=== PATIENT | female | born 1950 | race Caucasian/White ===

== ENCOUNTER → 2017-09-09 07:10 | Outpatient (CLI) | payer MEDICARE, OTHER, SELFPAY ==
[2017-09-09 09:28] LABS: Hemoglobin A1C% w Est Avg Glu 6.9 % (4.0-6.0)
[2017-09-09 09:42] LABS: HDL Cholesterol 50 mg/dL (40-60); Triglycerides 465 mg/dL (35-150)
[2017-09-09 09:51] LABS: Cholesterol 318 mg/dL (140-199)
== END ==
PROVIDERS: PCP Family Medicine; Visit Provider Family Medicine
DX: E11.9 Type 2 diabetes mellitus without complications (principal)
CPT/HCPCS: 36415; 80061; 83036

== ENCOUNTER → 2017-10-22 15:32 | Outpatient (CLI) | payer MEDICARE, OTHER, SELFPAY ==
--- NOTE | 2017-10-22 15:35 | DI.RAD.S_ITS ---
PROCEDURE: XR HIP W PEL IF DONE LT MIN 4V INDICATIONS: hip pain TECHNIQUE: AP pelvis with lateral view(s) of the bilateral hip(s). COMPARISON: None. FINDINGS: Bones: No fractures or dislocations. Pelvic ring appears intact. No suspicious bony lesions. Soft tissues: The visualized bowel gas pattern is normal. No suspicious soft tissue calcifications. IMPRESSION: There is symmetric mild to moderate hip joint osteoarthritis, without visualized prior trauma Dictated by: Zeke Piper M.D. on 10/22/2017 at 16:26 Approved by: Zeke Piper M.D. on 10/22/2017 at 16:26
== END ==
PROVIDERS: Family Provider Family Medicine; PCP Family Medicine; Visit Provider Family Medicine
DX: M16.10 Unilateral primary osteoarthritis, unspecified hip (principal); M25.559 Pain in unspecified hip
CPT/HCPCS: 73522

== ENCOUNTER → 2017-12-20 09:22 | Outpatient (CLI) | payer MEDICARE, OTHER, SELFPAY ==
[2017-12-20 10:14] LABS: Hemoglobin A1C% w Est Avg Glu 7.3 % (4.0-6.0)
[2017-12-20 10:18] LABS: Cholesterol 231 mg/dL (140-199); HDL Cholesterol 46 mg/dL (40-60); LDL Cholesterol Calculated 143 mg/dL (<100); Triglycerides 208 mg/dL (35-150)
== END ==
PROVIDERS: PCP Family Medicine; Visit Provider Family Medicine
DX: E11.9 Type 2 diabetes mellitus without complications (principal); E78.00 Pure hypercholesterolemia, unspecified
CPT/HCPCS: 36415; 80061; 83036

== ENCOUNTER 2018-01-09 08:15 | Outpatient (RCR) | payer MEDICARE, OTHER, SELFPAY ==
--- NOTE | 2017-12-03 12:27 | PT.OIE ---
Current Diagnoses Pain in left hip (12/03/17) Past Medical History (Last Reviewed 12/03/17 @ 09:21 by Noe Christopher, PT, DC) CTS (carpal tunnel syndrome) (Chronic) Diverticular disease (Chronic 2016) Foot pain (Chronic 2015) Hayfever (Chronic 1956) Osteoporosis (Chronic 2015) Cataract (Resolved 2009) Measles (Resolved 1963) Mumps (Resolved 1960) Past Surgical History (Last Updated 08/28/17 @ 16:12 by Zenaida Tanner) Anesthesia (Resolved) History of cataract removal with insertion of prosthetic lens (Resolved 2012) History of hysterectomy (Resolved 1976) Status post arthroscopy (Resolved 2010) Status post rotator cuff repair (Resolved 1998) Status post tubal ligation (Resolved 1974) Provider Visit Care Team Role Provider Type Michela Muñiz MD Attending Provider Physician Family Provider Primary Care Provider Specialty: Family Practice Address: [address] [place] [address] Email: [email or web address] Physical Therapy Initial Evaluation PT-OP-A Visit Information Start: 12/03/17 09:18 Freq: Status: Active Protocol: Document 12/03/17 09:22 EA (Rec: 12/03/17 09:35 EA [id number]) Out-Patient Physical Therapy Visit Information Visit Information Visit Type Initial Evaluation Visit Start Time 08:15 Visit Stop Time 08:50 Total Visit Minutes 35 Visit Number 1 Evaluation Information Evaluation Date 12/03/17 PT-OP-B Current Condition Start: 12/03/17 09:18 Freq: Status: Active Protocol: Document 12/03/17 09:22 EA (Rec: 12/03/17 09:35 EA [id number]) Current Condition History of Current Condition Onset Date August/2017 Current Complaints Bilateral ant/post hip pain R> L History of Current Condition Pt reports current hip condition started gradually since August/2017 with no history of trauma or previous surgery. He noted pain is increasing in the past 3 weeks after long standing position and long distance of walking. Pt denies loss of function and burning sensation to both LE' s X-rays performed two weeks ago and she stated that it was bilateral hip OA. 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 Current Functional Impairments (Reported) Functional Limitations- ADL's Indep Functional Limitations- Mobility/Gait Limited due to increased bilateral hip pain Functional Limitations- Work/School has to rest and sit frequently at work due to pain. PT-OP-C Subjective Start: 12/03/17 09:18 Freq: Status: Active Protocol: Document 12/03/17 09:22 EA (Rec: 12/03/17 09:35 EA [id number]) OP-PT Subjective Patient Comments Patient Comments Pt reports current hip condition started gradually since August/2017 with no history of trauma or previous surgery. He noted pain is increasing in the past 3 weeks after long standing position and long distance of walking and rated pain at rest 1/10 and 5/10 with activity. Pt denies loss of function and burning sensation to both LE.s X-rays performed two weeks ago and she stated that it was a hip OA. Patient Reported Progress Same Patient Questionnaires Lower Extremity Functional Scale LEFS Score 54 LEFS Impairment 20 to 39% Impaired (Score 48- 62) PT-OP-F Manual Assessment Start: 12/03/17 09:18 Freq: Status: Active Protocol: Document 12/03/17 10:47 EA (Rec: 12/03/17 10:51 EA [id number]) Manual Assessments Soft Tissue Assessment Soft Tissue Mobility Assessment Tight boths hip flexors Joint Mobility Assessment Joint Mobility Assessment No joint hypomobility noted PT-OP-G Mobility & Gait Start: 12/03/17 09:18 Freq: Status: Active Protocol: Document 12/03/17 10:47 EA (Rec: 12/03/17 10:51 EA [id number]) OP Gait Assessment Gait Deviations General Gait Pattern Within Normal Limits PT-OP-J Posture/Palpation/Skin Start: 12/03/17 09:18 Freq: Status: Active Protocol: Document 12/03/17 10:47 EA (Rec: 12/03/17 10:51 EA [id number]) Posture Evaluation Position Standing Pelvis Posture Anteriorly Tilted Hip Posture (R) Flexed Palpation Assessment Location One Palpation Location Bilaterl HIP E-rotators, R Paralumbars, Iliopsoas Palpation Findings Tenderness Trigger Point PT-OP-K Range of Motion Start: 12/03/17 09:18 Freq: Status: Active Protocol: Document 12/03/17 09:35 EA (Rec: 12/03/17 09:43 EA [id number]) Hip Goniometric Range of Motion Hip Measured in Degrees Right Flexion w/Knee Flexed 110 Extension 0 Abduction 35 Internal Rotation 30 External Rotation 30 PT-OP-L Special Tests Start: 12/03/17 09:18 Freq: Status: Active Protocol: Document 12/03/17 09:35 EA (Rec: 12/03/17 09:43 EA [id number]) Special Tests Hip Special Tests Scour Test Test Results - Comments not even sensitive Ria's Test Test Results + both Knee Special Tests Louise's Test Test Results + tightness to right Neural Special Tests- Lower Body Femoral Nerve Tension Test Results - PT-OP-M Strength Start: 12/03/17 09:18 Freq: Status: Active Protocol: Document 12/03/17 09:35 EA (Rec: 12/03/17 09:43 EA [id number]) Hip Strength Hip Manual Muscle Testing Left Flexion (L2) 4- Good- Extension (S1) 4+ Good+ Abduction 4 Good Adduction 4 Good External Rotation 4 Good Internal Rotation 4- Good- Right Flexion (L2) 4- Good- Extension (S1) 4+ Good+ Abduction 4 Good Adduction 4 Good External Rotation 4 Good Internal Rotation 4- Good- Knee Strength Knee Manual Muscle Testing Right Reason Not Measured WFL Left Reason Not Measured WFL PT-OP-Q Treatments Start: 12/03/17 09:18 Freq: Status: Active Protocol: Document 12/03/17 09:35 EA (Rec: 12/03/17 09:43 EA [id number]) Self-Care/Home Management Treatment Education Patient Education Home Exercise Program Joint Protection Pain Management Safety PT-OP-T Assessment and Plan Start: 12/03/17 09:18 Freq: Status: Active Protocol: Document 12/03/17 09:35 EA (Rec: 12/03/17 09:43 EA [id number]) Physical Therapy Assessment Rehab Potential Rehabilitation Potential Good Evaluation Complexity Number of Personal Factors/Comorbidities 3 or More Number of Body Systems Impaired 1-2 Clinical Presentation at Evaluation Evolving Impairments Impairments Activity Tolerance Functional Mobility Pain ROM Soft Tissue Mobility Strength Other Concerns Barriers to Rehabilitation None at this time Goals Four Impairment activity tolerance Intermediate Goal (LTG) Patient will report increase activity tolerance in standing to more than 1 hour without increase in pain. Three Impairment Impaired both Hip flexors strength Can Runner Goal (LTG) Patient will increase hip flexors strength to 1/2 level for functional use. LTG Duration 4 wks Two Impairment Impaired hip flexors extensibility Can Runner Goal (LTG) Patient will increase hip flexor and R ITB flexibility to functional range LTG Duration 4 wks One Impairment LEFS impairment scale score of 54/80 Intermediate Goal (LTG) Patient will increase LEFS score to >60 LTG Duration 4 wks Progress Towards Goals Progress Towards Goals Progressing Toward Goals Assessment Summary Assessment Pleasant 67 y/o F patient with a referring diagnosis of bilateral hip pain. Today patient exhibits tightness and weakness to both hip flexors, tender points at right upper gluteals including hip E-rotators, ITB tightness. Patient did not demonstrates any signs of hip OA severity during the tests, however moderately sensitive to KENDRA test. Patient did no show neural involvement during neural tests. Due to hip dysfunction, patient unable to perform tasks at work and home which was not limited prior to onset. In my professional opinion, patient would benefit with skilled PT to address the aforementioned issues. Physical Therapy Plan Frequency and Duration Frequency of Treatment 2x/Week Duration of Treatment 8 Plan of Care Start Date 12/03/17 Plan of Care End Date 01/28/18 Therapeutic Interventions Therapeutic Interventions Home Exercise Program Joint Mobilizations Manual Therapy Patient/Caregiver Education Self-Care/Home Management Soft Tissue Mobilization Therapeutic Activities Therapeutic Exercises Modalities Cold Pack/Ice Massage Electric Stimulation Hot Packs Ultrasound Next Visit Focus/Plan Next Note Type Treatment Note Next Visit Plan Provide HEP, flexibility, hip strengthening
--- NOTE | 2017-12-03 12:29 | PT.OPPOC ---
Current Diagnoses Pain in left hip (12/03/17) Provider Visit Care Team Role Provider Type Michela Muñiz MD Attending Provider Physician Family Provider Primary Care Provider Specialty: Family Practice Address: [address] [place] [address], [facility] Email: [email or web address] Plan Of Care PT-OP-T Assessment and Plan Start: 12/03/17 09:18 Freq: Status: Active Protocol: Document 12/03/17 09:35 EA (Rec: 12/03/17 09:43 EA [id number]) Physical Therapy Assessment Rehab Potential Rehabilitation Potential Good Evaluation Complexity Number of Personal Factors/Comorbidities 3 or More Number of Body Systems Impaired 1-2 Clinical Presentation at Evaluation Evolving Impairments Impairments Activity Tolerance Functional Mobility Pain ROM Soft Tissue Mobility Strength Other Concerns Barriers to Rehabilitation None at this time Goals Four Impairment activity tolerance Wearing Apparel Shaker Goal (LTG) Patient will report increase activity tolerance in standing to more than 1 hour without increase in pain. Three Impairment Impaired both Hip flexors strength Wearing Apparel Shaker Goal (LTG) Patient will increase hip flexors strength to 1/2 level for functional use. LTG Duration 4 wks Two Impairment Impaired hip flexors extensibility Wearing Apparel Shaker Goal (LTG) Patient will increase hip flexor and R ITB flexibility to functional range LTG Duration 4 wks One Impairment LEFS impairment scale score of 54/80 Longterm Goal (LTG) Patient will increase LEFS score to >60 LTG Duration 4 wks Progress Towards Goals Progress Towards Goals Progressing Toward Goals Assessment Summary Assessment Pleasant 67 y/o F patient with a referring diagnosis of bilateral hip pain. Today patient exhibits tightness and weakness to both hip flexors, tender points at right upper gluteals including hip E-rotators, ITB tightness. Patient did not demonstrates any signs of hip OA severity during the tests, however moderately sensitive to KENDRA test. Patient did no show neural involvement during neural tests. Due to hip dysfunction, patient unable to perform tasks at work and home which was not limited prior to onset. In my professional opinion, patient would benefit with skilled PT to address the aforementioned issue. Physical Therapy Plan Frequency and Duration Frequency of Treatment 2x/Week Duration of Treatment 8 Plan of Care Start Date 12/03/17 Plan of Care End Date 01/28/18 Therapeutic Interventions Therapeutic Interventions Home Exercise Program Joint Mobilizations Manual Therapy Patient/Caregiver Education Self-Care/Home Management Soft Tissue Mobilization Therapeutic Activities Therapeutic Exercises Modalities Cold Pack/Ice Massage Electric Stimulation Hot Packs Ultrasound Next Visit Focus/Plan Next Note Type Treatment Note Next Visit Plan Provide HEP, flexibility, hip strengthening Plan of Care Dates Plan of Care Start Date 12/03/17 Plan of Care End Date 01/28/18 Please Sign and Return: I have reviewed this Plan of Care and certify that the skilled therapy services above are required to meet the patient?s needs. Physician Signature Date Printed Name and Credentials Clinical Instructor Signature Printed Name and Credentials
--- NOTE | 2017-12-05 08:44 | PT.OTN ---
Current Diagnoses Pain in left hip (12/05/17) Physical Therapy Treatment Note PT-OP-A Visit Information Start: 12/03/17 09:18 Freq: Status: Active Protocol: Document 12/05/17 07:30 AMB (Rec: 12/05/17 07:36 AMB [id number]) Out-Patient Physical Therapy Visit Information Visit Information Visit Type Treatment Note Visit Start Time 07:30 Visit Stop Time 08:15 Total Visit Minutes 45 Visit Number 2 PT-OP-B Current Condition Start: 12/03/17 09:18 Freq: Status: Active Protocol: Document 12/03/17 09:22 EA (Rec: 12/03/17 09:35 EA [id number]) Current Condition History of Current Condition Onset Date August/2017 Current Complaints Bilateral ant/post hip pain R> L History of Current Condition Pt reports current hip condition started gradually since August/2017 with no history of trauma or previous surgery. He noted pain is increasing in the past 3 weeks after long standing position and long distance of walking. Pt denies loss of function and burning sensation to both LE' s X-rays performed two weeks ago and she stated that it was bilateral hip OA. 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 Current Functional Impairments (Reported) Functional Limitations- ADL's Indep Functional Limitations- Mobility/Gait Limited due to increased bilateral hip pain Functional Limitations- Work/School has to rest and sit frequently at work due to pain. PT-OP-C Subjective Start: 12/03/17 09:18 Freq: Status: Active Protocol: Document 12/05/17 07:30 AMB (Rec: 12/05/17 07:36 AMB [id number]) OP-PT Subjective Patient Comments Patient Comments Pt works at [employer] and extended standing (more than 5-10 minutes) increases her pain bilaterally (worse at the right hip). PT-OP-F Manual Assessment Start: 12/03/17 09:18 Freq: Status: Active Protocol: Document 12/03/17 10:47 EA (Rec: 12/03/17 10:51 EA [id number]) Manual Assessments Soft Tissue Assessment Soft Tissue Mobility Assessment Tight boths hip flexors Joint Mobility Assessment Joint Mobility Assessment No joint hypomobility noted PT-OP-G Mobility & Gait Start: 12/03/17 09:18 Freq: Status: Active Protocol: Document 12/03/17 10:47 EA (Rec: 12/03/17 10:51 EA [id number]) OP Gait Assessment Gait Deviations General Gait Pattern Within Normal Limits PT-OP-J Posture/Palpation/Skin Start: 12/03/17 09:18 Freq: Status: Active Protocol: Document 12/03/17 10:47 EA (Rec: 12/03/17 10:51 EA [id number]) Posture Evaluation Position Standing Pelvis Posture Anteriorly Tilted Hip Posture (R) Flexed Palpation Assessment Location One Palpation Location Bilaterl HIP E-rotators, R Paralumbars, Iliopsoas Palpation Findings Tenderness Trigger Point PT-OP-K Range of Motion Start: 12/03/17 09:18 Freq: Status: Active Protocol: Document 12/03/17 09:35 EA (Rec: 12/03/17 09:43 EA [id number]) Hip Goniometric Range of Motion Hip Measured in Degrees Right Flexion w/Knee Flexed 110 Extension 0 Abduction 35 Internal Rotation 30 External Rotation 30 PT-OP-L Special Tests Start: 12/03/17 09:18 Freq: Status: Active Protocol: Document 12/03/17 09:35 EA (Rec: 12/03/17 09:43 EA [id number]) Special Tests Hip Special Tests Scour Test Test Results - Comments not even sensitive Ria's Test Test Results + both Knee Special Tests Louise's Test Test Results + tightness to right Neural Special Tests- Lower Body Femoral Nerve Tension Test Results - PT-OP-M Strength Start: 12/03/17 09:18 Freq: Status: Active Protocol: Document 12/03/17 09:35 EA (Rec: 12/03/17 09:43 EA [id number]) Hip Strength Hip Manual Muscle Testing Left Flexion (L2) 4- Good- Extension (S1) 4+ Good+ Abduction 4 Good Adduction 4 Good External Rotation 4 Good Internal Rotation 4- Good- Right Flexion (L2) 4- Good- Extension (S1) 4+ Good+ Abduction 4 Good Adduction 4 Good External Rotation 4 Good Internal Rotation 4- Good- Knee Strength Knee Manual Muscle Testing Right Reason Not Measured WFL Left Reason Not Measured WFL PT-OP-Q Treatments Start: 12/03/17 09:18 Freq: Status: Active Protocol: Document 12/05/17 07:30 AMB (Rec: 12/05/17 08:43 AMB [id number]) Cardio Equipment Recumbent Elliptical (Biodex) Duration (Minutes) 5 Resistance 4 Therapeutic Exercises Supine Exercises 2 Supine Exercise Name piriformis stretch Reps/Minutes 30x2 1 Supine Exercise Name SLR Reps/Minutes 2x5 Sidelying Exercises 2 Sidelying Exercise Name IT band stretch Reps/Minutes 30x2 1 Sidelying Exercise Name Straight leg raise Reps/Minutes 2x5 Standing Exercises 1 Standing Exercise Name squats Reps/Minutes 2x10 Therapeutic Activity Therapeutic Activity 1 Name Standing posture Comments vc to avoid genu recurvatum, engage core Manual Therapy Treatment Soft Tissue Mobilization 1 Body Location IT band, hip flexors Mobilization Type Myofascial Release Sustained Pressure Intensity/Depth Moderate Comments bilateral PT-OP-T Assessment and Plan Start: 12/03/17 09:18 Freq: Status: Active Protocol: Document 12/05/17 07:30 AMB (Rec: 12/05/17 08:43 AMB [id number]) Physical Therapy Assessment Assessment Summary Assessment The patient did not have much pain with exercises, but fatigues quickly with hip flexion exercises. Will need follow up with standing posture. L knee meniscus surgery history may impact functional movement. Physical Therapy Plan Next Visit Focus/Plan Next Note Type Treatment Note Next Visit Plan Continue to progress HEP with stretching and strengthening.
--- NOTE | 2017-12-10 10:06 | PT.OTN ---
Current Diagnoses Pain in left hip (12/10/17) Physical Therapy Treatment Note PT-OP-A Visit Information Start: 12/03/17 09:18 Freq: Status: Active Protocol: Document 12/10/17 09:45 EA (Rec: 12/10/17 09:47 EA [id number]) Out-Patient Physical Therapy Visit Information Visit Information Visit Type Treatment Note Visit Start Time 09:00 Visit Stop Time 09:45 Total Visit Minutes 45 Visit Number 3 PT-OP-B Current Condition Start: 12/03/17 09:18 Freq: Status: Active Protocol: Document 12/03/17 09:22 EA (Rec: 12/03/17 09:35 EA [id number]) Current Condition History of Current Condition Onset Date August/2017 Current Complaints Bilateral ant/post hip pain R> L History of Current Condition Pt reports current hip condition started gradually since August/2017 with no history of trauma or previous surgery. He noted pain is increasing in the past 3 weeks after long standing position and long distance of walking. Pt denies loss of function and burning sensation to both LE' s X-rays performed two weeks ago and she stated that it was bilateral hip OA. 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 Current Functional Impairments (Reported) Functional Limitations- ADL's Indep Functional Limitations- Mobility/Gait Limited due to increased bilateral hip pain Functional Limitations- Work/School has to rest and sit frequently at work due to pain. PT-OP-C Subjective Start: 12/03/17:18 Freq: Status: Active Protocol: Document 12/10/17 09:02 EA (Rec: 12/10/17 09:45 EA [id number]) OP-PT Subjective Patient Comments Patient Comments Pt reports last session was ok ; states her low back pain cont. to bother her and right upper post glutes and bilateral lateral thigh. PT-OP-F Manual Assessment Start: 12/03/17 09:18 Freq: Status: Active Protocol: Document 12/03/17 10:47 EA (Rec: 10/02/18 10:51 EA [id number]) Manual Assessments Soft Tissue Assessment Soft Tissue Mobility Assessment Tight boths hip flexors Joint Mobility Assessment Joint Mobility Assessment No joint hypomobility noted PT-OP-G Mobility & Gait Start: 12/03/17 09:18 Freq: Status: Active Protocol: Document 12/03/17 10:47 EA (Rec: 12/03/17 10:51 EA [id number]) OP Gait Assessment Gait Deviations General Gait Pattern Within Normal Limits PT-OP-J Posture/Palpation/Skin Start: 12/03/17 09:18 Freq: Status: Active Protocol: Document 12/03/17 10:47 EA (Rec: 12/03/17 10:51 EA [id number]) Posture Evaluation Position Standing Pelvis Posture Anteriorly Tilted Hip Posture (R) Flexed Palpation Assessment Location One Palpation Location Bilaterl HIP E-rotators, R Paralumbars, Iliopsoas Palpation Findings Tenderness Trigger Point PT-OP-K Range of Motion Start: 12/03/17 09:18 Freq: Status: Active Protocol: Document 12/03/17 09:35 EA (Rec: 12/03/17 09:43 EA [id number]) Hip Goniometric Range of Motion Hip Measured in Degrees Right Flexion w/Knee Flexed 110 Extension 0 Abduction 35 Internal Rotation 30 External Rotation 30 PT-OP-L Special Tests Start: 12/03/17 09:18 Freq: Status: Active Protocol: Document 12/03/17 09:35 EA (Rec: 12/03/17 09:43 EA [id number]) Special Tests Hip Special Tests Scour Test Test Results - Comments not even sensitive Ria's Test Test Results + both Knee Special Tests Louise's Test Test Results + tightness to right Neural Special Tests- Lower Body Femoral Nerve Tension Test Results - PT-OP-M Strength Start: 12/03/17 09:18 Freq: Status: Active Protocol: Document 12/03/17 09:35 EA (Rec: 12/03/17 09:43 EA [id number]) Hip Strength Hip Manual Muscle Testing Left Flexion (L2) 4- Good- Extension (S1) 4+ Good+ Abduction 4 Good Adduction 4 Good External Rotation 4 Good Internal Rotation 4- Good- Right Flexion (L2) 4- Good- Extension (S1) 4+ Good+ Abduction 4 Good Adduction 4 Good External Rotation 4 Good Internal Rotation 4- Good- Knee Strength Knee Manual Muscle Testing Right Reason Not Measured WFL Left Reason Not Measured WFL PT-OP-Q Treatments Start: 12/03/17 09:18 Freq: Status: Active Protocol: Document 12/10/17 09:02 EA (Rec: 12/10/17 09:45 EA [id number]) Cardio Equipment Recumbent Elliptical (Biodex) Duration (Minutes) 5 Resistance 4 Gym Equipment Shuttle Recovery Unilateral Squats Resistance 1 cord Shuttle Recovery Platform Stable Reps/Time x 15 reps Bilateral Squats Resistance 2 cords Reps/Time x 15 reps Therapeutic Exercises Supine Exercises 3 Supine Exercise Name SKTC Reps/Minutes x 2 reps x 15SH 2 Supine Exercise Name piriformis stretch Reps/Minutes 30x2 1 Supine Exercise Name SLR Side bilateral Resistance 2 lbs AW Reps/Minutes 12 x 2 Comments W/ PPT Sidelying Exercises 2 Sidelying Exercise Name IT band stretch Reps/Minutes 30x2 1 Sidelying Exercise Name Straight leg raise Side right Resistance 2lbs AW Reps/Minutes 10 reps Comments not tolerated on left Standing Exercises 2 Standing Exercise Name Side step walk Resistance YTB Reps/Minutes x 4 lines with rails supprt 1 Standing Exercise Name squats Reps/Minutes 2x10 Manual Therapy Treatment Soft Tissue Mobilization 1 Body Location IT band, hip flexors, piriformis Mobilization Type Myofascial Release Sustained Pressure Intensity/Depth Moderate Comments bilateral PT-OP-R Modalities Start: 12/03/17 09:18 Freq: Status: Active Protocol: Document 12/10/17 09:45 EA (Rec: 12/10/17 09:47 EA [id number]) Hot Pack/Cold Pack Treatment Hot Pack Location upper gluteals, Patient Position Supine Patient Tolerance Good PT-OP-T Assessment and Plan Start: 12/03/17 09:18 Freq: Status: Active Protocol: Document 12/10/17 09:02 EA (Rec: 12/10/17 09:45 EA [id number]) Physical Therapy Assessment Assessment Summary Assessment Light headed after standing exercises but tolerated with rest. Mild left knee discomfort with squatting. Physical Therapy Plan Next Visit Focus/Plan Next Note Type Treatment Note Next Visit Plan Continue to progress HEP with stretching and strengthening.
--- NOTE | 2017-12-16 16:31 | PT.OTN ---
Current Diagnoses Pain in left hip (12/16/17) Physical Therapy Treatment Note PT-OP-A Visit Information Start: 12/03/17 09:18 Freq: Status: Active Protocol: Document 12/16/17 07:30 AMB (Rec: 12/16/17 07:38 AMB [id number]) Out-Patient Physical Therapy Visit Information Visit Information Visit Type Treatment Note Visit Start Time 09:00 Visit Stop Time 09:45 Total Visit Minutes 45 Visit Number 4 Evaluation Information Evaluation Date 12/03/17 PT-OP-B Current Condition Start: 12/03/17 09:18 Freq: Status: Active Protocol: Document 12/03/17 09:22 EA (Rec: 12/03/17 09:35 EA [id number]) Current Condition History of Current Condition Onset Date August/2017 Current Complaints Bilateral ant/post hip pain R> L History of Current Condition Pt reports current hip condition started gradually since August/2017 with no history of trauma or previous surgery. He noted pain is increasing in the past 3 weeks after long standing position and long distance of walking. Pt denies loss of function and burning sensation to both LE' s X-rays performed two weeks ago and she stated that it was bilateral hip OA. 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 Current Functional Impairments (Reported) Functional Limitations- ADL's Indep Functional Limitations- Mobility/Gait Limited due to increased bilateral hip pain Functional Limitations- Work/School has to rest and sit frequently at work due to pain. PT-OP-C Subjective Start: 12/03/17 09:18 Freq: Status: Active Protocol: Document 12/16/17 07:30 AMB (Rec: 12/16/17 07:38 AMB [id number]) OP-PT Subjective Patient Comments Patient Comments Pt states pain was about the same, concerned about her heart and shortness of breath which has been increasing for about 2 weeks. PT-OP-F Manual Assessment Start: 12/03/17 09:18 Freq: Status: Active Protocol: Document 12/03/17 10:47 EA (Rec: 12/03/17 10:51 EA [id number]) Manual Assessments Soft Tissue Assessment Soft Tissue Mobility Assessment Tight boths hip flexors Joint Mobility Assessment Joint Mobility Assessment No joint hypomobility noted PT-OP-G Mobility & Gait Start: 12/03/17 09:18 Freq: Status: Active Protocol: Document 12/03/17 10:47 EA (Rec: 12/03/17 10:51 EA [id number]) OP Gait Assessment Gait Deviations General Gait Pattern Within Normal Limits PT-OP-J Posture/Palpation/Skin Start: 12/03/17 09:18 Freq: Status: Active Protocol: Document 12/03/17 10:47 EA (Rec: 12/03/17 10:51 EA [id number]) Posture Evaluation Position Standing Pelvis Posture Anteriorly Tilted Hip Posture (R) Flexed Palpation Assessment Location One Palpation Location Bilaterl HIP E-rotators, R Paralumbars, Iliopsoas Palpation Findings Tenderness Trigger Point PT-OP-K Range of Motion Start: 12/03/17 09:18 Freq: Status: Active Protocol: Document 12/03/17 09:35 EA (Rec: 12/03/17 09:43 EA [id number]) Hip Goniometric Range of Motion Hip Measured in Degrees Right Flexion w/Knee Flexed 110 Extension 0 Abduction 35 Internal Rotation 30 External Rotation 30 PT-OP-L Special Tests Start: 12/03/17 09:18 Freq: Status: Active Protocol: Document 12/03/17 09:35 EA (Rec: 12/03/17 09:43 EA [id number]) Special Tests Hip Special Tests Scour Test Test Results - Comments not even sensitive Ria's Test Test Results + both Knee Special Tests Louise's Test Test Results + tightness to right Neural Special Tests- Lower Body Femoral Nerve Tension Test Results - PT-OP-M Strength Start: 12/03/17 09:18 Freq: Status: Active Protocol: Document 12/03/17 09:35 EA (Rec: 12/03/17 09:43 EA [id number]) Hip Strength Hip Manual Muscle Testing Left Flexion (L2) 4- Good- Extension (S1) 4+ Good+ Abduction 4 Good Adduction 4 Good External Rotation 4 Good Internal Rotation 4- Good- Right Flexion (L2) 4- Good- Extension (S1) 4+ Good+ Abduction 4 Good Adduction 4 Good External Rotation 4 Good Internal Rotation 4- Good- Knee Strength Knee Manual Muscle Testing Right Reason Not Measured WFL Left Reason Not Measured WFL PT-OP-Q Treatments Start: 12/03/17 09:18 Freq: Status: Active Protocol: Document 12/16/17 07:30 AMB (Rec: 12/16/17 11:01 AMB [id number]) Cardio Equipment Recumbent Stepper (Sci-Fit) Duration (Minutes) 6 Resistance 3 Therapeutic Exercises Supine Exercises 3 Supine Exercise Name SKTC Reps/Minutes x 2 reps x 15SH 2 Supine Exercise Name piriformis stretch Reps/Minutes 30x2 1 Supine Exercise Name SLR Side bilateral Resistance 2 lbs AW Reps/Minutes 12 x 2 Comments W/ PPT Sidelying Exercises 2 Sidelying Exercise Name IT band stretch Reps/Minutes 30x2 Therapeutic Activity Therapeutic Activity 3 Name pushing cart Comments Pt pushes cart at work, use body weight, and engage core. 2 Name bed body mechanics Comments rolling over in bed, engaging core, bend knees, use UE support PT-OP-R Modalities Start: 12/03/17 09:18 Freq: Status: Active Protocol: Document 12/10/17 09:45 EA (Rec: 12/10/17 09:47 EA [id number]) Hot Pack/Cold Pack Treatment Hot Pack Location upper gluteals, Patient Position Supine Patient Tolerance Good PT-OP-T Assessment and Plan Start: 12/03/17 09:18 Freq: Status: Active Protocol: Document 12/16/17 07:30 AMB (Rec: 12/16/17 11:01 AMB [id number]) Physical Therapy Assessment Assessment Summary Assessment Pt needs to continue to learn to engage core, needs repetition with body mechanics . Will be seeing a new clipper operator at the end of the month. Physical Therapy Plan Next Visit Focus/Plan Next Note Type Treatment Note Next Visit Plan Progress core stability, body mechanics with bed mobility and standing/working
--- NOTE | 2017-12-19 16:32 | PT.OTN ---
Current Diagnoses Pain in left hip (12/19/17) Physical Therapy Treatment Note PT-OP-A Visit Information Start: 12/03/17 09:18 Freq: Status: Active Protocol: Document 12/19/17 07:30 AMB (Rec: 12/19/17 07:40 AMB [id number]) Out-Patient Physical Therapy Visit Information Visit Information Visit Type Treatment Note Visit Start Time 07:30 Visit Stop Time 08:15 Total Visit Minutes 45 Visit Number 5 PT-OP-B Current Condition Start: 12/03/17 09:18 Freq: Status: Active Protocol: Document 12/03/17 09:22 EA (Rec: 12/03/17 09:35 EA [id number]) Current Condition History of Current Condition Onset Date August/2017 Current Complaints Bilateral ant/post hip pain R> L History of Current Condition Pt reports current hip condition started gradually since August/2017 with no history of trauma or previous surgery. He noted pain is increasing in the past 3 weeks after long standing position and long distance of walking. Pt denies loss of function and burning sensation to both LE' s X-rays performed two weeks ago and she stated that it was bilateral hip OA. 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 Current Functional Impairments (Reported) Functional Limitations- ADL's Indep Functional Limitations- Mobility/Gait Limited due to increased bilateral hip pain Functional Limitations- Work/School has to rest and sit frequently at work due to pain. PT-OP-C Subjective Start: 12/03/17 09:18 Freq: Status: Active Protocol: Document 12/19/17 07:30 AMB (Rec: 12/19/17 07:40 AMB [id number]) OP-PT Subjective Patient Comments Patient Comments Stiffness in back and hips, has been taking it easy because has not been feeling well. Seeing master ocean yacht on Saturday. PT-OP-F Manual Assessment Start: 12/03/17 09:18 Freq: Status: Active Protocol: Document 12/03/17 10:47 EA (Rec: 12/03/17 10:51 EA [id number]) Manual Assessments Soft Tissue Assessment Soft Tissue Mobility Assessment Tight boths hip flexors Joint Mobility Assessment Joint Mobility Assessment No joint hypomobility noted PT-OP-G Mobility & Gait Start: 12/03/17 09:18 Freq: Status: Active Protocol: Document 12/03/17 10:47 EA (Rec: 12/03/17 10:51 EA [id number]) OP Gait Assessment Gait Deviations General Gait Pattern Within Normal Limits PT-OP-J Posture/Palpation/Skin Start: 12/03/17 09:18 Freq: Status: Active Protocol: Document 12/03/17 10:47 EA (Rec: 12/03/17 10:51 EA [id number]) Posture Evaluation Position Standing Pelvis Posture Anteriorly Tilted Hip Posture (R) Flexed Palpation Assessment Location One Palpation Location Bilaterl HIP E-rotators, R Paralumbars, Iliopsoas Palpation Findings Tenderness Trigger Point PT-OP-K Range of Motion Start: 12/03/17 09:18 Freq: Status: Active Protocol: Document 12/03/17 09:35 EA (Rec: 12/03/17 09:43 EA [id number]) Hip Goniometric Range of Motion Hip Measured in Degrees Right Flexion w/Knee Flexed 110 Extension 0 Abduction 35 Internal Rotation 30 External Rotation 30 PT-OP-L Special Tests Start: 12/03/17 09:18 Freq: Status: Active Protocol: Document 12/03/17 09:35 EA (Rec: 12/03/17 09:43 EA [id number]) Special Tests Hip Special Tests Scour Test Test Results - Comments not even sensitive Ria's Test Test Results + both Knee Special Tests Louise's Test Test Results + tightness to right Neural Special Tests- Lower Body Femoral Nerve Tension Test Results - PT-OP-M Strength Start: 12/03/17 09:18 Freq: Status: Active Protocol: Document 12/03/17 09:35 EA (Rec: 12/03/17 09:43 EA [id number]) Hip Strength Hip Manual Muscle Testing Left Flexion (L2) 4- Good- Extension (S1) 4+ Good+ Abduction 4 Good Adduction 4 Good External Rotation 4 Good Internal Rotation 4- Good- Right Flexion (L2) 4- Good- Extension (S1) 4+ Good+ Abduction 4 Good Adduction 4 Good External Rotation 4 Good Internal Rotation 4- Good- Knee Strength Knee Manual Muscle Testing Right Reason Not Measured WFL Left Reason Not Measured WFL PT-OP-Q Treatments Start: 12/03/17 09:18 Freq: Status: Active Protocol: Document 12/19/17 07:30 AMB (Rec: 12/19/17 08:07 AMB [id number]) Cardio Equipment Recumbent Elliptical (Biodex) Duration (Minutes) 5 Resistance 4 Therapeutic Exercises Supine Exercises 3 Supine Exercise Name SKTC Reps/Minutes x 2 reps x 15SH 2 Supine Exercise Name piriformis stretch Reps/Minutes 30x2 1 Supine Exercise Name SLR Side bilateral Resistance 2 lbs AW Reps/Minutes 12 x 2 Comments W/ PPT Sitting Exercises 2 Sitting Exercise Name SKTC 1 Sitting Exercise Name pelvic tilt Standing Exercises 1 Standing Exercise Name squats Reps/Minutes 2x10 PT-OP-R Modalities Start: 12/03/17 09:18 Freq: Status: Active Protocol: Document 12/10/17 09:45 EA (Rec: 12/10/17 09:47 EA [id number]) Hot Pack/Cold Pack Treatment Hot Pack Location upper gluteals, Patient Position Supine Patient Tolerance Good PT-OP-T Assessment and Plan Start: 12/03/17 09:18 Freq: Status: Active Protocol: Document 12/19/17 07:30 AMB (Rec: 12/19/17 12:57 AMB [id number]) Physical Therapy Assessment Assessment Summary Assessment Did not progress pt's exercises today significantly due to her feelings of palpitations and lightheadedness. Her HR and SpO2 remained normal throughout the session. She has been taking it easy and that has been helping her pain . Physical Therapy Plan Next Visit Focus/Plan Next Note Type Treatment Note Next Visit Plan Progress core stability, body mechanics with bed mobility and standing/working
--- NOTE | 2017-12-26 08:17 | PT.OTN ---
Current Diagnoses Pain in left hip (12/26/17) Physical Therapy Treatment Note PT-OP-A Visit Information Start: 12/03/17 09:18 Freq: Status: Active Protocol: Document 12/26/17 07:30 AMB (Rec: 12/26/17 07:37 AMB [id number]) Out-Patient Physical Therapy Visit Information Visit Information Visit Type Treatment Note Visit Start Time 07:30 Visit Stop Time 08:15 Total Visit Minutes 45 Visit Number 6 Evaluation Information Evaluation Date 12/03/17 PT-OP-B Current Condition Start: 12/03/17 09:18 Freq: Status: Active Protocol: Document 12/03/17 09:22 EA (Rec: 12/03/17 09:35 EA [id number]) Current Condition History of Current Condition Onset Date August/2017 Current Complaints Bilateral ant/post hip pain R> L History of Current Condition Pt reports current hip condition started gradually since August/2017 with no history of trauma or previous surgery. He noted pain is increasing in the past 3 weeks after long standing position and long distance of walking. Pt denies loss of function and burning sensation to both LE' s X-rays performed two weeks ago and she stated that it was bilateral hip OA. 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 Current Functional Impairments (Reported) Functional Limitations- ADL's Indep Functional Limitations- Mobility/Gait Limited due to increased bilateral hip pain Functional Limitations- Work/School has to rest and sit frequently at work due to pain. PT-OP-C Subjective Start: 12/03/17 09:18 Freq: Status: Active Protocol: Document 12/26/17 07:30 AMB (Rec: 12/26/17 07:37 AMB [id number]) OP-PT Subjective Patient Comments Patient Comments Hips/ back have been more symptomatic. Pt continues to be concerened regarding shortness of breath. Will see offc spec next week. PT-OP-F Manual Assessment Start: 12/03/17 09:18 Freq: Status: Active Protocol: Document 12/03/17 10:47 EA (Rec: 12/03/17 10:51 EA [id number]) Manual Assessments Soft Tissue Assessment Soft Tissue Mobility Assessment Tight boths hip flexors Joint Mobility Assessment Joint Mobility Assessment No joint hypomobility noted PT-OP-G Mobility & Gait Start: 12/03/17 09:18 Freq: Status: Active Protocol: Document 12/03/17 10:47 EA (Rec: 12/03/17 10:51 EA [id number]) OP Gait Assessment Gait Deviations General Gait Pattern Within Normal Limits PT-OP-J Posture/Palpation/Skin Start: 12/03/17 09:18 Freq: Status: Active Protocol: Document 12/03/17 10:47 EA (Rec: 12/03/17 10:51 EA [id number]) Posture Evaluation Position Standing Pelvis Posture Anteriorly Tilted Hip Posture (R) Flexed Palpation Assessment Location One Palpation Location Bilaterl HIP E-rotators, R Paralumbars, Iliopsoas Palpation Findings Tenderness Trigger Point PT-OP-K Range of Motion Start: 12/03/17 09:18 Freq: Status: Active Protocol: Document 12/03/17 09:35 EA (Rec: 12/03/17 09:43 EA [id number]) Hip Goniometric Range of Motion Hip Measured in Degrees Right Flexion w/Knee Flexed 110 Extension 0 Abduction 35 Internal Rotation 30 External Rotation 30 PT-OP-L Special Tests Start: 12/03/17 09:18 Freq: Status: Active Protocol: Document 12/03/17 09:35 EA (Rec: 12/03/17 09:43 EA [id number]) Special Tests Hip Special Tests Scour Test Test Results - Comments not even sensitive Ria's Test Test Results + both Knee Special Tests Louise's Test Test Results + tightness to right Neural Special Tests- Lower Body Femoral Nerve Tension Test Results - PT-OP-M Strength Start: 12/03/17 09:18 Freq: Status: Active Protocol: Document 12/03/17 09:35 EA (Rec: 12/03/17 09:43 EA [id number]) Hip Strength Hip Manual Muscle Testing Left Flexion (L2) 4- Good- Extension (S1) 4+ Good+ Abduction 4 Good Adduction 4 Good External Rotation 4 Good Internal Rotation 4- Good- Right Flexion (L2) 4- Good- Extension (S1) 4+ Good+ Abduction 4 Good Adduction 4 Good External Rotation 4 Good Internal Rotation 4- Good- Knee Strength Knee Manual Muscle Testing Right Reason Not Measured WFL Left Reason Not Measured WFL PT-OP-Q Treatments Start: 12/03/17 09:18 Freq: Status: Active Protocol: Document 12/26/17 07:30 AMB (Rec: 12/26/17 07:45 AMB [id number]) Cardio Equipment Recumbent Elliptical (Biodex) Duration (Minutes) 5 Resistance 4 Therapeutic Exercises Supine Exercises 4 Supine Exercise Name supine may Comments with TrA Stab 3 Supine Exercise Name SKTC Reps/Minutes x 2 reps x 15SH 2 Supine Exercise Name piriformis stretch Reps/Minutes 30x2 1 Supine Exercise Name SLR Side bilateral Resistance 2 lbs AW Reps/Minutes 12 x 2 Comments W/ PPT Sitting Exercises 2 Sitting Exercise Name SKTC 1 Sitting Exercise Name pelvic tilt Other Exercises 2 Other Exercise Name cat camel 1 Other Exercise Name alona pose Comments with sidebending Manual Therapy Treatment Soft Tissue Mobilization 1 Body Location lumbosacral paraspinals, IT band, hip flexors, piriformis Mobilization Type Myofascial Release Sustained Pressure Intensity/Depth Moderate Comments bilateral PT-OP-R Modalities Start: 12/03/17 09:18 Freq: Status: Active Protocol: Document 12/10/17 09:45 EA (Rec: 12/10/17 09:47 EA [id number]) Hot Pack/Cold Pack Treatment Hot Pack Location upper gluteals, Patient Position Supine Patient Tolerance Good PT-OP-T Assessment and Plan Start: 12/03/17 09:18 Freq: Status: Active Protocol: Document 12/26/17 07:30 AMB (Rec: 12/26/17 08:14 AMB [id number]) Physical Therapy Assessment Assessment Summary Assessment Pt continues to have low back pain with extended standing, she needs to focus on coree stabilization and posture with standing. Physical Therapy Plan Next Visit Focus/Plan Next Note Type Treatment Note Next Visit Plan progress core stabilization, into functional movements.
--- NOTE | 2017-12-30 08:16 | PT.OTN ---
Current Diagnoses Pain in left hip (12/30/17) Physical Therapy Treatment Note PT-OP-A Visit Information Start: 12/03/17 09:18 Freq: Status: Active Protocol: Document 12/30/17 07:30 AMB (Rec: 12/30/17 07:35 AMB [id number]) Out-Patient Physical Therapy Visit Information Visit Information Visit Type Treatment Note Visit Start Time 07:30 Visit Stop Time 08:15 Total Visit Minutes 45 Visit Number 6 PT-OP-B Current Condition Start: 12/03/17 09:18 Freq: Status: Active Protocol: Document 12/03/17 09:22 EA (Rec: 12/03/17 09:35 EA [id number]) Current Condition History of Current Condition Onset Date August/2017 Current Complaints Bilateral ant/post hip pain R> L History of Current Condition Pt reports current hip condition started gradually since August/2017 with no history of trauma or previous surgery. He noted pain is increasing in the past 3 weeks after long standing position and long distance of walking. Pt denies loss of function and burning sensation to both LE' s X-rays performed two weeks ago and she stated that it was bilateral hip OA. 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 Current Functional Impairments (Reported) Functional Limitations- ADL's Indep Functional Limitations- Mobility/Gait Limited due to increased bilateral hip pain Functional Limitations- Work/School has to rest and sit frequently at work due to pain. PT-OP-C Subjective Start: 12/03/17 09:18 Freq: Status: Active Protocol: Document 12/30/17 07:30 AMB (Rec: 12/30/17 07:35 AMB [id number]) OP-PT Subjective Patient Comments Patient Comments Right sided pain has increased over the weekend. Standing/ walking are aggravating. PT-OP-F Manual Assessment Start: 12/03/17 09:18 Freq: Status: Active Protocol: Document 12/03/17 10:47 EA (Rec: 12/03/17 10:51 EA [id number]) Manual Assessments Soft Tissue Assessment Soft Tissue Mobility Assessment Tight boths hip flexors Joint Mobility Assessment Joint Mobility Assessment No joint hypomobility noted PT-OP-G Mobility & Gait Start: 12/03/17 09:18 Freq: Status: Active Protocol: Document 12/03/17 10:47 EA (Rec: 12/03/17 10:51 EA [id number]) OP Gait Assessment Gait Deviations General Gait Pattern Within Normal Limits PT-OP-J Posture/Palpation/Skin Start: 12/03/17 09:18 Freq: Status: Active Protocol: Document 12/03/17 10:47 EA (Rec: 12/03/17 10:51 EA [id number]) Posture Evaluation Position Standing Pelvis Posture Anteriorly Tilted Hip Posture (R) Flexed Palpation Assessment Location One Palpation Location Bilaterl HIP E-rotators, R Paralumbars, Iliopsoas Palpation Findings Tenderness Trigger Point PT-OP-K Range of Motion Start: 12/03/17 09:18 Freq: Status: Active Protocol: Document 12/03/17 09:35 EA (Rec: 12/03/17 09:43 EA [id number]) Hip Goniometric Range of Motion Hip Measured in Degrees Right Flexion w/Knee Flexed 110 Extension 0 Abduction 35 Internal Rotation 30 External Rotation 30 PT-OP-L Special Tests Start: 12/03/17 09:18 Freq: Status: Active Protocol: Document 12/03/17 09:35 EA (Rec: 12/03/17 09:43 EA [id number]) Special Tests Hip Special Tests Scour Test Test Results - Comments not even sensitive Ria's Test Test Results + both Knee Special Tests Louise's Test Test Results + tightness to right Neural Special Tests- Lower Body Femoral Nerve Tension Test Results - PT-OP-M Strength Start: 12/03/17 09:18 Freq: Status: Active Protocol: Document 12/03/17 09:35 EA (Rec: 12/03/17 09:43 EA [id number]) Hip Strength Hip Manual Muscle Testing Left Flexion (L2) 4- Good- Extension (S1) 4+ Good+ Abduction 4 Good Adduction 4 Good External Rotation 4 Good Internal Rotation 4- Good- Right Flexion (L2) 4- Good- Extension (S1) 4+ Good+ Abduction 4 Good Adduction 4 Good External Rotation 4 Good Internal Rotation 4- Good- Knee Strength Knee Manual Muscle Testing Right Reason Not Measured WFL Left Reason Not Measured WFL PT-OP-Q Treatments Start: 12/03/17 09:18 Freq: Status: Active Protocol: Document 12/30/17 07:30 AMB (Rec: 12/30/17 07:37 AMB [id number]) Cardio Equipment Recumbent Elliptical (Biodex) Duration (Minutes) 5 Resistance 4 Therapeutic Exercises Supine Exercises 4 Supine Exercise Name supine may Comments with TrA Stab 3 Supine Exercise Name SKTC Reps/Minutes x 2 reps x 15SH 2 Supine Exercise Name piriformis stretch Reps/Minutes 30x2 1 Supine Exercise Name SLR Side bilateral Resistance 2 lbs AW Reps/Minutes 12 x 2 Comments W/ PPT Sidelying Exercises 1 Sidelying Exercise Name Straight leg raise Side right Resistance 2lbs AW Reps/Minutes 10 reps Comments not tolerated on left Sitting Exercises 2 Sitting Exercise Name SKTC 1 Sitting Exercise Name pelvic tilt Manual Therapy Treatment Soft Tissue Mobilization 1 Body Location lumbosacral paraspinals, IT band, hip flexors, piriformis Mobilization Type Myofascial Release Sustained Pressure Intensity/Depth Moderate Comments bilateral PT-OP-R Modalities Start: 12/03/17 09:18 Freq: Status: Active Protocol: Document 12/10/17 09:45 EA (Rec: 12/10/17 09:47 EA [id number]) Hot Pack/Cold Pack Treatment Hot Pack Location upper gluteals, Patient Position Supine Patient Tolerance Good PT-OP-T Assessment and Plan Start: 12/03/17 09:18 Freq: Status: Active Protocol: Document 12/30/17 07:30 AMB (Rec: 12/30/17 08:14 AMB [id number]) Physical Therapy Assessment Assessment Summary Assessment Pt with more R hamstring pain today, but reduced by end of session. Continue to encourage pt to engage core functionally at work. Physical Therapy Plan Next Visit Focus/Plan Next Note Type Treatment Note Next Visit Plan progress core stabilization, into functional movements.
--- NOTE | 2018-01-02 08:17 | PT.OTN ---
Current Diagnoses Pain in left hip (01/02/18) Physical Therapy Treatment Note PT-OP-A Visit Information Start: 12/03/17 09:18 Freq: Status: Active Protocol: Document 01/02/18 07:30 AMB (Rec: 01/02/18 07:38 AMB [id number]) Out-Patient Physical Therapy Visit Information Visit Information Visit Type Treatment Note Visit Start Time 07:30 Visit Stop Time 08:15 Total Visit Minutes 45 Visit Number 8 PT-OP-B Current Condition Start: 12/03/17 09:18 Freq: Status: Active Protocol: Document 12/03/17 09:22 EA (Rec: 12/03/17 09:35 EA [id number]) Current Condition History of Current Condition Onset Date August/2017 Current Complaints Bilateral ant/post hip pain R> L History of Current Condition Pt reports current hip condition started gradually since August/2017 with no history of trauma or previous surgery. He noted pain is increasing in the past 3 weeks after long standing position and long distance of walking. Pt denies loss of function and burning sensation to both LE' s X-rays performed two weeks ago and she stated that it was bilateral hip OA. 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 Current Functional Impairments (Reported) Functional Limitations- ADL's Indep Functional Limitations- Mobility/Gait Limited due to increased bilateral hip pain Functional Limitations- Work/School has to rest and sit frequently at work due to pain. PT-OP-C Subjective Start: 12/03/17:18 Freq: Status: Active Protocol: Document 01/02/18 07:30 AMB (Rec: 01/02/18 07:38 AMB [id number]) OP-PT Subjective Patient Comments Patient Comments Saw clinical appeals rn and cholesterol is high, so will wait for it to go down and then get a stress test. PT-OP-F Manual Assessment Start: 12/03/17 09:18 Freq: Status: Active Protocol: Document 12/03/17 10:47 EA (Rec: 12/03/17 10:51 EA [id number]) Manual Assessments Soft Tissue Assessment Soft Tissue Mobility Assessment Tight boths hip flexors Joint Mobility Assessment Joint Mobility Assessment No joint hypomobility noted PT-OP-G Mobility & Gait Start: 12/03/17 09:18 Freq: Status: Active Protocol: Document 12/03/17 10:47 EA (Rec: 12/03/17 10:51 EA [id number]) OP Gait Assessment Gait Deviations General Gait Pattern Within Normal Limits PT-OP-J Posture/Palpation/Skin Start: 12/03/17 09:18 Freq: Status: Active Protocol: Document 12/03/17 10:47 EA (Rec: 12/03/17 10:51 EA [id number]) Posture Evaluation Position Standing Pelvis Posture Anteriorly Tilted Hip Posture (R) Flexed Palpation Assessment Location One Palpation Location Bilaterl HIP E-rotators, R Paralumbars, Iliopsoas Palpation Findings Tenderness Trigger Point PT-OP-K Range of Motion Start: 12/03/17 09:18 Freq: Status: Active Protocol: Document 12/03/17 09:35 EA (Rec: 12/03/17 09:43 EA [id number]) Hip Goniometric Range of Motion Hip Measured in Degrees Right Flexion w/Knee Flexed 110 Extension 0 Abduction 35 Internal Rotation 30 External Rotation 30 PT-OP-L Special Tests Start: 12/03/17 09:18 Freq: Status: Active Protocol: Document 12/03/17 09:35 EA (Rec: 12/03/17 09:43 EA [id number]) Special Tests Hip Special Tests Scour Test Test Results - Comments not even sensitive Ria's Test Test Results + both Knee Special Tests Louise's Test Test Results + tightness to right Neural Special Tests- Lower Body Femoral Nerve Tension Test Results - PT-OP-M Strength Start: 12/03/17 09:18 Freq: Status: Active Protocol: Document 12/03/17 09:35 EA (Rec: 12/03/17 09:43 EA [id number]) Hip Strength Hip Manual Muscle Testing Left Flexion (L2) 4- Good- Extension (S1) 4+ Good+ Abduction 4 Good Adduction 4 Good External Rotation 4 Good Internal Rotation 4- Good- Right Flexion (L2) 4- Good- Extension (S1) 4+ Good+ Abduction 4 Good Adduction 4 Good External Rotation 4 Good Internal Rotation 4- Good- Knee Strength Knee Manual Muscle Testing Right Reason Not Measured WFL Left Reason Not Measured WFL PT-OP-Q Treatments Start: 12/03/17 09:18 Freq: Status: Active Protocol: Document 01/02/18 07:30 AMB (Rec: 01/02/18 07:51 AMB [id number]) Cardio Equipment Recumbent Elliptical (BiodEdgar) Duration (Minutes) 5 Resistance 4 Therapeutic Exercises Supine Exercises 4 Supine Exercise Name supine march Equipment Used 1/2 foam roll Comments with TrA Stab 3 Supine Exercise Name SKTC Reps/Minutes x 2 reps x 15SH 2 Supine Exercise Name piriformis stretch Reps/Minutes 30x2 1 Supine Exercise Name SLR Side bilateral Resistance 2 lbs AW Reps/Minutes 12 x 2 Comments W/ PPT Therapeutic Activity Therapeutic Activity 1 Name standing in kitchen mechanics Comments turkey in and out of oven, standing avoiding excessive lumbar lordosis Manual Therapy Treatment Soft Tissue Mobilization 1 Body Location lumbosacral paraspinals, IT band, hip flexors, piriformis Mobilization Type Myofascial Release Sustained Pressure Intensity/Depth Moderate Comments bilateral PT-OP-R Modalities Start: 12/03/17 09:18 Freq: Status: Active Protocol: Document 12/10/17 09:45 EA (Rec: 12/10/17 09:47 EA [id number]) Hot Pack/Cold Pack Treatment Hot Pack Location upper gluteals, Patient Position Supine Patient Tolerance Good PT-OP-T Assessment and Plan Start: 12/03/17 09:18 Freq: Status: Active Protocol: Document 01/02/18 07:30 AMB (Rec: 01/02/18 08:16 AMB [id number]) Physical Therapy Assessment Assessment Summary Assessment Pt feels about 20% improved with PT so far. Difficult to progress as pt feels shortness of breath/ cardiac sx Physical Therapy Plan Next Visit Focus/Plan Next Note Type Treatment Note Next Visit Plan Progress core stabilization as tolerated.
--- NOTE | 2018-01-06 12:50 | PT.OTN ---
Current Diagnoses Pain in left hip (01/06/18) Physical Therapy Treatment Note PT-OP-A Visit Information Start: 12/03/17 09:18 Freq: Status: Active Protocol: Document 01/06/18 07:30 AMB (Rec: 01/06/18 07:35 AMB [id number]) Out-Patient Physical Therapy Visit Information Visit Information Visit Type Treatment Note Visit Start Time 07:30 Visit Stop Time 08:15 Total Visit Minutes 45 Visit Number 9 PT-OP-B Current Condition Start: 12/03/17 09:18 Freq: Status: Active Protocol: Document 12/03/17 09:22 EA (Rec: 12/03/17 09:35 EA [id number]) Current Condition History of Current Condition Onset Date August/2017 Current Complaints Bilateral ant/post hip pain R> L History of Current Condition Pt reports current hip condition started gradually since August/2017 with no history of trauma or previous surgery. He noted pain is increasing in the past 3 weeks after long standing position and long distance of walking. Pt denies loss of function and burning sensation to both LE' s X-rays performed two weeks ago and she stated that it was bilateral hip OA. 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 Current Functional Impairments (Reported) Functional Limitations- ADL's Indep Functional Limitations- Mobility/Gait Limited due to increased bilateral hip pain Functional Limitations- Work/School has to rest and sit frequently at work due to pain. PT-OP-C Subjective Start: 12/03/17 09:18 Freq: Status: Active Protocol: Document 01/06/18 07:30 AMB (Rec: 01/06/18 07:35 AMB [id number]) OP-PT Subjective Patient Comments Patient Comments Noticing more R hip pain today . A lot of sitting as her ex [id number] passed this weekend. PT-OP-F Manual Assessment Start: 12/03/17 09:18 Freq: Status: Active Protocol: Document 12/03/17 10:47 EA (Rec: 12/03/17 10:51 EA [id number]) Manual Assessments Soft Tissue Assessment Soft Tissue Mobility Assessment Tight boths hip flexors Joint Mobility Assessment Joint Mobility Assessment No joint hypomobility noted PT-OP-G Mobility & Gait Start: 12/03/17 09:18 Freq: Status: Active Protocol: Document 12/03/17 10:47 EA (Rec: 12/03/17 10:51 EA [id number]) OP Gait Assessment Gait Deviations General Gait Pattern Within Normal Limits PT-OP-J Posture/Palpation/Skin Start: 12/03/17 09:18 Freq: Status: Active Protocol: Document 12/03/17 10:47 EA (Rec: 12/03/17 10:51 EA [id number]) Posture Evaluation Position Standing Pelvis Posture Anteriorly Tilted Hip Posture (R) Flexed Palpation Assessment Location One Palpation Location Bilaterl HIP E-rotators, R Paralumbars, Iliopsoas Palpation Findings Tenderness Trigger Point PT-OP-K Range of Motion Start: 12/03/17 09:18 Freq: Status: Active Protocol: Document 12/03/17 09:35 EA (Rec: 12/03/17 09:43 EA [id number]) Hip Goniometric Range of Motion Hip Measured in Degrees Right Flexion w/Knee Flexed 110 Extension 0 Abduction 35 Internal Rotation 30 External Rotation 30 PT-OP-L Special Tests Start: 12/03/17 09:18 Freq: Status: Active Protocol: Document 12/03/17 09:35 EA (Rec: 12/03/17 09:43 EA [id number]) Special Tests Hip Special Tests Scour Test Test Results - Comments not even sensitive Ria's Test Test Results + both Knee Special Tests Louise's Test Test Results + tightness to right Neural Special Tests- Lower Body Femoral Nerve Tension Test Results - PT-OP-M Strength Start: 12/03/17 09:18 Freq: Status: Active Protocol: Document 12/03/17 09:35 EA (Rec: 12/03/17 09:43 EA [id number]) Hip Strength Hip Manual Muscle Testing Left Flexion (L2) 4- Good- Extension (S1) 4+ Good+ Abduction 4 Good Adduction 4 Good External Rotation 4 Good Internal Rotation 4- Good- Right Flexion (L2) 4- Good- Extension (S1) 4+ Good+ Abduction 4 Good Adduction 4 Good External Rotation 4 Good Internal Rotation 4- Good- Knee Strength Knee Manual Muscle Testing Right Reason Not Measured WFL Left Reason Not Measured WFL PT-OP-Q Treatments Start: 12/03/17 09:18 Freq: Status: Active Protocol: Document 01/06/18 07:30 AMB (Rec: 01/06/18 07:37 AMB [id number]) Cardio Equipment Recumbent Elliptical (Biodex) Duration (Minutes) 5 Resistance 4 Therapeutic Exercises Supine Exercises 4 Supine Exercise Name supine march Equipment Used 1/2 foam roll Comments with TrA Stab 3 Supine Exercise Name SKTC Reps/Minutes x 2 reps x 15SH 2 Supine Exercise Name piriformis stretch Reps/Minutes 30x2 1 Supine Exercise Name SLR Side bilateral Resistance 2 lbs AW Reps/Minutes 12 x 2 Comments W/ PPT Sitting Exercises 3 Sitting Exercise Name therapy ball Comments pelvic tilt, LAQ, may Manual Therapy Treatment Soft Tissue Mobilization 1 Body Location lumbosacral paraspinals, IT band, hip flexors, piriformis Mobilization Type Myofascial Release Sustained Pressure Intensity/Depth Moderate Comments bilateral PT-OP-R Modalities Start: 12/03/17 09:18 Freq: Status: Active Protocol: Document 12/10/17 09:45 EA (Rec: 12/10/17 09:47 EA [id number]) Hot Pack/Cold Pack Treatment Hot Pack Location upper gluteals, Patient Position Supine Patient Tolerance Good PT-OP-T Assessment and Plan Start: 12/03/17 09:18 Freq: Status: Active Protocol: Document 01/06/18 07:30 AMB (Rec: 01/06/18 11:23 AMB [id number]) Physical Therapy Assessment Assessment Summary Assessment The patient has been focused on her cardiac sx, so her hip and back pain has been secondary lately. She feels that she has improved about 25 % but would like to focus on her cardio appointments for now, and then return later to work on her back hips as necessary. One more appointment to joshlie her treatment. Physical Therapy Plan Next Visit Focus/Plan Next Note Type Discharge Summary Next Visit Plan Pt would like to focus on her cardiac treatment
--- NOTE | 2018-01-09 08:57 | PT.OTN ---
Current Diagnoses Pain in left hip (01/09/18) Physical Therapy Treatment Note PT-OP-A Visit Information Start: 12/03/17 09:18 Freq: Status: Active Protocol: Document 01/09/18 08:45 EA (Rec: 01/09/18 08:57 EA [id number]) Out-Patient Physical Therapy Visit Information Visit Information Visit Start Time 08:15 Visit Stop Time 08:45 Visit Number 10 PT-OP-B Current Condition Start: 12/03/17 09:18 Freq: Status: Active Protocol: Document 12/03/17 09:22 EA (Rec: 12/03/17 09:35 EA [id number]) Current Condition History of Current Condition Onset Date August/2017 Current Complaints Bilateral ant/post hip pain R> L History of Current Condition Pt reports current hip condition started gradually since August/2017 with no history of trauma or previous surgery. He noted pain is increasing in the past 3 weeks after long standing position and long distance of walking. Pt denies loss of function and burning sensation to both LE' s X-rays performed two weeks ago and she stated that it was bilateral hip OA. 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 Current Functional Impairments (Reported) Functional Limitations- ADL's Indep Functional Limitations- Mobility/Gait Limited due to increased bilateral hip pain Functional Limitations- Work/School has to rest and sit frequently at work due to pain. PT-OP-C Subjective Start: 12/03/17 09:18 Freq: Status: Active Protocol: Document 01/09/18 08:45 EA (Rec: 01/09/18 08:57 EA [id number]) OP-PT Subjective Patient Comments Patient Comments Pt reports right hip mostly in the morning after laying down toward affected right hip; states pain disappear as day goes; denies loss of function or abnormal sensation. Overall she feels that she is improved a bit. Pt also reports that she will be having cardiac test tomorrow and that she wanted to discharge from PT so she could focus on other medical issues . Patient Questionnaires Lower Extremity Functional Scale LEFS Score 63 LEFS Impairment 1 to 19% Impaired (Score 63-79 ) PT-OP-F Manual Assessment Start: 12/03/17 09:18 Freq: Status: Active Protocol: Document 12/03/17 10:47 EA (Rec: 12/03/17 10:51 EA [id number]) Manual Assessments Soft Tissue Assessment Soft Tissue Mobility Assessment Tight boths hip flexors Joint Mobility Assessment Joint Mobility Assessment No joint hypomobility noted PT-OP-G Mobility & Gait Start: 12/03/17 09:18 Freq: Status: Active Protocol: Document 12/03/17 10:47 EA (Rec: 12/03/17 10:51 EA [id number]) OP Gait Assessment Gait Deviations General Gait Pattern Within Normal Limits PT-OP-J Posture/Palpation/Skin Start: 12/03/17 09:18 Freq: Status: Active Protocol: Document 12/03/17 10:47 EA (Rec: 12/03/17 10:51 EA [id number]) Posture Evaluation Position Standing Pelvis Posture Anteriorly Tilted Hip Posture (R) Flexed Palpation Assessment Location One Palpation Location Bilaterl HIP E-rotators, R Paralumbars, Iliopsoas Palpation Findings Tenderness Trigger Point PT-OP-K Range of Motion Start: 12/03/17 09:18 Freq: Status: Active Protocol: Document 12/03/17 09:35 EA (Rec: 12/03/17 09:43 EA [id number]) Hip Goniometric Range of Motion Hip Measured in Degrees Right Flexion w/Knee Flexed 110 Extension 0 Abduction 35 Internal Rotation 30 External Rotation 30 PT-OP-L Special Tests Start: 12/03/17 09:18 Freq: Status: Active Protocol: Document 12/03/17 09:35 EA (Rec: 12/03/17 09:43 EA [id number]) Special Tests Hip Special Tests Scour Test Test Results - Comments not even sensitive Ria's Test Test Results + both Knee Special Tests Louise's Test Test Results + tightness to right Neural Special Tests- Lower Body Femoral Nerve Tension Test Results - PT-OP-M Strength Start: 12/03/17 09:18 Freq: Status: Active Protocol: Document 12/03/17 09:35 EA (Rec: 12/03/17 09:43 EA [id number]) Hip Strength Hip Manual Muscle Testing Left Flexion (L2) 4- Good- Extension (S1) 4+ Good+ Abduction 4 Good Adduction 4 Good External Rotation 4 Good Internal Rotation 4- Good- Right Flexion (L2) 4- Good- Extension (S1) 4+ Good+ Abduction 4 Good Adduction 4 Good External Rotation 4 Good Internal Rotation 4- Good- Knee Strength Knee Manual Muscle Testing Right Reason Not Measured WFL Left Reason Not Measured WFL PT-OP-Q Treatments Start: 12/03/17 09:18 Freq: Status: Active Protocol: Document 01/09/18 08:45 EA (Rec: 01/09/18 08:57 EA [id number]) Cardio Equipment Recumbent Elliptical ([employer]) Duration (Minutes) 5 Resistance 4 Therapeutic Exercises Supine Exercises 4 Supine Exercise Name supine march Equipment Used 1/2 foam roll Comments HEP 3 Supine Exercise Name SKTC Reps/Minutes x 2 reps x 15SH 2 Supine Exercise Name piriformis stretch Reps/Minutes 30x2 Comments HEP 1 Supine Exercise Name SLR Side bilateral Resistance 2 lbs AW Reps/Minutes 12 x 2 Comments W/ PPT Sidelying Exercises 2 Sidelying Exercise Name IT band stretch Reps/Minutes 30x2 Comments HEP 1 Sidelying Exercise Name Straight leg raise Side right Resistance 2lbs AW Reps/Minutes 10 reps Comments HEP Sitting Exercises 3 Sitting Exercise Name therapy ball Comments pelvic tilt, LAQ, may: HEP comp Standing Exercises 2 Standing Exercise Name Side step walk Resistance YTB Reps/Minutes x 4 lines with rails supprt Self-Care/Home Management Treatment Education Patient Education Home Exercise Program Joint Protection Pain Management Safety Other Education Discussed importance of regular fitness exercises if clear from cardio assessment. Discussed proper body mechanics for low pain complaint. Discussed proper bed positioning PT-OP-R Modalities Start: 12/03/17 09:18 Freq: Status: Active Protocol: Document 12/10/17 09:45 EA (Rec: 12/10/17 09:47 EA [id number]) Hot Pack/Cold Pack Treatment Hot Pack Location upper gluteals, Patient Position Supine Patient Tolerance Good PT-OP-T Assessment and Plan Start: 12/03/17 09:18 Freq: Status: Active Protocol: Document 01/09/18 08:45 EA (Rec: 01/09/18 08:57 EA [id number]) Physical Therapy Assessment Goals Four Impairment activity tolerance Shelter Goal (LTG) Patient will report increase activity tolerance in standing to more than 1 hour without increase in pain. LTG Duration met Three Impairment Impaired both Hip flexors strength Shelter Goal (LTG) Patient will increase hip flexors strength to 1/2 level for functional use. LTG Duration met Two Impairment Impaired hip flexors extensibility Shelter Goal (LTG) Patient will increase hip flexor and R ITB flexibility to functional range LTG Duration met One Impairment LEFS impairment scale score of 54/80 Sack Filler Goal (LTG) Patient will increase LEFS score to >60 LTG Duration met Assessment Summary Assessment Quick tests performed to both HIP and lumbosacral region and appears negative to any musculoskeletal condition at this time except with right probable posterolat bursitis. I recommended to patient to refrain from any tight jeans and other form of pressure to right side hip. We discussed about discharging to PT today due to improved functional mobility. Physical Therapy Plan Discharge Physical Therapy Discharge Reasons Patient Request Discharge Comments Goals met
== END 2018-05-05 09:18 ==
LOC: PHYS 08:15
PROVIDERS: Family Provider Family Medicine; PCP Family Medicine; Visit Provider Family Medicine
DX: M25.552 Pain in left hip (principal)
CPT/HCPCS: 97110; 97140; 97161; 97530; 97535

== ENCOUNTER → 2018-02-26 07:11 | Outpatient (CLI) | payer MEDICARE, OTHER, SELFPAY ==
[2018-02-26 08:49] LABS: Add Manual Diff / Slide Review NO; Basophils Percent Auto 1.1 % (0-2); Eosinophils Percent Auto 4.9 % (2-4); Hematocrit 40.3 % (36-46); Hemoglobin 13.8 g/dL (12.0-16.0); Lymphocytes Percent Auto 34.7 % (25-40); Mean Corpuscular HGB Conc 34.1 % (30-36); Mean Corpuscular Hemoglobin 31.2 PG (26-34); Mean Corpuscular Volume 91.4 fL (80-100); Monocytes Percent Auto 7.6 % (3-14); Neutrophils Absolute Auto 3200 /uL (1500-7000); Neutrophils Percent Auto 51.7 % (50-75); Platelet Count 223 X10^3/uL (150-400); Red Blood Cell Count 4.41 X10^6/uL (4.0-5.2); Red Cell Distribution Width 12.8 % (11.6-14.8); White Blood Cell Count 6.1 X10^3/uL (4.5-11.0)
[2018-02-26 08:59] LABS: Alanine Aminotransferase 22 IU/L (9-52); Albumin 4.2 g/dL (3.5-5.0); Albumin Globulin Ratio 1.4 (1.0-2.8); Alkaline Phosphatase 53 U/L (38-126); Aspartate Aminotransferase 15 IU/L (14-36); Bilirubin Total 0.5 mg/dL (0.2-1.3); Blood Urea Nitrogen 18 mg/dL (7-17); Calcium 9.6 mg/dL (8.4-10.2); Carbon Dioxide 28 mmol/L (22-32); Chloride 100 mmol/L (98-107); Cholesterol 201 mg/dL (140-199); Estimated Glomerular Filt Rate 55.3 mL/min (>60); Globulin 2.9 g/dL (1.7-4.1); Glucose 212 mg/dL (80-110); HDL Cholesterol 48 mg/dL (40-60); HEMOLYSIS < 15 (0-50); LDL Cholesterol Calculated 105 mg/dL (<100); Potassium 4.6 mmol/L (3.4-5.1); Sodium 138 mmol/L (137-145); Total Protein 7.1 g/dL (6.3-8.2); Triglycerides 241 mg/dL (35-150)
== END ==
PROVIDERS: Family Provider Family Medicine; PCP Family Medicine; Visit Provider Internal Medicine Cardiovascular Disease
DX: R00.2 Palpitations (principal); I10 Essential (primary) hypertension; E78.5 Hyperlipidemia, unspecified; E78.00 Pure hypercholesterolemia, unspecified
CPT/HCPCS: 36415; 80053; 80061; 85025

== ENCOUNTER → 2018-06-03 11:38 | Outpatient (CLI) | payer MEDICARE, OTHER, SELFPAY | PROVIDERS: PCP Family Medicine; Visit Provider Family Medicine | DX: Z12.31 Encounter for screening mammogram for malignant neoplasm of breast (principal) | CPT/HCPCS: 77063; 77067 ==

== ENCOUNTER → 2018-06-06 14:46 | Outpatient (CLI) | payer MEDICARE, OTHER, SELFPAY ==
--- NOTE | 2018-06-06 14:48 | DI.MG.S_ITS ---
BILATERAL DIGITAL SCREENING MAMMOGRAM 3D/2D WITH CAD: 06/06/2018 CLINICAL: Routine screening. Family history of breast cancer. Comparison is made to exams dated: 02/19/2017 mammogram - [facility], 04/09/2012 mammogram, and 07/13/2008 mammogram - [facility]. There are scattered fibroglandular elements in both breasts. Current study was also evaluated with a Computer Aided Detection (CAD) system. There are benign calcifications in both breasts. No significant masses, calcifications, or other findings are seen in either breast. There has been no significant interval change. IMPRESSION: There is no mammographic evidence of malignancy. A 1 year screening mammogram is recommended. This exam was interpreted at Station ID: [id number]. NOTE: For mammograms, a report in lay terms will be sent to the patient. Approximately 15% of breast malignancies will not be visualized mammographically. In the management of a palpable breast mass, a negative mammogram must not discourage biopsy of a clinically suspicious lesion. Electronically Signed By: Curly pedersen/chi:06/06/2018 17:06:30 letter sent: Normal Exam ACR BI-RADS Category 2: Benign Finding(s) 3342F
== END ==
PROVIDERS: PCP Family Medicine; Visit Provider Family Medicine
DX: Z12.31 Encounter for screening mammogram for malignant neoplasm of breast (principal); Z80.3 Family history of malignant neoplasm of breast
CPT/HCPCS: 77063; 77067

== ENCOUNTER → 2018-06-23 08:36 | Outpatient (CLI) | payer MEDICARE, OTHER, SELFPAY ==
[2018-06-23 09:10] LABS: Hemoglobin A1C% w Est Avg Glu 8.4 % (4.0-6.0)
[2018-06-23 10:04] LABS: TSH w/ Reflex to FT4 2.14 uIU/mL (0.47-4.68)
== END ==
PROVIDERS: PCP Family Medicine; Visit Provider Family Medicine
DX: E11.9 Type 2 diabetes mellitus without complications (principal); I10 Essential (primary) hypertension
CPT/HCPCS: 36415; 83036; 84443

== ENCOUNTER → 2018-07-03 10:35 | Outpatient (CLI) | payer MEDICARE, OTHER, SELFPAY ==
[2018-07-03 11:59] LABS: Add Manual Diff / Slide Review NO; Basophils Absolute Auto 100 /uL (0-100); Basophils Percent Auto 0.9 % (0-2); Eosinophils Absolute Auto 300 /uL (0-450); Hematocrit 41.1 % (36-46); Hemoglobin 13.9 g/dL (12.0-16.0); Lymphocytes Absolute Auto 2400 /uL (1100-4500); Lymphocytes Percent Auto 37.5 % (25-40); Mean Corpuscular HGB Conc 33.7 % (30-36); Mean Corpuscular Hemoglobin 30.9 PG (26-34); Mean Corpuscular Volume 91.8 fL (80-100); Monocytes Absolute Auto 500 /uL (0-900); Monocytes Percent Auto 8.3 % (3-14); Neutrophils Absolute Auto 3100 /uL (1500-7000); Neutrophils Percent Auto 48.3 % (50-75); Platelet Count 229 X10^3/uL (150-400); Red Blood Cell Count 4.48 X10^6/uL (4.0-5.2); Red Cell Distribution Width 13.2 % (11.6-14.8); White Blood Cell Count 6.5 X10^3/uL (4.5-11.0)
[2018-07-03 12:23] LABS: Blood Urea Nitrogen 20 mg/dL (7-17); Calcium 9.5 mg/dL (8.4-10.2); Carbon Dioxide 25 mmol/L (22-32); Chloride 101 mmol/L (98-107); Cholesterol 212 mg/dL (140-199); Estimated Glomerular Filt Rate > 60.0 mL/min (>60); Glucose 203 mg/dL (80-110); HDL Cholesterol 44 mg/dL (40-60); HEMOLYSIS < 15 (0-50); LDL Cholesterol Calculated 105 mg/dL (<100); Potassium 4.4 mmol/L (3.4-5.1); Sodium 137 mmol/L (137-145); Triglycerides 314 mg/dL (35-150)
== END ==
PROVIDERS: PCP Family Medicine; Visit Provider Internal Medicine Cardiovascular Disease
DX: I10 Essential (primary) hypertension (principal); E78.5 Hyperlipidemia, unspecified
CPT/HCPCS: 36415; 80048; 80061; 85025

== ENCOUNTER → 2018-09-19 08:38 | Outpatient (CLI) | payer MEDICARE, OTHER, SELFPAY ==
[2018-09-19 09:03] LABS: Hemoglobin A1C% w Est Avg Glu 6.7 % (4.0-6.0)
== END ==
PROVIDERS: PCP Family Medicine; Visit Provider Family Medicine
DX: E11.9 Type 2 diabetes mellitus without complications (principal)
CPT/HCPCS: 36415; 83036

== ENCOUNTER → 2018-11-27 10:32 | Outpatient (CLI) | payer MEDICARE, OTHER, SELFPAY ==
[2018-11-27 11:20] LABS: Add Manual Diff / Slide Review NO; Basophils Absolute Auto 100 /uL (0-100); Basophils Percent Auto 0.9 % (0-2); Eosinophils Absolute Auto 400 /uL (0-450); Eosinophils Percent Auto 5.5 % (2-4); Hematocrit 40.2 % (36-46); Hemoglobin 13.4 g/dL (12.0-16.0); Lymphocytes Absolute Auto 2300 /uL (1100-4500); Mean Corpuscular HGB Conc 33.3 % (30-36); Mean Corpuscular Hemoglobin 30.8 PG (26-34); Mean Corpuscular Volume 92.5 fL (80-100); Monocytes Absolute Auto 700 /uL (0-900); Monocytes Percent Auto 9.4 % (3-14); Neutrophils Absolute Auto 3900 /uL (1500-7000); Neutrophils Percent Auto 53.2 % (50-75); Platelet Count 231 X10^3/uL (150-400); Red Blood Cell Count 4.35 X10^6/uL (4.0-5.2); White Blood Cell Count 7.4 X10^3/uL (4.5-11.0)
[2018-11-27 11:37] LABS: Alanine Aminotransferase 40 IU/L (9-52); Albumin 4.5 g/dL (3.5-5.0); Albumin Globulin Ratio 1.6 (1.0-2.8); Alkaline Phosphatase 54 U/L (38-126); Aspartate Aminotransferase 26 IU/L (14-36); Bilirubin Total 0.6 mg/dL (0.2-1.3); Blood Urea Nitrogen 16 mg/dL (7-17); Calcium 10.2 mg/dL (8.4-10.2); Carbon Dioxide 25 mmol/L (22-32); Chloride 100 mmol/L (98-107); Cholesterol 172 mg/dL (140-199); Estimated Glomerular Filt Rate > 60.0 mL/min (>60); Globulin 2.8 g/dL (1.7-4.1); Glucose 142 mg/dL (80-110); HDL Cholesterol 66 mg/dL (40-60); HEMOLYSIS 19 (0-50); LDL Cholesterol Calculated 56 mg/dL (<100); Lipase 79 U/L (23-300); Sodium 137 mmol/L (137-145); Total Protein 7.3 g/dL (6.3-8.2); Triglycerides 252 mg/dL (35-150)
[2018-11-27 11:41] LABS: Potassium 5.4 mmol/L (3.4-5.1)
== END ==
PROVIDERS: PCP Family Medicine; Visit Provider Family Medicine
DX: R10.11 Right upper quadrant pain (principal); E78.00 Pure hypercholesterolemia, unspecified
CPT/HCPCS: 36415; 80053; 80061; 83690; 85025

== ENCOUNTER → 2018-12-12 10:03 | Outpatient (CLI) | payer MEDICARE, OTHER, SELFPAY ==
[2018-12-14 16:31] LABS: Urea Breath Test >18YRS NOT DETECTED
== END ==
PROVIDERS: PCP Family Medicine; Visit Provider Family Medicine
DX: R10.11 Right upper quadrant pain (principal)
CPT/HCPCS: 83013

== ENCOUNTER → 2019-02-11 10:35 | Outpatient (CLI) | payer MEDICARE, OTHER, SELFPAY ==
[2019-02-11 11:09] LABS: Hemoglobin A1C% w Est Avg Glu 6.9 % (4.0-6.0)
[2019-02-11 11:12] LABS: Add Manual Diff / Slide Review NO; Basophils Absolute Auto 0 /uL (0-100); Basophils Percent Auto 0.8 % (0-2); Eosinophils Absolute Auto 300 /uL (0-450); Hematocrit 39.9 % (36-46); Hemoglobin 13.7 g/dL (12.0-16.0); Lymphocytes Absolute Auto 1600 /uL (1100-4500); Lymphocytes Percent Auto 26.2 % (25-40); Mean Corpuscular HGB Conc 34.3 % (30-36); Mean Corpuscular Hemoglobin 31.2 PG (26-34); Mean Corpuscular Volume 90.9 fL (80-100); Monocytes Absolute Auto 600 /uL (0-900); Neutrophils Absolute Auto 3700 /uL (1500-7000); Platelet Count 244 X10^3/uL (150-400); Red Blood Cell Count 4.39 X10^6/uL (4.0-5.2); Red Cell Distribution Width 13.1 % (11.6-14.8); White Blood Cell Count 6.2 X10^3/uL (4.5-11.0)
[2019-02-11 11:40] LABS: Alanine Aminotransferase 21 IU/L (<35); Albumin 4.4 g/dL (3.5-5.0); Albumin Globulin Ratio 1.7 (1.0-2.8); Alkaline Phosphatase 54 U/L (38-126); Aspartate Aminotransferase 18 IU/L (14-36); BUN Creatinine Ratio 22.5 (6-22); Bilirubin Total 0.4 mg/dL (0.2-1.3); Blood Urea Nitrogen 18 mg/dL (7-17); Calcium 9.8 mg/dL (8.4-10.2); Carbon Dioxide 27 mmol/L (22-32); Chloride 101 mmol/L (98-107); Estimated Glomerular Filt Rate > 60.0 mL/min (>60); Globulin 2.6 g/dL (1.7-4.1); Glucose 138 mg/dL (80-110); HEMOLYSIS < 15 (0-50); Potassium 4.7 mmol/L (3.4-5.1); Sodium 137 mmol/L (137-145)
== END ==
PROVIDERS: PCP Family Medicine; Visit Provider Family Medicine
DX: K52.9 Noninfective gastroenteritis and colitis, unspecified (principal); E11.9 Type 2 diabetes mellitus without complications
CPT/HCPCS: 36415; 80053; 83036; 83516; 85025

== ENCOUNTER → 2019-02-13 09:52 | Outpatient (CLI) | payer MEDICARE, OTHER, SELFPAY ==
[2019-02-19 21:50] LABS: Calprotectin, Stool 51.3 mcg/g
== END ==
PROVIDERS: PCP Family Medicine; Visit Provider Family Medicine
DX: K52.9 Noninfective gastroenteritis and colitis, unspecified (principal)
CPT/HCPCS: 83993

== ENCOUNTER → 2019-03-09 10:52 | Outpatient (CLI) | payer MEDICARE, OTHER, SELFPAY ==
[2019-03-09 12:44] LABS: Clostridium Difficile Tox PCR Negative for C. diff
== END ==
PROVIDERS: PCP Family Medicine; Visit Provider Family Medicine
DX: K52.9 Noninfective gastroenteritis and colitis, unspecified (principal)
CPT/HCPCS: 87045; 87177; 87493; 87899

== ENCOUNTER → 2019-07-21 17:33 | Outpatient (CLI) | payer MEDICARE, OTHER, SELFPAY ==
[2019-07-21 18:06] LABS: Add Manual Diff / Slide Review NO; Basophils Absolute Auto 100 /uL (0-100); Basophils Percent Auto 0.6 % (0-2); Eosinophils Absolute Auto 300 /uL (0-450); Eosinophils Percent Auto 3.9 % (2-4); Hematocrit 38.9 % (36-46); Hemoglobin 13.4 g/dL (12.0-16.0); Lymphocytes Absolute Auto 1900 /uL (1100-4500); Mean Corpuscular HGB Conc 34.3 % (30-36); Mean Corpuscular Hemoglobin 31.1 PG (26-34); Mean Corpuscular Volume 90.7 fL (80-100); Monocytes Absolute Auto 900 /uL (0-900); Monocytes Percent Auto 10.2 % (3-14); Neutrophils Absolute Auto 5600 /uL (1500-7000); Neutrophils Percent Auto 63.3 % (50-75); Platelet Count 249 X10^3/uL (150-400); Red Blood Cell Count 4.29 X10^6/uL (4.0-5.2); Red Cell Distribution Width 13.4 % (11.6-14.8); White Blood Cell Count 8.8 X10^3/uL (4.5-11.0)
[2019-07-21 18:23] LABS: C-Reactive Protein Quant < 0.5 mg/dL (<1.0)
[2019-07-21 18:33] LABS: Erythrocyte Sedimentation Rate 15 MM/HR (0-20)
== END ==
PROVIDERS: PCP Family Medicine; Referring Provider Family Medicine; Visit Provider Family Medicine
DX: H53.8 Other visual disturbances (principal); R51 Headache
CPT/HCPCS: 36415; 85025; 85651; 86140

== ENCOUNTER → 2019-09-03 15:32 | Outpatient (CLI) | payer MEDICARE, OTHER, SELFPAY ==
[2019-09-03 16:32] LABS: Add Manual Diff / Slide Review NO; Basophils Absolute Auto 0 /uL (0-100); Basophils Percent Auto 0.4 % (0-2); Eosinophils Absolute Auto 300 /uL (0-450); Eosinophils Percent Auto 3.7 % (2-4); Hematocrit 38.4 % (36-46); Hemoglobin 13.3 g/dL (12.0-16.0); Lymphocytes Absolute Auto 2900 /uL (1100-4500); Lymphocytes Percent Auto 33.1 % (25-40); Mean Corpuscular HGB Conc 34.7 % (30-36); Mean Corpuscular Hemoglobin 32.6 PG (26-34); Monocytes Absolute Auto 700 /uL (0-900); Monocytes Percent Auto 7.7 % (3-14); Neutrophils Absolute Auto 4900 /uL (1500-7000); Neutrophils Percent Auto 55.1 % (50-75); Platelet Count 231 X10^3/uL (150-400); Red Blood Cell Count 4.08 X10^6/uL (4.0-5.2); Red Cell Distribution Width 15.6 % (11.6-14.8); White Blood Cell Count 8.8 X10^3/uL (4.5-11.0)
[2019-09-03 16:52] LABS: BUN Creatinine Ratio 15.4 (6-22); Blood Urea Nitrogen 18 mg/dL (7-17); Calcium 9.7 mg/dL (8.4-10.2); Carbon Dioxide 22 mmol/L (22-32); Chloride 104 mmol/L (98-107); Cholesterol 160 mg/dL (140-199); Glucose 161 mg/dL (80-110); HDL Cholesterol 48 mg/dL (40-60); HEMOLYSIS < 15 (0-50); LDL Cholesterol Calculated 45 mg/dL (<100); Potassium 4.3 mmol/L (3.4-5.1); Sodium 137 mmol/L (137-145); Triglycerides 337 mg/dL (35-150)
== END ==
PROVIDERS: PCP Family Medicine; Referring Provider Internal Medicine Cardiovascular Disease; Visit Provider Internal Medicine Cardiovascular Disease
DX: I10 Essential (primary) hypertension (principal); E78.5 Hyperlipidemia, unspecified
CPT/HCPCS: 36415; 80048; 80061; 85025

== ENCOUNTER → 2019-09-29 09:19 | Outpatient (CLI) | payer MEDICARE, OTHER, SELFPAY ==
--- NOTE | 2019-09-29 09:20 | DI.MG.S_ITS ---
BILATERAL DIGITAL DIAGNOSTIC MAMMOGRAM 3D/2D: 09/29/2019 CLINICAL: Right breast lump. Comparison is made to exams dated: 06/06/2018 mammogram, 02/19/2017 mammogram - [facility], and 04/09/2012 mammogram - [facility]. There are scattered fibroglandular elements in both breasts. No significant masses, calcifications, or other findings are seen in either breast. Specifically, no finding to correspond to the patient's lower inner quadrant palpable abnormality. IMPRESSION: INCOMPLETE: NEEDS ADDITIONAL IMAGING EVALUATION There is no abnormality seen in the right breast to correspond with the palpable abnormality at 6 o'clock, however, ultrasound is recommended. This was performed immediately following this exam. This exam was interpreted at Station ID: [id number]. NOTE: For mammograms, a report in lay terms will be sent to the patient. Approximately 15% of breast malignancies will not be visualized mammographically. In the management of a palpable breast mass, a negative mammogram must not discourage biopsy of a clinically suspicious lesion. This was performed immediately following this exam. Electronically Signed By: Padmini moody/:09/29/2019 09:58:06 ACR BI-RADS Category 0: Incomplete [id number]
--- NOTE | 2019-09-29 09:20 | DI.US.S_ITS ---
LIMITED ULTRASOUND OF RIGHT BREAST: 09/29/2019 CLINICAL: Palpable right breast lump. Comparison is made to exams dated: 09/29/2019 mammogram, 06/06/2018 mammogram, and 02/19/2017 mammogram - [facility]. Real-time ultrasound of the right breast 5-6 o'clock region was performed. Lebron scale images of the real-time examination were reviewed. No significant abnormalities were seen sonographically in the right breast. Specifically, no finding to correspond to the patient's palpable abnormality. IMPRESSION: NEGATIVE There is no sonographic correlate to the patient's palpable abnormality and no evidence of malignancy. Return to annual mammogram screening schedule is recommended. Findings and recommendations were conveyed to the patient at time of exam. This exam was interpreted at Station ID: [id number]. Electronically Signed By: Padmini moody/:09/29/2019 10:49:22 letter sent: Normal Exam Ultrasound BI-RADS: 1 Negative
== END ==
PROVIDERS: PCP Family Medicine; Referring Provider Family Medicine; Visit Provider Family Medicine
DX: R92.8 Other abnormal and inconclusive findings on diagnostic imaging of breast (principal); N63.15 Unspecified lump in the right breast, overlapping quadrants
CPT/HCPCS: 76642; 77066; G0279

== ENCOUNTER → 2020-04-11 15:11 | Outpatient (CLI) | payer MEDICARE, OTHER, SELFPAY ==
[2020-04-11 16:09] LABS: HEMOLYSIS < 15 (0-50); Potassium 4.4 mmol/L (3.4-5.1)
[2020-04-11 16:10] LABS: Alanine Aminotransferase 22 IU/L (<35); Albumin 4.4 g/dL (3.5-5.0); Albumin Globulin Ratio 1.3 (1.0-2.8); Alkaline Phosphatase 67 U/L (38-126); Aspartate Aminotransferase 22 IU/L (14-36); BUN Creatinine Ratio 19.5 (6-22); Bilirubin Total 0.2 mg/dL (0.2-1.3); Blood Urea Nitrogen 17 mg/dL (7-17); Carbon Dioxide 30 mmol/L (22-32); Chloride 102 mmol/L (98-107); Estimated Glomerular Filt Rate > 60.0 mL/min (>60); Globulin 3.3 g/dL (1.7-4.1); Glucose 148 mg/dL (80-110); Sodium 137 mmol/L (137-145); Total Protein 7.7 g/dL (6.3-8.2)
[2020-04-11 16:54] LABS: Hemoglobin A1C% w Est Avg Glu 7.4 % (4.0-6.0)
[2020-04-11 17:34] LABS: Creatinine Urine Random 107.7 mg/dL
[2020-04-11 17:39] LABS: Microalbumi Creatinin Ratio Ur 20.4 ug/mg CR (<30); Microalbumin Urine Random 2.2 mg/dL (0-1.6)
== END ==
PROVIDERS: PCP Family Medicine; Referring Provider Family Medicine; Visit Provider Family Medicine
DX: E11.9 Type 2 diabetes mellitus without complications (principal)
CPT/HCPCS: 36415; 80053; 82043; 82570; 83036

== ENCOUNTER → 2020-04-15 16:06 | Outpatient (CLI) | payer MEDICARE, OTHER, SELFPAY ==
--- NOTE | 2020-04-15 16:07 | DI.MRI.S_ITS ---
PROCEDURE: MR STROKE Pre- and post-contrast brain MRI, non-contrast brain MR angiogram, pre- and postcontrast neck MR angiogram INDICATIONS: persistent headache, possible TIA TECHNIQUE: Brain: Noncontrast axial T1 spin echo, axial T2 fast spin echo, sagittal and axial FLAIR, coronal T2 fast spin echo, axial gradient echo, axial diffusion and ADC through the brain. After the administration of contrast, axial 3D VIBE of the cranial vasculature and brain. Brain MRA: Non-contrast 3-D time of flight MR angiogram, with multiple sqznsrk-zqsdwqcvh-hwcwyodhgl (MIP) reformats performed. Neck MRA: Axial and sagittal TruFISP through the neck. Coronal dynamic MR angiogram during administration of contrast in the arterial and venous phases, with 3-dimenstional nkxocwt-laukblqqy-btgvnugrpt (MIP) reformats constructed from subtraction images. COMPARISON: None. FINDINGS: Image quality: The neck MRI images are limited by bolus timing, with venous contamination BRAIN: CSF spaces: Ventricles are normal in size and shape. Basal cisterns are patent. No extra-axial fluid collections. Brain: No intracranial bleeds or mass effects. Lebron-white matter interface is normal. Diffusion weighted images show no acute ischemic insults. Brainstem appears normal. Brain parenchymal volume loss can be seen. Chronic small vessel ischemic change is seen. Normal intravascular flow voids are present. No abnormal intracranial enhancement. Skull and face: Calvarial marrow signal is normal. Orbits appear normal. Note is made of bilateral lens replacements. Sinuses: Mild mucosal thickening is seen within the paranasal sinuses. There is mild leftward nasal septal deviation seen. No abnormal fluid is seen within the mastoid air cells. BRAIN MR ANGIOGRAM: Anterior circulation: Intracranial internal carotid arteries are normal in size and enhancement. The flow within the paired anterior cerebral arteries is normal and symmetric, with note made of an accessory anterior cerebral artery, which emerges from the anterior communicating artery. The flow within the middle cerebral arteries is normal and symmetric. The anterior communicating artery is seen. No stenoses, occlusions, or aneurysms. Posterior circulation: The visualized portions of the vertebral arteries demonstrate normal caliber, and join to form a normal appearing basilar artery. The flow within the posterior cerebral arteries is normal and symmetric. No stenoses, occlusions, or aneurysms. NECK MR ANGIOGRAM: Carotids: Great vessels demonstrate a conventional anatomy as they arise from the aortic arch. The origins of the common carotid arteries appear patent. The calibers and courses of both common carotid arteries are normal. The bifurcation regions appear normal bilaterally. The internal carotid arteries demonstrate normal course and caliber. Posterior circulation: The origins of the vertebral arteries appear patent. More superior portions of both vertebral arteries demonstrate normal course and caliber, and join to form a normal appearing basilar artery. Miscellaneous: Subclavian arteries appear patent. Pre-contrast images through the neck show no soft tissue abnormalities. IMPRESSION: BRAIN MRI: No findings of acute or subacute infarction can be seen. Note is made of age-appropriate brain parenchymal volume loss and chronic small vessel ischemic changes. No masses or abnormal enhancement can be seen. BRAIN MR ANGIOGRAM: No significant intracranial arterial abnormality is seen. NECK MR ANGIOGRAM: Within the arteries of the neck, no hemodynamically significant stenosis can be seen. Incidental note is made of: Bilateral lens replacements Mild paranasal sinus disease Mild leftward nasal septal deviation Dictated by: Govind Velez M.D. on 04/15/2020 at 16:47 Approved by: Govind Velez M.D. on 04/15/2020 at 16:52
== END ==
PROVIDERS: PCP Family Medicine; Referring Provider Family Medicine; Visit Provider Family Medicine
DX: G45.9 Transient cerebral ischemic attack, unspecified (principal); I48.0 Paroxysmal atrial fibrillation; R51.9 Headache, unspecified; J32.8 Other chronic sinusitis; J34.2 Deviated nasal septum
CPT/HCPCS: 70548; 70553

== ENCOUNTER → 2020-05-11 13:00 | Outpatient (CLI) | payer MEDICARE, OTHER, SELFPAY ==
[2020-05-11] MEDS: COVID-19 VACC, Ad26(JANSSEN)/PF 0.5 ML IM (13:23)
== END ==
PROVIDERS: PCP Family Medicine; Visit Provider Internal Medicine
DX: Z23 Encounter for immunization (principal)
CPT/HCPCS: 0031A; 91303

== ENCOUNTER → 2020-07-04 11:19 | Outpatient (CLI) | payer MEDICARE, OTHER, SELFPAY ==
[2020-07-04 14:43] LABS: COVID19 -Nasal RAPID Negative (Negative)
== END ==
PROVIDERS: PCP Family Medicine; Visit Provider Student in an Organized Health Care Education/Training Program
DX: Z01.812 Encounter for preprocedural laboratory examination (principal); Z20.822 Contact with and (suspected) exposure to COVID-19
CPT/HCPCS: 87635; C9803

== ENCOUNTER 2020-07-06 10:19 | Day surgery (SDC) | payer MEDICARE, OTHER, SELFPAY ==
--- NOTE | 2020-07-05 17:46 | PM.PREOP ---
Pre-operative Note COVID-19 COVID-19 status: Negative Interval Note History & Physical reviewed/Exam performed by Physician: Yes Changes to H&P: No H&P completed within 30 days and has changed as indicated here:: Fasting glucose was 119. Stopped Eliquis July 01/2021.
--- NOTE | 2020-07-06 08:11 | PM.OP.1 ---
Operative Date/Time/Diagnoses Date of procedure: 07/06/20 Time of procedure: 11:45 Procedure & Clinicians Procedure: Date of service: 07/06/2020 Preoperative diagnoses: 1. Bilateral upper lid dermatochalasis obstructing superior visual field and requiring lifting of her eyelids in order to see. 2. Diabetes without retinopathy. 3. Hypertension Postoperative diagnoses: 1. Bilateral upper lid dermatochalasis Procedure: Bilateral upper blepharoplasty Surgeon: Maggi Gómez MD Complications: None Specimen: None Blood loss: Less than 3 mL Anesthesia: Local infiltration with monitored standby. Anesthesiologist: Evette Marti M.D. Indications: Bilateral upper lids obstructing superior vision causing her to tilt her head back in order to see. She also physically lifts her eyelids up to improve vision. Preoperative external photographs taken and loss of vision to within 2 mm of marginal light reflex. Functional surgery. Glucose was stable before the procedure. She understands the extra risk of surgery during the COVID 19 epidemic and desires to proceed. She has tested negative within 72 hours of surgery for active virus. Procedure: In the preoperative holding area the amount skin and subcutaneous tissue to be removed was marked with indelible ink. The contours were carefully checked for symmetry and planned procedure discussed with the patient. The patient was taken to the operating room. IV sedation was given. Proparacaine drops were placed in both eyes for comfort. Local infiltration of anesthetic 2.5 cc into each upper lid, consisting of 1% xylocaine with epinephrine, normal saline and 1 cc hyluronidase was placed. This was then supplemented with full strength 2% xylocaine with epinephrine, 0.5% bupivacaine, and 1 cc hyalurondase. The face was prepped in an open manner. Attention was placed to the right upper lid. Using the previous fierro a number 15. -Peter blade was used to incise a skin muscle flap. The flap was lifted and removed. Cautery was applied as needed. Contouring of the muscle belly was also performed. Exploration of the nasal and preoperneurotic fat pads were performed removal and contouring with hemostat and scissors as well as cautery were performed. The lid was then closed with running and interrupted 6 0 Vicryl sutures. Same procedure was repeated for the left upper lid. The Betadine was removed. Maxitrol ointment was placed to suture line. She returned to recovery room in stable condition. Instructions for postoperative cold packs were reviewed. Maggi Gómez MD. Same procedure as scheduled: Yes
[2020-07-06 11:20] VITALS: BP 146/71; PULSE 61; RESP 18; TEMP 36.8; O2SAT 96; BMI 30.7
--- NOTE | 2020-07-06 11:26 | SUR.OPER ---
Supine on eye stretcher, head on extension cradle secured with tape. Arms tucked at sides with blanket. Pillow under knees.
[2020-07-06] MEDS: LIDOCAINE 1% W/EPI 3 ML, SODIUM CHLORIDE 0.9% 2 ML, HYALURONIDASE 150 UNIT INJ ×2 (13:11→13:20)
[2020-07-06] MEDS: LIDOCAINE 2% W/EPI INJ 20 ML INJ (13:17)
[2020-07-06] MEDS: BUPIVACAINE 0.5% (PF) VIAL 30 ML INJ (13:18)
[2020-07-06] MEDS: NEOMYCIN/POLY/DEX OPHTH OINT 1 APPLIC EYE-BOTH (13:24)
[2020-07-06 14:00] VITALS: BP 140/59; PULSE 63; RESP 12; TEMP 36.4; O2SAT 96
== END 2020-07-06 14:15 | disposition home or self-care (01) ==
LOC: OR 10:20
PROVIDERS: PCP Family Medicine; Referring Provider Ophthalmology; Visit Provider Ophthalmology
PROC: (CPT 15823; principal; 2020-07-06 11:45)
DX: H02.831 Dermatochalasis of right upper eyelid (principal); H02.834 Dermatochalasis of left upper eyelid; I10 Essential (primary) hypertension; E78.00 Pure hypercholesterolemia, unspecified; R01.1 Cardiac murmur, unspecified; K21.9 Gastro-esophageal reflux disease without esophagitis; E11.9 Type 2 diabetes mellitus without complications; Z79.84 Long term (current) use of oral hypoglycemic drugs
CPT/HCPCS: 15823; J2250; J2704; J3010; J3470

== ENCOUNTER → 2020-07-21 12:04 | Outpatient (CLI) | payer MEDICARE, OTHER, SELFPAY ==
[2020-07-21 13:51] LABS: Add Manual Diff / Slide Review NO; Basophils Absolute Auto 100 /uL (0-100); Basophils Percent Auto 0.7 % (0-2); Eosinophils Absolute Auto 300 /uL (0-450); Eosinophils Percent Auto 3.4 % (2-4); Hematocrit 39.8 % (36-46); Hemoglobin 13.3 g/dL (12.0-16.0); Lymphocytes Absolute Auto 1900 /uL (1100-4500); Lymphocytes Percent Auto 23.4 % (25-40); Mean Corpuscular HGB Conc 33.4 % (30-36); Mean Corpuscular Hemoglobin 32.8 PG (26-34); Mean Corpuscular Volume 98.3 fL (80-100); Monocytes Absolute Auto 600 /uL (0-900); Monocytes Percent Auto 7.7 % (3-14); Neutrophils Absolute Auto 5200 /uL (1500-7000); Neutrophils Percent Auto 64.8 % (50-75); Platelet Count 278 X10^3/uL (150-400); Red Blood Cell Count 4.05 X10^6/uL (4.0-5.2); Red Cell Distribution Width 13.7 % (11.6-14.8); White Blood Cell Count 8.1 X10^3/uL (4.5-11.0)
[2020-07-21 13:52] LABS: Hemoglobin A1C% w Est Avg Glu 6.8 % (4.0-6.0)
[2020-07-21 14:30] LABS: BUN Creatinine Ratio 18.8 (6-22); Blood Urea Nitrogen 15 mg/dL (7-17); Calcium 10.3 mg/dL (8.4-10.2); Carbon Dioxide 23 mmol/L (22-32); Chloride 99 mmol/L (98-107); Cholesterol 277 mg/dL (140-199); Estimated Glomerular Filt Rate > 60.0 mL/min (>60); Glucose 120 mg/dL (80-110); HDL Cholesterol 58 mg/dL (40-60); HEMOLYSIS < 15 (0-50); Potassium 4.6 mmol/L (3.4-5.1); Sodium 134 mmol/L (137-145); Triglycerides 485 mg/dL (35-150)
== END ==
PROVIDERS: PCP Family Medicine; Referring Provider Internal Medicine Cardiovascular Disease; Visit Provider Internal Medicine Cardiovascular Disease
DX: E11.9 Type 2 diabetes mellitus without complications (principal); E78.5 Hyperlipidemia, unspecified; I10 Essential (primary) hypertension; I11.9 Hypertensive heart disease without heart failure
CPT/HCPCS: 36415; 80048; 80061; 83036; 85025

== ENCOUNTER → 2020-07-22 10:25 | Outpatient (CLI) | payer MEDICARE, OTHER, SELFPAY ==
--- NOTE | 2020-07-22 10:28 | DI.RAD.S_ITS ---
PROCEDURE: XR KNEE RT 3V INDICATIONS: pain TECHNIQUE: 3 views of the knee were acquired. COMPARISON: None. FINDINGS: Bones: No fractures or dislocations. No suspicious bony lesions. Mild osteoarthritic degenerative changes noted in all 3 knee compartments. Soft tissues: No joint effusion. No suspicious soft tissue calcifications. IMPRESSION: Mild tricompartmental osteoarthritis. Dictated by: Donita Cruz MD, PhD on 07/22/2020 at 17:07 Approved by: Donita Cruz MD, PhD on 07/22/2020 at 17:08
--- NOTE | 2020-07-22 10:28 | DI.RAD.S_ITS ---
PROCEDURE: XR KNEE LT 3V INDICATIONS: pain TECHNIQUE: 3 views of the knee were acquired. COMPARISON: None. FINDINGS: Bones: No fractures or dislocations. No suspicious bony lesions. Mild osteoarthritic degenerative changes noted in all 3 knee compartments. Soft tissues: No joint effusion. No suspicious soft tissue calcifications. IMPRESSION: Mild tricompartmental osteoarthritis. Dictated by: Donita Cruz MD, PhD on 07/22/2020 at 17:08 Approved by: Donita Cruz MD, PhD on 07/22/2020 at 17:08
== END ==
PROVIDERS: PCP Family Medicine; Referring Provider Family Medicine; Visit Provider Family Medicine
DX: M25.562 Pain in left knee (principal); M25.561 Pain in right knee; M17.0 Bilateral primary osteoarthritis of knee
CPT/HCPCS: 73562

== ENCOUNTER → 2020-09-29 08:21 | Outpatient (CLI) | payer MEDICARE, OTHER, SELFPAY ==
--- NOTE | 2020-09-29 | DI.MG.S_ITS ---
BILATERAL DIGITAL SCREENING MAMMOGRAM 3D/2D WITH CAD: 09/29/2020 CLINICAL: Routine screening. Family history of breast cancer. Comparison is made to exams dated: 09/29/2019 mammogram, 06/06/2018 mammogram, and 02/19/2017 mammogram - [facility]. There are scattered fibroglandular elements in both breasts. Current study was also evaluated with a Computer Aided Detection (CAD) system. No significant masses, calcifications, or other findings are seen in either breast. There has been no significant interval change. IMPRESSION: NEGATIVE There is no mammographic evidence of malignancy. A 1 year screening mammogram is recommended. This exam was interpreted at Station ID: [id number]. NOTE: For mammograms, a report in lay terms will be sent to the patient. Approximately 15% of breast malignancies will not be visualized mammographically. In the management of a palpable breast mass, a negative mammogram must not discourage biopsy of a clinically suspicious lesion. Electronically Signed By: Parker spencer/cih:09/29/2020 08:47:48 letter sent: Normal Exam ACR BI-RADS Category 1: Negative [id number]
== END ==
PROVIDERS: PCP Family Medicine; Referring Provider Family Medicine; Visit Provider Family Medicine
DX: Z12.31 Encounter for screening mammogram for malignant neoplasm of breast (principal); Z80.3 Family history of malignant neoplasm of breast
CPT/HCPCS: 77063; 77067

== ENCOUNTER 2020-10-14 13:30 | Outpatient (RCR) | payer MEDICARE, OTHER, SELFPAY ==
--- NOTE | 2020-08-25 16:00 | PT.OIE ---
Current Diagnoses Pain in right knee (08/25/20) Pain in left knee (08/25/20) Past Medical History (Last Reviewed 11/27/18 @ 18:17 by Finn Mcdowell MD) Cataract (2010) CTS (carpal tunnel syndrome) Diverticular disease (2017) Foot pain (2016) Hayfever (1957) Measles (1964) Mumps (1960) Osteoporosis (2016) Paroxysmal atrial fibrillation Type 2 diabetes mellitus Past Surgical History (Last Reviewed 11/27/18 @ 18:17 by Finn Mcdowell MD) Anesthesia History of cataract removal with insertion of prosthetic lens (2012) History of hysterectomy (1976) Status post arthroscopy (2010) Status post rotator cuff repair (1998) Status post tubal ligation (1974) Visit Care Team Role Provider Type Michela Muñiz MD Attending Provider Physician Primary Care Provider Referring Provider Specialty: Family Practice Address: [address] [place] [address] Email: [email or web address] Physical Therapy Initial Evaluation PT-OP-A Visit Information Start: 08/24/20 15:09 Freq: Status: Active Protocol: Document 08/25/20 13:30 AMB (Rec: 08/26/20 13:28 AMB [id number]) Out-Patient Physical Therapy Visit Information Visit Information Visit Type Initial Evaluation Visit Start Time 13:30 Visit Stop Time 14:15 Total Visit Minutes 45 Visit Number 1 PT-OP-B Current Condition Start: 08/24/20 15:09 Freq: Status: Active Protocol: Document 08/25/20 13:32 AMB (Rec: 08/25/20 13:41 AMB [id number]) Current Condition History of Current Condition Current Complaints R> L knee pain History of Current Condition L knee at night hurts worst at night- deep ache when going to bed, from inner knee to outside of hip. Kneeling and floor transfer is difficult. R knee hurts when moving from sit to stand, going down stairs. PT-OP-C Subjective Start: 08/24/20 15:09 Freq: Status: Active Protocol: Document 08/25/20 13:30 AMB (Rec: 08/26/20 13:28 AMB [id number]) Patient Questionnaires Lower Extremity Functional Scale LEFS Score 53 LEFS Impairment 20 to 39% Impaired (Score 48- 62) OP-PT Pain Assessment Comments Pain Comments 5/10 pain R knee, 4/10 left knee. Left knee radiates across quad into lateral hip, left knee radiates into distal adductors. PT-OP-G Mobility & Gait Start: 08/24/20 15:09 Freq: Status: Active Protocol: Document 08/25/20 13:30 AMB (Rec: 08/26/20 13:28 AMB [id number]) OP Gait Assessment Comments Gait Comments Pt ambulates with good speed and step length without AD, stairs are antalgic ravi going down PT-OP-J Posture/Palpation/Skin Start: 08/24/20 15:09 Freq: Status: Active Protocol: Document 08/25/20 13:30 AMB (Rec: 08/26/20 13:28 AMB [id number]) Palpation Assessment Location One Palpation Location knees Palpation Details tenderness on R knee along medial knee into medial thigh. L knee tenderness at popliteal fossa PT-OP-K Range of Motion Start: 08/24/20 15:09 Freq: Status: Active Protocol: Document 08/25/20 13:30 AMB (Rec: 08/26/20 13:28 AMB [id number]) Hip Goniometric Range of Motion Hip Left Passive Comments No pain recreated with passive ROM through flexion, IR, ER, add, no significant ROM limitations Knee Goniometric Range of Motion Knee Right Patient Position Supine Flexion Passive (degrees) 130 Extension Passive (degrees) 0 Left Patient Position Supine Flexion Active (degrees) 125 Extension Passive (degrees) 0 PT-OP-L Special Tests Start: 08/24/20 15:09 Freq: Status: Active Protocol: Document 08/25/20 13:30 AMB (Rec: 08/26/20 13:28 AMB [id number]) Special Tests Hip Special Tests Scour Test Test Results - Knee Special Tests Tammy Test Test Results - PT-OP-M Strength Start: 08/24/20 15:09 Freq: Status: Active Protocol: Document 08/25/20 13:30 AMB (Rec: 08/26/20 13:28 AMB [id number]) Hip Strength Hip Manual Muscle Testing Right Flexion (L2) 4 Good Extension (S1) 4 Good Left Flexion (L2) 4 Good Extension (S1) 4 Good Comments painful resisted hip flexion Knee Strength Knee Manual Muscle Testing Right Flexion (S2) 4+ Good+ Extension (L3) 4 Good Left Flexion (S2) 4+ Good+ Extension (L3) 4 Good PT-OP-Q Treatments Start: 08/24/20 15:09 Freq: Status: Active Protocol: Document 08/25/20 13:30 AMB (Rec: 08/26/20 13:28 AMB [id number]) Therapeutic Exercises Supine Exercises 4 Supine Exercise Name Adductor stretch Reps/Minutes 30x2 Comments with band 3 Supine Exercise Name Bridge Reps/Minutes 10 Comments vc feel in legs not back PT-OP-T Assessment and Plan Start: 08/24/20 15:09 Freq: Status: Active Protocol: Document 08/25/20 13:30 AMB (Rec: 08/26/20 13:28 AMB [id number]) Physical Therapy Assessment Rehab Potential Rehabilitation Potential Good Evaluation Complexity Number of Personal Factors/Comorbidities 3 or More Number of Body Systems Impaired 4 or More Clinical Presentation at Evaluation Evolving Impairments Impairments Activity Tolerance,Functional Activities,Functional Mobility ,Soft Tissue Mobility,Strength Goals Three Impairment ADLS Short Term Goal (STG) Minal will move from sit to stand without knee pain from a standard height chair. STG Duration 4 weeks Meter And Regulator Shop Supervisor Goal (LTG) Minal will ascend and descend a flight of stairs with reciprocal gait without an increase in knee pain. LTG Duration 8 weeks Two Impairment HEP Short Term Goal (STG) Minal will be independent and consistent with a HEP to strengthen and stretch her bilateral lower extremities. STG Duration 4 weeks One Impairment LE strength Short Term Goal (STG) Minal will improve her knee strength to 4+/5. STG Duration 4 weeks Intermediate Goal (LTG) Minal will improve her LE strength so that she can perform a floor transfer without knee pain. LTG Duration 8 weeks Assessment Summary Assessment Minal attends physical therapy with bilateral knee pain. L knee pain is worse at night and is related to the left hip , whereas R knee is more painful with sit to stand and stairs. Gardening impacts both knees and she has difficulty kneeling. She denies popping, locking and did not show signs of severe OA. Her left hip appears to be related to the left knee, but testing of it did not significantly reproduce her pain. She would benefit from a strengthening and stretching LE program, to address her knee, hip, and adductor dysfunction so she can increase her activity without knee pain. Physical Therapy Plan Frequency and Duration Frequency of Treatment 2x/Week Duration of Treatment 8 weeks Plan of Care Start Date 08/25/20 Plan of Care End Date 10/06/20 Therapeutic Interventions Therapeutic Interventions Gait Training,Home Exercise Program,Manual Therapy, Neuromuscular Re-education, Self-Care/Home Management, Therapeutic Activities, Therapeutic Exercises Modalities Cold Pack/Ice Massage,Electric Stimulation,Hot Packs Next Visit Focus/Plan Next Note Type Treatment Note Next Visit Plan Establish HEP for bilat knees and L hip. L hip is impacting L knee, whereas R knee would benefit from closed chain strengthening as tolerated and manal therapy for R adductor tension.
--- NOTE | 2020-08-25 16:01 | PT.OPPOC ---
Physical, Occupational & Speech Therapy At Current Diagnoses Pain in right knee (08/25/20) Pain in left knee (08/25/20) Visit Care Team Role Provider Type Michela Muñiz MD Attending Provider Physician Primary Care Provider Referring Provider Specialty: Family Practice Address: [address] [place] [address], [id number] Email: [email or web address] Plan Of Care PT-OP-T Assessment and Plan Start: 08/24/20 15:09 Freq: Status: Active Protocol: Document 08/25/20 13:30 AMB (Rec: 08/26/20 13:28 AMB [id number]) Physical Therapy Assessment Rehab Potential Rehabilitation Potential Good Evaluation Complexity Number of Personal Factors/Comorbidities 3 or More Number of Body Systems Impaired 4 or More Clinical Presentation at Evaluation Evolving Impairments Impairments Activity Tolerance,Functional Activities,Functional Mobility ,Soft Tissue Mobility,Strength Goals Three Impairment ADLS Short Term Goal (STG) Minal will move from sit to stand without knee pain from a standard height chair. STG Duration 4 weeks Snf Goal (LTG) Minal will ascend and descend a flight of stairs with reciprocal gait without an increase in knee pain. LTG Duration 8 weeks Two Impairment HEP Short Term Goal (STG) Minal will be independent and consistent with a HEP to strengthen and stretch her bilateral lower extremities. STG Duration 4 weeks One Impairment LE strength Short Term Goal (STG) Minal will improve her knee strength to 4+/5. STG Duration 4 weeks Data Center Manager Goal (LTG) Minal will improve her LE strength so that she can perform a floor transfer without knee pain. LTG Duration 8 weeks Assessment Summary Assessment Minal attends physical therapy with bilateral knee pain. L knee pain is worse at night and is related to the left hip , whereas R knee is more painful with sit to stand and stairs. Gardening impacts both knees and she has difficulty kneeling. She denies popping, locking and did not show signs of severe OA. Her left hip appears to be related to the left knee, but testing of it did not significantly reproduce her pain. She would benefit from a strengthening and stretching LE program, to address her knee, hip, and adductor dysfunction so she can increase her activity without knee pain. Physical Therapy Plan Frequency and Duration Frequency of Treatment 2x/Week Duration of Treatment 8 weeks Plan of Care Start Date 08/25/20 Plan of Care End Date 10/06/20 Therapeutic Interventions Therapeutic Interventions Gait Training,Home Exercise Program,Manual Therapy, Neuromuscular Re-education, Self-Care/Home Management, Therapeutic Activities, Therapeutic Exercises Modalities Cold Pack/Ice Massage,Electric Stimulation,Hot Packs Next Visit Focus/Plan Next Note Type Treatment Note Next Visit Plan Establish HEP for bilat knees and L hip. L hip is impacting L knee, whereas R knee would benefit from closed chain strengthening as tolerated and manual therapy for R adductor tension. Plan of Care Dates Plan of Care Start Date 08/25/20 Plan of Care End Date 10/06/20 Electronically Signed by: Ilda Carrizales, PT 08/26/20 1116 Please Sign and Return: I have reviewed this Plan of Care and certify that the skilled therapy services above are required to meet the patient?s needs. Physician Signature Date Printed Name and Credentials Clinical Instructor Signature Printed Name and Credentials
--- NOTE | 2020-08-29 11:39 | PT.OTN ---
Current Diagnoses Pain in right knee (08/29/20) Pain in left knee (08/29/20) Physical Therapy Treatment Note PT-OP-A Visit Information Start: 08/24/20 15:09 Freq: Status: Active Protocol: Document 08/29/20 10:20 AMB (Rec: 08/29/20 11:39 AMB [email or web address]) Out-Patient Physical Therapy Visit Information Visit Information Visit Type Treatment Note Visit Start Time 08:15 Visit Stop Time 09:00 Total Visit Minutes 45 Visit Number 2 PT-OP-B Current Condition Start: 08/24/20 15:09 Freq: Status: Active Protocol: Document 08/25/20 13:32 AMB (Rec: 08/25/20 13:41 AMB [id number]) Current Condition History of Current Condition Current Complaints R> L knee pain History of Current Condition L knee at night hurts worst at night- deep ache when going to bed, from inner knee to outside of hip. Kneeling and floor transfer is difficult. R knee hurts when moving from sit to stand, going down stairs. PT-OP-C Subjective Start: 08/24/20 15:09 Freq: Status: Active Protocol: Document 08/29/20 10:20 AMB (Rec: 08/29/20 11:39 AMB [id number]) OP-PT Subjective Patient Comments Patient Comments Pt has done the stretches does still feel tension in inner thigh on R. PT-OP-G Mobility & Gait Start: 08/24/20 15:09 Freq: Status: Active Protocol: Document 08/25/20 13:30 AMB (Rec: 08/26/20 13:28 AMB [id number]) OP Gait Assessment Comments Gait Comments Pt ambulates with good speed and step length without AD, stairs are antalgic ravi going down PT-OP-J Posture/Palpation/Skin Start: 08/24/20 15:09 Freq: Status: Active Protocol: Document 08/25/20 13:30 AMB (Rec: 08/26/20 13:28 AMB [id number]) Palpation Assessment Location One Palpation Location knees Palpation Details tenderness on R knee along medial knee into medial thigh. L knee tenderness at popliteal fossa PT-OP-K Range of Motion Start: 08/24/20 15:09 Freq: Status: Active Protocol: Document 08/25/20 13:30 AMB (Rec: 08/26/20 13:28 AMB [id number]) Hip Goniometric Range of Motion Hip Left Passive Comments No pain recreated with passive ROM through flexion, IR, ER, add, no significant ROM limitations Knee Goniometric Range of Motion Knee Right Patient Position Supine Flexion Passive (degrees) 130 Extension Passive (degrees) 0 Left Patient Position Supine Flexion Active (degrees) 125 Extension Passive (degrees) 0 PT-OP-L Special Tests Start: 08/24/20 15:09 Freq: Status: Active Protocol: Document 08/25/20 13:30 AMB (Rec: 08/26/20 13:28 AMB [id number]) Special Tests Hip Special Tests Scour Test Test Results - Knee Special Tests Tammy Test Test Results - PT-OP-M Strength Start: 08/24/20 15:09 Freq: Status: Active Protocol: Document 08/25/20 13:30 AMB (Rec: 08/26/20 13:28 AMB [id number]) Hip Strength Hip Manual Muscle Testing Right Flexion (L2) 4 Good Extension (S1) 4 Good Left Flexion (L2) 4 Good Extension (S1) 4 Good Comments painful resisted hip flexion Knee Strength Knee Manual Muscle Testing Right Flexion (S2) 4+ Good+ Extension (L3) 4 Good Left Flexion (S2) 4+ Good+ Extension (L3) 4 Good PT-OP-Q Treatments Start: 08/24/20 15:09 Freq: Status: Active Protocol: Document 08/29/20 10:20 AMB (Rec: 08/29/20 11:39 AMB [email or web address]) Therapeutic Exercises Supine Exercises 4 Supine Exercise Name Adductor stretch Reps/Minutes 30x2 Comments with band 3 Supine Exercise Name Bridge Reps/Minutes 10 Comments vc feel in legs not back 2 Supine Exercise Name piriformis stretch Reps/Minutes 30x2 Standing Exercises 2 Standing Exercise Name wall squat Reps/Minutes 2x8 Comments wiht #3 band around thighs, vc avoid knees past toes Manual Therapy Treatment Soft Tissue Mobilization 1 Body Location R adductor Mobilization Type Myofascial Release,Sustained Pressure Intensity/Depth Moderate PT-OP-T Assessment and Plan Start: 08/24/20 15:09 Freq: Status: Active Protocol: Document 08/29/20 10:20 AMB (Rec: 08/29/20 11:07 AMB [email or web address]) Physical Therapy Assessment Goals Three Impairment ADLS Short Term Goal (STG) Minal will move from sit to stand without knee pain from a standard height chair. STG Duration 4 weeks Chcf Goal (LTG) Minal will ascend and descend a flight of stairs with reciprocal gait without an increase in knee pain. LTG Duration 8 weeks Two Impairment HEP Short Term Goal (STG) Minal will be independent and consistent with a HEP to strengthen and stretch her bilateral lower extremities. STG Duration 4 weeks One Impairment LE strength Short Term Goal (STG) Minal will improve her knee strength to 4+/5. STG Duration 4 weeks Chcf Goal (LTG) Minal will improve her LE strength so that she can perform a floor transfer without knee pain. LTG Duration 8 weeks Assessment Summary Assessment Minal had more range of motion with hip abd after manual on R adductor. Does feel weak in her right. Physical Therapy Plan Frequency and Duration Frequency of Treatment 2x/Week Duration of Treatment 8 weeks Plan of Care Start Date 08/25/20 Plan of Care End Date 10/06/20 Therapeutic Interventions Therapeutic Interventions Gait Training,Home Exercise Program,Manual Therapy, Neuromuscular Re-education, Self-Care/Home Management, Therapeutic Activities, Therapeutic Exercises Modalities Cold Pack/Ice Massage,Electric Stimulation,Hot Packs Next Visit Focus/Plan Next Note Type Treatment Note Next Visit Plan Establish HEP for bilat knees and L hip. L hip is impacting L knee, whereas R knee would benefit from closed chain strengthening as tolerated and manal therapy for R adductor tension.
--- NOTE | 2020-09-01 10:10 | PT.OTN ---
Current Diagnoses Pain in right knee (09/01/20) Pain in left knee (09/01/20) Physical Therapy Treatment Note PT-OP-A Visit Information Start: 08/24/20 15:09 Freq: Status: Active Protocol: Document 09/01/20 09:00 AMB (Rec: 09/01/20 10:09 AMB [id number]) Out-Patient Physical Therapy Visit Information Visit Information Visit Type Treatment Note Visit Start Time 09:00 Visit Stop Time 09:45 Total Visit Minutes 45 Visit Number 3 PT-OP-B Current Condition Start: 08/24/20 15:09 Freq: Status: Active Protocol: Document 08/25/20 13:32 AMB (Rec: 08/25/20 13:41 AMB [id number]) Current Condition History of Current Condition Current Complaints R> L knee pain History of Current Condition L knee at night hurts worst at night- deep ache when going to bed, from inner knee to outside of hip. Kneeling and floor transfer is difficult. R knee hurts when moving from sit to stand, going down stairs. PT-OP-C Subjective Start: 08/24/20 15:09 Freq: Status: Active Protocol: Document 09/01/20 09:00 AMB (Rec: 09/01/20 10:09 AMB [id number]) OP-PT Subjective Patient Comments Patient Comments Pt was sore in R adductors after last treatment for about a day, overall feeling its loosened up a bit and is better able to stretch now. PT-OP-G Mobility & Gait Start: 08/24/20 15:09 Freq: Status: Active Protocol: Document 08/25/20 13:30 AMB (Rec: 08/26/20 13:28 AMB [id number]) OP Gait Assessment Comments Gait Comments Pt ambulates with good speed and step length without AD, stairs are antalgic ravi going down PT-OP-J Posture/Palpation/Skin Start: 08/24/20 15:09 Freq: Status: Active Protocol: Document 08/25/20 13:30 AMB (Rec: 08/26/20 13:28 AMB [id number]) Palpation Assessment Location One Palpation Location knees Palpation Details tenderness on R knee along medial knee into medial thigh. L knee tenderness at popliteal fossa PT-OP-K Range of Motion Start: 08/24/20 15:09 Freq: Status: Active Protocol: Document 08/25/20 13:30 AMB (Rec: 08/26/20 13:28 AMB [id number]) Hip Goniometric Range of Motion Hip Left Passive Comments No pain recreated with passive ROM through flexion, IR, ER, add, no significant ROM limitations Knee Goniometric Range of Motion Knee Right Patient Position Supine Flexion Passive (degrees) 130 Extension Passive (degrees) 0 Left Patient Position Supine Flexion Active (degrees) 125 Extension Passive (degrees) 0 PT-OP-L Special Tests Start: 08/24/20 15:09 Freq: Status: Active Protocol: Document 08/25/20 13:30 AMB (Rec: 08/26/20 13:28 AMB [id number]) Special Tests Hip Special Tests Scour Test Test Results - Knee Special Tests Tammy Test Test Results - PT-OP-M Strength Start: 08/24/20 15:09 Freq: Status: Active Protocol: Document 08/25/20 13:30 AMB (Rec: 08/26/20 13:28 AMB [id number]) Hip Strength Hip Manual Muscle Testing Right Flexion (L2) 4 Good Extension (S1) 4 Good Left Flexion (L2) 4 Good Extension (S1) 4 Good Comments painful resisted hip flexion Knee Strength Knee Manual Muscle Testing Right Flexion (S2) 4+ Good+ Extension (L3) 4 Good Left Flexion (S2) 4+ Good+ Extension (L3) 4 Good PT-OP-Q Treatments Start: 08/24/20 15:09 Freq: Status: Active Protocol: Document 09/01/20 09:00 AMB (Rec: 09/01/20 10:09 AMB [id number]) Cardio Equipment Recumbent Stepper (Sci-Fit) Duration (Minutes) 5 Resistance 3 Gym Equipment Shuttle Recovery Bilateral Squats Resistance 50# Reps/Time 3x 15 reps Therapeutic Exercises Supine Exercises 4 Supine Exercise Name Adductor stretch Side right Reps/Minutes 30x2 Comments HEP 3 Supine Exercise Name Bridge Reps/Minutes 10 Comments HEP 1 Supine Exercise Name hamstring stretch Reps/Minutes 4x30 Comments with contract relax Sidelying Exercises 1 Sidelying Exercise Name clamshell Side bilateral Resistance #3 t band Reps/Minutes 10 reps Comments HEP Manual Therapy Treatment Soft Tissue Mobilization 1 Body Location R adductor Mobilization Type Myofascial Release,Sustained Pressure Intensity/Depth Moderate PT-OP-T Assessment and Plan Start: 08/24/20 15:09 Freq: Status: Active Protocol: Document 09/01/20 09:00 AMB (Rec: 09/01/20 10:09 AMB [id number]) Physical Therapy Assessment Goals Three Impairment ADLS Short Term Goal (STG) Mnial will move from sit to stand without knee pain from a standard height chair. STG Duration 4 weeks Department Clinician Goal (LTG) Minal will ascend and descend a flight of stairs with reciprocal gait without an increase in knee pain. LTG Duration 8 weeks Two Impairment HEP Short Term Goal (STG) Minal will be independent and consistent with a HEP to strengthen and stretch her bilateral lower extremities. STG Duration 4 weeks One Impairment LE strength Short Term Goal (STG) Minal will improve her knee strength to 4+/5. STG Duration 4 weeks Residential Goal (LTG) Minal will improve her LE strength so that she can perform a floor transfer without knee pain. LTG Duration 8 weeks Assessment Summary Assessment Minal had less tenderness today in R adductor than last visit . Seemed to tolerate strengthening well. So far therapy has mostly focused on R knee pain as that is the worst during the day with activity, L knee is more at night, think likely impacted by L hip. Physical Therapy Plan Frequency and Duration Frequency of Treatment 2x/Week Duration of Treatment 8 weeks Plan of Care Start Date 08/25/20 Plan of Care End Date 10/06/20 Therapeutic Interventions Therapeutic Interventions Gait Training,Home Exercise Program,Manual Therapy, Neuromuscular Re-education, Self-Care/Home Management, Therapeutic Activities, Therapeutic Exercises Modalities Cold Pack/Ice Massage,Electric Stimulation,Hot Packs Next Visit Focus/Plan Next Note Type Treatment Note Next Visit Plan Establish HEP for bilat knees and L hip. L hip is impacting L knee, whereas R knee would benefit from closed chain strengthening as tolerated and manal therapy for R adductor tension.
--- NOTE | 2020-09-07 12:23 | PT.OTN ---
Current Diagnoses Pain in right knee (09/07/20) Pain in left knee (09/07/20) Physical Therapy Treatment Note PT-OP-A Visit Information Start: 08/24/20 15:09 Freq: Status: Active Protocol: Document 09/07/20 10:25 OF (Rec: 09/07/20 12:22 OF [id number]) Out-Patient Physical Therapy Visit Information Visit Information Visit Type Treatment Note Visit Start Time 10:25 Visit Stop Time 11:05 Total Visit Minutes 40 Visit Number 4 PT-OP-B Current Condition Start: 08/24/20 15:09 Freq: Status: Active Protocol: Document 08/25/20 13:32 AMB (Rec: 08/25/20 13:41 AMB [id number]) Current Condition History of Current Condition Current Complaints R> L knee pain History of Current Condition L knee at night hurts worst at night- deep ache when going to bed, from inner knee to outside of hip. Kneeling and floor transfer is difficult. R knee hurts when moving from sit to stand, going down stairs. PT-OP-C Subjective Start: 08/24/20 15:09 Freq: Status: Active Protocol: Document 09/07/20 10:25 OF (Rec: 09/07/20 12:22 OF [id number]) OP-PT Subjective Patient Comments Patient Comments Pt reports occasional knee pain, occasional L hip pain Patient Reported Progress Same OP-PT Pain Assessment Pain Assessment Grid Paper Pain Assessment Grid Completed No: pt rates pain 2/10 today PT-OP-G Mobility & Gait Start: 08/24/20 15:09 Freq: Status: Active Protocol: Document 08/25/20 13:30 AMB (Rec: 08/26/20 13:28 AMB [id number]) OP Gait Assessment Comments Gait Comments Pt ambulates with good speed and step length without AD, stairs are antalgic ravi going down PT-OP-J Posture/Palpation/Skin Start: 08/24/20 15:09 Freq: Status: Active Protocol: Document 08/25/20 13:30 AMB (Rec: 08/26/20 13:28 AMB [id number]) Palpation Assessment Location One Palpation Location knees Palpation Details tenderness on R knee along medial knee into medial thigh. L knee tenderness at popliteal fossa PT-OP-K Range of Motion Start: 08/24/20 15:09 Freq: Status: Active Protocol: Document 08/25/20 13:30 AMB (Rec: 08/26/20 13:28 AMB [id number]) Hip Goniometric Range of Motion Hip Left Passive Comments No pain recreated with passive ROM through flexion, IR, ER, add, no significant ROM limitations Knee Goniometric Range of Motion Knee Right Patient Position Supine Flexion Passive (degrees) 130 Extension Passive (degrees) 0 Left Patient Position Supine Flexion Active (degrees) 125 Extension Passive (degrees) 0 PT-OP-L Special Tests Start: 08/24/20 15:09 Freq: Status: Active Protocol: Document 08/25/20 13:30 AMB (Rec: 08/26/20 13:28 AMB [id number]) Special Tests Hip Special Tests Scour Test Test Results - Knee Special Tests Tammy Test Test Results - PT-OP-M Strength Start: 08/24/20 15:09 Freq: Status: Active Protocol: Document 08/25/20 13:30 AMB (Rec: 08/26/20 13:28 AMB [id number]) Hip Strength Hip Manual Muscle Testing Right Flexion (L2) 4 Good Extension (S1) 4 Good Left Flexion (L2) 4 Good Extension (S1) 4 Good Comments painful resisted hip flexion Knee Strength Knee Manual Muscle Testing Right Flexion (S2) 4+ Good+ Extension (L3) 4 Good Left Flexion (S2) 4+ Good+ Extension (L3) 4 Good PT-OP-Q Treatments Start: 08/24/20 15:09 Freq: Status: Active Protocol: Document 09/07/20 10:25 OF (Rec: 09/07/20 12:22 OF [id number]) Cardio Equipment Recumbent Elliptical (Biodex) Duration (Minutes) 8 Resistance 4 Gym Equipment Shuttle Recovery Bilateral Squats Resistance 50# Reps/Time 3x 15 reps pt states resistance has become too light after 3rd set Therapeutic Exercises Supine Exercises 4 Supine Exercise Name Adductor stretch Side right Reps/Minutes 30x2 Comments HEP 3 Supine Exercise Name Bridge Reps/Minutes 3x10 Comments HEP 2 Supine Exercise Name piriformis stretch Reps/Minutes 30x2 1 Supine Exercise Name hamstring stretch Reps/Minutes 4x30 Comments with contract relax Sitting Exercises 3 Sitting Exercise Name therapy ball Comments pelvic tilt, LAQ, may: HEP comp 2 Sitting Exercise Name SKTC 1 Sitting Exercise Name LAQ Side bilateral Resistance 3# Reps/Minutes 3x10 Comments focus for eccentric quad control Manual Therapy Treatment Soft Tissue Mobilization 1 Body Location R adductor Mobilization Type Myofascial Release,Rolling, Sustained Pressure Intensity/Depth Moderate Body Position Supine Comments pt states is assisting with STM Self-Care/Home Management Treatment Education Patient Education Body Mechanics,Home Exercise Program PT-OP-T Assessment and Plan Start: 08/24/20 15:09 Freq: Status: Active Protocol: Document 09/07/20 10:25 OF (Rec: 09/07/20 12:22 OF [id number]) Physical Therapy Assessment Rehab Potential Rehabilitation Potential Good Evaluation Complexity Number of Personal Factors/Comorbidities 1-2 Number of Body Systems Impaired 1-2 Clinical Presentation at Evaluation Stable Impairments Impairments Activity Tolerance,Gait,Pain, Strength Goals Three Impairment ADLS Short Term Goal (STG) Minal will move from sit to stand without knee pain from a standard height chair. STG Duration 4 weeks Usp Goal (LTG) Minal will ascend and descend a flight of stairs with reciprocal gait without an increase in knee pain. LTG Duration 8 weeks Two Impairment HEP Short Term Goal (STG) Minal will be independent and consistent with a HEP to strengthen and stretch her bilateral lower extremities. STG Duration 4 weeks One Impairment LE strength Short Term Goal (STG) Minal will improve her knee strength to 4+/5. STG Duration 4 weeks Data Migration Lead Goal (LTG) Minal will improve her LE strength so that she can perform a floor transfer without knee pain. LTG Duration 8 weeks Progress Towards Goals Progress Towards Goals Progressing Toward Goals Assessment Summary Assessment pt has good HEP awareness, agreeable to progressing for quad and glute strengthening. Physical Therapy Plan Frequency and Duration Frequency of Treatment 2x/Week Duration of Treatment 8 weeks Plan of Care Start Date 08/25/20 Plan of Care End Date 10/06/20 Next Visit Focus/Plan Next Note Type Treatment Note Next Visit Plan Establish HEP for bilat knees and L hip. L hip is impacting L knee, whereas R knee would benefit from closed chain strengthening as tolerated and manal therapy for R adductor tension. Reassess HEP response after additions of LAQ with weight, increase squat resistance
--- NOTE | 2020-09-13 09:01 | PT.OTN ---
Current Diagnoses Pain in right knee (09/13/20) Pain in left knee (09/13/20) Physical Therapy Treatment Note PT-OP-A Visit Information Start: 08/24/20 15:09 Freq: Status: Active Protocol: Document 09/13/20 08:12 MA (Rec: 09/13/20 09:01 MA [id number]) Out-Patient Physical Therapy Visit Information Visit Information Visit Type Treatment Note Visit Start Time 08:10 Visit Stop Time 08:57 Total Visit Minutes 47 Visit Number 5 Number of [employer]ER Visits 1 PT-OP-B Current Condition Start: 08/24/20 15:09 Freq: Status: Active Protocol: Document 08/25/20 13:32 AMB (Rec: 08/25/20 13:41 AMB [id number]) Current Condition History of Current Condition Current Complaints R> L knee pain History of Current Condition L knee at night hurts worst at night- deep ache when going to bed, from inner knee to outside of hip. Kneeling and floor transfer is difficult. R knee hurts when moving from sit to stand, going down stairs. PT-OP-C Subjective Start: 08/24/20 15:09 Freq: Status: Active Protocol: Document 09/13/20 08:12 MA (Rec: 09/13/20 09:01 MA [id number]) OP-PT Subjective Patient Comments Patient Comments Pt feels her knees always hurt after therapy. She ices them at home before bed or the pain wakes her up PT-OP-G Mobility & Gait Start: 08/24/20 15:09 Freq: Status: Active Protocol: Document 08/25/20 13:30 AMB (Rec: 08/26/20 13:28 AMB [id number]) OP Gait Assessment Comments Gait Comments Pt ambulates with good speed and step length without AD, stairs are antalgic ravi going down PT-OP-J Posture/Palpation/Skin Start: 08/24/20 15:09 Freq: Status: Active Protocol: Document 08/25/20 13:30 AMB (Rec: 08/26/20 13:28 AMB [id number]) Palpation Assessment Location One Palpation Location knees Palpation Details tenderness on R knee along medial knee into medial thigh. L knee tenderness at popliteal fossa PT-OP-K Range of Motion Start: 08/24/20 15:09 Freq: Status: Active Protocol: Document 08/25/20 13:30 AMB (Rec: 08/26/20 13:28 AMB [id number]) Hip Goniometric Range of Motion Hip Left Passive Comments No pain recreated with passive ROM through flexion, IR, ER, add, no significant ROM limitations Knee Goniometric Range of Motion Knee Right Patient Position Supine Flexion Passive (degrees) 130 Extension Passive (degrees) 0 Left Patient Position Supine Flexion Active (degrees) 125 Extension Passive (degrees) 0 PT-OP-L Special Tests Start: 08/24/20 15:09 Freq: Status: Active Protocol: Document 08/25/20 13:30 AMB (Rec: 08/26/20 13:28 AMB [id number]) Special Tests Hip Special Tests Scour Test Test Results - Knee Special Tests Tammy Test Test Results - PT-OP-M Strength Start: 08/24/20 15:09 Freq: Status: Active Protocol: Document 08/25/20 13:30 AMB (Rec: 08/26/20 13:28 AMB [id number]) Hip Strength Hip Manual Muscle Testing Right Flexion (L2) 4 Good Extension (S1) 4 Good Left Flexion (L2) 4 Good Extension (S1) 4 Good Comments painful resisted hip flexion Knee Strength Knee Manual Muscle Testing Right Flexion (S2) 4+ Good+ Extension (L3) 4 Good Left Flexion (S2) 4+ Good+ Extension (L3) 4 Good PT-OP-Q Treatments Start: 08/24/20 15:09 Freq: Status: Active Protocol: Document 09/13/20 08:12 MA (Rec: 09/13/20 09:01 MA [id number]) Cardio Equipment Recumbent Elliptical (Lockbox) Duration (Minutes) 5 Resistance 4 Seat Position 7 Other stopped after 5 due to pain Gym Equipment Shuttle Recovery Unilateral Squats Resistance 37# Shuttle Recovery Platform Stable Reps/Time x10 Bilateral Squats Resistance 50#, 75# Shuttle Recovery Platform Stable Reps/Time 2x10 Therapeutic Exercises Supine Exercises 4 Supine Exercise Name Adductor stretch Side right Reps/Minutes 30x2 Comments HEP 3 Supine Exercise Name Bridge Resistance TB#3 Reps/Minutes 3x10 Comments HEP 2 Supine Exercise Name piriformis stretch Reps/Minutes 30x2 1 Supine Exercise Name hamstring stretch Reps/Minutes 4x30 Comments with contract relax Sidelying Exercises 1 Sidelying Exercise Name clamshell Side bilateral Resistance #3 t band Reps/Minutes 10 reps Comments HEP Standing Exercises Stretch Standing Exercise Name Calf Stretch Side bilateral Equipment Used MOHINDER Reps/Minutes 1' Manual Therapy Treatment Soft Tissue Mobilization 1 Body Location R adductor Mobilization Type Myofascial Release,Rolling, Sustained Pressure Intensity/Depth Moderate Body Position Supine PT-OP-T Assessment and Plan Start: 08/24/20 15:09 Freq: Status: Active Protocol: Document 09/13/20 08:12 MA (Rec: 09/13/20 09:01 MA [id number]) Physical Therapy Assessment Goals Three Impairment ADLS Short Term Goal (STG) Minal will move from sit to stand without knee pain from a standard height chair. STG Duration 4 weeks Md Pediatric Allergist Goal (LTG) Minal will ascend and descend a flight of stairs with reciprocal gait without an increase in knee pain. LTG Duration 8 weeks Two Impairment HEP Short Term Goal (STG) Minal will be independent and consistent with a HEP to strengthen and stretch her bilateral lower extremities. STG Duration 4 weeks One Impairment LE strength Short Term Goal (STG) Minal will improve her knee strength to 4+/5. STG Duration 4 weeks Md Pediatric Allergist Goal (LTG) Minal will improve her LE strength so that she can perform a floor transfer without knee pain. LTG Duration 8 weeks Assessment Summary Assessment Pt has R medial knee pain when on recumbant stepper and during SL squats on leg press. Encouraged pt to try stretching before walks at home due to her increased pain after exercise. She has some relief after STM to R adductors. Physical Therapy Plan Frequency and Duration Frequency of Treatment 2x/Week Duration of Treatment 8 weeks Plan of Care Start Date 08/25/20 Plan of Care End Date 10/06/20 Therapeutic Interventions Therapeutic Interventions Gait Training,Home Exercise Program,Manual Therapy, Neuromuscular Re-education, Self-Care/Home Management, Therapeutic Activities, Therapeutic Exercises Modalities Cold Pack/Ice Massage,Electric Stimulation,Hot Packs Next Visit Focus/Plan Next Note Type Treatment Note Next Visit Plan Establish HEP for bilat knees and L hip. L hip is impacting L knee, whereas R knee would benefit from closed chain strengthening as tolerated and manal therapy for R adductor tension. Reassess HEP response after additions of LAQ with weight, increase squat resistance
--- NOTE | 2020-09-15 15:56 | PT.OTN ---
Current Diagnoses Pain in right knee (09/15/20) Pain in left knee (09/15/20) Physical Therapy Treatment Note PT-OP-A Visit Information Start: 08/24/20 15:09 Freq: Status: Active Protocol: Document 09/15/20 07:30 AMB (Rec: 09/16/20 15:55 AMB [id number]) Out-Patient Physical Therapy Visit Information Visit Information Visit Type Treatment Note Visit Start Time 07:30 Visit Stop Time 08:15 Total Visit Minutes 45 Visit Number 6 PT-OP-B Current Condition Start: 08/24/20 15:09 Freq: Status: Active Protocol: Document 08/25/20 13:32 AMB (Rec: 08/25/20 13:41 AMB [id number]) Current Condition History of Current Condition Current Complaints R> L knee pain History of Current Condition L knee at night hurts worst at night- deep ache when going to bed, from inner knee to outside of hip. Kneeling and floor transfer is difficult. R knee hurts when moving from sit to stand, going down stairs. PT-OP-C Subjective Start: 08/24/20 15:09 Freq: Status: Active Protocol: Document 09/15/20 07:30 AMB (Rec: 09/16/20 15:55 AMB [id number]) OP-PT Subjective Patient Comments Patient Comments Pt feels like her adductor is better but her knees are worse . Has been doing open chain LAQ. PT-OP-G Mobility & Gait Start: 08/24/20 15:09 Freq: Status: Active Protocol: Document 08/25/20 13:30 AMB (Rec: 08/26/20 13:28 AMB [id number]) OP Gait Assessment Comments Gait Comments Pt ambulates with good speed and step length without AD, stairs are antalgic ravi going down PT-OP-J Posture/Palpation/Skin Start: 08/24/20 15:09 Freq: Status: Active Protocol: Document 08/25/20 13:30 AMB (Rec: 08/26/20 13:28 AMB [id number]) Palpation Assessment Location One Palpation Location knees Palpation Details tenderness on R knee along medial knee into medial thigh. L knee tenderness at popliteal fossa PT-OP-K Range of Motion Start: 08/24/20 15:09 Freq: Status: Active Protocol: Document 08/25/20 13:30 AMB (Rec: 08/26/20 13:28 AMB [id number]) Hip Goniometric Range of Motion Hip Left Passive Comments No pain recreated with passive ROM through flexion, IR, ER, add, no significant ROM limitations Knee Goniometric Range of Motion Knee Right Patient Position Supine Flexion Passive (degrees) 130 Extension Passive (degrees) 0 Left Patient Position Supine Flexion Active (degrees) 125 Extension Passive (degrees) 0 PT-OP-L Special Tests Start: 08/24/20 15:09 Freq: Status: Active Protocol: Document 08/25/20 13:30 AMB (Rec: 08/26/20 13:28 AMB [id number]) Special Tests Hip Special Tests Scour Test Test Results - Knee Special Tests Tammy Test Test Results - PT-OP-M Strength Start: 08/24/20 15:09 Freq: Status: Active Protocol: Document 08/25/20 13:30 AMB (Rec: 08/26/20 13:28 AMB [id number]) Hip Strength Hip Manual Muscle Testing Right Flexion (L2) 4 Good Extension (S1) 4 Good Left Flexion (L2) 4 Good Extension (S1) 4 Good Comments painful resisted hip flexion Knee Strength Knee Manual Muscle Testing Right Flexion (S2) 4+ Good+ Extension (L3) 4 Good Left Flexion (S2) 4+ Good+ Extension (L3) 4 Good PT-OP-Q Treatments Start: 08/24/20 15:09 Freq: Status: Active Protocol: Document 09/15/20 07:30 AMB (Rec: 09/16/20 15:55 AMB [id number]) Cardio Equipment Recumbent Elliptical ([employer]iquid Computing) Duration (Minutes) 10 Resistance 3 Seat Position 7 Other no reported pain today Therapeutic Exercises Supine Exercises 4 Supine Exercise Name Adductor stretch Side right Reps/Minutes 30x2 Comments HEP 2 Supine Exercise Name piriformis stretch Reps/Minutes 30x2 1 Supine Exercise Name hamstring stretch Reps/Minutes 4x30 Comments with contract relax Sidelying Exercises 1 Sidelying Exercise Name clamshell Side bilateral Resistance #3 t band Reps/Minutes 10 reps Comments HEP Standing Exercises Stretch Standing Exercise Name Calf Stretch Side bilateral Equipment Used MOHINDER Reps/Minutes 1' Manual Therapy Treatment Soft Tissue Mobilization 1 Body Location R adductor Mobilization Type Myofascial Release,Rolling, Sustained Pressure Intensity/Depth Moderate Body Position Supine PT-OP-T Assessment and Plan Start: 08/24/20 15:09 Freq: Status: Active Protocol: Document 09/15/20 07:30 AMB (Rec: 09/15/20 07:55 AMB [id number]) Physical Therapy Assessment Assessment Summary Assessment Pt is worried about meniscus since it catches when she twists on it on the right. Did take away open chain LAQ from her today as that may be irritating her. Refocused on bridge, squat, closed chain strengthening. Physical Therapy Plan Next Visit Focus/Plan Next Note Type Treatment Note Next Visit Plan Establish HEP for bilat knees and L hip. L hip is impacting L knee, whereas R knee would benefit from closed chain strengthening as tolerated and manal therapy for R adductor tension. Reassess HEP response after additions of LAQ with weight, increase squat resistance
--- NOTE | 2020-10-05 15:41 | PT.OTN ---
Current Diagnoses Pain in right knee (10/05/20) Pain in left knee (10/05/20) Physical Therapy Treatment Note PT-OP-A Visit Information Start: 08/24/20 15:09 Freq: Status: Active Protocol: Document 10/05/20 08:15 AMB (Rec: 10/05/20 09:01 AMB [id number]) Out-Patient Physical Therapy Visit Information Visit Information Visit Type Treatment Note Visit Start Time 08:15 Visit Stop Time 09:00 Total Visit Minutes 45 Visit Number 7 PT-OP-B Current Condition Start: 08/24/20 15:09 Freq: Status: Active Protocol: Document 08/25/20 13:32 AMB (Rec: 08/25/20 13:41 AMB [id number]) Current Condition History of Current Condition Current Complaints R> L knee pain History of Current Condition L knee at night hurts worst at night- deep ache when going to bed, from inner knee to outside of hip. Kneeling and floor transfer is difficult. R knee hurts when moving from sit to stand, going down stairs. PT-OP-C Subjective Start: 08/24/20 15:09 Freq: Status: Active Protocol: Document 10/05/20 08:15 AMB (Rec: 10/05/20 15:34 AMB [id number]) OP-PT Subjective Patient Comments Patient Comments Minal is continuing to have R>L knee pain. Her adductor pain is better, but the pain with sit to stand and stairs is the same. She is concerned about her statins increasing her pain. PT-OP-G Mobility & Gait Start: 08/24/20 15:09 Freq: Status: Active Protocol: Document 08/25/20 13:30 AMB (Rec: 08/26/20 13:28 AMB [id number]) OP Gait Assessment Comments Gait Comments Pt ambulates with good speed and step length without AD, stairs are antalgic ravi going down PT-OP-J Posture/Palpation/Skin Start: 08/24/20 15:09 Freq: Status: Active Protocol: Document 08/25/20 13:30 AMB (Rec: 08/26/20 13:28 AMB [id number]) Palpation Assessment Location One Palpation Location knees Palpation Details tenderness on R knee along medial knee into medial thigh. L knee tenderness at popliteal fossa PT-OP-K Range of Motion Start: 08/24/20 15:09 Freq: Status: Active Protocol: Document 08/25/20 13:30 AMB (Rec: 08/26/20 13:28 AMB [id number]) Hip Goniometric Range of Motion Hip Left Passive Comments No pain recreated with passive ROM through flexion, IR, ER, add, no significant ROM limitations Knee Goniometric Range of Motion Knee Right Patient Position Supine Flexion Passive (degrees) 130 Extension Passive (degrees) 0 Left Patient Position Supine Flexion Active (degrees) 125 Extension Passive (degrees) 0 PT-OP-L Special Tests Start: 08/24/20 15:09 Freq: Status: Active Protocol: Document 08/25/20 13:30 AMB (Rec: 08/26/20 13:28 AMB [id number]) Special Tests Hip Special Tests Scour Test Test Results - Knee Special Tests Tammy Test Test Results - PT-OP-M Strength Start: 08/24/20 15:09 Freq: Status: Active Protocol: Document 08/25/20 13:30 AMB (Rec: 08/26/20 13:28 AMB [id number]) Hip Strength Hip Manual Muscle Testing Right Flexion (L2) 4 Good Extension (S1) 4 Good Left Flexion (L2) 4 Good Extension (S1) 4 Good Comments painful resisted hip flexion Knee Strength Knee Manual Muscle Testing Right Flexion (S2) 4+ Good+ Extension (L3) 4 Good Left Flexion (S2) 4+ Good+ Extension (L3) 4 Good PT-OP-Q Treatments Start: 08/24/20 15:09 Freq: Status: Active Protocol: Document 10/05/20 08:15 AMB (Rec: 10/05/20 15:34 AMB [id number]) Gym Equipment Shuttle Recovery Bilateral Squats Resistance 50#, 75# Shuttle Recovery Platform Stable Reps/Time 2x10 Therapeutic Exercises Supine Exercises 1 Supine Exercise Name hamstring stretch Reps/Minutes 4x30 Comments with contract relax Sidelying Exercises 1 Sidelying Exercise Name clamshell Side bilateral Resistance #1 t band Reps/Minutes 10 reps Comments HEP Standing Exercises Stretch Standing Exercise Name Calf Stretch Side bilateral Equipment Used MOHINDER Reps/Minutes 1' 1 Standing Exercise Name wall squat Reps/Minutes 10 Manual Therapy Treatment Manual Traction long axis Details R LE Body Position Supine PT-OP-T Assessment and Plan Start: 08/24/20 15:09 Freq: Status: Active Protocol: Document 10/05/20 08:15 AMB (Rec: 10/05/20 09:01 AMB [id number]) Physical Therapy Assessment Goals Three Impairment ADLS Short Term Goal (STG) Minal will move from sit to stand without knee pain from a standard height chair. STG Duration 4 weeks Rhit Goal (LTG) Minal will ascend and descend a flight of stairs with reciprocal gait without an increase in knee pain. LTG Duration 8 weeks Two Impairment HEP Short Term Goal (STG) Minal will be independent and consistent with a HEP to strengthen and stretch her bilateral lower extremities. STG Duration 4 weeks One Impairment LE strength Short Term Goal (STG) Minal will improve her knee strength to 4+/5. STG Duration 4 weeks Rhit Goal (LTG) Minal will improve her LE strength so that she can perform a floor transfer without knee pain. LTG Duration 8 weeks Assessment Summary Assessment Minal's adductor pain has significantly improved, however she continues to have R>L knee pain. She is concerned about meniscus involvement, and this could be a concern. Educated that patients, especially around her age generally in the custodial do just as well with PT as with surgery, but that if she would like to follow up with her PCP she is more than welcome to. She plans to continue with PT for continued strengthening for the next few weeks and then likely follow up with PCP. Physical Therapy Plan Frequency and Duration Frequency of Treatment 2x/Week Duration of Treatment 6 weeks Plan of Care Start Date 10/05/20 Plan of Care End Date 11/16/20 Therapeutic Interventions Therapeutic Interventions Gait Training,Home Exercise Program,Manual Therapy, Neuromuscular Re-education, Self-Care/Home Management, Therapeutic Activities, Therapeutic Exercises Modalities Cold Pack/Ice Massage,Electric Stimulation,Hot Packs Next Visit Focus/Plan Next Note Type Treatment Note Next Visit Plan R>L quad strengthening closed chain only
--- NOTE | 2020-10-05 15:42 | PT.OPPOC ---
Physical, Occupational & Speech Therapy At [facility] Current Diagnoses Pain in right knee (10/05/20) Pain in left knee (10/05/20) Visit Care Team Role Provider Type Michela Muñiz MD Attending Provider Physician Primary Care Provider Referring Provider Specialty: Family Practice Address: [address] [place] [address], [id number] Email: [email or web address] Plan Of Care PT-OP-T Assessment and Plan Start: 08/24/20 15:09 Freq: Status: Active Protocol: Document 10/05/20 08:15 AMB (Rec: 10/05/20 09:01 AMB [id number]) Physical Therapy Assessment Goals Three Impairment ADLS Short Term Goal (STG) Minal will move from sit to stand without knee pain from a standard height chair. STG Duration 4 weeks Coding Assistant Goal (LTG) Minal will ascend and descend a flight of stairs with reciprocal gait without an increase in knee pain. LTG Duration 8 weeks Two Impairment HEP Short Term Goal (STG) Minal will be independent and consistent with a HEP to strengthen and stretch her bilateral lower extremities. STG Duration 4 weeks One Impairment LE strength Short Term Goal (STG) Minal will improve her knee strength to 4+/5. STG Duration 4 weeks Coding Assistant Goal (LTG) Minal will improve her LE strength so that she can perform a floor transfer without knee pain. LTG Duration 8 weeks Assessment Summary Assessment Minal's adductor pain has significantly improved, however she continues to have R>L knee pain. She is concerned about meniscus involvement, and this could be a concern. Educated that patients, especially around her age generally in the chcf do just as well with PT as with surgery, but that if she would like to follow up with her PCP she is more than welcome to. She plans to continue with PT for continued strengthening for the next few weeks and then likely follow up with PCP. Physical Therapy Plan Frequency and Duration Frequency of Treatment 2x/Week Duration of Treatment 6 weeks Plan of Care Start Date 10/05/20 Plan of Care End Date 11/16/20 Therapeutic Interventions Therapeutic Interventions Gait Training,Home Exercise Program,Manual Therapy, Neuromuscular Re-education, Self-Care/Home Management, Therapeutic Activities, Therapeutic Exercises Modalities Cold Pack/Ice Massage,Electric Stimulation,Hot Packs Next Visit Focus/Plan Next Note Type Treatment Note Next Visit Plan R>L quad strengthening closed chain only Plan of Care Dates Plan of Care Start Date 10/05/20 Plan of Care End Date 11/16/20 Electronically Signed by: Ilda Carrizales, PT 10/05/20 2272 Please Sign and Return: I have reviewed this Plan of Care and certify that the skilled therapy services above are required to meet the patient?s needs. Physician Signature Date Printed Name and Credentials Clinical Instructor Signature Printed Name and Credentials
--- NOTE | 2020-10-07 09:35 | PT.OTN ---
Current Diagnoses Pain in right knee (10/07/20) Pain in left knee (10/07/20) Physical Therapy Treatment Note PT-OP-A Visit Information Start: 08/24/20 15:09 Freq: Status: Active Protocol: Document 10/07/20 08:15 AMB (Rec: 10/07/20 09:35 AMB [id number]) Out-Patient Physical Therapy Visit Information Visit Information Visit Type Treatment Note Visit Start Time 08:15 Visit Stop Time 09:00 Total Visit Minutes 45 Visit Number 8 PT-OP-B Current Condition Start: 08/24/20 15:09 Freq: Status: Active Protocol: Document 08/25/20 13:32 AMB (Rec: 08/25/20 13:41 AMB [id number]) Current Condition History of Current Condition Current Complaints R> L knee pain History of Current Condition L knee at night hurts worst at night- deep ache when going to bed, from inner knee to outside of hip. Kneeling and floor transfer is difficult. R knee hurts when moving from sit to stand, going down stairs. PT-OP-C Subjective Start: 08/24/20 15:09 Freq: Status: Active Protocol: Document 10/07/20 08:15 AMB (Rec: 10/07/20 09:35 AMB [id number]) OP-PT Subjective Patient Comments Patient Comments Minal is continuing to have R knee pain. PT-OP-G Mobility & Gait Start: 08/24/20 15:09 Freq: Status: Active Protocol: Document 08/25/20 13:30 AMB (Rec: 08/26/20 13:28 AMB [id number]) OP Gait Assessment Comments Gait Comments Pt ambulates with good speed and step length without AD, stairs are antalgic ravi going down PT-OP-J Posture/Palpation/Skin Start: 08/24/20 15:09 Freq: Status: Active Protocol: Document 08/25/20 13:30 AMB (Rec: 08/26/20 13:28 AMB [id number]) Palpation Assessment Location One Palpation Location knees Palpation Details tenderness on R knee along medial knee into medial thigh. L knee tenderness at popliteal fossa PT-OP-K Range of Motion Start: 08/24/20 15:09 Freq: Status: Active Protocol: Document 08/25/20 13:30 AMB (Rec: 08/26/20 13:28 AMB [id number]) Hip Goniometric Range of Motion Hip Left Passive Comments No pain recreated with passive ROM through flexion, IR, ER, add, no significant ROM limitations Knee Goniometric Range of Motion Knee Right Patient Position Supine Flexion Passive (degrees) 130 Extension Passive (degrees) 0 Left Patient Position Supine Flexion Active (degrees) 125 Extension Passive (degrees) 0 PT-OP-L Special Tests Start: 08/24/20 15:09 Freq: Status: Active Protocol: Document 08/25/20 13:30 AMB (Rec: 08/26/20 13:28 AMB [id number]) Special Tests Hip Special Tests Scour Test Test Results - Knee Special Tests Tammy Test Test Results - PT-OP-M Strength Start: 08/24/20 15:09 Freq: Status: Active Protocol: Document 08/25/20 13:30 AMB (Rec: 08/26/20 13:28 AMB [id number]) Hip Strength Hip Manual Muscle Testing Right Flexion (L2) 4 Good Extension (S1) 4 Good Left Flexion (L2) 4 Good Extension (S1) 4 Good Comments painful resisted hip flexion Knee Strength Knee Manual Muscle Testing Right Flexion (S2) 4+ Good+ Extension (L3) 4 Good Left Flexion (S2) 4+ Good+ Extension (L3) 4 Good PT-OP-Q Treatments Start: 08/24/20 15:09 Freq: Status: Active Protocol: Document 10/07/20 08:15 AMB (Rec: 10/07/20 09:35 AMB [id number]) Gym Equipment Shuttle Recovery Bilateral Squats Resistance 75# Shuttle Recovery Platform Stable Reps/Time 2x10 Therapeutic Exercises Supine Exercises 1 Supine Exercise Name hamstring stretch Reps/Minutes 4x30 Comments with contract relax Sidelying Exercises 1 Sidelying Exercise Name clamshell Side bilateral Resistance #2 t band Reps/Minutes 10 reps Comments HEP Standing Exercises Stretch Standing Exercise Name Calf Stretch Side bilateral Equipment Used MOHINDER Reps/Minutes 1' 1 Standing Exercise Name wall squat Reps/Minutes 10 Manual Therapy Treatment Manual Traction long axis Details R LE Body Position Supine Taping 1 Body Location R knee Type of Tape kinesiotape Comments Two I's PT-OP-T Assessment and Plan Start: 08/24/20 15:09 Freq: Status: Active Protocol: Document 10/07/20 08:15 AMB (Rec: 10/07/20 09:35 AMB [id number]) Physical Therapy Assessment Goals Three Impairment ADLS Short Term Goal (STG) Minal will move from sit to stand without knee pain from a standard height chair. STG Duration 4 weeks Mcfp Goal (LTG) Minal will ascend and descend a flight of stairs with reciprocal gait without an increase in knee pain. LTG Duration 8 weeks Two Impairment HEP Short Term Goal (STG) Minal will be independent and consistent with a HEP to strengthen and stretch her bilateral lower extremities. STG Duration 4 weeks One Impairment LE strength Short Term Goal (STG) Minal will improve her knee strength to 4+/5. STG Duration 4 weeks Diet Kitchen Cook Goal (LTG) Minal will improve her LE strength so that she can perform a floor transfer without knee pain. LTG Duration 8 weeks Assessment Summary Assessment Minal continues to have R medial knee pain that swells at the end of the day, and hurts with walking. She has been icing. Physical Therapy Plan Next Visit Focus/Plan Next Note Type Treatment Note Next Visit Plan R>L quad/hip strengthening closed chain only
--- NOTE | 2020-10-12 11:11 | PT.OTN ---
Current Diagnoses Pain in right knee (10/12/20) Pain in left knee (10/12/20) Physical Therapy Treatment Note PT-OP-A Visit Information Start: 08/24/20 15:09 Freq: Status: Active Protocol: Document 10/12/20 10:15 AMB (Rec: 10/12/20 11:09 AMB [id number]) Out-Patient Physical Therapy Visit Information Visit Information Visit Type Treatment Note Visit Start Time 10:15 Visit Stop Time 11:00 Total Visit Minutes 45 Visit Number 9 PT-OP-B Current Condition Start: 08/24/20 15:09 Freq: Status: Active Protocol: Document 08/25/20 13:32 AMB (Rec: 08/25/20 13:41 AMB [id number]) Current Condition History of Current Condition Current Complaints R> L knee pain History of Current Condition L knee at night hurts worst at night- deep ache when going to bed, from inner knee to outside of hip. Kneeling and floor transfer is difficult. R knee hurts when moving from sit to stand, going down stairs. PT-OP-C Subjective Start: 08/24/20 15:09 Freq: Status: Active Protocol: Document 10/12/20 10:15 AMB (Rec: 10/12/20 11:09 AMB [id number]) OP-PT Subjective Patient Comments Patient Comments Minal is continuing to notice R knee pain, worst about 48 hours after PT appointment. PT-OP-G Mobility & Gait Start: 08/24/20 15:09 Freq: Status: Active Protocol: Document 08/25/20 13:30 AMB (Rec: 08/26/20 13:28 AMB [id number]) OP Gait Assessment Comments Gait Comments Pt ambulates with good speed and step length without AD, stairs are antalgic ravi going down PT-OP-J Posture/Palpation/Skin Start: 08/24/20 15:09 Freq: Status: Active Protocol: Document 08/25/20 13:30 AMB (Rec: 08/26/20 13:28 AMB [id number]) Palpation Assessment Location One Palpation Location knees Palpation Details tenderness on R knee along medial knee into medial thigh. L knee tenderness at popliteal fossa PT-OP-K Range of Motion Start: 08/24/20 15:09 Freq: Status: Active Protocol: Document 08/25/20 13:30 AMB (Rec: 08/26/20 13:28 AMB [id number]) Hip Goniometric Range of Motion Hip Left Passive Comments No pain recreated with passive ROM through flexion, IR, ER, add, no significant ROM limitations Knee Goniometric Range of Motion Knee Right Patient Position Supine Flexion Passive (degrees) 130 Extension Passive (degrees) 0 Left Patient Position Supine Flexion Active (degrees) 125 Extension Passive (degrees) 0 PT-OP-L Special Tests Start: 08/24/20 15:09 Freq: Status: Active Protocol: Document 08/25/20 13:30 AMB (Rec: 08/26/20 13:28 AMB [id number]) Special Tests Hip Special Tests Scour Test Test Results - Knee Special Tests Tammy Test Test Results - PT-OP-M Strength Start: 08/24/20 15:09 Freq: Status: Active Protocol: Document 08/25/20 13:30 AMB (Rec: 08/26/20 13:28 AMB [id number]) Hip Strength Hip Manual Muscle Testing Right Flexion (L2) 4 Good Extension (S1) 4 Good Left Flexion (L2) 4 Good Extension (S1) 4 Good Comments painful resisted hip flexion Knee Strength Knee Manual Muscle Testing Right Flexion (S2) 4+ Good+ Extension (L3) 4 Good Left Flexion (S2) 4+ Good+ Extension (L3) 4 Good PT-OP-Q Treatments Start: 08/24/20 15:09 Freq: Status: Active Protocol: Document 10/12/20 10:15 AMB (Rec: 10/12/20 11:09 AMB [id number]) Gym Equipment Shuttle Recovery Bilateral Squats Resistance 75# Shuttle Recovery Platform Stable Reps/Time 2x10 Therapeutic Exercises Supine Exercises 1 Supine Exercise Name hamstring stretch Reps/Minutes 4x30 Comments with contract relax Manual Therapy Treatment Soft Tissue Mobilization 1 Body Location gastroc, hamstrings, patellar tendon Mobilization Type Myofascial Release,Rolling, Sustained Pressure Intensity/Depth Moderate Body Position Supine Joint Mobilizations 2 Joint AP/PA tibiofemoral Grade III PT-OP-T Assessment and Plan Start: 08/24/20 15:09 Freq: Status: Active Protocol: Document 10/12/20 10:15 AMB (Rec: 10/12/20 11:09 AMB [id number]) Physical Therapy Assessment Assessment Summary Assessment More manual therapy due to knee swelling today, if pt continues to flare up could consider return to PCP. Pt did have significantly improved knee extension at end of session. Physical Therapy Plan Next Visit Focus/Plan Next Note Type Treatment Note Next Visit Plan R>L quad/hip strengthening closed chain only
--- NOTE | 2020-10-14 16:00 | PT.OTN ---
Current Diagnoses Pain in right knee (10/14/20) Pain in left knee (10/14/20) Physical Therapy Treatment Note PT-OP-A Visit Information Start: 08/24/20 15:09 Freq: Status: Active Protocol: Document 10/14/20 13:30 AMB (Rec: 10/14/20 13:40 AMB [id number]) Out-Patient Physical Therapy Visit Information Visit Information Visit Type Treatment Note Visit Start Time 13:30 Visit Stop Time 14:15 Total Visit Minutes 45 Visit Number 10 PT-OP-B Current Condition Start: 08/24/20 15:09 Freq: Status: Active Protocol: Document 08/25/20 13:32 AMB (Rec: 08/25/20 13:41 AMB [id number]) Current Condition History of Current Condition Current Complaints R> L knee pain History of Current Condition L knee at night hurts worst at night- deep ache when going to bed, from inner knee to outside of hip. Kneeling and floor transfer is difficult. R knee hurts when moving from sit to stand, going down stairs. PT-OP-C Subjective Start: 08/24/20 15:09 Freq: Status: Active Protocol: Document 10/14/20 13:30 AMB (Rec: 10/15/20 09:05 AMB [id number]) OP-PT Subjective Patient Comments Patient Comments Pt states knee was better for about 3 hours after PT. PT exercises don't hurt while she 's doing them, but later on knee continues to hurt. Still swollen, did try wearing a brace thought that was helpful . PT-OP-G Mobility & Gait Start: 08/24/20 15:09 Freq: Status: Active Protocol: Document 08/25/20 13:30 AMB (Rec: 08/26/20 13:28 AMB [id number]) OP Gait Assessment Comments Gait Comments Pt ambulates with good speed and step length without AD, stairs are antalgic ravi going down PT-OP-J Posture/Palpation/Skin Start: 08/24/20 15:09 Freq: Status: Active Protocol: Document 08/25/20 13:30 AMB (Rec: 08/26/20 13:28 AMB [id number]) Palpation Assessment Location One Palpation Location knees Palpation Details tenderness on R knee along medial knee into medial thigh. L knee tenderness at popliteal fossa PT-OP-K Range of Motion Start: 08/24/20 15:09 Freq: Status: Active Protocol: Document 08/25/20 13:30 AMB (Rec: 08/26/20 13:28 AMB [id number]) Hip Goniometric Range of Motion Hip Left Passive Comments No pain recreated with passive ROM through flexion, IR, ER, add, no significant ROM limitations Knee Goniometric Range of Motion Knee Right Patient Position Supine Flexion Passive (degrees) 130 Extension Passive (degrees) 0 Left Patient Position Supine Flexion Active (degrees) 125 Extension Passive (degrees) 0 PT-OP-L Special Tests Start: 08/24/20 15:09 Freq: Status: Active Protocol: Document 08/25/20 13:30 AMB (Rec: 08/26/20 13:28 AMB [id number]) Special Tests Hip Special Tests Scour Test Test Results - Knee Special Tests Tammy Test Test Results - PT-OP-M Strength Start: 08/24/20 15:09 Freq: Status: Active Protocol: Document 08/25/20 13:30 AMB (Rec: 08/26/20 13:28 AMB [id number]) Hip Strength Hip Manual Muscle Testing Right Flexion (L2) 4 Good Extension (S1) 4 Good Left Flexion (L2) 4 Good Extension (S1) 4 Good Comments painful resisted hip flexion Knee Strength Knee Manual Muscle Testing Right Flexion (S2) 4+ Good+ Extension (L3) 4 Good Left Flexion (S2) 4+ Good+ Extension (L3) 4 Good PT-OP-Q Treatments Start: 08/24/20 15:09 Freq: Status: Active Protocol: Document 10/14/20 13:30 AMB (Rec: 10/15/20 09:05 AMB [id number]) Gait Training Gait Activity 1 Description Trekking pole to de-weight painful knee Manual Therapy Treatment Soft Tissue Mobilization 1 Body Location gastroc, hamstrings, patellar tendon Mobilization Type Myofascial Release,Rolling, Sustained Pressure Intensity/Depth Moderate Body Position Supine Joint Mobilizations 2 Joint AP/PA tibiofemoral Grade III Manual Traction long axis Details R LE Body Position Supine PT-OP-T Assessment and Plan Start: 08/24/20 15:09 Freq: Status: Active Protocol: Document 10/14/20 14:02 AMB (Rec: 10/14/20 14:04 AMB [id number]) Physical Therapy Assessment Goals Three Impairment ADLS Short Term Goal (STG) Minal will move from sit to stand without knee pain from a standard height chair. STG Duration PROGRESS MADE Geospatial Applications Developer Goal (LTG) Minal will ascend and descend a flight of stairs with reciprocal gait without an increase in knee pain. LTG Duration DESCENDING STAIRS INCREASES PAIN Two Impairment HEP Short Term Goal (STG) Minal will be independent and consistent with a HEP to strengthen and stretch her bilateral lower extremities. STG Duration MET One Impairment LE strength Short Term Goal (STG) Minal will improve her knee strength to 4+/5. STG Duration NOT MET Fpc Goal (LTG) Minal will improve her LE strength so that she can perform a floor transfer without knee pain. LTG Duration NOT MET Assessment Summary Assessment While Minal's inner thigh pain has improve with physical therapy, she continues to have right medial knee pain that could be consistent with meniscal derangement. Swelling continues, worse with walking/stairs/twisting activities. Pt has continued on with exercises but has plateaued with function, so recommended continuing with strengthening and returning to PCP to seek further treatment options. Pt has been instructed to continue icing, bracing, could continue trekking pole with gait if it helps. Physical Therapy Plan Discharge Physical Therapy Discharge Reasons Plateau in Progress
--- NOTE | 2020-10-15 09:10 | PT.OTN ---
Current Diagnoses Pain in right knee (10/14/20) Pain in left knee (10/14/20) Physical Therapy Treatment Note PT-OP-A Visit Information Start: 08/24/20 15:09 Freq: Status: Active Protocol: Document 10/14/20 13:30 AMB (Rec: 10/14/20 13:40 AMB [id number]) Out-Patient Physical Therapy Visit Information Visit Information Visit Type Treatment Note Visit Start Time 13:30 Visit Stop Time 14:15 Total Visit Minutes 45 Visit Number 10 PT-OP-B Current Condition Start: 08/24/20 15:09 Freq: Status: Active Protocol: Document 08/25/20 13:32 AMB (Rec: 08/25/20 13:41 AMB [id number]) Current Condition History of Current Condition Current Complaints R> L knee pain History of Current Condition L knee at night hurts worst at night- deep ache when going to bed, from inner knee to outside of hip. Kneeling and floor transfer is difficult. R knee hurts when moving from sit to stand, going down stairs. PT-OP-C Subjective Start: 08/24/20 15:09 Freq: Status: Active Protocol: Document 10/14/20 13:30 AMB (Rec: 10/15/20 09:05 AMB [id number]) OP-PT Subjective Patient Comments Patient Comments Pt states knee was better for about 3 hours after PT. PT exercises don't hurt while she 's doing them, but later on knee continues to hurt. Still swollen, did try wearing a brace thought that was helpful . PT-OP-G Mobility & Gait Start: 08/24/20 15:09 Freq: Status: Active Protocol: Document 08/25/20 13:30 AMB (Rec: 08/26/20 13:28 AMB [id number]) OP Gait Assessment Comments Gait Comments Pt ambulates with good speed and step length without AD, stairs are antalgic ravi going down PT-OP-J Posture/Palpation/Skin Start: 08/24/20 15:09 Freq: Status: Active Protocol: Document 08/25/20 13:30 AMB (Rec: 08/26/20 13:28 AMB [id number]) Palpation Assessment Location One Palpation Location knees Palpation Details tenderness on R knee along medial knee into medial thigh. L knee tenderness at popliteal fossa PT-OP-K Range of Motion Start: 08/24/20 15:09 Freq: Status: Active Protocol: Document 08/25/20 13:30 AMB (Rec: 08/26/20 13:28 AMB [id number]) Hip Goniometric Range of Motion Hip Left Passive Comments No pain recreated with passive ROM through flexion, IR, ER, add, no significant ROM limitations Knee Goniometric Range of Motion Knee Right Patient Position Supine Flexion Passive (degrees) 130 Extension Passive (degrees) 0 Left Patient Position Supine Flexion Active (degrees) 125 Extension Passive (degrees) 0 PT-OP-L Special Tests Start: 08/24/20 15:09 Freq: Status: Active Protocol: Document 08/25/20 13:30 AMB (Rec: 08/26/20 13:28 AMB [id number]) Special Tests Hip Special Tests Scour Test Test Results - Knee Special Tests Tammy Test Test Results - PT-OP-M Strength Start: 08/24/20 15:09 Freq: Status: Active Protocol: Document 08/25/20 13:30 AMB (Rec: 08/26/20 13:28 AMB [id number]) Hip Strength Hip Manual Muscle Testing Right Flexion (L2) 4 Good Extension (S1) 4 Good Left Flexion (L2) 4 Good Extension (S1) 4 Good Comments painful resisted hip flexion Knee Strength Knee Manual Muscle Testing Right Flexion (S2) 4+ Good+ Extension (L3) 4 Good Left Flexion (S2) 4+ Good+ Extension (L3) 4 Good PT-OP-Q Treatments Start: 08/24/20 15:09 Freq: Status: Active Protocol: Document 10/14/20 13:30 AMB (Rec: 10/15/20 09:05 AMB [id number]) Gait Training Gait Activity 1 Description Trekking pole to de-weight painful knee Manual Therapy Treatment Soft Tissue Mobilization 1 Body Location gastroc, hamstrings, patellar tendon Mobilization Type Myofascial Release,Rolling, Sustained Pressure Intensity/Depth Moderate Body Position Supine Joint Mobilizations 2 Joint AP/PA tibiofemoral Grade III Manual Traction long axis Details R LE Body Position Supine PT-OP-T Assessment and Plan Start: 08/24/20 15:09 Freq: Status: Active Protocol: Document 10/14/20 14:02 AMB (Rec: 10/14/20 14:04 AMB [id number]) Physical Therapy Assessment Goals Three Impairment ADLS Short Term Goal (STG) Minal will move from sit to stand without knee pain from a standard height chair. STG Duration PROGRESS MADE Haunted History Tour Guide Goal (LTG) Minal will ascend and descend a flight of stairs with reciprocal gait without an increase in knee pain. LTG Duration DESCENDING STAIRS INCREASES PAIN Two Impairment HEP Short Term Goal (STG) Minal will be independent and consistent with a HEP to strengthen and stretch her bilateral lower extremities. STG Duration MET One Impairment LE strength Short Term Goal (STG) Minal will improve her knee strength to 4+/5. STG Duration NOT MET Care Home Goal (LTG) Minal will improve her LE strength so that she can perform a floor transfer without knee pain. LTG Duration NOT MET Assessment Summary Assessment While Minal's inner thigh pain has improve with physical therapy, she continues to have right medial knee pain that could be consistent with meniscal derangement. Swelling continues, worse with walking/stairs/twisting activities. Pt has continued on with exercises but has plateaued with function, so recommended continuing with strengthening and returning to PCP to seek further treatment options. Pt has been instructed to continue icing, bracing, could continue trekking pole with gait if it helps. Physical Therapy Plan Discharge Physical Therapy Discharge Reasons Plateau in Progress
== END 2020-10-17 08:45 | disposition home or self-care (01) ==
LOC: PHYS 13:30
PROVIDERS: PCP Family Medicine; Referring Provider Family Medicine; Visit Provider Family Medicine
DX: M25.561 Pain in right knee (principal); M25.562 Pain in left knee
CPT/HCPCS: 97110; 97140; 97162

== ENCOUNTER → 2020-10-25 10:45 | Outpatient (CLI) | payer MEDICARE, OTHER, SELFPAY ==
[2020-10-25 11:44] LABS: Cholesterol 163 mg/dL (140-199); HDL Cholesterol 56 mg/dL (40-60); LDL Cholesterol Calculated 58 mg/dL (<100); Triglycerides 244 mg/dL (35-150)
== END ==
PROVIDERS: PCP Family Medicine; Referring Provider Family Medicine; Visit Provider Family Medicine
DX: E78.00 Pure hypercholesterolemia, unspecified (principal)
CPT/HCPCS: 36415; 80061

== ENCOUNTER → 2021-01-30 14:26 | Outpatient (CLI) | payer MEDICARE, OTHER, SELFPAY ==
[2021-01-30 15:14] LABS: COVID19 -Nasal RAPID Negative (Negative)
== END ==
PROVIDERS: PCP Family Medicine; Referring Provider Physician Assistant; Visit Provider Physician Assistant
DX: Z20.822 Contact with and (suspected) exposure to COVID-19 (principal)
CPT/HCPCS: 87635

== ENCOUNTER → 2021-02-02 11:49 | Outpatient (CLI) | payer MEDICARE, OTHER, SELFPAY ==
[2021-02-02 13:40] LABS: Hemoglobin A1C% w Est Avg Glu 6.5 % (4.0-6.0)
[2021-02-02 13:44] LABS: Cholesterol 131 mg/dL (140-199); HDL Cholesterol 66 mg/dL (40-60); LDL Cholesterol Calculated 9 mg/dL (<100); Triglycerides 280 mg/dL (35-150)
== END ==
PROVIDERS: PCP Family Medicine; Referring Provider Family Medicine; Visit Provider Family Medicine
DX: E11.9 Type 2 diabetes mellitus without complications (principal); E78.00 Pure hypercholesterolemia, unspecified
CPT/HCPCS: 36415; 80061; 83036

== ENCOUNTER → 2021-04-19 08:50 | Outpatient (CLI) | payer MEDICARE, OTHER, SELFPAY ==
[2021-04-19 09:33] LABS: Add Manual Diff / Slide Review NO; Basophils Absolute Auto 0 /uL (0-100); Basophils Percent Auto 0.6 % (0-2); Eosinophils Absolute Auto 300 /uL (0-450); Eosinophils Percent Auto 4.1 % (2-4); Hematocrit 37.1 % (36-46); Hemoglobin 12.8 g/dL (12.0-16.0); Lymphocytes Absolute Auto 1600 /uL (1100-4500); Lymphocytes Percent Auto 23.7 % (25-40); Mean Corpuscular HGB Conc 34.5 % (30-36); Mean Corpuscular Hemoglobin 30.7 PG (26-34); Mean Corpuscular Volume 88.9 fL (80-100); Monocytes Absolute Auto 500 /uL (0-900); Monocytes Percent Auto 6.9 % (3-14); Neutrophils Absolute Auto 4300 /uL (1500-7000); Neutrophils Percent Auto 64.7 % (50-75); Platelet Count 273 X10^3/uL (150-400); Red Blood Cell Count 4.17 X10^6/uL (4.0-5.2); Red Cell Distribution Width 13.2 % (11.6-14.8); White Blood Cell Count 6.7 X10^3/uL (4.5-11.0)
[2021-04-19 09:52] LABS: BUN Creatinine Ratio 23.5 (6-22); Blood Urea Nitrogen 20 mg/dL (7-17); Calcium 9.6 mg/dL (8.4-10.2); Carbon Dioxide 28 mmol/L (22-32); Chloride 98 mmol/L (98-107); Estimated Glomerular Filt Rate > 60.0 mL/min (>60); Glucose 151 mg/dL (80-110); HEMOLYSIS < 15 (0-50); Potassium 5.1 mmol/L (3.4-5.1); Sodium 132 mmol/L (137-145)
== END ==
PROVIDERS: PCP Family Medicine; Referring Provider Orthopaedic Surgery; Visit Provider Orthopaedic Surgery
DX: Z01.818 Encounter for other preprocedural examination (principal); R73.9 Hyperglycemia, unspecified; Z01.812 Encounter for preprocedural laboratory examination
CPT/HCPCS: 36415; 80048; 83036; 85025; 93005; 93010

== ENCOUNTER 2021-07-18 08:15 | Outpatient (RCR) | payer MEDICARE, OTHER, SELFPAY ==
--- NOTE | 2021-05-05 16:02 | PT.OPPOC ---
Physical, Occupational & Speech Therapy At [facility] Current Diagnoses Unilateral primary osteoarthritis, right knee (05/05/21) Muscle weakness (generalized) (05/05/21) Visit Care Team Role Provider Type Michela Muñiz MD Family Provider Physician Primary Care Provider Specialty: Family Practice Address: [address] [place] [address], [place], [address] Email: [email or web address] Keny Root MD Attending Provider Physician Referring Provider Specialty: Orthopedic Surgery Address: [address] [place] [address], [place], [address] Email: [email or web address] Plan Of Care PT-OP-T Assessment and Plan Start: 05/04/21 18:43 Freq: Status: Active Protocol: Document 05/05/21 08:14 LRN (Rec: 05/05/21 11:18 LRN [id number]) Physical Therapy Assessment Rehab Potential Rehabilitation Potential Good Evaluation Complexity Number of Personal Factors/Comorbidities 3 or More Number of Body Systems Impaired 4 or More Clinical Presentation at Evaluation Evolving Impairments Impairments Activity Tolerance,Gait,Pain, ROM Other Impairments Stair ambulation requiring use of railing. Goals Four Impairment R knee pain interrupting sleep and normal gait. Short Term Goal (STG) Pt will be able to walk with a normal step lengths without use of assistive device. STG Duration 06/19/21 Modeling Agency Manager Goal (LTG) Pt will be able to sleep at night with minimal or no R knee pain when sleeping. LTG Duration 08/03/21 Three Impairment Decreased function Impairment LEFS is 48/80 pre-op (20-39% impaired, score 48-62). Short Term Goal (STG) R knee PROM equal to L side AROM. STG Duration 06/19/21 Halfway Goal (LTG) Improve LE function post-op to prior level of impairement ( 20-39 % impaired, score of 48-62). LTG Duration 08/03/21 Two Impairment Decreased R knee AROM ( limiting walking and stair mobility) Impairment Pt goals is to not have a lot of pain and walk normal. Occasional waking due to discomfort of R knee when sleeping. R knee PROM equal to L side. Short Term Goal (STG) Improve ambulatory ability with pt walking into grocery store without assistive device and tolerable pain. STG Duration 06/19/21 Halfway Goal (LTG) Pt will be able to ambulate stairs with reciprical gait pattern with use of railing with mild discomfort (pain range 1-0/10).. LTG Duration 08/03/21 One Impairment Pt lacks appropriate self care HEP Short Term Goal (STG) Pt independent with a pre-op self care HEP. STG Duration 05/05/21 (05/05/21: MET GOAL) Modeling Agency Manager Goal (LTG) Pt independent in a post rehab for a partial R knee replacement, self care HEP LTG Duration 08/03/21 Assessment Summary Assessment Pt was seen for pre-op visit in anticipation for a partial R knee replacement 05/11/21. Pt was given ROM and strengthening ex?s to be performed prior to surgery. Taught how to perform safe transfers (in/out of bed and sit to stand), cryotherapy information and precautions and review of DME proper FWW height. Pt appeared to have a good understanding of the rehab process after discussion . Pt did not have a TOBIAS PATH packet or had knowledge of one. Pt will greatly benefit from continued skilled outpatient PT to achieve the goals stated above upon d/c home from the hospital after surgery when deemed safe. Physical Therapy Plan Frequency and Duration Frequency of Treatment 2x/Week Plan of Care Start Date 05/05/21 Plan of Care End Date 08/03/21 Therapeutic Interventions Therapeutic Interventions Home Exercise Program,Manual Therapy,Neuromuscular Re- education,Patient/Caregiver Education,Self-Care/Home Management,Soft Tissue Mobilization,Taping, Therapeutic Activities, Therapeutic Exercises Modalities Cold Pack/Ice Massage Next Visit Focus/Plan Next Note Type Treatment Note Next Visit Plan Reassess for post-op condition and modify/assess for appropriate goals/clinical data as needed. POC: s/p R medial partial knee replacement rehabilitation. ROM strengthening edema management pain reduction Plan of Care Dates Plan of Care Start Date 05/05/21 Plan of Care End Date 08/03/21 Electronically Signed by: Isabelle Goodman, PT 05/06/21 2266 Please Sign and Return: I have reviewed this Plan of Care and certify that the skilled therapy services above are required to meet the patient?s needs. Physician Signature Date Printed Name and Credentials Clinical Instructor Signature Printed Name and Credentials
--- NOTE | 2021-05-05 16:02 | PT.OIE ---
Current Diagnoses Unilateral primary osteoarthritis, right knee (05/05/21) Muscle weakness (generalized) (05/05/21) Past Medical History (Last Reviewed 11/27/18 @ 18:17 by Finn Mcdowell MD) Cataract (2009) CTS (carpal tunnel syndrome) Diverticular disease (2017) Foot pain (2016) Hayfever (1957) Measles (1964) Mumps (1960) Osteoporosis (2016) Paroxysmal atrial fibrillation Type 2 diabetes mellitus Past Surgical History (Last Reviewed 11/27/18 @ 18:17 by Finn Mcdowell MD) Anesthesia History of cataract removal with insertion of prosthetic lens (2012) History of hysterectomy (1976) Status post arthroscopy (2010) Status post rotator cuff repair (1998) Status post tubal ligation (1974) Visit Care Team Role Provider Type Michela Muñiz MD Family Provider Physician Primary Care Provider Specialty: Family Practice Address: [address] [place] [address], [address] Email: [email or web address] Keny Root MD Attending Provider Physician Referring Provider Specialty: Orthopedic Surgery Address: [address] [place] [address], [address] Email: [email or web address] Physical Therapy Initial Evaluation PT-OP-A Visit Information Start: 05/04/21 18:43 Freq: Status: Active Protocol: Document 05/05/21 08:14 LRN (Rec: 05/05/21 11:18 JOE [id number]) Out-Patient Physical Therapy Visit Information Visit Information Visit Type Initial Evaluation Visit Note 03/22 Visit Start Time 09:51 Visit Stop Time 10:39 Total Visit Minutes 48 Visit Number 1 Evaluation Information Evaluation Date 05/05/21 Precautions Precautions A. Fib, Arthritis, HBP controlled by injection, Diabetes type II controlled by diet and Metform PT-OP-B Current Condition Start: 05/04/21 18:43 Freq: Status: Active Protocol: Document 05/05/21 08:14 LRN (Rec: 05/05/21 11:18 LRN [id number]) Current Condition History of Current Condition Onset Date 3 yrs ago R knee started to hurt. Current Complaints R knee pain that worsens with exercise. History of Current Condition Pre-surgery PT visit for partial R medial knee arthroplasty scheduled for 12/23. Has spouse and a granddaughter who will stay with her for a week after surgery. Prior Treatments and Tests PT with Ilda Carrizales DPT . Cortisone ijection in R knee. Gel injection in R knee x 3 with last one 02/2021. Treatment Goals Patient/Caregiver Goals Pt goals is to not have a lot of pain and walk normal. Be more active: walking a into grocery store without assistive device and tolerable pain. Ambulate 3 stairs without use of railing with mild discomfort (pain range 0-1/10) . Decrease nighttime discomfort of R knee when sleeping. R knee PROM equal to L side. Prior Functional Status Baseline Function- ADL's Independent Baseline Function- Mobility Independent Baseline Function- Gait Walked for exercise. Baseline Function- Other Difficulty getting in/out of her boat. Difficulty getting into bed on boat (high up). No pain with walking, stairs, sleeping. Current Functional Impairments (Reported) Functional Limitations- ADL's Stiff getting out of bed. Standing tolerance with shifting weight - 20' Pain with sit to stand Functional Limitations- Mobility/Gait Ambulate stairs (3) without railing. Walking 1.5 miles in the house , monitored by pedometer. Personal Factors Other Personal Factors That May Effect A. Fib, Arthritis, Diabetes Therapy/Recovery type II controlled by diet and Metform. PT-OP-C Subjective Start: 05/04/21 18:43 Freq: Status: Active Protocol: Document 05/05/21 08:14 LRN (Rec: 05/05/21 11:18 LRN [id number]) OP-PT Subjective Patient Comments Patient Comments Pre-op appt. Told pwk told 1 wk before surgery have PT and have 6 wks PT after partial R knee. Patient Questionnaires Lower Extremity Functional Scale LEFS Score 48 LEFS Impairment 20 to 39% Impaired (Score 48- 62) OP-PT Pain Assessment Pain Assessment Grid Paper Pain Assessment Grid Completed Yes Location R knee Pain Location Details Around R knee joint Intensity 7 Scale Used Numeric (0 - 10) Pain Aggravating Factors Activity,Prolonged Bedrest PT-OP-G Mobility & Gait Start: 05/04/21 18:43 Freq: Status: Active Protocol: Document 05/05/21 08:14 LRN (Rec: 05/05/21 11:18 LRN [id number]) OP Mobility Evaluation Bed Mobility Supine to and from Sit Pt able to lift leg onto plinth to transfer. Pt able to bend knees when transfering off plinth. Transfers Sit to Stand Pain with transfer OP Gait Assessment Gait Gait Assistance Required: Independent Able to Maintain Weight Bearing Status Yes During Gait Assistive Devices Assistive Device None Gait Deviations General Gait Pattern Antalgic Comments Gait Comments Limp off of the R foot, R leg slight ER'd. Stair Climbing Evaluation Evaluation Level of Assist On Stairs Independent Technique/Endurance Stair Climbing Direction Ascend and Descend Stair Climbing Technique Step Over Step Number of Steps Climbed 4 Stair Climbing Set # Repetitions (reps) 1 Comments Stair Climbing Comments Use of railing on R descending . PT-OP-K Range of Motion Start: 05/04/21 18:43 Freq: Status: Active Protocol: Document 05/05/21 08:14 LRN (Rec: 05/05/21 11:18 LRN [id number]) Knee Goniometric Range of Motion Knee Right Knee ROM WFL No Patient Position Supine Flexion Active (degrees) 113 Extension Active (degrees) 2 Comments Sleeps with wedge under the R knee. Left Knee ROM WFL Yes Patient Position Supine Flexion Active (degrees) 110 Hyper-Extension Active 2 PT-OP-M Strength Start: 05/04/21 18:43 Freq: Status: Active Protocol: Document 05/05/21 08:14 LRN (Rec: 05/05/21 11:18 LRN [id number]) Knee Strength Knee Manual Muscle Testing Right Flexion (S2) 5 Normal Extension (L3) 5 Normal Left Flexion (S2) 5 Normal Extension (L3) 5 Normal Ankle/Foot Strength Ankle and Foot Manual Muscle Testing Right Comments Generally 5/5 Left Comments Generally 5/5 PT-OP-Q Treatments Start: 05/04/21 18:43 Freq: Status: Active Protocol: Document 05/05/21 08:14 LRN (Rec: 05/05/21 11:18 LRN [id number]) Therapeutic Exercises Supine Exercises QS Supine Exercise Name QS Side bilateral Reps/Minutes 3x Comments Extra time for phys cuing for Med Quad contraction, I/S & hollding position Knee flex Supine Exercise Name Knee flex with hold Side right Reps/Minutes 5 H x 10 Comments Extra time for v cuing for I/S & hollding position SLR Supine Exercise Name Leg lifts and leg lifts with hold. Side right Reps/Minutes 6x each Comments Extra time for training, phys & v cuing needed for I/S & hollding position Sitting Exercises Knee flex Sitting Exercise Name Knee flex Side right Reps/Minutes 10x Comments I/S for max tolerated stretch Therapeutic Activity Therapeutic Activity SIt<>suip Name Sit<>supine training Reps/Minutes x1 each Comments Onto plinth from L side ( closest to her barhroom) Gait Training Gait Activity Stairs Description Stair ambulation Device Used Railing bilaterally Level of Assistance Independent Surface Stairs Distance/Duration 4 steps x 2 Treatment Focus Proper gait pattern on stairs (step to gait) and use of railing as needed. Comments Pt had poor descent control onto the R LE due to weakness of the LLE. 1 Description Gait with and without FWW Device Used FWW Level of Assistance V & phys cuing Surface Level Distance/Duration 50'x 4 Treatment Focus PWB R LE with even step lengths. Self-Care/Home Management Treatment Education Patient Education Home Exercise Program,Joint Protection,Pain Management, Safety Other Education Reviewed precautions with ex. Discussed post surgical edema/ pain management with use of cold pack after exer. Handout issued & reviewed handouts for improving inedependence after surgery. Educated pt in proper set up of FWW and how to determine proper height. Discussed results of evaluation, goals, and plan of care (POC). Pt agreeable to goals and POC. Activities Self-Care/Home Management Activities Issued & reviewed post op TKA ex's. PT-OP-T Assessment and Plan Start: 05/04/21 18:43 Freq: Status: Active Protocol: Document 05/05/21 08:14 LRN (Rec: 05/05/21 11:18 LRN [id number]) Physical Therapy Assessment Rehab Potential Rehabilitation Potential Good Evaluation Complexity Number of Personal Factors/Comorbidities 3 or More Number of Body Systems Impaired 4 or More Clinical Presentation at Evaluation Evolving Impairments Impairments Activity Tolerance,Gait,Pain, ROM Other Impairments Stair ambulation requiring use of railing. Goals Four Impairment R knee pain interrupting sleep and normal gait. Short Term Goal (STG) Pt will be able to walk with a normal step lengths without use of assistive device. STG Duration 06/19/21 Personal Lines Insurance Advisor Goal (LTG) Pt will be able to sleep at night with minimal or no R knee pain when sleeping. LTG Duration 08/03/21 Three Impairment Decreased function Impairment LEFS is 48/80 pre-op (20-39% impaired, score 48-62). Short Term Goal (STG) R knee PROM equal to L side AROM. STG Duration 06/19/21 Skilled Nursing Goal (LTG) Improve LE function post-op to prior level of impairement ( 20-39 % impaired, score of 48-62). LTG Duration 08/03/21 Two Impairment Decreased R knee AROM ( limiting walking and stair mobility) Impairment Pt goals is to not have a lot of pain and walk normal. Occasional waking due to discomfort of R knee when sleeping. R knee PROM equal to L side. Short Term Goal (STG) Improve ambulatory ability with pt walking into grocery store without assistive device and tolerable pain. STG Duration 06/19/21 Personal Lines Insurance Advisor Goal (LTG) Pt will be able to ambulate stairs with reciprical gait pattern with use of railing with mild discomfort (pain range 1-0/10).. LTG Duration 08/03/21 One Impairment Pt lacks appropriate self care HEP Short Term Goal (STG) Pt independent with a pre-op self care HEP. STG Duration 05/05/21 (05/05/21: MET GOAL) Personal Lines Insurance Advisor Goal (LTG) Pt independent in a post rehab for a partial R knee replacement, self care HEP LTG Duration 08/03/21 Assessment Summary Assessment Pt was seen for pre-op visit in anticipation for a partial R knee replacement 05/11/21. Pt was given ROM and strengthening ex?s to be performed prior to surgery. Taught how to perform safe transfers (in/out of bed and sit to stand), cryotherapy information and precautions and review of DME proper FWW height. Pt appeared to have a good understanding of the rehab process after discussion . Pt did not have a TOBIAS PATH packet or had knowledge of one. Pt will greatly benefit from continued skilled outpatient PT to achieve the goals stated above upon d/c home from the hospital after surgery when deemed safe. Physical Therapy Plan Frequency and Duration Frequency of Treatment 2x/Week Plan of Care Start Date 05/05/21 Plan of Care End Date 08/03/21 Therapeutic Interventions Therapeutic Interventions Home Exercise Program,Manual Therapy,Neuromuscular Re- education,Patient/Caregiver Education,Self-Care/Home Management,Soft Tissue Mobilization,Taping, Therapeutic Activities, Therapeutic Exercises Modalities Cold Pack/Ice Massage Next Visit Focus/Plan Next Note Type Treatment Note Next Visit Plan Reassess for post-op condition and modify/assess for appropriate goals/clinical data as needed. POC: s/p R medial partial knee replacement rehabilitation. ROM strengthening edema management pain reduction
--- NOTE | 2021-05-18 08:27 | PT.OTN ---
Current Diagnoses Unilateral primary osteoarthritis, right knee (05/18/21) Muscle weakness (generalized) (05/18/21) Physical Therapy Treatment Note PT-OP-A Visit Information Start: 05/04/21 18:43 Freq: Status: Active Protocol: Document 05/18/21 07:32 SP (Rec: 05/18/21 08:18 SP [id number]) Out-Patient Physical Therapy Visit Information Visit Information Visit Type Initial Evaluation Visit Start Time 07:32 Visit Stop Time 08:27 Total Visit Minutes 55 Visit Number 2 Number of SUPPLY CATALOGUER Visits 1 Evaluation Information Evaluation Date 05/05/21 Precautions Precautions A. Fib, Arthritis, HBP controlled by injection, Diabetes type II controlled by diet and Metform PT-OP-B Current Condition Start: 05/04/21 18:43 Freq: Status: Active Protocol: Document 05/05/21 08:14 LRN (Rec: 05/05/21 11:18 LRN [id number]) Current Condition History of Current Condition Onset Date 3 yrs ago R knee started to hurt. Current Complaints R knee pain that worsens with exercise. History of Current Condition Pre-surgery PT visit for partial R medial knee arthroplasty scheduled for 12/23. Has spouse and a granddaughter who will stay with her for a week after surgery. Prior Treatments and Tests PT with Ilda Carrizales DPT . Cortisone ijection in R knee. Gel injection in R knee x 3 with last one 02/2021. Treatment Goals Patient/Caregiver Goals Pt goals is to not have a lot of pain and walk normal. Be more active: walking a into grocery store without assistive device and tolerable pain. Ambulate 3 stairs without use of railing with mild discomfort (pain range 0-1/10) . Decrease nighttime discomfort of R knee when sleeping. R knee PROM equal to L side. Prior Functional Status Baseline Function- ADL's Independent Baseline Function- Mobility Independent Baseline Function- Gait Walked for exercise. Baseline Function- Other Difficulty getting in/out of her boat. Difficulty getting into bed on boat (high up). No pain with walking, stairs, sleeping. Current Functional Impairments (Reported) Functional Limitations- ADL's Stiff getting out of bed. Standing tolerance with shifting weight - 20' Pain with sit to stand Functional Limitations- Mobility/Gait Ambulate stairs (3) without railing. Walking 1.5 miles in the house , monitored by pedometer. Personal Factors Other Personal Factors That May Effect A. Fib, Arthritis, Diabetes Therapy/Recovery type II controlled by diet and Metform. PT-OP-C Subjective Start: 05/04/21 18:43 Freq: Status: Active Protocol: Document 05/18/21 07:32 SP (Rec: 05/18/21 08:18 SP [id number]) OP-PT Subjective Patient Comments Patient Comments Pt reported R knee has been hurting and hasn't done all her exercises due to p PT-OP-G Mobility & Gait Start: 05/04/21 18:43 Freq: Status: Active Protocol: Document 05/05/21 08:14 LRN (Rec: 05/05/21 11:18 LRN [id number]) OP Mobility Evaluation Bed Mobility Supine to and from Sit Pt able to lift leg onto plinth to transfer. Pt able to bend knees when transfering off plinth. Transfers Sit to Stand Pain with transfer OP Gait Assessment Gait Gait Assistance Required: Independent Able to Maintain Weight Bearing Status Yes During Gait Assistive Devices Assistive Device None Gait Deviations General Gait Pattern Antalgic Comments Gait Comments Limp off of the R foot, R leg slight ER'd. Stair Climbing Evaluation Evaluation Level of Assist On Stairs Independent Technique/Endurance Stair Climbing Direction Ascend and Descend Stair Climbing Technique Step Over Step Number of Steps Climbed 4 Stair Climbing Set # Repetitions (reps) 1 Comments Stair Climbing Comments Use of railing on R descending . PT-OP-K Range of Motion Start: 05/04/21 18:43 Freq: Status: Active Protocol: Document 05/05/21 08:14 LRN (Rec: 05/05/21 11:18 LRN [id number]) Knee Goniometric Range of Motion Knee Right Knee ROM WFL No Patient Position Supine Flexion Active (degrees) 113 Extension Active (degrees) 2 Comments Sleeps with wedge under the R knee. Left Knee ROM WFL Yes Patient Position Supine Flexion Active (degrees) 110 Hyper-Extension Active 2 PT-OP-M Strength Start: 05/04/21 18:43 Freq: Status: Active Protocol: Document 05/05/21 08:14 LRN (Rec: 05/05/21 11:18 LRN [id number]) Knee Strength Knee Manual Muscle Testing Right Flexion (S2) 5 Normal Extension (L3) 5 Normal Left Flexion (S2) 5 Normal Extension (L3) 5 Normal Ankle/Foot Strength Ankle and Foot Manual Muscle Testing Right Comments Generally 5/5 Left Comments Generally 5/5 PT-OP-Q Treatments Start: 05/04/21 18:43 Freq: Status: Active Protocol: Document 05/18/21 07:32 SP (Rec: 05/18/21 08:18 SP [id number]) Therapeutic Exercises Supine Exercises QS Supine Exercise Name QS Side bilateral Reps/Minutes 5 sec hold x10 Comments cued gentle Quad contraction, I/S & holding position Knee flex Supine Exercise Name Knee flex with hold Side right Resistance AAROM Equipment Used w/ strap Reps/Minutes 5 H x 10 Comments ed use of strap for AAROM- 95 deg SLR Supine Exercise Name Leg lifts and leg lifts with hold. Side right Reps/Minutes x2 Comments to painful BLE together, ed only 1 LE at time, hold due to pain *lag Sitting Exercises HS stretch Sitting Exercise Name added to HEP Side right Reps/Minutes 20s hold x10 Comments cued hip hinge straight back and slight DF, found focus stretch Knee flex Sitting Exercise Name Knee flex Side right Resistance AROM- 93 deg Reps/Minutes 5x Comments cued Gait Training Gait Activity Stairs Description Stair ambulation Device Used Railing bilaterally Level of Assistance Independent Surface Stairs Distance/Duration 4 steps x 2 Treatment Focus Proper gait pattern on stairs (step to gait), UE support on rail as needed Comments step to descent, improved descent leading RLE. ascend, cued increase R knee flexion. 1 Description Gait 4WW Device Used 4WW Level of Assistance V & phys cuing Surface Level Distance/Duration 170 ft Treatment Focus knee flexion during swing phase, increase WB into RLE Comments cued tall posture, R knee flexion heel toe with improvements noted. Self-Care/Home Management Treatment Education Patient Education Home Exercise Program,Joint Protection,Pain Management, Safety Other Education Reviewed precautions with ex. Discussed post surgical edema/ pain management with use of cold pack after exer, is using often. Educated pt regarding not using pillow under knees, could be a factor in lack of progress in R knee extension ROM, verbalized understanding. Educated pt in proper set up post op ex, R knee flexion during swing phase, heel toe in to extension. PT-OP-R Modalities Start: 05/04/21 18:43 Freq: Status: Active Protocol: Document 05/18/21 07:32 SP (Rec: 05/18/21 08:18 SP [id number]) Hot Pack/Cold Pack Treatment CP Location R knee Patient Position Hooklying Treatment Duration (minutes) 15 Patient Tolerance Good Comments good response pain 8/10, pt stated better than pre CP but not quantified. PT-OP-T Assessment and Plan Start: 05/04/21 18:43 Freq: Status: Active Protocol: Document 05/18/21 07:32 SP (Rec: 05/18/21 08:18 SP [id number]) Physical Therapy Assessment Goals Four Impairment R knee pain interrupting sleep and normal gait. Short Term Goal (STG) Pt will be able to walk with a normal step lengths without use of assistive device. 05/18/21: educated R knee flexion during gait and stair mgt for functional progress in AAROM. STG Duration 06/19/21 (05/18/21: progressing ) Community Arts Officer Goal (LTG) Pt will be able to sleep at night with minimal or no R knee pain when sleeping. LTG Duration 08/03/21 Three Impairment Decreased function Impairment LEFS is 48/80 pre-op (20-39% impaired, score 48-62). Short Term Goal (STG) R knee PROM equal to L side AROM. 05/18/21: AAROM 3-95 deg using strap self with flexion R knee . STG Duration 06/19/21 (05/18/21: progressing ) Halfway Goal (LTG) Improve LE function post-op to prior level of impairement ( 20-39 % impaired, score of 48-62). LTG Duration 08/03/21 Two Impairment Decreased R knee AROM ( limiting walking and stair mobility) Impairment Pt goals is to not have a lot of pain and walk normal. Occasional waking due to discomfort of R knee when sleeping. R knee PROM equal to L side. Short Term Goal (STG) Improve ambulatory ability with pt walking into grocery store without assistive device and tolerable pain. STG Duration 06/19/21 Community Arts Officer Goal (LTG) Pt will be able to ambulate stairs with reciprical gait pattern with use of railing with mild discomfort (pain range 1-0/10).. 05/18/21: pt demonstrated BHR step to patterning, cued increase R knee flexion during step together. LTG Duration 08/03/21 (05/18/21: progressing ) One Impairment Pt lacks appropriate self care HEP Short Term Goal (STG) Pt independent with a pre-op self care HEP. STG Duration 05/05/21 (05/05/21: MET GOAL) Halfway Goal (LTG) Pt independent in a post rehab for a partial R knee replacement, self care HEP LTG Duration 08/03/21 Progress Towards Goals Progress Towards Goals Progressing Toward Goals,Slow Progress due to Activity Tolerance Progress Comments Pt decreased in AAROM R knee flexion this tx up to 95 deg w /use of strap education compared to 113 AROM last tx. Assessment Summary Assessment Pt experienced increased pain with demonstration of SLR, instructed hold for now focus ease/gentle quad sets, knee hangs foot propped up on towel supine/ another chair sitting and AAROM with strap for support with flexion BLE sitting and seated scooting back as performed in tx carryover at home. Pt stated still has to take pain medication 1 tab during day every 6 hrs along with Tylenol and 2 tabs at night tolerate pain. Instructed importance of ROM with tolerance and WB walks small but frequent for circulation and safety decrease risk for DVT, verbalized understanding. ALso recommended continued use of cold pack which is. Physical Therapy Plan Frequency and Duration Frequency of Treatment 2x/Week Plan of Care Start Date 05/05/21 Plan of Care End Date 08/03/21 Therapeutic Interventions Therapeutic Interventions Home Exercise Program,Manual Therapy,Neuromuscular Re- education,Patient/Caregiver Education,Self-Care/Home Management,Soft Tissue Mobilization,Taping, Therapeutic Activities, Therapeutic Exercises Modalities Cold Pack/Ice Massage Next Visit Focus/Plan Next Note Type Treatment Note Next Visit Plan Continue HEP review: if ok start biodex bike for ease AROM assist if tolerated. POC: Reassess for post-op condition and modify/assess for appropriate goals/clinical data as needed. POC: s/p R medial partial knee replacement rehabilitation. ROM strengthening edema management pain reduction
--- NOTE | 2021-05-18 08:27 | PT.OTN ---
Current Diagnoses Unilateral primary osteoarthritis, right knee (05/18/21) Muscle weakness (generalized) (05/18/21) Physical Therapy Treatment Note PT-OP-A Visit Information Start: 05/04/21 18:43 Freq: Status: Active Protocol: Document 05/18/21 07:32 SP (Rec: 05/18/21 08:18 SP [id number]) Out-Patient Physical Therapy Visit Information Visit Information Visit Type Treatment Note Visit Start Time 07:32 Visit Stop Time 08:27 Total Visit Minutes 55 Visit Number 2 Number of FILTER BED PLACER Visits 1 Evaluation Information Evaluation Date 05/05/21 Precautions Precautions A. Fib, Arthritis, HBP controlled by injection, Diabetes type II controlled by diet and Metform PT-OP-B Current Condition Start: 05/04/21 18:43 Freq: Status: Active Protocol: Document 05/05/21 08:14 LRN (Rec: 05/05/21 11:18 LRN [id number]) Current Condition History of Current Condition Onset Date 3 yrs ago R knee started to hurt. Current Complaints R knee pain that worsens with exercise. History of Current Condition Pre-surgery PT visit for partial R medial knee arthroplasty scheduled for 12/23. Has spouse and a granddaughter who will stay with her for a week after surgery. Prior Treatments and Tests PT with Ilda Carrizales DPT . Cortisone ijection in R knee. Gel injection in R knee x 3 with last one 02/2021. Treatment Goals Patient/Caregiver Goals Pt goals is to not have a lot of pain and walk normal. Be more active: walking a into grocery store without assistive device and tolerable pain. Ambulate 3 stairs without use of railing with mild discomfort (pain range 0-1/10) . Decrease nighttime discomfort of R knee when sleeping. R knee PROM equal to L side. Prior Functional Status Baseline Function- ADL's Independent Baseline Function- Mobility Independent Baseline Function- Gait Walked for exercise. Baseline Function- Other Difficulty getting in/out of her boat. Difficulty getting into bed on boat (high up). No pain with walking, stairs, sleeping. Current Functional Impairments (Reported) Functional Limitations- ADL's Stiff getting out of bed. Standing tolerance with shifting weight - 20' Pain with sit to stand Functional Limitations- Mobility/Gait Ambulate stairs (3) without railing. Walking 1.5 miles in the house , monitored by pedometer. Personal Factors Other Personal Factors That May Effect A. Fib, Arthritis, Diabetes Therapy/Recovery type II controlled by diet and Metform. PT-OP-C Subjective Start: 05/04/21 18:43 Freq: Status: Active Protocol: Document 05/18/21 07:32 SP (Rec: 05/18/21 08:18 SP [id number]) OP-PT Subjective Patient Comments Patient Comments Pt reported R knee has been hurting and hasn't done all her exercises due to p PT-OP-G Mobility & Gait Start: 05/04/21 18:43 Freq: Status: Active Protocol: Document 05/05/21 08:14 LRN (Rec: 05/05/21 11:18 LRN [id number]) OP Mobility Evaluation Bed Mobility Supine to and from Sit Pt able to lift leg onto plinth to transfer. Pt able to bend knees when transfering off plinth. Transfers Sit to Stand Pain with transfer OP Gait Assessment Gait Gait Assistance Required: Independent Able to Maintain Weight Bearing Status Yes During Gait Assistive Devices Assistive Device None Gait Deviations General Gait Pattern Antalgic Comments Gait Comments Limp off of the R foot, R leg slight ER'd. Stair Climbing Evaluation Evaluation Level of Assist On Stairs Independent Technique/Endurance Stair Climbing Direction Ascend and Descend Stair Climbing Technique Step Over Step Number of Steps Climbed 4 Stair Climbing Set # Repetitions (reps) 1 Comments Stair Climbing Comments Use of railing on R descending . PT-OP-K Range of Motion Start: 05/04/21 18:43 Freq: Status: Active Protocol: Document 05/05/21 08:14 LRN (Rec: 05/05/21 11:18 LRN [id number]) Knee Goniometric Range of Motion Knee Right Knee ROM WFL No Patient Position Supine Flexion Active (degrees) 113 Extension Active (degrees) 2 Comments Sleeps with wedge under the R knee. Left Knee ROM WFL Yes Patient Position Supine Flexion Active (degrees) 110 Hyper-Extension Active 2 PT-OP-M Strength Start: 05/04/21 18:43 Freq: Status: Active Protocol: Document 05/05/21 08:14 LRN (Rec: 05/05/21 11:18 LRN [id number]) Knee Strength Knee Manual Muscle Testing Right Flexion (S2) 5 Normal Extension (L3) 5 Normal Left Flexion (S2) 5 Normal Extension (L3) 5 Normal Ankle/Foot Strength Ankle and Foot Manual Muscle Testing Right Comments Generally 5/5 Left Comments Generally 5/5 PT-OP-Q Treatments Start: 05/04/21 18:43 Freq: Status: Active Protocol: Document 05/18/21 07:32 SP (Rec: 05/18/21 08:18 SP [id number]) Therapeutic Exercises Supine Exercises QS Supine Exercise Name QS Side bilateral Reps/Minutes 5 sec hold x10 Comments cued gentle Quad contraction, I/S & holding position Knee flex Supine Exercise Name Knee flex with hold Side right Resistance AAROM Equipment Used w/ strap Reps/Minutes 5 H x 10 Comments ed use of strap for AAROM- 95 deg SLR Supine Exercise Name Leg lifts and leg lifts with hold. Side right Reps/Minutes x2 Comments to painful BLE together, ed only 1 LE at time, hold due to pain *lag Sitting Exercises HS stretch Sitting Exercise Name added to HEP Side right Reps/Minutes 20s hold x10 Comments cued hip hinge straight back and slight DF, found focus stretch Knee flex Sitting Exercise Name Knee flex Side right Resistance AROM- 93 deg Reps/Minutes 5x Comments cued Gait Training Gait Activity Stairs Description Stair ambulation Device Used Railing bilaterally Level of Assistance Independent Surface Stairs Distance/Duration 4 steps x 2 Treatment Focus Proper gait pattern on stairs (step to gait), UE support on rail as needed Comments step to descent, improved descent leading RLE. ascend, cued increase R knee flexion. 1 Description Gait 4WW Device Used 4WW Level of Assistance V & phys cuing Surface Level Distance/Duration 170 ft Treatment Focus knee flexion during swing phase, increase WB into RLE Comments cued tall posture, R knee flexion heel toe with improvements noted. Self-Care/Home Management Treatment Education Patient Education Home Exercise Program,Joint Protection,Pain Management, Safety Other Education Reviewed precautions with ex. Discussed post surgical edema/ pain management with use of cold pack after exer, is using often. Educated pt regarding not using pillow under knees, could be a factor in lack of progress in R knee extension ROM, verbalized understanding. Educated pt in proper set up post op ex, R knee flexion during swing phase, heel toe in to extension. PT-OP-R Modalities Start: 05/04/21 18:43 Freq: Status: Active Protocol: Document 05/18/21 07:32 SP (Rec: 05/18/21 08:18 SP [id number]) Hot Pack/Cold Pack Treatment CP Location R knee Patient Position Hooklying Treatment Duration (minutes) 15 Patient Tolerance Good Comments good response pain 8/10, pt stated better than pre CP but not quantified. PT-OP-T Assessment and Plan Start: 05/04/21 18:43 Freq: Status: Active Protocol: Document 05/18/21 07:32 SP (Rec: 05/18/21 08:18 SP [id number]) Physical Therapy Assessment Goals Four Impairment R knee pain interrupting sleep and normal gait. Short Term Goal (STG) Pt will be able to walk with a normal step lengths without use of assistive device. 05/18/21: educated R knee flexion during gait and stair mgt for functional progress in AAROM. STG Duration 06/19/21 (05/18/21: progressing ) Detention Goal (LTG) Pt will be able to sleep at night with minimal or no R knee pain when sleeping. LTG Duration 08/03/21 Three Impairment Decreased function Impairment LEFS is 48/80 pre-op (20-39% impaired, score 48-62). Short Term Goal (STG) R knee PROM equal to L side AROM. 05/18/21: AAROM 3-95 deg using strap self with flexion R knee . STG Duration 06/19/21 (05/18/21: progressing ) Detention Goal (LTG) Improve LE function post-op to prior level of impairement ( 20-39 % impaired, score of 48-62). LTG Duration 08/03/21 Two Impairment Decreased R knee AROM ( limiting walking and stair mobility) Impairment Pt goals is to not have a lot of pain and walk normal. Occasional waking due to discomfort of R knee when sleeping. R knee PROM equal to L side. Short Term Goal (STG) Improve ambulatory ability with pt walking into grocery store without assistive device and tolerable pain. STG Duration 06/19/21 Family Practitioner Goal (LTG) Pt will be able to ambulate stairs with reciprical gait pattern with use of railing with mild discomfort (pain range 1-0/10).. 05/18/21: pt demonstrated BHR step to patterning, cued increase R knee flexion during step together. LTG Duration 08/03/21 (05/18/21: progressing ) One Impairment Pt lacks appropriate self care HEP Short Term Goal (STG) Pt independent with a pre-op self care HEP. STG Duration 05/05/21 (05/05/21: MET GOAL) Detention Goal (LTG) Pt independent in a post rehab for a partial R knee replacement, self care HEP LTG Duration 08/03/21 Progress Towards Goals Progress Towards Goals Progressing Toward Goals,Slow Progress due to Activity Tolerance Progress Comments Pt decreased in AAROM R knee flexion this tx up to 95 deg w /use of strap education compared to 113 AROM last tx. Assessment Summary Assessment Pt experienced increased pain with demonstration of SLR, instructed hold for now focus ease/gentle quad sets, knee hangs foot propped up on towel supine/ another chair sitting and AAROM with strap for support with flexion BLE sitting and seated scooting back as performed in tx carryover at home. Pt stated still has to take pain medication 1 tab during day every 6 hrs along with Tylenol and 2 tabs at night tolerate pain. Instructed importance of ROM with tolerance and WB walks small but frequent for circulation and safety decrease risk for DVT, verbalized understanding. ALso recommended continued use of cold pack which is. Physical Therapy Plan Frequency and Duration Frequency of Treatment 2x/Week Plan of Care Start Date 05/05/21 Plan of Care End Date 08/03/21 Therapeutic Interventions Therapeutic Interventions Home Exercise Program,Manual Therapy,Neuromuscular Re- education,Patient/Caregiver Education,Self-Care/Home Management,Soft Tissue Mobilization,Taping, Therapeutic Activities, Therapeutic Exercises Modalities Cold Pack/Ice Massage Next Visit Focus/Plan Next Note Type Treatment Note Next Visit Plan Continue HEP review: if ok start biodex bike for ease AROM assist if tolerated. POC: Reassess for post-op condition and modify/assess for appropriate goals/clinical data as needed. POC: s/p R medial partial knee replacement rehabilitation. ROM strengthening edema management pain reduction
--- NOTE | 2021-05-22 09:05 | PT.OTN ---
Current Diagnoses Unilateral primary osteoarthritis, right knee (05/22/21) Muscle weakness (generalized) (05/22/21) Physical Therapy Treatment Note PT-OP-A Visit Information Start: 05/04/21 18:43 Freq: Status: Active Protocol: Document 05/22/21 08:18 SP (Rec: 05/22/21 09:02 SP [id number]) Out-Patient Physical Therapy Visit Information Visit Information Visit Type Treatment Note Visit Start Time 08:18 Visit Stop Time 09:05 Total Visit Minutes 47 Visit Number 3 Number of GRAPHITE PAN DRIER TENDER Visits 24 Evaluation Information Evaluation Date 05/05/21 Precautions Precautions A. Fib, Arthritis, HBP controlled by injection, Diabetes type II controlled by diet and Metform PT-OP-B Current Condition Start: 05/04/21 18:43 Freq: Status: Active Protocol: Document 05/05/21 08:14 LRN (Rec: 05/05/21 11:18 LRN [id number]) Current Condition History of Current Condition Onset Date 3 yrs ago R knee started to hurt. Current Complaints R knee pain that worsens with exercise. History of Current Condition Pre-surgery PT visit for partial R medial knee arthroplasty scheduled for 12/23. Has spouse and a granddaughter who will stay with her for a week after surgery. Prior Treatments and Tests PT with Ilda Carrizales DPT . Cortisone ijection in R knee. Gel injection in R knee x 3 with last one 02/2021. Treatment Goals Patient/Caregiver Goals Pt goals is to not have a lot of pain and walk normal. Be more active: walking a into grocery store without assistive device and tolerable pain. Ambulate 3 stairs without use of railing with mild discomfort (pain range 0-1/10) . Decrease nighttime discomfort of R knee when sleeping. R knee PROM equal to L side. Prior Functional Status Baseline Function- ADL's Independent Baseline Function- Mobility Independent Baseline Function- Gait Walked for exercise. Baseline Function- Other Difficulty getting in/out of her boat. Difficulty getting into bed on boat (high up). No pain with walking, stairs, sleeping. Current Functional Impairments (Reported) Functional Limitations- ADL's Stiff getting out of bed. Standing tolerance with shifting weight - 20' Pain with sit to stand Functional Limitations- Mobility/Gait Ambulate stairs (3) without railing. Walking 1.5 miles in the house , monitored by pedometer. Personal Factors Other Personal Factors That May Effect A. Fib, Arthritis, Diabetes Therapy/Recovery type II controlled by diet and Metform. PT-OP-C Subjective Start: 05/04/21 18:43 Freq: Status: Active Protocol: Document 05/22/21 08:18 SP (Rec: 05/22/21 09:02 SP [id number]) OP-PT Subjective Patient Comments Patient Comments Pt reported still having pain, R knee not wanting to bend. States compliant with HEP but they hurt. Pt reports her grand daughter was helping her around home meals/ cleaning and had to go home but can help her, drives her. Pt states took 2 pain meds before came for appt. PT-OP-G Mobility & Gait Start: 05/04/21 18:43 Freq: Status: Active Protocol: Document 05/05/21 08:14 LRN (Rec: 05/05/21 11:18 LRN [id number]) OP Mobility Evaluation Bed Mobility Supine to and from Sit Pt able to lift leg onto plinth to transfer. Pt able to bend knees when transfering off plinth. Transfers Sit to Stand Pain with transfer OP Gait Assessment Gait Gait Assistance Required: Independent Able to Maintain Weight Bearing Status Yes During Gait Assistive Devices Assistive Device None Gait Deviations General Gait Pattern Antalgic Comments Gait Comments Limp off of the R foot, R leg slight ER'd. Stair Climbing Evaluation Evaluation Level of Assist On Stairs Independent Technique/Endurance Stair Climbing Direction Ascend and Descend Stair Climbing Technique Step Over Step Number of Steps Climbed 4 Stair Climbing Set # Repetitions (reps) 1 Comments Stair Climbing Comments Use of railing on R descending . PT-OP-K Range of Motion Start: 05/04/21 18:43 Freq: Status: Active Protocol: Document 05/22/21 08:18 SP (Rec: 05/22/21 12:14 SP [id number]) Knee Goniometric Range of Motion Knee Right Knee ROM WFL No Patient Position Supine Flexion Passive (degrees) 96 Extension Active (degrees) 3 Comments R knee flexion: AAROM w/ strap self 96deg, PROM 97 deg all could tolerate. R knee extension foot over foam roller: rested 5 deg, during quad set 3 deg * Didn't assess AROM R Knee flexion. Decreased tolerance R knee flexion today due to pain. Pt reports didn't do alot flexion HEP over weekend due to pain. PT-OP-M Strength Start: 05/04/21 18:43 Freq: Status: Active Protocol: Document 05/05/21 08:14 LRN (Rec: 05/05/21 11:18 LRN [id number]) Knee Strength Knee Manual Muscle Testing Right Flexion (S2) 5 Normal Extension (L3) 5 Normal Left Flexion (S2) 5 Normal Extension (L3) 5 Normal Ankle/Foot Strength Ankle and Foot Manual Muscle Testing Right Comments Generally 5/5 Left Comments Generally 5/5 PT-OP-Q Treatments Start: 05/04/21 18:43 Freq: Status: Active Protocol: Document 05/22/21 08:18 SP (Rec: 05/22/21 09:02 SP [id number]) Cardio Equipment Recumbent Elliptical (Reply.io) Duration (Minutes) 6 Resistance 1 Seat Position 8 Other mid range steps tolerated Therapeutic Exercises Supine Exercises QS Supine Exercise Name QS- HEP review Side bilateral Equipment Used towel roll under knee feedback contraction, 1/2 foam roll under foot Reps/Minutes 2 sec hold x5, each knee extension 5 deg at rest, 3deg with QS Comments cued gentle Quad contraction, improved decrease hip/ trunk compensations Knee flex Supine Exercise Name Knee flex- HEP review Side right Resistance AAROM Equipment Used w/ strap on foot Reps/Minutes 5 H x 10 Comments re-ed use of strap for self AAROM 96 deg, PROM up to 97 deg tolerated Sitting Exercises LAQ Sitting Exercise Name added to HEP- warm up pre stand-post op ex Side right Reps/Minutes 2x5 reps Comments cued slow pacing control. reports 5/10 pat tendon pain, can do, will help. Knee flex Sitting Exercise Name Knee flex Side right Resistance AROM- measurement not taken today Reps/Minutes 5x Comments cued Gait Training Gait Activity gait in mirror/form Description gait phases Device Used 4ww Level of Assistance SBA Surface firm Distance/Duration 20 x3 laps Treatment Focus quad fac extension, R knee flexion swing through heel toe Comments cued tall posture w/ core & hip abd fac book on head during RLE midstance phase, R knee flexion heel toe during swing phase with improvements noted. Improved understanding demonstration quality gait with mirror. 1 Description Gait 4WW Device Used 4WW Level of Assistance V & phys cuing Surface Level Distance/Duration 80 ft, 80 ft Treatment Focus R knee flexion during swing phase, increase WB quad fac into RLE Comments cued tall posture, R knee flexion heel toe with improvements noted. Manual Therapy Treatment Soft Tissue Mobilization 1 Body Location Adductors, medial HS, medial calf Mobilization Type Myofascial Release Intensity/Depth Moderate Body Position Hooklying Comments good feedback for tolerant gentle pressure. Self-Care/Home Management Treatment Education Patient Education Home Exercise Program,Safety Other Education initiated LAQ warm up reps pre stand/ walking for stability. USe of hands for now. Extra time gait phase quality in mirror for proper form to decrease antalgic gait SB and importance use of 4WW in home for contact support and quality gait to decrease compenstations, verbalized understanding. Pt better understands keep up with AAROM R knee flex/ extension. PT-OP-R Modalities Start: 05/04/21 18:43 Freq: Status: Active Protocol: Document 05/22/21 08:18 SP (Rec: 05/22/21 09:02 SP [id number]) Hot Pack/Cold Pack Treatment CP Location R knee Patient Position Hooklying Treatment Duration (minutes) 8 Patient Tolerance Good Comments good response pain /10, pt stated better than pre CP but not quantified. PT-OP-T Assessment and Plan Start: 05/04/21 18:43 Freq: Status: Active Protocol: Document 05/22/21 08:18 SP (Rec: 05/22/21 09:02 SP [id number]) Physical Therapy Assessment Goals Four Impairment R knee pain interrupting sleep and normal gait. Short Term Goal (STG) Pt will be able to walk with a normal step lengths without use of assistive device. 05/18/21: educated R knee flexion during gait and stair mgt for functional progress in AAROM.05/22/21: improved demonstration R quad fac midstance phase with decrease SB wt shift, increase R knee flexion swing through heel toe awareness with use mirror. Encouraged use of 4WW contact for stability. STG Duration 06/19/21 (05/22/21: progressing ) Payroll Technician Goal (LTG) Pt will be able to sleep at night with minimal or no R knee pain when sleeping. 05/22/21: progressing: still has pain when sleeps, getting better is ableto sleep portion of night without towel under knee, does take pain meds before bed and through day. LTG Duration 08/03/21 (05/22/21 Progressing) Three Impairment Decreased function Impairment LEFS is 48/80 pre-op (20-39% impaired, score 48-62). Short Term Goal (STG) R knee PROM equal to L side AROM. 05/18/21: AAROM 3-95 deg using strap self with flexion R knee . 05/22/21: AAROM 3-96. States doesn't do this alot at home and sees the importance will continue to do laying down with strap. STG Duration 06/19/21 (05/22/21: progressing ) Payroll Technician Goal (LTG) Improve LE function post-op to prior level of impairement ( 20-39 % impaired, score of 48-62). LTG Duration 08/03/21 Two Impairment Decreased R knee AROM ( limiting walking and stair mobility) Impairment Pt goals is to not have a lot of pain and walk normal. Occasional waking due to discomfort of R knee when sleeping. R knee PROM equal to L side. Short Term Goal (STG) Improve ambulatory ability with pt walking into grocery store without assistive device and tolerable pain. STG Duration 06/19/21 Correction Goal (LTG) Pt will be able to ambulate stairs with reciprical gait pattern with use of railing with mild discomfort (pain range 1-0/10).. 05/18/21: pt demonstrated BHR step to patterning, cued increase R knee flexion during step together. LTG Duration 08/03/21 (05/18/21: progressing ) One Impairment Pt lacks appropriate self care HEP Short Term Goal (STG) Pt independent with a pre-op self care HEP. STG Duration 05/05/21 (05/05/21: MET GOAL) Payroll Technician Goal (LTG) Pt independent in a post rehab for a partial R knee replacement, self care HEP LTG Duration 08/03/21 Progress Towards Goals Progress Towards Goals Progressing Toward Goals,Slow Progress due to Activity Tolerance Progress Comments Pt decreased in AROM R knee 3 deg during quad set (1/2 foam roll under foot), 96 deg w/use of strap R knee flexion. Did not assess AROM this tx. Assessment Summary Assessment Pt continues to be limited by pain, not consistant self AAROM into flexion at home as performs in PT, continued education. She reports pain throughout day takes pain meds and CP to help control, in PT tx 2/10 R knee pain reported, walking improved quality gait with education and use mirror , not significant increase pain on recumbent elliptical bike initiated today, noted midrange no resistance discussed gentle AROM, during AAROM flexion and active extension reported -10/11. Pt' s swelling and bruising posterior thigh and calf much better, has follow up with ortho this Th. Pt stated 1- R knee post manual MFR with good feedback response and cold/stiff end tx post modalites. Physical Therapy Plan Frequency and Duration Frequency of Treatment 2x/Week Plan of Care Start Date 05/05/21 Plan of Care End Date 08/03/21 Therapeutic Interventions Therapeutic Interventions Home Exercise Program,Manual Therapy,Neuromuscular Re- education,Patient/Caregiver Education,Self-Care/Home Management,Soft Tissue Mobilization,Taping, Therapeutic Activities, Therapeutic Exercises Modalities Cold Pack/Ice Massage Next Visit Focus/Plan Next Note Type Treatment Note Next Visit Plan Continue HEP review encourage flexion/ extension: biodex bike for ease AROM assist if tolerated. POC: Reassess for post-op condition and modify/ assess for appropriate goals/ clinical data as needed. POC: s/p R medial partial knee replacement rehabilitation. ROM strengthening edema management pain reduction
--- NOTE | 2021-05-24 10:38 | PT.OTN ---
Current Diagnoses Unilateral primary osteoarthritis, right knee (05/24/21) Muscle weakness (generalized) (05/24/21) Physical Therapy Treatment Note PT-OP-A Visit Information Start: 05/04/21 18:43 Freq: Status: Active Protocol: Document 05/24/21 09:45 DCW (Rec: 05/24/21 10:38 DCW [id number]) Out-Patient Physical Therapy Visit Information Visit Information Visit Type Progress Note Visit Start Time 09:45 Visit Stop Time 10:35 Total Visit Minutes 50 Visit Number 4 Number of QUITLINE COUNSELOR Visits 0 Evaluation Information Evaluation Date 05/05/21 Precautions Precautions A. Fib, Arthritis, HBP controlled by injection, Diabetes type II controlled by diet and Metform PT-OP-B Current Condition Start: 05/04/21 18:43 Freq: Status: Active Protocol: Document 05/05/21 08:14 LRN (Rec: 05/05/21 11:18 LRN [id number]) Current Condition History of Current Condition Onset Date 3 yrs ago R knee started to hurt. Current Complaints R knee pain that worsens with exercise. History of Current Condition Pre-surgery PT visit for partial R medial knee arthroplasty scheduled for 12/23. Has spouse and a granddaughter who will stay with her for a week after surgery. Prior Treatments and Tests PT with Ilda Carrizales DPT . Cortisone ijection in R knee. Gel injection in R knee x 3 with last one 02/2021. Treatment Goals Patient/Caregiver Goals Pt goals is to not have a lot of pain and walk normal. Be more active: walking a into grocery store without assistive device and tolerable pain. Ambulate 3 stairs without use of railing with mild discomfort (pain range 0-1/10) . Decrease nighttime discomfort of R knee when sleeping. R knee PROM equal to L side. Prior Functional Status Baseline Function- ADL's Independent Baseline Function- Mobility Independent Baseline Function- Gait Walked for exercise. Baseline Function- Other Difficulty getting in/out of her boat. Difficulty getting into bed on boat (high up). No pain with walking, stairs, sleeping. Current Functional Impairments (Reported) Functional Limitations- ADL's Stiff getting out of bed. Standing tolerance with shifting weight - 20' Pain with sit to stand Functional Limitations- Mobility/Gait Ambulate stairs (3) without railing. Walking 1.5 miles in the house , monitored by pedometer. Personal Factors Other Personal Factors That May Effect A. Fib, Arthritis, Diabetes Therapy/Recovery type II controlled by diet and Metform. PT-OP-C Subjective Start: 05/04/21 18:43 Freq: Status: Active Protocol: Document 05/24/21 09:45 DCW (Rec: 05/24/21 10:38 DCW [id number]) OP-PT Subjective Patient Comments Patient Comments Pt notes she is still having quite a bit of pain, reporting a normal of 8-9/10 PT-OP-E Functional Tests Start: 05/04/21 18:43 Freq: Status: Active Protocol: Document 05/24/21 09:45 DCW (Rec: 05/24/21 09:58 DCW [id number]) Functional Tests 6 Minute Walk Test Distance 211' Device Used None Comments 1.76 ft/sec PT-OP-G Mobility & Gait Start: 05/04/21 18:43 Freq: Status: Active Protocol: Document 05/24/21 09:45 DCW (Rec: 05/24/21 09:58 DCW [id number]) OP Gait Assessment Gait Gait Assistance Required: Standby Assistance Distance (Feet) 211 Gait Deviations General Gait Pattern Ataxic,Decreased Stride Length ,Decreased Feet Clearance, Lateral Trunk Lean Factors Limiting Gait Function Factors Limiting Gait Function Decreased Activity Tolerance, Decreased Strength,Limited Range of Motion,Pain PT-OP-J Posture/Palpation/Skin Start: 05/04/21 18:43 Freq: Status: Active Protocol: Document 05/24/21 09:45 DCW (Rec: 05/24/21 09:58 DCW [id number]) Skin Assessment Circumference Measurement 3 Location 10 cm inferior to R joint line Measurement (Centimeters) 35.5 Comments L = 34.8 2 Location 10 cm superior to R joint line Measurement (Centimeters) 41.0 Comments L = 40.4 1 Location R Joint Line Measurement (Centimeters) 40.6 Comments L = 38.0 PT-OP-K Range of Motion Start: 05/04/21 18:43 Freq: Status: Active Protocol: Document 05/24/21 09:45 DCW (Rec: 05/24/21 09:58 DCW [id number]) Knee Goniometric Range of Motion Knee Right Patient Position Sitting Flexion Active (degrees) 100 Extension Active (degrees) 10 Extension Passive (degrees) 8 Left Flexion Active (degrees) 122 Extension Active (degrees) 0 Extension Passive (degrees) 0 PT-OP-M Strength Start: 05/04/21 18:43 Freq: Status: Active Protocol: Document 05/24/21 09:45 DCW (Rec: 05/24/21 09:58 DCW [id number]) Knee Strength Knee Manual Muscle Testing Right Flexion (S2) 4 Good Extension (L3) 3+ Fair+ Left Flexion (S2) 5 Normal Extension (L3) 5 Normal PT-OP-Q Treatments Start: 05/04/21 18:43 Freq: Status: Active Protocol: Document 05/24/21 09:45 DCW (Rec: 05/24/21 10:38 DCW [id number]) Cardio Equipment Recumbent Bicycle Duration (Minutes) 5 Resistance 0 Seat Position 4 Other 1 full rotation Therapeutic Exercises Supine Exercises Hip Abduction Supine Exercise Name Windshield wipers Side right Resistance AROM Knee flex Supine Exercise Name Heel slides Side right Resistance AROM Sitting Exercises HS Curls Sitting Exercise Name HS curls Side right Resistance Lv 2 Equipment Used T-band LAQ Sitting Exercise Name LAQ Side right Reps/Minutes x15 Comments cued slow pacing control. reports 5/10 pat tendon pain, can do, will help. Manual Therapy Treatment Joint Mobilizations 2 Joint tibiofemoral Direction P->A Grade III Other Other Manual Treatments MMT, ROM, circumferential measurements, 2 MWT PT-OP-R Modalities Start: 05/04/21 18:43 Freq: Status: Active Protocol: Document 05/24/21 09:45 DCW (Rec: 05/24/21 10:38 DCW [id number]) Hot Pack/Cold Pack Treatment CP Location R knee Patient Position Hooklying Treatment Duration (minutes) 10 Patient Tolerance Good PT-OP-T Assessment and Plan Start: 05/04/21 18:43 Freq: Status: Active Protocol: Document 05/24/21 09:45 DCW (Rec: 05/24/21 10:38 VAW [id number]) Physical Therapy Assessment Impairments Impairments Activity Tolerance,Gait,Pain, ROM Other Impairments Stair ambulation requiring use of railing. Goals Four Impairment R knee pain interrupting sleep and normal gait. Short Term Goal (STG) Pt will be able to walk with a normal step lengths without use of assistive device. 05/18/21: educated R knee flexion during gait and stair mgt for functional progress in AAROM.05/22/21: improved demonstration R quad fac midstance phase with decrease SB wt shift, increase R knee flexion swing through heel toe awareness with use mirror. Encouraged use of 4WW contact for stability. STG Duration 06/24/21 Custodial Goal (LTG) Pt will be able to sleep at night with minimal or no R knee pain when sleeping. 05/22/21: progressing: still has pain when sleeps, getting better is able to sleep portion of night without towel under knee, does take pain meds before bed and through day. LTG Duration 08/03/21 Three Impairment Decreased function Impairment LEFS is 48/80 pre-op (20-39% impaired, score 48-62). Short Term Goal (STG) R knee PROM equal to L side AROM. 05/24/21: AROM 10-100 deg STG Duration 06/24/21 Skid Wrapper Goal (LTG) Improve LE function post-op to prior level of impairment ( 20-39 % impaired, score of 48-62). LTG Duration 08/03/21 Two Impairment Decreased R knee AROM ( limiting walking and stair mobility) Impairment Pt goals is to not have a lot of pain and walk normal. Occasional waking due to discomfort of R knee when sleeping. R knee PROM equal to L side. Short Term Goal (STG) Improve ambulatory ability with pt walking into grocery store without assistive device and tolerable pain. STG Duration 06/24/21 Custodial Goal (LTG) Pt will be able to ambulate stairs with reciprical gait pattern with use of railing with mild discomfort (pain range 1-0/10).. 05/18/21: pt demonstrated BHR step to patterning, cued increase R knee flexion during step together. LTG Duration 08/03/21 (05/18/21: progressing ) One Impairment Pt lacks appropriate self care HEP Short Term Goal (STG) Pt independent with a pre-op self care HEP. STG Duration 05/05/21 (05/05/21: MET GOAL) Custodial Goal (LTG) Pt independent in a post rehab for a partial R knee replacement, self care HEP LTG Duration 08/03/21 Assessment Summary Assessment Pt significantly limited by pain post-op, reports most of the time is an 8/10. Pt showing some improvement with AROM, currently R knee 10-100? . Minimal edema at this time, circumferential measurements largely within 1 cm R vs L. Continue progressing ROM, strength, and activity tolerance s/p R TKA. Physical Therapy Plan Frequency and Duration Frequency of Treatment 2x/Week Duration of Treatment 10 weeks Plan of Care Start Date 05/24/21 Plan of Care End Date 08/03/21 Therapeutic Interventions Therapeutic Interventions Home Exercise Program,Manual Therapy,Neuromuscular Re- education,Patient/Caregiver Education,Self-Care/Home Management,Soft Tissue Mobilization,Taping, Therapeutic Activities, Therapeutic Exercises Modalities Cold Pack/Ice Massage Next Visit Focus/Plan Next Note Type Treatment Note Next Visit Plan Continue HEP review encourage flexion/ extension: NAVX bike for ease AROM assist if tolerated. POC: Reassess for post-op condition and modify/ assess for appropriate goals/ clinical data as needed. POC: s/p R medial partial knee replacement rehabilitation. ROM strengthening edema management pain reduction
--- NOTE | 2021-05-24 10:40 | PT.OPPN ---
Current Diagnoses Unilateral primary osteoarthritis, right knee (05/24/21) Muscle weakness (generalized) (05/24/21) Physical Therapy Progress Note PT-OP-A Visit Information Start: 05/04/21 18:43 Freq: Status: Active Protocol: Document 05/24/21 09:45 DCW (Rec: 05/24/21 10:38 DCW [id number]) Out-Patient Physical Therapy Visit Information Visit Information Visit Type Progress Note Visit Start Time 09:45 Visit Stop Time 10:35 Total Visit Minutes 50 Visit Number 4 Number of PLANT ATTENDANT Visits 0 Evaluation Information Evaluation Date 05/05/21 Precautions Precautions A. Fib, Arthritis, HBP controlled by injection, Diabetes type II controlled by diet and Metform PT-OP-B Current Condition Start: 05/04/21 18:43 Freq: Status: Active Protocol: Document 05/05/21 08:14 LRN (Rec: 05/05/21 11:18 LRN [id number]) Current Condition History of Current Condition Onset Date 3 yrs ago R knee started to hurt. Current Complaints R knee pain that worsens with exercise. History of Current Condition Pre-surgery PT visit for partial R medial knee arthroplasty scheduled for 12/23. Has spouse and a granddaughter who will stay with her for a week after surgery. Prior Treatments and Tests PT with Ilda Carrizales DPT . Cortisone ijection in R knee. Gel injection in R knee x 3 with last one 02/2021. Treatment Goals Patient/Caregiver Goals Pt goals is to not have a lot of pain and walk normal. Be more active: walking a into grocery store without assistive device and tolerable pain. Ambulate 3 stairs without use of railing with mild discomfort (pain range 0-1/10) . Decrease nighttime discomfort of R knee when sleeping. R knee PROM equal to L side. Prior Functional Status Baseline Function- ADL's Independent Baseline Function- Mobility Independent Baseline Function- Gait Walked for exercise. Baseline Function- Other Difficulty getting in/out of her boat. Difficulty getting into bed on boat (high up). No pain with walking, stairs, sleeping. Current Functional Impairments (Reported) Functional Limitations- ADL's Stiff getting out of bed. Standing tolerance with shifting weight - 20' Pain with sit to stand Functional Limitations- Mobility/Gait Ambulate stairs (3) without railing. Walking 1.5 miles in the house , monitored by pedometer. Personal Factors Other Personal Factors That May Effect A. Fib, Arthritis, Diabetes Therapy/Recovery type II controlled by diet and Metform. PT-OP-C Subjective Start: 05/04/21 18:43 Freq: Status: Active Protocol: Document 05/24/21 09:45 DCW (Rec: 05/24/21 10:38 DCW [id number]) OP-PT Subjective Patient Comments Patient Comments Pt notes she is still having quite a bit of pain, reporting a normal of 8-9/10 PT-OP-E Functional Tests Start: 05/04/21 18:43 Freq: Status: Active Protocol: Document 05/24/21 09:45 DCW (Rec: 05/24/21 09:58 DCW [id number]) Functional Tests 6 Minute Walk Test Distance 211' Device Used None Comments 1.76 ft/sec PT-OP-G Mobility & Gait Start: 05/04/21 18:43 Freq: Status: Active Protocol: Document 05/24/21 09:45 DCW (Rec: 05/24/21 09:58 DCW [id number]) OP Gait Assessment Gait Gait Assistance Required: Standby Assistance Distance (Feet) 211 Gait Deviations General Gait Pattern Ataxic,Decreased Stride Length ,Decreased Feet Clearance, Lateral Trunk Lean Factors Limiting Gait Function Factors Limiting Gait Function Decreased Activity Tolerance, Decreased Strength,Limited Range of Motion,Pain PT-OP-J Posture/Palpation/Skin Start: 05/04/21 18:43 Freq: Status: Active Protocol: Document 05/24/21 09:45 DCW (Rec: 05/24/21 09:58 DCW [id number]) Skin Assessment Circumference Measurement 3 Location 10 cm inferior to R joint line Measurement (Centimeters) 35.5 Comments L = 34.8 2 Location 10 cm superior to R joint line Measurement (Centimeters) 41.0 Comments L = 40.4 1 Location R Joint Line Measurement (Centimeters) 40.6 Comments L = 38.0 PT-OP-K Range of Motion Start: 05/04/21 18:43 Freq: Status: Active Protocol: Document 05/24/21 09:45 DCW (Rec: 05/24/21 09:58 DCW [id number]) Knee Goniometric Range of Motion Knee Measured in Degrees Right Patient Position Sitting Flexion Active (degrees) 100 Extension Active (degrees) 10 Extension Passive (degrees) 8 Left Flexion Active (degrees) 122 Extension Active (degrees) 0 Extension Passive (degrees) 0 PT-OP-M Strength Start: 05/04/21 18:43 Freq: Status: Active Protocol: Document 05/24/21 09:45 DCW (Rec: 05/24/21 09:58 DCW [id number]) Knee Strength Knee Manual Muscle Testing Right Flexion (S2) 4 Good Extension (L3) 3+ Fair+ Left Flexion (S2) 5 Normal Extension (L3) 5 Normal PT-OP-T Assessment and Plan Start: 05/04/21 18:43 Freq: Status: Active Protocol: Document 05/24/21 09:45 DCW (Rec: 05/24/21 10:38 DCW [id number]) Physical Therapy Assessment Impairments Impairments Activity Tolerance,Gait,Pain, ROM Other Impairments Stair ambulation requiring use of railing. Goals Four Impairment R knee pain interrupting sleep and normal gait. Short Term Goal (STG) Pt will be able to walk with a normal step lengths without use of assistive device. 05/18/21: educated R knee flexion during gait and stair mgt for functional progress in AAR.05/22/21: improved demonstration R quad fac midstance phase with decrease SB wt shift, increase R knee flexion swing through heel toe awareness with use mirror. Encouraged use of 4WW contact for stability. STG Duration 06/24/21 Penitentiary Goal (LTG) Pt will be able to sleep at night with minimal or no R knee pain when sleeping. 05/22/21: progressing: still has pain when sleeps, getting better is able to sleep portion of night without towel under knee, does take pain meds before bed and through day. LTG Duration 08/03/21 Three Impairment Decreased function Impairment LEFS is 48/80 pre-op (20-39% impaired, score 48-62). Short Term Goal (STG) R knee PROM equal to L side AROM. 05/24/21: AROM 10-100 deg STG Duration 06/24/21 Penitentiary Goal (LTG) Improve LE function post-op to prior level of impairment (20 -39 % impaired, score of 48-62). LTG Duration 08/03/21 Two Impairment Decreased R knee AROM ( limiting walking and stair mobility) Impairment Pt goals is to not have a lot of pain and walk normal. Occasional waking due to discomfort of R knee when sleeping. R knee PROM equal to L side. Short Term Goal (STG) Improve ambulatory ability with pt walking into grocery store without assistive device and tolerable pain. STG Duration 06/24/21 Penitentiary Goal (LTG) Pt will be able to ambulate stairs with reciprical gait pattern with use of railing with mild discomfort (pain range 1-0/10).. 05/18/21: pt demonstrated BHR step to patterning, cued increase R knee flexion during step together. LTG Duration 08/03/21 (05/18/21: progressing ) One Impairment Pt lacks appropriate self care HEP Short Term Goal (STG) Pt independent with a pre-op self care HEP. STG Duration 05/05/21 (05/05/21: MET GOAL) Cotton Agent Goal (LTG) Pt independent in a post rehab for a partial R knee replacement, self care HEP LTG Duration 08/03/21 Assessment Summary Assessment Pt significantly limited by pain post-op, reports most of the time is an 8/10. Pt showing some improvement with AROM, currently R knee 10-100? . Minimal edema at this time, circumferential measurements largely within 1 cm R vs L. Continue progressing ROM, strength, and activity tolerance s/p R TKA. Physical Therapy Plan Frequency and Duration Frequency of Treatment 2x/Week Duration of Treatment 10 weeks Plan of Care Start Date 05/24/21 Plan of Care End Date 08/03/21 Therapeutic Interventions Therapeutic Interventions Home Exercise Program,Manual Therapy,Neuromuscular Re- education,Patient/Caregiver Education,Self-Care/Home Management,Soft Tissue Mobilization,Taping, Therapeutic Activities, Therapeutic Exercises Modalities Cold Pack/Ice Massage Next Visit Focus/Plan Next Note Type Treatment Note Next Visit Plan Continue HEP review encourage flexion/ extension: biodex bike for ease AROM assist if tolerated. POC: Reassess for post-op condition and modify/ assess for appropriate goals/ clinical data as needed. POC: s/p R medial partial knee replacement rehabilitation. ROM strengthening edema management pain reduction
--- NOTE | 2021-05-24 10:40 | PT.OPPOC ---
Physical, Occupational & Speech Therapy At [facility] Current Diagnoses Unilateral primary osteoarthritis, right knee (05/24/21) Muscle weakness (generalized) (05/24/21) Visit Care Team Role Provider Type Michela Muñiz MD Family Provider Physician Primary Care Provider Specialty: Family Practice Address: [address] [place] [address], [facility], [address] Email: [email or web address] Keny Root MD Attending Provider Physician Referring Provider Specialty: Orthopedics Orthopedic Surgery Address: [address] [place] [address], [place], [address] Email: [email or web address] Plan Of Care PT-OP-T Assessment and Plan Start: 05/04/21 18:43 Freq: Status: Active Protocol: Document 05/24/21 09:45 DCW (Rec: 05/24/21 10:38 DCW [id number]) Physical Therapy Assessment Impairments Impairments Activity Tolerance,Gait,Pain, ROM Other Impairments Stair ambulation requiring use of railing. Goals Four Impairment R knee pain interrupting sleep and normal gait. Short Term Goal (STG) Pt will be able to walk with a normal step lengths without use of assistive device. 05/18/21: educated R knee flexion during gait and stair mgt for functional progress in AAR.05/22/21: improved demonstration R quad fac midstance phase with decrease SB wt shift, increase R knee flexion swing through heel toe awareness with use mirror. Encouraged use of 4WW contact for stability. STG Duration 06/24/21 Ag Service Manager Goal (LTG) Pt will be able to sleep at night with minimal or no R knee pain when sleeping. 05/22/21: progressing: still has pain when sleeps, getting better is able to sleep portion of night without towel under knee, does take pain meds before bed and through day. LTG Duration 08/03/21 Three Impairment Decreased function Impairment LEFS is 48/80 pre-op (20-39% impaired, score 48-62). Short Term Goal (STG) R knee PROM equal to L side AROM. 05/24/21: AROM 10-100 deg STG Duration 06/24/21 Ag Service Manager Goal (LTG) Improve LE function post-op to prior level of impairment (20 -39 % impaired, score of 48-62). LTG Duration 08/03/21 Two Impairment Decreased R knee AROM ( limiting walking and stair mobility) Impairment Pt goals is to not have a lot of pain and walk normal. Occasional waking due to discomfort of R knee when sleeping. R knee PROM equal to L side. Short Term Goal (STG) Improve ambulatory ability with pt walking into grocery store without assistive device and tolerable pain. STG Duration 06/24/21 Ag Service Manager Goal (LTG) Pt will be able to ambulate stairs with reciprical gait pattern with use of railing with mild discomfort (pain range 1-0/10).. 05/18/21: pt demonstrated BHR step to patterning, cued increase R knee flexion during step together. LTG Duration 08/03/21 (05/18/21: progressing ) One Impairment Pt lacks appropriate self care HEP Short Term Goal (STG) Pt independent with a pre-op self care HEP. STG Duration 05/05/21 (05/05/21: MET GOAL) Half-Way Goal (LTG) Pt independent in a post rehab for a partial R knee replacement, self care HEP LTG Duration 08/03/21 Assessment Summary Assessment Pt significantly limited by pain post-op, reports most of the time is an 8/10. Pt showing some improvement with AROM, currently R knee 10-100? . Minimal edema at this time, circumferential measurements largely within 1 cm R vs L. Continue progressing ROM, strength, and activity tolerance s/p R TKA. Physical Therapy Plan Frequency and Duration Frequency of Treatment 2x/Week Duration of Treatment 10 weeks Plan of Care Start Date 05/24/21 Plan of Care End Date 08/03/21 Therapeutic Interventions Therapeutic Interventions Home Exercise Program,Manual Therapy,Neuromuscular Re- education,Patient/Caregiver Education,Self-Care/Home Management,Soft Tissue Mobilization,Taping, Therapeutic Activities, Therapeutic Exercises Modalities Cold Pack/Ice Massage Next Visit Focus/Plan Next Note Type Treatment Note Next Visit Plan Continue HEP review encourage flexion/ extension: biodex bike for ease AROM assist if tolerated. POC: Reassess for post-op condition and modify/ assess for appropriate goals/ clinical data as needed. POC: s/p R medial partial knee replacement rehabilitation. ROM strengthening edema management pain reduction Plan of Care Dates Plan of Care Start Date 05/24/21 Plan of Care End Date 08/03/21 Electronically Signed by: Antonio Ross, PT 05/24/21 1040 Please Sign and Return: I have reviewed this Plan of Care and certify that the skilled therapy services above are required to meet the patient?s needs. Physician Signature Date Printed Name and Credentials Clinical Instructor Signature Printed Name and Credentials
--- NOTE | 2021-05-30 08:55 | PT.OTN ---
Current Diagnoses Unilateral primary osteoarthritis, right knee (05/30/21) Muscle weakness (generalized) (05/30/21) Physical Therapy Treatment Note PT-OP-A Visit Information Start: 05/04/21 18:43 Freq: Status: Active Protocol: Document 05/30/21 08:12 LRN (Rec: 05/30/21 08:55 LRN [id number]) Out-Patient Physical Therapy Visit Information Visit Information Visit Type Treatment Note Visit Start Time 08:12 Visit Stop Time 09:00 Total Visit Minutes 48 Visit Number 5 Evaluation Information Evaluation Date 05/05/21 Precautions Precautions A. Fib, Arthritis, HBP controlled by injection, Diabetes type II controlled by diet and Metform PT-OP-B Current Condition Start: 05/04/21 18:43 Freq: Status: Active Protocol: Document 05/05/21 08:14 LRN (Rec: 05/05/21 11:18 LRN [id number]) Current Condition History of Current Condition Onset Date 3 yrs ago R knee started to hurt. Current Complaints R knee pain that worsens with exercise. History of Current Condition Pre-surgery PT visit for partial R medial knee arthroplasty scheduled for 12/23. Has spouse and a granddaughter who will stay with her for a week after surgery. Prior Treatments and Tests PT with Ilda Carrizales DPT . Cortisone ijection in R knee. Gel injection in R knee x 3 with last one 02/2021. Treatment Goals Patient/Caregiver Goals Pt goals is to not have a lot of pain and walk normal. Be more active: walking a into grocery store without assistive device and tolerable pain. Ambulate 3 stairs without use of railing with mild discomfort (pain range 0-1/10) . Decrease nighttime discomfort of R knee when sleeping. R knee PROM equal to L side. Prior Functional Status Baseline Function- ADL's Independent Baseline Function- Mobility Independent Baseline Function- Gait Walked for exercise. Baseline Function- Other Difficulty getting in/out of her boat. Difficulty getting into bed on boat (high up). No pain with walking, stairs, sleeping. Current Functional Impairments (Reported) Functional Limitations- ADL's Stiff getting out of bed. Standing tolerance with shifting weight - 20' Pain with sit to stand Functional Limitations- Mobility/Gait Ambulate stairs (3) without railing. Walking 1.5 miles in the house , monitored by pedometer. Personal Factors Other Personal Factors That May Effect A. Fib, Arthritis, Diabetes Therapy/Recovery type II controlled by diet and Metform. PT-OP-C Subjective Start: 05/04/21 18:43 Freq: Status: Active Protocol: Document 05/30/21 08:12 LRN (Rec: 05/30/21 08:55 LRN [id number]) OP-PT Subjective Patient Comments Patient Comments States pain is 4/10. PT-OP-E Functional Tests Start: 05/04/21 18:43 Freq: Status: Active Protocol: Document 05/24/21 09:45 DCW (Rec: 05/24/21 09:58 DCW [id number]) Functional Tests 6 Minute Walk Test Distance 211' Device Used None Comments 1.76 ft/sec PT-OP-G Mobility & Gait Start: 05/04/21 18:43 Freq: Status: Active Protocol: Document 05/24/21 09:45 DCW (Rec: 05/24/21 09:58 DCW [id number]) OP Gait Assessment Gait Gait Assistance Required: Standby Assistance Distance (Feet) 211 Gait Deviations General Gait Pattern Ataxic,Decreased Stride Length ,Decreased Feet Clearance, Lateral Trunk Lean Factors Limiting Gait Function Factors Limiting Gait Function Decreased Activity Tolerance, Decreased Strength,Limited Range of Motion,Pain PT-OP-J Posture/Palpation/Skin Start: 05/04/21 18:43 Freq: Status: Active Protocol: Document 05/24/21 09:45 DCW (Rec: 05/24/21 09:58 DCW [id number]) Skin Assessment Circumference Measurement 3 Location 10 cm inferior to R joint line Measurement (Centimeters) 35.5 Comments L = 34.8 2 Location 10 cm superior to R joint line Measurement (Centimeters) 41.0 Comments L = 40.4 1 Location R Joint Line Measurement (Centimeters) 40.6 Comments L = 38.0 PT-OP-K Range of Motion Start: 05/04/21 18:43 Freq: Status: Active Protocol: Document 05/24/21 09:45 DCW (Rec: 05/24/21 09:58 DCW [id number]) Knee Goniometric Range of Motion Knee Right Patient Position Sitting Flexion Active (degrees) 100 Extension Active (degrees) 10 Extension Passive (degrees) 8 Left Flexion Active (degrees) 122 Extension Active (degrees) 0 Extension Passive (degrees) 0 PT-OP-M Strength Start: 05/04/21 18:43 Freq: Status: Active Protocol: Document 05/24/21 09:45 DCW (Rec: 05/24/21 09:58 DCW [id number]) Knee Strength Knee Manual Muscle Testing Right Flexion (S2) 4 Good Extension (L3) 3+ Fair+ Left Flexion (S2) 5 Normal Extension (L3) 5 Normal PT-OP-Q Treatments Start: 05/04/21 18:43 Freq: Status: Active Protocol: Document 05/30/21 08:12 LRN (Rec: 05/30/21 08:55 LRN [id number]) Cardio Equipment Bicycle (Upright) Duration (Minutes) 6 Resistance 1 Seat Position 4 Therapeutic Exercises Supine Exercises Hip Abduction Supine Exercise Name Windshield wipers Side right Resistance AROM Knee flex Supine Exercise Name Heel slides Side right Resistance AROM SLR Supine Exercise Name SLR Side right Reps/Minutes 15x 2 Manual Therapy Treatment Soft Tissue Mobilization 1 Body Location Adductors, medial HS, medial calf Mobilization Type Myofascial Release Intensity/Depth Moderate Body Position Hooklying Comments good feedback for tolerant gentle pressure. PT-OP-R Modalities Start: 05/04/21 18:43 Freq: Status: Active Protocol: Document 05/30/21 08:12 LRN (Rec: 05/30/21 08:55 LRN [id number]) Hot Pack/Cold Pack Treatment CP Location R knee Patient Position Hooklying Treatment Duration (minutes) 10 Patient Tolerance Good PT-OP-T Assessment and Plan Start: 05/04/21 18:43 Freq: Status: Active Protocol: Document 05/30/21 08:12 LRN (Rec: 05/30/21 08:55 LRN [id number]) Physical Therapy Assessment Goals Four Impairment R knee pain interrupting sleep and normal gait. Short Term Goal (STG) Pt will be able to walk with a normal step lengths without use of assistive device. 05/18/21: educated R knee flexion during gait and stair mgt for functional progress in AAROM.05/22/21: improved demonstration R quad fac midstance phase with decrease SB wt shift, increase R knee flexion swing through heel toe awareness with use mirror. Encouraged use of 4WW contact for stability. STG Duration 06/24/21 Halfway Goal (LTG) Pt will be able to sleep at night with minimal or no R knee pain when sleeping. 05/22/21: progressing: still has pain when sleeps, getting better is able to sleep portion of night without towel under knee, does take pain meds before bed and through day. LTG Duration 08/03/21 Three Impairment Decreased function Impairment LEFS is 48/80 pre-op (20-39% impaired, score 48-62). Short Term Goal (STG) R knee PROM equal to L side AROM. 05/24/21: AROM 10-100 deg STG Duration 06/24/21 Halfway Goal (LTG) Improve LE function post-op to prior level of impairment (20 -39 % impaired, score of 48-62). LTG Duration 08/03/21 Two Impairment Decreased R knee AROM ( limiting walking and stair mobility) Impairment Pt goals is to not have a lot of pain and walk normal. Occasional waking due to discomfort of R knee when sleeping. R knee PROM equal to L side. Short Term Goal (STG) Improve ambulatory ability with pt walking into grocery store without assistive device and tolerable pain. STG Duration 06/24/21 Halfway Goal (LTG) Pt will be able to ambulate stairs with reciprical gait pattern with use of railing with mild discomfort (pain range 1-0/10).. 05/18/21: pt demonstrated BHR step to patterning, cued increase R knee flexion during step together. LTG Duration 08/03/21 (05/18/21: progressing ) One Impairment Pt lacks appropriate self care HEP Short Term Goal (STG) Pt independent with a pre-op self care HEP. STG Duration 05/05/21 (05/05/21: MET GOAL) Halfway Goal (LTG) Pt independent in a post rehab for a partial R knee replacement, self care HEP LTG Duration 08/03/21 Progress Towards Goals Progress Comments R knee AROM is 105 deg's to start, and 112 deg's to end. Assessment Summary Assessment Pt ambs into therapy without asst device and antalgic gait with asymmetrical step lengths . R knee AROM improved after ex from 105 to 112 deg's flex. Ext is 0 deg's. Physical Therapy Plan Frequency and Duration Frequency of Treatment 2x/Week Duration of Treatment 10 weeks Plan of Care Start Date 05/24/21 Plan of Care End Date 08/03/21 Next Visit Focus/Plan Next Note Type Treatment Note Next Visit Plan Continue HEP review encourage flexion/ extension: biodex bike for ease AROM assist if tolerated. POC: Reassess for post-op condition and modify/ assess for appropriate goals/ clinical data as needed. POC: s/p R medial partial knee replacement rehabilitation. ROM strengthening edema management pain reduction
--- NOTE | 2021-06-06 15:33 | PT.OTN ---
Current Diagnoses Unilateral primary osteoarthritis, right knee (06/06/21) Muscle weakness (generalized) (06/06/21) Physical Therapy Treatment Note PT-OP-A Visit Information Start: 05/04/21 18:43 Freq: Status: Active Protocol: Document 06/06/21 08:15 LRN (Rec: 06/06/21 09:02 LRN [id number]) Out-Patient Physical Therapy Visit Information Visit Information Visit Type Treatment Note Visit Note 2 after PN Visit Start Time 08:15 Visit Stop Time 08:57 Total Visit Minutes 42 Visit Number 6 Evaluation Information Evaluation Date 05/05/21 Precautions Precautions A. Fib, Arthritis, HBP controlled by injection, Diabetes type II controlled by diet and Metform PT-OP-B Current Condition Start: 05/04/21 18:43 Freq: Status: Active Protocol: Document 05/05/21 08:14 LRN (Rec: 05/05/21 11:18 LRN [id number]) Current Condition History of Current Condition Onset Date 3 yrs ago R knee started to hurt. Current Complaints R knee pain that worsens with exercise. History of Current Condition Pre-surgery PT visit for partial R medial knee arthroplasty scheduled for 12/23. Has spouse and a granddaughter who will stay with her for a week after surgery. Prior Treatments and Tests PT with Ilda Carrizales DPT . Cortisone ijection in R knee. Gel injection in R knee x 3 with last one 02/2021. Treatment Goals Patient/Caregiver Goals Pt goals is to not have a lot of pain and walk normal. Be more active: walking a into grocery store without assistive device and tolerable pain. Ambulate 3 stairs without use of railing with mild discomfort (pain range 0-1/10) . Decrease nighttime discomfort of R knee when sleeping. R knee PROM equal to L side. Prior Functional Status Baseline Function- ADL's Independent Baseline Function- Mobility Independent Baseline Function- Gait Walked for exercise. Baseline Function- Other Difficulty getting in/out of her boat. Difficulty getting into bed on boat (high up). No pain with walking, stairs, sleeping. Current Functional Impairments (Reported) Functional Limitations- ADL's Stiff getting out of bed. Standing tolerance with shifting weight - 20' Pain with sit to stand Functional Limitations- Mobility/Gait Ambulate stairs (3) without railing. Walking 1.5 miles in the house , monitored by pedometer. Personal Factors Other Personal Factors That May Effect A. Fib, Arthritis, Diabetes Therapy/Recovery type II controlled by diet and Metform. PT-OP-C Subjective Start: 05/04/21 18:43 Freq: Status: Active Protocol: Document 06/06/21 08:15 LRN (Rec: 06/06/21 09:02 LRN [id number]) OP-PT Subjective Patient Comments Patient Comments R knee pain is 3/10. Has done a little bit of ex due to illness. States has been sick , nauseated. Brought in [facility] for her R knee pain. Just ordered a stationary bike to get ready for L knee TKA surgery. No date set yet. States she doesn't think she needs ice today to end. PT-OP-E Functional Tests Start: 05/04/21 18:43 Freq: Status: Active Protocol: Document 05/24/21 09:45 DCW (Rec: 05/24/21 09:58 DCW [id number]) Functional Tests 6 Minute Walk Test Distance 211' Device Used None Comments 1.76 ft/sec PT-OP-G Mobility & Gait Start: 05/04/21 18:43 Freq: Status: Active Protocol: Document 05/24/21 09:45 DCW (Rec: 05/24/21 09:58 DCW [id number]) OP Gait Assessment Gait Gait Assistance Required: Standby Assistance Distance (Feet) 211 Gait Deviations General Gait Pattern Ataxic,Decreased Stride Length ,Decreased Feet Clearance, Lateral Trunk Lean Factors Limiting Gait Function Factors Limiting Gait Function Decreased Activity Tolerance, Decreased Strength,Limited Range of Motion,Pain PT-OP-J Posture/Palpation/Skin Start: 05/04/21 18:43 Freq: Status: Active Protocol: Document 05/24/21 09:45 DCW (Rec: 05/24/21 09:58 DCW [id number]) Skin Assessment Circumference Measurement 3 Location 10 cm inferior to R joint line Measurement (Centimeters) 35.5 Comments L = 34.8 2 Location 10 cm superior to R joint line Measurement (Centimeters) 41.0 Comments L = 40.4 1 Location R Joint Line Measurement (Centimeters) 40.6 Comments L = 38.0 PT-OP-K Range of Motion Start: 05/04/21 18:43 Freq: Status: Active Protocol: Document 06/06/21 08:15 LRN (Rec: 06/06/21 09:02 LRN [id number]) Knee Goniometric Range of Motion Knee Right Knee ROM WFL No Patient Position Supine Flexion Active (degrees) 115 Extension Active (degrees) 15 Extension Passive (degrees) 3 Comments After STM: knee flex is 117 deg's. PT-OP-M Strength Start: 05/04/21 18:43 Freq: Status: Active Protocol: Document 05/24/21 09:45 DCW (Rec: 05/24/21 09:58 DCW [id number]) Knee Strength Knee Manual Muscle Testing Right Flexion (S2) 4 Good Extension (L3) 3+ Fair+ Left Flexion (S2) 5 Normal Extension (L3) 5 Normal PT-OP-Q Treatments Start: 05/04/21 18:43 Freq: Status: Active Protocol: Document 06/06/21 08:15 LRN (Rec: 06/06/21 09:02 LRN [id number]) Cardio Equipment Recumbent Stepper (Sci-Fit) Duration (Minutes) 7 Resistance 2 Seat Position 8 Therapeutic Exercises Supine Exercises SAQ Supine Exercise Name R SAQ Side right Equipment Used 2# Reps/Minutes 30x QS Supine Exercise Name QS with mild passive stretch Side right Reps/Minutes 3' Knee flex Supine Exercise Name Heel slides - before & after STM Side right Resistance AROM Reps/Minutes 6' SLR Supine Exercise Name SLR Side right Reps/Minutes 15x 2 Manual Therapy Treatment Soft Tissue Mobilization R medial hamstring Body Location Distal R medial hamstring and tendon Mobilization Type Strumming,Sustained Pressure Intensity/Depth Moderate Body Position Supine Comments Knee on bolster. Applied pt's personal Voltaren that she brought in. R knee scar' Body Location R knee scar and adjacent areas Mobilization Type Myofascial Release,Sustained Pressure Intensity/Depth superficial to moderate Body Position Supine PT-OP-R Modalities Start: 05/04/21 18:43 Freq: Status: Active Protocol: Document 05/30/21 08:12 LRN (Rec: 05/30/21 08:55 LRN [id number]) Hot Pack/Cold Pack Treatment CP Location R knee Patient Position Hooklying Treatment Duration (minutes) 10 Patient Tolerance Good PT-OP-T Assessment and Plan Start: 05/04/21 18:43 Freq: Status: Active Protocol: Document 06/06/21 08:15 LRN (Rec: 06/06/21 09:02 LRN [id number]) Physical Therapy Assessment Goals Four Impairment R knee pain interrupting sleep and normal gait. Short Term Goal (STG) Pt will be able to walk with a normal step lengths without use of assistive device. 05/18/21: educated R knee flexion during gait and stair mgt for functional progress in AAROM.05/22/21: improved demonstration R quad fac midstance phase with decrease SB wt shift, increase R knee flexion swing through heel toe awareness with use mirror. Encouraged use of 4WW contact for stability. STG Duration 06/24/21 Group Home Goal (LTG) Pt will be able to sleep at night with minimal or no R knee pain when sleeping. 05/22/21: progressing: still has pain when sleeps, getting better is able to sleep portion of night without towel under knee, does take pain meds before bed and through day. 06/06/21: R knee wakes her up 1x at night between 2-5 am. LTG Duration 08/03/21 (06/06/21: Improving) Three Impairment Decreased function Impairment LEFS is 48/80 pre-op (20-39% impaired, score 48-62). Short Term Goal (STG) R knee PROM equal to L side AROM. 05/24/21: AROM 10-100 deg 06/06/21: AROM 15-115 deg's STG Duration 06/24/21 (06/06/21: Improved flexion) Group Home Goal (LTG) Improve LE function post-op to prior level of impairment (20 -39 % impaired, score of 48-62). LTG Duration 08/03/21 Two Impairment Decreased R knee AROM ( limiting walking and stair mobility) Impairment Pt goals is to not have a lot of pain and walk normal. Occasional waking due to discomfort of R knee when sleeping. R knee PROM equal to L side. Short Term Goal (STG) Improve ambulatory ability with pt walking into grocery store without assistive device and tolerable pain. STG Duration 06/24/21 Digital Marketing Assistant Goal (LTG) Pt will be able to ambulate stairs with reciprical gait pattern with use of railing with mild discomfort (pain range 1-0/10).. 05/18/21: pt demonstrated BHR step to patterning, cued increase R knee flexion during step together. LTG Duration 08/03/21 (05/18/21: progressing ) One Impairment Pt lacks appropriate self care HEP Short Term Goal (STG) Pt independent with a pre-op self care HEP. STG Duration 05/05/21 (05/05/21: MET GOAL) Digital Marketing Assistant Goal (LTG) Pt independent in a post rehab for a partial R knee replacement, self care HEP LTG Duration 08/03/21 Assessment Summary Assessment R knee scar is quite bound down, but improved R knee flex mobility after STM, increased 2 deg's. Pt not familiar with p/o TKA ex's and her active knee ext mobility shows greater lag. Pt encouraged to do more QS and knee flexion ex for ROM. Walking mechanics look mostly normal. Physical Therapy Plan Frequency and Duration Frequency of Treatment 2x/Week Duration of Treatment 10 weeks Plan of Care Start Date 05/24/21 Plan of Care End Date 08/03/21 Next Visit Focus/Plan Next Note Type Treatment Note Next Visit Plan Encourage flexion/ extension: biodex bike for ease AROM assist if tolerated. POC: Reassess for post-op condition and modify/assess for appropriate goals/clinical data as needed. POC: s/p R medial partial knee replacement rehabilitation. ROM strengthening edema management pain reduction
--- NOTE | 2021-06-08 09:00 | PT.OTN ---
Current Diagnoses Unilateral primary osteoarthritis, right knee (06/08/21) Muscle weakness (generalized) (06/08/21) Physical Therapy Treatment Note PT-OP-A Visit Information Start: 05/04/21 18:43 Freq: Status: Active Protocol: Document 06/08/21 08:15 SP (Rec: 06/08/21 09:06 SP [id number]) Out-Patient Physical Therapy Visit Information Visit Information Visit Type Treatment Note Visit Note 3 after PN Visit Start Time 08:15 Visit Stop Time 09:00 Total Visit Minutes 45 Visit Number 7 Number of HAMMERER TAB Visits 1 Evaluation Information Evaluation Date 05/05/21 Precautions Precautions A. Fib, Arthritis, HBP controlled by injection, Diabetes type II controlled by diet and Metform PT-OP-B Current Condition Start: 05/04/21 18:43 Freq: Status: Active Protocol: Document 05/05/21 08:14 LRN (Rec: 05/05/21 11:18 LRN [id number]) Current Condition History of Current Condition Onset Date 3 yrs ago R knee started to hurt. Current Complaints R knee pain that worsens with exercise. History of Current Condition Pre-surgery PT visit for partial R medial knee arthroplasty scheduled for 12/23. Has spouse and a granddaughter who will stay with her for a week after surgery. Prior Treatments and Tests PT with Ilda Carrizales DPT . Cortisone ijection in R knee. Gel injection in R knee x 3 with last one 02/2021. Treatment Goals Patient/Caregiver Goals Pt goals is to not have a lot of pain and walk normal. Be more active: walking a into grocery store without assistive device and tolerable pain. Ambulate 3 stairs without use of railing with mild discomfort (pain range 0-1/10) . Decrease nighttime discomfort of R knee when sleeping. R knee PROM equal to L side. Prior Functional Status Baseline Function- ADL's Independent Baseline Function- Mobility Independent Baseline Function- Gait Walked for exercise. Baseline Function- Other Difficulty getting in/out of her boat. Difficulty getting into bed on boat (high up). No pain with walking, stairs, sleeping. Current Functional Impairments (Reported) Functional Limitations- ADL's Stiff getting out of bed. Standing tolerance with shifting weight - 20' Pain with sit to stand Functional Limitations- Mobility/Gait Ambulate stairs (3) without railing. Walking 1.5 miles in the house , monitored by pedometer. Personal Factors Other Personal Factors That May Effect A. Fib, Arthritis, Diabetes Therapy/Recovery type II controlled by diet and Metform. PT-OP-C Subjective Start: 05/04/21 18:43 Freq: Status: Active Protocol: Document 06/08/21 08:15 SP (Rec: 06/08/21 09:06 SP [id number]) OP-PT Subjective Patient Comments Patient Comments Pt reports feels doing better with HEP but still having nausea which limits her foot intake. States drinks a protein shake for breakfast and yogurt for lunch and lost 15-20 lbs and getting concerned. She reports pain 3/ 10 and haven't had to take pain meds or Tylenol in the past 24 hrs. PT-OP-E Functional Tests Start: 05/04/21 18:43 Freq: Status: Active Protocol: Document 05/24/21 09:45 DCW (Rec: 05/24/21 09:58 DCW [id number]) Functional Tests 6 Minute Walk Test Distance 211' Device Used None Comments 1.76 ft/sec PT-OP-G Mobility & Gait Start: 05/04/21 18:43 Freq: Status: Active Protocol: Document 05/24/21 09:45 DCW (Rec: 05/24/21 09:58 DCW [id number]) OP Gait Assessment Gait Gait Assistance Required: Standby Assistance Distance (Feet) 211 Gait Deviations General Gait Pattern Ataxic,Decreased Stride Length ,Decreased Feet Clearance, Lateral Trunk Lean Factors Limiting Gait Function Factors Limiting Gait Function Decreased Activity Tolerance, Decreased Strength,Limited Range of Motion,Pain PT-OP-J Posture/Palpation/Skin Start: 05/04/21 18:43 Freq: Status: Active Protocol: Document 05/24/21 09:45 DCW (Rec: 05/24/21 09:58 DCW [id number]) Skin Assessment Circumference Measurement 3 Location 10 cm inferior to R joint line Measurement (Centimeters) 35.5 Comments L = 34.8 2 Location 10 cm superior to R joint line Measurement (Centimeters) 41.0 Comments L = 40.4 1 Location R Joint Line Measurement (Centimeters) 40.6 Comments L = 38.0 PT-OP-K Range of Motion Start: 05/04/21 18:43 Freq: Status: Active Protocol: Document 06/08/21 08:15 SP (Rec: 06/08/21 09:06 SP [id number]) Knee Goniometric Range of Motion Knee Right Knee ROM WFL No Patient Position Supine Flexion Active (degrees) 123 Extension Active (degrees) 3 Extension Passive (degrees) 1 Comments After STM: knee flex is 123 deg's. PT-OP-M Strength Start: 05/04/21 18:43 Freq: Status: Active Protocol: Document 05/24/21 09:45 DCW (Rec: 05/24/21 09:58 DCW [id number]) Knee Strength Knee Manual Muscle Testing Right Flexion (S2) 4 Good Extension (L3) 3+ Fair+ Left Flexion (S2) 5 Normal Extension (L3) 5 Normal PT-OP-Q Treatments Start: 05/04/21 18:43 Freq: Status: Active Protocol: Document 06/08/21 08:15 SP (Rec: 06/08/21 09:06 SP [id number]) Cardio Equipment Recumbent Stepper (Sci-Fit) Duration (Minutes) 7 Resistance 2 Seat Position 8>11 for increased extension Other LEs only, 40 RPM, total steps Gym Equipment Shuttle Recovery Unilateral Squats Details cued knee alignment with toes and quad extension, not into locked position Resistance 37# Shuttle Recovery Platform Stable Reps/Time x10 Bilateral Squats Details cued full extension and knee with toe alignment Resistance 50# Shuttle Recovery Platform Stable Reps/Time x20, feels muscle work, no pain Therapeutic Exercises Supine Exercises SAQ Supine Exercise Name R SAQ Side right Equipment Used 2# leg wt Reps/Minutes 3 reps 10 s hold AROM, x30 reps Comments improved decrease discomfort patellar tendon cues knee ext comfort mid quad Hip Abduction Supine Exercise Name idealista.comield wipers Side right Resistance 2# leg wt Reps/Minutes 2x10 Comments cued toes to ceiling throughout range QS Supine Exercise Name QS with mild passive stretch Side right Reps/Minutes 5 x10 Knee flex Supine Exercise Name Heel slides - before & after STM Side right Resistance AROM LE over tball 55cm Reps/Minutes x10 Comments good response less tension on R knee Sitting Exercises HS Curls Sitting Exercise Name HS curls- reviewed back into HEP Side right Resistance Lv 1 TB Reps/Minutes 2x10 Comments cued sit all way back in chair , slow eccentric control- painfree response LAQ Sitting Exercise Name LAQ- reviewed add back into HEP Side right Reps/Minutes 5 sec hold x10 Comments cued slow pacing control and focus not end range discomfort , quad fac HS stretch Sitting Exercise Name reviewed add back into HEP Side right Equipment Used sit front seat Reps/Minutes 30s hold x3 Comments cued hip hinge straight back and slight DF, found focus stretch Standing Exercises calf stretch Standing Exercise Name added to HEP Side right Equipment Used lunge stretch Manual Therapy Treatment Soft Tissue Mobilization R knee scar' Body Location R knee scar and adjacent areas Mobilization Type Myofascial Release,Sustained Pressure Intensity/Depth superficial to moderate Body Position Hooklying Comments manual and instruct to do self , also can use rolling/ rocking with rolling pin to quad ease pressure nacho and Self-Care/Home Management Treatment Education Patient Education Safety Other Education HAMMERER TAB recommended calling physician to let them know of the nausea and loss of wt concerning and feedback for safety at home, pt verbalized will follow up with this. Instructed to add HS curl TB and HS/ calf stretches at home . PT-OP-R Modalities Start: 05/04/21 18:43 Freq: Status: Active Protocol: Document 05/30/21 08:12 LRN (Rec: 05/30/21 08:55 LRN [id number]) Hot Pack/Cold Pack Treatment CP Location R knee Patient Position Hooklying Treatment Duration (minutes) 10 Patient Tolerance Good PT-OP-T Assessment and Plan Start: 05/04/21 18:43 Freq: Status: Active Protocol: Document 06/08/21 08:15 SP (Rec: 06/08/21 09:06 SP [id number]) Physical Therapy Assessment Goals Four Impairment R knee pain interrupting sleep and normal gait. Short Term Goal (STG) Pt will be able to walk with a normal step lengths without use of assistive device. 05/18/21: educated R knee flexion during gait and stair mgt for functional progress in AAROM.05/22/21: improved demonstration R quad fac midstance phase with decrease SB wt shift, increase R knee flexion swing through heel toe awareness with use mirror. Encouraged use of 4WW contact for stability. STG Duration 06/24/21 Financial Services Internship Goal (LTG) Pt will be able to sleep at night with minimal or no R knee pain when sleeping. 05/22/21: progressing: still has pain when sleeps, getting better is able to sleep portion of night without towel under knee, does take pain meds before bed and through day. 06/06/21: R knee wakes her up 1x at night between 2-5 am. LTG Duration 08/03/21 (06/06/21: Improving) Three Impairment Decreased function Impairment LEFS is 48/80 pre-op (20-39% impaired, score 48-62). Short Term Goal (STG) R knee PROM equal to L side AROM. 05/24/21: AROM 10-100 deg 06/06/21: AROM 15-115 deg's 06/08/21: AROM 3-123 deg STG Duration 06/24/21 (06/08/21: Improved flexion) Senior Care Goal (LTG) Improve LE function post-op to prior level of impairment (20 -39 % impaired, score of 48-62). LTG Duration 08/03/21 Two Impairment Decreased R knee AROM ( limiting walking and stair mobility) Impairment Pt goals is to not have a lot of pain and walk normal. Occasional waking due to discomfort of R knee when sleeping. R knee PROM equal to L side. Short Term Goal (STG) Improve ambulatory ability with pt walking into grocery store without assistive device and tolerable pain. STG Duration 06/24/21 Senior Care Goal (LTG) Pt will be able to ambulate stairs with reciprical gait pattern with use of railing with mild discomfort (pain range 1-0/10).. 05/18/21: pt demonstrated BHR step to patterning, cued increase R knee flexion during step together. LTG Duration 08/03/21 (05/18/21: progressing ) One Impairment Pt lacks appropriate self care HEP Short Term Goal (STG) Pt independent with a pre-op self care HEP. STG Duration 05/05/21 (05/05/21: MET GOAL) Senior Care Goal (LTG) Pt independent in a post rehab for a partial R knee replacement, self care HEP LTG Duration 08/03/21 Assessment Summary Assessment Pt improved decrease pain not having to take pain or Tylenol , improved decrease patellar tendon recruitment discomfort during ther ex with education on not full end range tension but awareness of mid quad. Improved AROM by 8 deg flexion and 23 deg extension post manual and ther ex end tx when measured. Physical Therapy Plan Frequency and Duration Frequency of Treatment 2x/Week Duration of Treatment 10 weeks Plan of Care Start Date 05/24/21 Plan of Care End Date 08/03/21 Therapeutic Interventions Therapeutic Interventions Home Exercise Program,Manual Therapy,Neuromuscular Re- education,Patient/Caregiver Education,Self-Care/Home Management,Soft Tissue Mobilization,Taping, Therapeutic Activities, Therapeutic Exercises Modalities Cold Pack/Ice Massage Next Visit Focus/Plan Next Note Type Treatment Note Next Visit Plan Encourage flexion/ extension: biodex bike for ease AROM assist if tolerated and continue shuttle recovery for active ROM with eccentric control. POC: Reassess for post-op condition and modify/ assess for appropriate goals/ clinical data as needed. POC: s/p R medial partial knee replacement rehabilitation. ROM strengthening edema management pain reduction
--- NOTE | 2021-06-13 09:02 | PT.OTN ---
Current Diagnoses Unilateral primary osteoarthritis, right knee (06/13/21) Muscle weakness (generalized) (06/13/21) Physical Therapy Treatment Note PT-OP-A Visit Information Start: 05/04/21 18:43 Freq: Status: Active Protocol: Document 06/13/21 08:16 LRN (Rec: 06/13/21 09:01 LRN [id number]) Out-Patient Physical Therapy Visit Information Visit Information Visit Type Treatment Note Visit Note 4 after PN Visit Start Time 08:16 Visit Stop Time 08:58 Total Visit Minutes 42 Visit Number 8 Number of [employer]CR[employer] OPERATOR Visits 1 Evaluation Information Evaluation Date 05/05/21 Precautions Precautions A. Fib, Arthritis, HBP controlled by injection, Diabetes type II controlled by diet and Metform PT-OP-B Current Condition Start: 05/04/21 18:43 Freq: Status: Active Protocol: Document 05/05/21 08:14 LRN (Rec: 05/05/21 11:18 LRN [id number]) Current Condition History of Current Condition Onset Date 3 yrs ago R knee started to hurt. Current Complaints R knee pain that worsens with exercise. History of Current Condition Pre-surgery PT visit for partial R medial knee arthroplasty scheduled for 12/23. Has spouse and a granddaughter who will stay with her for a week after surgery. Prior Treatments and Tests PT with Ilda Carrizales DPT . Cortisone ijection in R knee. Gel injection in R knee x 3 with last one 02/2021. Treatment Goals Patient/Caregiver Goals Pt goals is to not have a lot of pain and walk normal. Be more active: walking a into grocery store without assistive device and tolerable pain. Ambulate 3 stairs without use of railing with mild discomfort (pain range 0-1/10) . Decrease nighttime discomfort of R knee when sleeping. R knee PROM equal to L side. Prior Functional Status Baseline Function- ADL's Independent Baseline Function- Mobility Independent Baseline Function- Gait Walked for exercise. Baseline Function- Other Difficulty getting in/out of her boat. Difficulty getting into bed on boat (high up). No pain with walking, stairs, sleeping. Current Functional Impairments (Reported) Functional Limitations- ADL's Stiff getting out of bed. Standing tolerance with shifting weight - 20' Pain with sit to stand Functional Limitations- Mobility/Gait Ambulate stairs (3) without railing. Walking 1.5 miles in the house , monitored by pedometer. Personal Factors Other Personal Factors That May Effect A. Fib, Arthritis, Diabetes Therapy/Recovery type II controlled by diet and Metform. PT-OP-C Subjective Start: 05/04/21 18:43 Freq: Status: Active Protocol: Document 06/13/21 08:16 LRN (Rec: 06/13/21 09:01 LRN [id number]) OP-PT Subjective Patient Comments Patient Comments States R knee pain is 3/10, throbbing. States she wakes in the morning with her foot rotated out and it is a comfortable position. Balance is off, states phone notes she is lower middle in rating in balance (good, middle, poor ) PT-OP-E Functional Tests Start: 05/04/21 18:43 Freq: Status: Active Protocol: Document 05/24/21 09:45 DCW (Rec: 05/24/21 09:58 DCW [id number]) Functional Tests 6 Minute Walk Test Distance 211' Device Used None Comments 1.76 ft/sec PT-OP-G Mobility & Gait Start: 05/04/21 18:43 Freq: Status: Active Protocol: Document 05/24/21 09:45 DCW (Rec: 05/24/21 09:58 DCW [id number]) OP Gait Assessment Gait Gait Assistance Required: Standby Assistance Distance (Feet) 211 Gait Deviations General Gait Pattern Ataxic,Decreased Stride Length ,Decreased Feet Clearance, Lateral Trunk Lean Factors Limiting Gait Function Factors Limiting Gait Function Decreased Activity Tolerance, Decreased Strength,Limited Range of Motion,Pain PT-OP-J Posture/Palpation/Skin Start: 05/04/21 18:43 Freq: Status: Active Protocol: Document 05/24/21 09:45 DCW (Rec: 05/24/21 09:58 DCW [id number]) Skin Assessment Circumference Measurement 3 Location 10 cm inferior to R joint line Measurement (Centimeters) 35.5 Comments L = 34.8 2 Location 10 cm superior to R joint line Measurement (Centimeters) 41.0 Comments L = 40.4 1 Location R Joint Line Measurement (Centimeters) 40.6 Comments L = 38.0 PT-OP-K Range of Motion Start: 05/04/21 18:43 Freq: Status: Active Protocol: Document 06/13/21 08:16 LRN (Rec: 06/13/21 09:01 LRN [id number]) Knee Goniometric Range of Motion Knee Right Knee ROM WFL No Patient Position Supine Flexion Active (degrees) 125 Comments ROM taken after STM Left Patient Position Supine Flexion Active (degrees) 122 Extension Active (degrees) 0 Extension Passive (degrees) 0 PT-OP-M Strength Start: 05/04/21 18:43 Freq: Status: Active Protocol: Document 05/24/21 09:45 DCW (Rec: 05/24/21 09:58 DCW [id number]) Knee Strength Knee Manual Muscle Testing Right Flexion (S2) 4 Good Extension (L3) 3+ Fair+ Left Flexion (S2) 5 Normal Extension (L3) 5 Normal PT-OP-Q Treatments Start: 05/04/21 18:43 Freq: Status: Active Protocol: Document 06/13/21 08:16 LRN (Rec: 06/13/21 09:01 LRN [id number]) Therapeutic Exercises Supine Exercises Hip Abduction Supine Exercise Name Stretch to TFL QS Supine Exercise Name QS with mild passive stretch Side right Reps/Minutes 5 x10 Knee flex Supine Exercise Name Heel slides - before & after STM Side right Resistance AROM LE over tball 55cm Reps/Minutes x10 Comments good response less tension on R knee Standing Exercises Side stepping Standing Exercise Name Side stepping Side bilateral Comments cuing for weight shift w/o trunk lean. Weight shift Standing Exercise Name R Wgt shift to stretch TFL Side right Reps/Minutes 3' Comments Extra time for mvg navel over R foot Gait Training Gait Activity Gait for weight shift Description Focus on wgt shift of trunk over R foot. Surface level Distance/Duration 6' Manual Therapy Treatment Soft Tissue Mobilization R medial hamstring Body Location Distal R medial hamstring and tendon Mobilization Type Strumming,Sustained Pressure Intensity/Depth Moderate Body Position Supine Comments Knee on bolster. Applied pt's personal Voltaren that she brought in. R knee scar' Body Location R knee scar, adjacent areas & med tib plateau Mobilization Type Myofascial Release,Sustained Pressure Intensity/Depth superficial to moderate Body Position Hooklying Comments manual and instruct to do self , also can use rolling/ rocking with rolling pin to quad ease pressure nacho and PT-OP-R Modalities Start: 05/04/21 18:43 Freq: Status: Active Protocol: Document 05/30/21 08:12 LRN (Rec: 05/30/21 08:55 LRN [id number]) Hot Pack/Cold Pack Treatment CP Location R knee Patient Position Hooklying Treatment Duration (minutes) 10 Patient Tolerance Good PT-OP-T Assessment and Plan Start: 05/04/21 18:43 Freq: Status: Active Protocol: Document 06/13/21 08:16 LRN (Rec: 06/13/21 09:01 LRN [id number]) Physical Therapy Assessment Goals Four Impairment R knee pain interrupting sleep and normal gait. Short Term Goal (STG) Pt will be able to walk with a normal step lengths without use of assistive device. 05/18/21: educated R knee flexion during gait and stair mgt for functional progress in AAROM.05/22/21: improved demonstration R quad fac midstance phase with decrease SB wt shift, increase R knee flexion swing through heel toe awareness with use mirror. Encouraged use of 4WW contact for stability. STG Duration 06/24/21 Shelter Goal (LTG) Pt will be able to sleep at night with minimal or no R knee pain when sleeping. 05/22/21: progressing: still has pain when sleeps, getting better is able to sleep portion of night without towel under knee, does take pain meds before bed and through day. 06/06/21: R knee wakes her up 1x at night between 2-5 am. 06/13/21: Takes Tylenol to sleep and wakes at 3am with knee throbbing pain. LTG Duration 08/03/21 (06/06/21: Improving) Three Impairment Decreased function Impairment LEFS is 48/80 pre-op (20-39% impaired, score 48-62). Short Term Goal (STG) R knee PROM equal to L side AROM. 05/24/21: AROM 10-100 deg 06/06/21: AROM 15-115 deg's 06/08/21: AROM 3-123 deg STG Duration 06/24/21 (06/08/21: Improved flexion) Shelter Goal (LTG) Improve LE function post-op to prior level of impairment (20 -39 % impaired, score of 48-62). LTG Duration 08/03/21 Two Impairment Decreased R knee AROM ( limiting walking and stair mobility) Impairment Pt goals is to not have a lot of pain and walk normal. Occasional waking due to discomfort of R knee when sleeping. R knee PROM equal to L side. Short Term Goal (STG) Improve ambulatory ability with pt walking into grocery store without assistive device and tolerable pain. 06/13/21: Went to [employer] without assistive device. STG Duration 06/24/21 ((06/13/21: MET GOAL ) Mechanical Engineering Teacher Goal (LTG) Pt will be able to ambulate stairs with reciprical gait pattern with use of railing with mild discomfort (pain range 1-0/10).. 05/18/21: pt demonstrated BHR step to patterning, cued increase R knee flexion during step together. LTG Duration 08/03/21 (05/18/21: progressing ) One Impairment Pt lacks appropriate self care HEP Short Term Goal (STG) Pt independent with a pre-op self care HEP. STG Duration 05/05/21 (05/05/21: MET GOAL) Shelter Goal (LTG) Pt independent in a post rehab for a partial R knee replacement, self care HEP LTG Duration 08/03/21 Assessment Summary Assessment Poor weight shift R with gait and poor posture, further training needed. R knee ROM is good after STM. Physical Therapy Plan Frequency and Duration Frequency of Treatment 2x/Week Duration of Treatment 10 weeks Plan of Care Start Date 05/24/21 Plan of Care End Date 08/03/21 Next Visit Focus/Plan Next Note Type Treatment Note Next Visit Plan Cont flexion/ extension: biodex bike for ease AROM assist if tolerated. Focus on improving gait, wgt shift and balance. Shuttle recovery for active ROM with eccentric control/strengthening. POC: s/p R medial partial knee replacement rehabilitation. ROM strengthening edema management pain reduction
--- NOTE | 2021-06-15 09:14 | PT.OTN ---
Current Diagnoses Unilateral primary osteoarthritis, right knee (06/15/21) Muscle weakness (generalized) (06/15/21) Physical Therapy Treatment Note PT-OP-A Visit Information Start: 05/04/21 18:43 Freq: Status: Active Protocol: Document 06/15/21 08:16 LRN (Rec: 06/15/21 09:06 LRN [id number]) Out-Patient Physical Therapy Visit Information Visit Information Visit Type Treatment Note Visit Note 5 after PN Visit Start Time 08:16 Visit Stop Time 08:58 Total Visit Minutes 42 Visit Number 9 Number of GI TECHNICIAN Visits 1 Evaluation Information Evaluation Date 05/05/21 Precautions Precautions A. Fib, Arthritis, HBP controlled by injection, Diabetes type II controlled by diet and Metform PT-OP-B Current Condition Start: 05/04/21 18:43 Freq: Status: Active Protocol: Document 05/05/21 08:14 LRN (Rec: 05/05/21 11:18 LRN [id number]) Current Condition History of Current Condition Onset Date 3 yrs ago R knee started to hurt. Current Complaints R knee pain that worsens with exercise. History of Current Condition Pre-surgery PT visit for partial R medial knee arthroplasty scheduled for 12/23. Has spouse and a granddaughter who will stay with her for a week after surgery. Prior Treatments and Tests PT with Ilda Carrizales DPT . Cortisone ijection in R knee. Gel injection in R knee x 3 with last one 02/2021. Treatment Goals Patient/Caregiver Goals Pt goals is to not have a lot of pain and walk normal. Be more active: walking a into grocery store without assistive device and tolerable pain. Ambulate 3 stairs without use of railing with mild discomfort (pain range 0-1/10) . Decrease nighttime discomfort of R knee when sleeping. R knee PROM equal to L side. Prior Functional Status Baseline Function- ADL's Independent Baseline Function- Mobility Independent Baseline Function- Gait Walked for exercise. Baseline Function- Other Difficulty getting in/out of her boat. Difficulty getting into bed on boat (high up). No pain with walking, stairs, sleeping. Current Functional Impairments (Reported) Functional Limitations- ADL's Stiff getting out of bed. Standing tolerance with shifting weight - 20' Pain with sit to stand Functional Limitations- Mobility/Gait Ambulate stairs (3) without railing. Walking 1.5 miles in the house , monitored by pedometer. Personal Factors Other Personal Factors That May Effect A. Fib, Arthritis, Diabetes Therapy/Recovery type II controlled by diet and Metform. PT-OP-C Subjective Start: 05/04/21 18:43 Freq: Status: Active Protocol: Document 06/15/21 08:16 LRN (Rec: 06/15/21 09:06 LRN [id number]) OP-PT Subjective Patient Comments Patient Comments Got a recliner bike yesterday and was not able to go around. States she has more pain and swelling today. Patient Questionnaires Lower Extremity Functional Scale LEFS Score 49 LEFS Impairment 20 to 39% Impaired (Score 48- 62) PT-OP-E Functional Tests Start: 05/04/21 18:43 Freq: Status: Active Protocol: Document 05/24/21 09:45 DCW (Rec: 05/24/21 09:58 DCW [id number]) Functional Tests 6 Minute Walk Test Distance 211' Device Used None Comments 1.76 ft/sec PT-OP-G Mobility & Gait Start: 05/04/21 18:43 Freq: Status: Active Protocol: Document 05/24/21 09:45 DCW (Rec: 05/24/21 09:58 DCW [id number]) OP Gait Assessment Gait Gait Assistance Required: Standby Assistance Distance (Feet) 211 Gait Deviations General Gait Pattern Ataxic,Decreased Stride Length ,Decreased Feet Clearance, Lateral Trunk Lean Factors Limiting Gait Function Factors Limiting Gait Function Decreased Activity Tolerance, Decreased Strength,Limited Range of Motion,Pain PT-OP-J Posture/Palpation/Skin Start: 05/04/21 18:43 Freq: Status: Active Protocol: Document 05/24/21 09:45 DCW (Rec: 05/24/21 09:58 DCW [id number]) Skin Assessment Circumference Measurement 3 Location 10 cm inferior to R joint line Measurement (Centimeters) 35.5 Comments L = 34.8 2 Location 10 cm superior to R joint line Measurement (Centimeters) 41.0 Comments L = 40.4 1 Location R Joint Line Measurement (Centimeters) 40.6 Comments L = 38.0 PT-OP-K Range of Motion Start: 05/04/21 18:43 Freq: Status: Active Protocol: Document 06/15/21 08:16 LRN (Rec: 06/15/21 09:06 LRN [id number]) Knee Goniometric Range of Motion Knee Right Knee ROM WFL No Patient Position Supine Flexion Active (degrees) 126 Extension Active (degrees) 1 Extension Passive (degrees) 0 Comments ROM taken after STM PT-OP-M Strength Start: 05/04/21 18:43 Freq: Status: Active Protocol: Document 05/24/21 09:45 DCW (Rec: 05/24/21 09:58 DCW [id number]) Knee Strength Knee Manual Muscle Testing Right Flexion (S2) 4 Good Extension (L3) 3+ Fair+ Left Flexion (S2) 5 Normal Extension (L3) 5 Normal PT-OP-Q Treatments Start: 05/04/21 18:43 Freq: Status: Active Protocol: Document 06/15/21 08:16 LRN (Rec: 06/15/21 09:06 LRN [id number]) Therapeutic Exercises Supine Exercises Hip Abduction Supine Exercise Name Active hip AB Side right Reps/Minutes 10x 3 Comments Cued lead with heel QS Supine Exercise Name QS with mild passive stretch Side right Reps/Minutes 5 x 30 Knee flex Supine Exercise Name Heel slides - before & after STM Side right Reps/Minutes 10x Comments good response less tension on R knee Gait Training Gait Activity Gait for weight shift Description Focus on wgt shift of trunk over R foot. Surface level Distance/Duration 10' Treatment Focus Wgt shift R without trunk lean or trunk ext Comments Much phy & v cuing needed. gait in mirror/form Description Gait forward Device Used none Level of Assistance verbal cuing Surface level Distance/Duration 3' Treatment Focus wgt shift to right in wgt bearing Comments Mostly normalized after training. Pt antalgic gait due to medial hamstring pain, not anterior knee pain. Manual Therapy Treatment Soft Tissue Mobilization R medial hamstring Body Location Distal R medial hamstring and tendon Mobilization Type Strumming,Sustained Pressure Intensity/Depth Moderate Body Position Prone Comments Applied pt's personal Voltaren that she brought in. R knee scar' Body Location R knee scar, adjacent areas & med tib plateau Mobilization Type Myofascial Release,Sustained Pressure Intensity/Depth superficial to moderate Body Position Supine Comments manual and instruct to do self , also can use rolling/ rocking with rolling pin to quad ease pressure nacho and PT-OP-R Modalities Start: 05/04/21 18:43 Freq: Status: Active Protocol: Document 05/30/21 08:12 LRN (Rec: 05/30/21 08:55 LRN [id number]) Hot Pack/Cold Pack Treatment CP Location R knee Patient Position Hooklying Treatment Duration (minutes) 10 Patient Tolerance Good PT-OP-T Assessment and Plan Start: 05/04/21 18:43 Freq: Status: Active Protocol: Document 06/15/21 08:16 LRN (Rec: 06/15/21 09:06 LRN [id number]) Physical Therapy Assessment Goals Four Impairment R knee pain interrupting sleep and normal gait. Short Term Goal (STG) Pt will be able to walk with a normal step lengths without use of assistive device. 05/18/21: educated R knee flexion during gait and stair mgt for functional progress in AAROM.05/22/21: improved demonstration R quad fac midstance phase with decrease SB wt shift, increase R knee flexion swing through heel toe awareness with use mirror. Encouraged use of 4WW contact for stability. STG Duration 06/24/21 (06/15/21: MET GOAL) Rn Building Goal (LTG) Pt will be able to sleep at night with minimal or no R knee pain when sleeping. 05/22/21: progressing: still has pain when sleeps, getting better is able to sleep portion of night without towel under knee, does take pain meds before bed and through day. 06/06/21: R knee wakes her up 1x at night between 2-5 am. 06/13/21: Takes Tylenol to sleep and wakes at 3am with knee throbbing pain. LTG Duration 08/03/21 (06/06/21: Improving) Three Impairment Decreased function Impairment LEFS is 48/80 pre-op (20-39% impaired, score 48-62). Short Term Goal (STG) R knee PROM equal to L side AROM. 05/24/21: AROM 10-100 deg 06/06/21: AROM 15-115 deg's 06/08/21: AROM 3-123 deg 06/15/21: AROM 1-126 STG Duration 06/24/21 (06/08/21: Improved flexion/extension) Fdc Goal (LTG) Improve LE function post-op to prior level of impairment (20 -39 % impaired, score of 48-62). LTG Duration 08/03/21 (06/15/21: MET GOAL) Two Impairment Decreased R knee AROM ( limiting walking and stair mobility) Impairment Pt goals is to not have a lot of pain and walk normal. Occasional waking due to discomfort of R knee when sleeping. R knee PROM equal to L side. Short Term Goal (STG) Improve ambulatory ability with pt walking into grocery store without assistive device and tolerable pain. 06/13/21: Went to [employer] without assistive device. STG Duration 06/24/21 (06/13/21: MET GOAL) Fdc Goal (LTG) Pt will be able to ambulate stairs with reciprical gait pattern with use of railing with mild discomfort (pain range 1-0/10).. 05/18/21: pt demonstrated BHR step to patterning, cued increase R knee flexion during step together. LTG Duration 08/03/21 (05/18/21: progressing ) One Impairment Pt lacks appropriate self care HEP Short Term Goal (STG) Pt independent with a pre-op self care HEP. STG Duration 05/05/21 (05/05/21: MET GOAL) Fdc Goal (LTG) Pt independent in a post rehab for a partial R knee replacement, self care HEP LTG Duration 08/03/21 Assessment Summary Assessment Pt has increased pain and swelling in her R knee with an increase in mobility ex at home, including a new recumbent bike, but R knee AROM into extension has improved to 1 deg flex and 0 deg passive extension. Flexion remains good at 126 deg's. Much improved hip shift after gait training. Pt has fair wgt shift with side stepping, but notable shift with gait. LEFS score improved by 1 point; therefore functional level is the same (20-39% impaired). Physical Therapy Plan Frequency and Duration Frequency of Treatment 2x/Week Duration of Treatment 10 weeks Plan of Care Start Date 05/24/21 Plan of Care End Date 08/03/21 Next Visit Focus/Plan Next Note Type Treatment Note Next Visit Plan Cont R knee extension ROM: biodex bike for ease AROM. Focus on improving pain reduction at medial knee, R knee ext, stairs, gait, wgt shift and balance. Shuttle recovery for active ROM with eccentric control/ strengthening. POC: s/p R medial partial knee replacement rehabilitation. ROM strengthening edema management pain reduction
--- NOTE | 2021-06-20 09:58 | PT.OTN ---
Current Diagnoses Unilateral primary osteoarthritis, right knee (06/20/21) Muscle weakness (generalized) (06/20/21) Physical Therapy Treatment Note PT-OP-A Visit Information Start: 05/04/21 18:43 Freq: Status: Active Protocol: Document 06/20/21 08:13 LRN (Rec: 06/20/21 09:00 LRN [id number]) Out-Patient Physical Therapy Visit Information Visit Information Visit Type Treatment Note Visit Note 5 after PN Visit Start Time 08:15 Visit Stop Time 08:58 Total Visit Minutes 43 Visit Number 10 Evaluation Information Evaluation Date 05/05/21 Precautions Precautions A. Fib, Arthritis, HBP controlled by injection, Diabetes type II controlled by diet and Metform PT-OP-B Current Condition Start: 05/04/21 18:43 Freq: Status: Active Protocol: Document 05/05/21 08:14 LRN (Rec: 05/05/21 11:18 LRN [id number]) Current Condition History of Current Condition Onset Date 3 yrs ago R knee started to hurt. Current Complaints R knee pain that worsens with exercise. History of Current Condition Pre-surgery PT visit for partial R medial knee arthroplasty scheduled for 12/23. Has spouse and a granddaughter who will stay with her for a week after surgery. Prior Treatments and Tests PT with Ilda Carrizales DPT . Cortisone ijection in R knee. Gel injection in R knee x 3 with last one 02/2021. Treatment Goals Patient/Caregiver Goals Pt goals is to not have a lot of pain and walk normal. Be more active: walking a into grocery store without assistive device and tolerable pain. Ambulate 3 stairs without use of railing with mild discomfort (pain range 0-1/10) . Decrease nighttime discomfort of R knee when sleeping. R knee PROM equal to L side. Prior Functional Status Baseline Function- ADL's Independent Baseline Function- Mobility Independent Baseline Function- Gait Walked for exercise. Baseline Function- Other Difficulty getting in/out of her boat. Difficulty getting into bed on boat (high up). No pain with walking, stairs, sleeping. Current Functional Impairments (Reported) Functional Limitations- ADL's Stiff getting out of bed. Standing tolerance with shifting weight - 20' Pain with sit to stand Functional Limitations- Mobility/Gait Ambulate stairs (3) without railing. Walking 1.5 miles in the house , monitored by pedometer. Personal Factors Other Personal Factors That May Effect A. Fib, Arthritis, Diabetes Therapy/Recovery type II controlled by diet and Metform. PT-OP-C Subjective Start: 05/04/21 18:43 Freq: Status: Active Protocol: Document 06/20/21 08:13 LRN (Rec: 06/20/21 09:00 LRN [id number]) OP-PT Subjective Patient Comments Patient Comments Saw ortho doctor yesterday. When using recumbent bike at home feels clunking at the knee. States he was told that most of her pain is from nerves and requested PT do something about it. Pt states the pain is constant PT-OP-E Functional Tests Start: 05/04/21 18:43 Freq: Status: Active Protocol: Document 05/24/21 09:45 DCW (Rec: 05/24/21 09:58 DCW [id number]) Functional Tests 6 Minute Walk Test Distance 211' Device Used None Comments 1.76 ft/sec PT-OP-G Mobility & Gait Start: 05/04/21 18:43 Freq: Status: Active Protocol: Document 05/24/21 09:45 DCW (Rec: 05/24/21 09:58 DCW [id number]) OP Gait Assessment Gait Gait Assistance Required: Standby Assistance Distance (Feet) 211 Gait Deviations General Gait Pattern Ataxic,Decreased Stride Length ,Decreased Feet Clearance, Lateral Trunk Lean Factors Limiting Gait Function Factors Limiting Gait Function Decreased Activity Tolerance, Decreased Strength,Limited Range of Motion,Pain PT-OP-J Posture/Palpation/Skin Start: 05/04/21 18:43 Freq: Status: Active Protocol: Document 05/24/21 09:45 DCW (Rec: 05/24/21 09:58 DCW [id number]) Skin Assessment Circumference Measurement 3 Location 10 cm inferior to R joint line Measurement (Centimeters) 35.5 Comments L = 34.8 2 Location 10 cm superior to R joint line Measurement (Centimeters) 41.0 Comments L = 40.4 1 Location R Joint Line Measurement (Centimeters) 40.6 Comments L = 38.0 PT-OP-K Range of Motion Start: 05/04/21 18:43 Freq: Status: Active Protocol: Document 06/15/21 08:16 LRN (Rec: 06/15/21 09:06 LRN [id number]) Knee Goniometric Range of Motion Knee Right Knee ROM WFL No Patient Position Supine Flexion Active (degrees) 126 Extension Active (degrees) 1 Extension Passive (degrees) 0 Comments ROM taken after STM PT-OP-M Strength Start: 05/04/21 18:43 Freq: Status: Active Protocol: Document 05/24/21 09:45 DCW (Rec: 05/24/21 09:58 DCW [id number]) Knee Strength Knee Manual Muscle Testing Right Flexion (S2) 4 Good Extension (L3) 3+ Fair+ Left Flexion (S2) 5 Normal Extension (L3) 5 Normal PT-OP-Q Treatments Start: 05/04/21 18:43 Freq: Status: Active Protocol: Document 06/20/21 08:13 LRN (Rec: 06/20/21 09:00 LRN [id number]) Cardio Equipment Recumbent Bicycle Duration (Minutes) 6 Resistance 3 Seat Position 8 Therapeutic Exercises Supine Exercises QS Supine Exercise Name QS with mild passive stretch Side right Reps/Minutes 5 x 30 Knee flex Supine Exercise Name Heel slides - after knee ext/ STM Side right Reps/Minutes 10x Comments good response less tension on R knee Sidelying Exercises Hip AB Sidelying Exercise Name Hip AB Side right Reps/Minutes 10x 3 Comments Much phys & v cuing to keep leg in AB vs moving into flex Sitting Exercises Sit<>stand Sitting Exercise Name Sit to Stand Reps/Minutes 30x Standing Exercises Heel raises Standing Exercise Name Heel Raises, More wgt on RLE Side bilateral Equipment Used Wall Reps/Minutes 10x feet in AB, neutral, AD Step ups/dn Standing Exercise Name Step up/dn 6 step Side right Equipment Used 6 step and railing Reps/Minutes 15x leading R then 15x leading L leg Comments Cuing for alternating feet Side stepping Standing Exercise Name Side stepping Side bilateral Comments cuing for weight shift w/o trunk lean. Weight shift Standing Exercise Name R Wgt shift walking Side right Reps/Minutes 3' Comments Extra time for mvg navel over R foot Manual Therapy Treatment Soft Tissue Mobilization Infra/lateral patella Body Location Distal IT band @ R knee & infra patella Mobilization Type Myofascial Release,Strumming Intensity/Depth Moderate Body Position Supine R medial hamstring Body Location Distal R medial hamstring and tendon Mobilization Type Strumming,Sustained Pressure Intensity/Depth Moderate Body Position Prone Comments Applied pt's personal Voltaren that she brought in. R knee scar' Body Location R knee scar, adjacent areas & med tib plateau Mobilization Type Myofascial Release,Sustained Pressure Intensity/Depth superficial to moderate Body Position Supine Comments manual and instruct to focus on end and under distal patella scar. PT-OP-R Modalities Start: 05/04/21 18:43 Freq: Status: Active Protocol: Document 05/30/21 08:12 LRN (Rec: 05/30/21 08:55 LRN [id number]) Hot Pack/Cold Pack Treatment CP Location R knee Patient Position Hooklying Treatment Duration (minutes) 10 Patient Tolerance Good PT-OP-T Assessment and Plan Start: 05/04/21 18:43 Freq: Status: Active Protocol: Document 06/20/21 08:13 LRN (Rec: 06/20/21 09:00 LRN [id number]) Physical Therapy Assessment Goals Four Impairment R knee pain interrupting sleep and normal gait. Short Term Goal (STG) Pt will be able to walk with a normal step lengths without use of assistive device. 05/18/21: educated R knee flexion during gait and stair mgt for functional progress in AAR.05/22/21: improved demonstration R quad fac midstance phase with decrease SB wt shift, increase R knee flexion swing through heel toe awareness with use mirror. Encouraged use of 4WW contact for stability. STG Duration 06/24/21 (06/15/21: MET GOAL) Assisted Goal (LTG) Pt will be able to sleep at night with minimal or no R knee pain when sleeping. 05/22/21: progressing: still has pain when sleeps, getting better is able to sleep portion of night without towel under knee, does take pain meds before bed and through day. 06/06/21: R knee wakes her up 1x at night between 2-5 am. 06/13/21: Takes Tylenol to sleep and wakes at 3am with knee throbbing pain. LTG Duration 08/03/21 (06/06/21: Improving) Three Impairment Decreased function Impairment LEFS is 48/80 pre-op (20-39% impaired, score 48-62). Short Term Goal (STG) R knee PROM equal to L side AROM. 05/24/21: AROM 10-100 deg 06/06/21: AROM 15-115 deg's 06/08/21: AROM 3-123 deg 06/15/21: AROM 1-126 STG Duration 06/24/21 (06/08/21: Improved flexion/extension) [employer] Goal (LTG) Improve LE function post-op to prior level of impairment (20 -39 % impaired, score of 48-62). LTG Duration 08/03/21 (06/15/21: MET GOAL) Two Impairment Decreased R knee AROM ( limiting walking and stair mobility) Impairment Pt goals is to not have a lot of pain and walk normal. Occasional waking due to discomfort of R knee when sleeping. R knee PROM equal to L side. Short Term Goal (STG) Improve ambulatory ability with pt walking into grocery store without assistive device and tolerable pain. 06/13/21: Went to [employer] without assistive device. STG Duration 06/24/21 (06/13/21: MET GOAL) [employer] Goal (LTG) Pt will be able to ambulate stairs with reciprical gait pattern with use of railing with mild discomfort (pain range 1-0/10).. 05/18/21: pt demonstrated BHR step to patterning, cued increase R knee flexion during step together. LTG Duration 08/03/21 (05/18/21: progressing ) One Impairment Pt lacks appropriate self care HEP Short Term Goal (STG) Pt independent with a pre-op self care HEP. STG Duration 05/05/21 (05/05/21: MET GOAL) [employer] Goal (LTG) Pt independent in a post rehab for a partial R knee replacement, self care HEP LTG Duration 08/03/21 Assessment Summary Assessment Less pain behind the R knee. Tightness of scar at distal end and under patella. Physical Therapy Plan Frequency and Duration Frequency of Treatment 2x/Week Duration of Treatment 10 weeks Plan of Care Start Date 05/24/21 Plan of Care End Date 08/03/21 Next Visit Focus/Plan Next Note Type Treatment Note Next Visit Plan Issue HEP for ankle strengthening. Cont R knee extension ROM for ease AROM. Focus on improving R knee strength, pain reduction at medial knee, R knee ext, stairs, gait, wgt shift and balance. Shuttle recovery for active ROM with eccentric control/strengthening. POC: s/p R medial partial knee replacement rehabilitation. ROM strengthening edema management pain reduction
--- NOTE | 2021-06-23 08:20 | PT.OTN ---
Current Diagnoses Unilateral primary osteoarthritis, right knee (06/23/21) Muscle weakness (generalized) (06/23/21) Physical Therapy Treatment Note PT-OP-A Visit Information Start: 05/04/21 18:43 Freq: Status: Active Protocol: Document 06/23/21 07:31 SP (Rec: 06/23/21 08:35 SP [id number]) Out-Patient Physical Therapy Visit Information Visit Information Visit Type Treatment Note Visit Note 7 after PN Visit Start Time 07:31 Visit Stop Time 08:20 Total Visit Minutes 49 Visit Number 11 Number of SOCIAL WORK PROFESSOR Visits 1 Evaluation Information Evaluation Date 05/05/21 Precautions Precautions A. Fib, Arthritis, HBP controlled by injection, Diabetes type II controlled by diet and Metform PT-OP-B Current Condition Start: 05/04/21 18:43 Freq: Status: Active Protocol: Document 05/05/21 08:14 LRN (Rec: 05/05/21 11:18 LRN [id number]) Current Condition History of Current Condition Onset Date 3 yrs ago R knee started to hurt. Current Complaints R knee pain that worsens with exercise. History of Current Condition Pre-surgery PT visit for partial R medial knee arthroplasty scheduled for 12/23. Has spouse and a granddaughter who will stay with her for a week after surgery. Prior Treatments and Tests PT with Ilda Carrizales DPT . Cortisone ijection in R knee. Gel injection in R knee x 3 with last one 02/2021. Treatment Goals Patient/Caregiver Goals Pt goals is to not have a lot of pain and walk normal. Be more active: walking a into grocery store without assistive device and tolerable pain. Ambulate 3 stairs without use of railing with mild discomfort (pain range 0-1/10) . Decrease nighttime discomfort of R knee when sleeping. R knee PROM equal to L side. Prior Functional Status Baseline Function- ADL's Independent Baseline Function- Mobility Independent Baseline Function- Gait Walked for exercise. Baseline Function- Other Difficulty getting in/out of her boat. Difficulty getting into bed on boat (high up). No pain with walking, stairs, sleeping. Current Functional Impairments (Reported) Functional Limitations- ADL's Stiff getting out of bed. Standing tolerance with shifting weight - 20' Pain with sit to stand Functional Limitations- Mobility/Gait Ambulate stairs (3) without railing. Walking 1.5 miles in the house , monitored by pedometer. Personal Factors Other Personal Factors That May Effect A. Fib, Arthritis, Diabetes Therapy/Recovery type II controlled by diet and Metform. PT-OP-C Subjective Start: 05/04/21 18:43 Freq: Status: Active Protocol: Document 06/23/21 07:31 SP (Rec: 06/23/21 08:35 SP [id number]) OP-PT Subjective Patient Comments Patient Comments Pt reported yesterday was pleased no pain waking her up previous 2 nights but last night was woken up at 12 and 2 then intermittent sleep til this am, took Tylenol and ice to help make it better. Pt stated thinks extension getting better, has been working hard to improve. Patient Reported Progress Improving PT-OP-E Functional Tests Start: 05/04/21 18:43 Freq: Status: Active Protocol: Document 05/24/21 09:45 DCW (Rec: 05/24/21 09:58 DCW [id number]) Functional Tests 6 Minute Walk Test Distance 211' Device Used None Comments 1.76 ft/sec PT-OP-G Mobility & Gait Start: 05/04/21 18:43 Freq: Status: Active Protocol: Document 05/24/21 09:45 DCW (Rec: 05/24/21 09:58 DCW [id number]) OP Gait Assessment Gait Gait Assistance Required: Standby Assistance Distance (Feet) 211 Gait Deviations General Gait Pattern Ataxic,Decreased Stride Length ,Decreased Feet Clearance, Lateral Trunk Lean Factors Limiting Gait Function Factors Limiting Gait Function Decreased Activity Tolerance, Decreased Strength,Limited Range of Motion,Pain PT-OP-J Posture/Palpation/Skin Start: 05/04/21 18:43 Freq: Status: Active Protocol: Document 05/24/21 09:45 DCW (Rec: 05/24/21 09:58 DCW [id number]) Skin Assessment Circumference Measurement 3 Location 10 cm inferior to R joint line Measurement (Centimeters) 35.5 Comments L = 34.8 2 Location 10 cm superior to R joint line Measurement (Centimeters) 41.0 Comments L = 40.4 1 Location R Joint Line Measurement (Centimeters) 40.6 Comments L = 38.0 PT-OP-K Range of Motion Start: 05/04/21 18:43 Freq: Status: Active Protocol: Document 06/23/21 07:31 SP (Rec: 06/23/21 08:35 SP [id number]) Knee Goniometric Range of Motion Knee Right Knee ROM WFL No Patient Position Supine Flexion Active (degrees) 127 Extension Active (degrees) 1 Extension Passive (degrees) 0 Comments ROM taken after recumbent bike , after manual and stretchin deg PT-OP-M Strength Start: 05/04/21 18:43 Freq: Status: Active Protocol: Document 05/24/21 09:45 DCW (Rec: 05/24/21 09:58 DCW [id number]) Knee Strength Knee Manual Muscle Testing Right Flexion (S2) 4 Good Extension (L3) 3+ Fair+ Left Flexion (S2) 5 Normal Extension (L3) 5 Normal PT-OP-Q Treatments Start: 05/04/21 18:43 Freq: Status: Active Protocol: Document 06/23/21 07:31 SP (Rec: 06/23/21 08:35 SP [id number]) Cardio Equipment Recumbent Bicycle Duration (Minutes) 8 Resistance 4 Seat Position see 4 Other 1.80 miles Therapeutic Exercises Supine Exercises self STMs Supine Exercise Name ITB, quad, calf, HS Side right Resistance added HEP as needed at night/ day for decrease tightness knee Equipment Used rolling pin: rolling/ seasaw rocking STS Reps/Minutes 1 min total Comments good feedback response calf and HS stretch Supine Exercise Name added to HEP for flexibility as needed home night Side right Resistance ( not want HOs) Equipment Used w/ strap Reps/Minutes 30 hold x2 Comments good feedback response QS Supine Exercise Name QS with mild passive stretch Side right Reps/Minutes 5 x 30 SLR Supine Exercise Name QS then SLR Side right Reps/Minutes x10 Comments good quad fac then lift, states 2/10 pain but ok ( pleased w/ ext ROM has) Sidelying Exercises Hip AB Sidelying Exercise Name Hip AB Side right Resistance reviewed for HEP Reps/Minutes 10x 3 Comments Much phys & v cuing to keep leg in AB: DF, stacked on side hip ext neutral Sitting Exercises Sit<>stand Sitting Exercise Name Sit to Stand Equipment Used arms across chest, mesh chair Reps/Minutes x10- described 3/10 pain R knee Comments improved post manual, cued knee alignment with/ behind toes, straight back Standing Exercises Heel raises Standing Exercise Name Heel Raises, More wgt on RLE Side bilateral Equipment Used rail light contact Reps/Minutes 10x feet in //, IV, EV Comments pain free Side stepping Standing Exercise Name Side stepping Side bilateral Resistance AROM x2 laps, TB #1 loop gave for home Equipment Used rail PRN Reps/Minutes 20 ft x5 laps Comments cued tall posture book on head almost no SB wt shifting calf stretch Standing Exercise Name discussed alternative to long sitting w/ strap, verbalized knows how to do Manual Therapy Treatment Soft Tissue Mobilization Infra/lateral patella Body Location Distal IT band @ R knee & infra patella Mobilization Type Instrument Assisted,Myofascial Release,Strumming Intensity/Depth Moderate Body Position Supine Comments manual distal ITB and patellar tendon, instruction on use rolling pin long sitting mid quad, adductor, ITB and calf R medial hamstring Body Location Distal R medial hamstring and tendon Mobilization Type Instrument Assisted,Strumming, Sustained Pressure Intensity/Depth Moderate Body Position Prone Comments manual and use rolling pin R knee scar' Body Location R knee scar, adjacent areas & med tib plateau Mobilization Type Myofascial Release,Sustained Pressure Intensity/Depth superficial to moderate Body Position Supine Comments manual and instruct to focus on end and under distal patella scar. Self-Care/Home Management Treatment Education Patient Education Home Exercise Program,Joint Protection,Pain Management Other Education Initiated calf and HS stretch w/ strap and self STMs using rolling pin rolling/ seasaw rocking: quad, HS, ITB, ADD, calf for home and to allow decrease tension on knee with good feedback. PT-OP-R Modalities Start: 05/04/21 18:43 Freq: Status: Active Protocol: Document 05/30/21 08:12 LRN (Rec: 05/30/21 08:55 LRN [id number]) Hot Pack/Cold Pack Treatment CP Location R knee Patient Position Hooklying Treatment Duration (minutes) 10 Patient Tolerance Good PT-OP-T Assessment and Plan Start: 05/04/21 18:43 Freq: Status: Active Protocol: Document 06/23/21 07:31 SP (Rec: 06/23/21 08:35 SP [id number]) Physical Therapy Assessment Goals Four Impairment R knee pain interrupting sleep and normal gait. Short Term Goal (STG) Pt will be able to walk with a normal step lengths without use of assistive device. 05/18/21: educated R knee flexion during gait and stair mgt for functional progress in AAROM.05/22/21: improved demonstration R quad fac midstance phase with decrease SB wt shift, increase R knee flexion swing through heel toe awareness with use mirror. Encouraged use of 4WW contact for stability. STG Duration 06/24/21 (06/15/21: MET GOAL) Mcc Goal (LTG) Pt will be able to sleep at night with minimal or no R knee pain when sleeping. 05/22/21: progressing: still has pain when sleeps, getting better is able to sleep portion of night without towel under knee, does take pain meds before bed and through day. 06/06/21: R knee wakes her up 1x at night between 2-5 am. 06/13/21: Takes Tylenol to sleep and wakes at 3am with knee throbbing pain. 06/23/21: Pt resorts to Tylenol and ice for pain waking up last night but previous was good not waking her up. LTG Duration 08/03/21 (: Improving) Three Impairment Decreased function Impairment LEFS is 48/80 pre-op (20-39% impaired, score 48-62). Short Term Goal (STG) R knee PROM equal to L side AROM. 05/24/21: AROM 10-100 deg 06/06/21: AROM 15-115 deg's 06/08/21: AROM 3-123 deg 06/15/21: AROM 1-126 06/23/21: AROM 1-126 deg post bike/pre manual/stretch, 131 deg post STG Duration 06/24/21 (06/23/21: Improved flexion/extension) Mcc Goal (LTG) Improve LE function post-op to prior level of impairment (20 -39 % impaired, score of 48-62). LTG Duration 08/03/21 (06/15/21: MET GOAL) Two Impairment Decreased R knee AROM ( limiting walking and stair mobility) Impairment Pt goals is to not have a lot of pain and walk normal. Occasional waking due to discomfort of R knee when sleeping. R knee PROM equal to L side. Short Term Goal (STG) Improve ambulatory ability with pt walking into grocery store without assistive device and tolerable pain. 06/13/21: Went to [employer] without assistive device. STG Duration 06/24/21 (06/13/21: MET GOAL) Mcc Goal (LTG) Pt will be able to ambulate stairs with reciprical gait pattern with use of railing with mild discomfort (pain range 1-0/10).. 05/18/21: pt demonstrated BHR step to patterning, cued increase R knee flexion during step together. LTG Duration 08/03/21 (05/18/21: progressing ) One Impairment Pt lacks appropriate self care HEP Short Term Goal (STG) Pt independent with a pre-op self care HEP. STG Duration 05/05/21 (05/05/21: MET GOAL) Mcc Goal (LTG) Pt independent in a post rehab for a partial R knee replacement, self care HEP 06/23/21: HEP: QS, SLR w/ QS, heel raises, side ABD, added calf & HS stretching supine w/ strap, self STMs usign rolling pin/ hand, scar&pat mobs, resisted side stepping. LTG Duration 08/03/21 (progressin06/23/21 ) Assessment Summary Assessment Pt responded well to supine/ side HEP and side stepping with added resistance, painfree. TIme spent STMs and how self using rolling pin/ stretching to decrease HS, calf andquad tightness with good feedback and gained 6 deg R knee flexion. Physical Therapy Plan Frequency and Duration Frequency of Treatment 2x/Week Duration of Treatment 10 weeks Plan of Care Start Date 05/24/21 Plan of Care End Date 08/03/21 Therapeutic Interventions Therapeutic Interventions Home Exercise Program,Manual Therapy,Neuromuscular Re- education,Patient/Caregiver Education,Self-Care/Home Management,Soft Tissue Mobilization,Taping, Therapeutic Activities, Therapeutic Exercises Modalities Cold Pack/Ice Massage Next Visit Focus/Plan Next Note Type Treatment Note Next Visit Plan Recheck: self STMs/ stretching , resisted band walk added last tx. Next tx: Issue HEP for ankle strengthening R>L. Cont R knee extension ROM for ease AROM. Focus on improving R knee strength, pain reduction at medial knee, R knee ext, stairs, gait, wgt shift and balance. Shuttle recovery for active ROM with eccentric control/ strengthening. POC: s/p R medial partial knee replacement rehabilitation. ROM strengthening edema management pain reduction
--- NOTE | 2021-06-27 16:02 | PT.OTN ---
Current Diagnoses Unilateral primary osteoarthritis, right knee (06/27/21) Muscle weakness (generalized) (06/27/21) Physical Therapy Treatment Note PT-OP-A Visit Information Start: 05/04/21 18:43 Freq: Status: Active Protocol: Document 06/27/21 08:10 LRN (Rec: 06/27/21 09:04 LRN [id number]) Out-Patient Physical Therapy Visit Information Visit Information Visit Type Treatment Note Visit Note 8 after PN Visit Start Time 08:15 Visit Stop Time 08:55 Total Visit Minutes 40 Visit Number 12 Evaluation Information Evaluation Date 05/05/21 Precautions Precautions A. Fib, Arthritis, HBP controlled by injection, Diabetes type II controlled by diet and Metform PT-OP-B Current Condition Start: 05/04/21 18:43 Freq: Status: Active Protocol: Document 05/05/21 08:14 LRN (Rec: 05/05/21 11:18 LRN [id number]) Current Condition History of Current Condition Onset Date 3 yrs ago R knee started to hurt. Current Complaints R knee pain that worsens with exercise. History of Current Condition Pre-surgery PT visit for partial R medial knee arthroplasty scheduled for 12/23. Has spouse and a granddaughter who will stay with her for a week after surgery. Prior Treatments and Tests PT with Ilda Carrizales DPT . Cortisone ijection in R knee. Gel injection in R knee x 3 with last one 02/2021. Treatment Goals Patient/Caregiver Goals Pt goals is to not have a lot of pain and walk normal. Be more active: walking a into grocery store without assistive device and tolerable pain. Ambulate 3 stairs without use of railing with mild discomfort (pain range 0-1/10) . Decrease nighttime discomfort of R knee when sleeping. R knee PROM equal to L side. Prior Functional Status Baseline Function- ADL's Independent Baseline Function- Mobility Independent Baseline Function- Gait Walked for exercise. Baseline Function- Other Difficulty getting in/out of her boat. Difficulty getting into bed on boat (high up). No pain with walking, stairs, sleeping. Current Functional Impairments (Reported) Functional Limitations- ADL's Stiff getting out of bed. Standing tolerance with shifting weight - 20' Pain with sit to stand Functional Limitations- Mobility/Gait Ambulate stairs (3) without railing. Walking 1.5 miles in the house , monitored by pedometer. Personal Factors Other Personal Factors That May Effect A. Fib, Arthritis, Diabetes Therapy/Recovery type II controlled by diet and Metform. PT-OP-C Subjective Start: 05/04/21 18:43 Freq: Status: Active Protocol: Document 06/27/21 08:10 LRN (Rec: 06/27/21 09:04 LRN [id number]) OP-PT Subjective Patient Comments Patient Comments Still having a lot of pain in the R knee (anterior at distal end of scar & superomedial to the patella). Pain today is 4 /10. States with her bike at home her knee pops and is painful. PT-OP-E Functional Tests Start: 05/04/21 18:43 Freq: Status: Active Protocol: Document 05/24/21 09:45 DCW (Rec: 05/24/21 09:58 DCW [id number]) Functional Tests 6 Minute Walk Test Distance 211' Device Used None Comments 1.76 ft/sec PT-OP-G Mobility & Gait Start: 05/04/21 18:43 Freq: Status: Active Protocol: Document 05/24/21 09:45 DCW (Rec: 05/24/21 09:58 DCW [id number]) OP Gait Assessment Gait Gait Assistance Required: Standby Assistance Distance (Feet) 211 Gait Deviations General Gait Pattern Ataxic,Decreased Stride Length ,Decreased Feet Clearance, Lateral Trunk Lean Factors Limiting Gait Function Factors Limiting Gait Function Decreased Activity Tolerance, Decreased Strength,Limited Range of Motion,Pain PT-OP-J Posture/Palpation/Skin Start: 05/04/21 18:43 Freq: Status: Active Protocol: Document 05/24/21 09:45 DCW (Rec: 05/24/21 09:58 DCW [id number]) Skin Assessment Circumference Measurement 3 Location 10 cm inferior to R joint line Measurement (Centimeters) 35.5 Comments L = 34.8 2 Location 10 cm superior to R joint line Measurement (Centimeters) 41.0 Comments L = 40.4 1 Location R Joint Line Measurement (Centimeters) 40.6 Comments L = 38.0 PT-OP-K Range of Motion Start: 05/04/21 18:43 Freq: Status: Active Protocol: Document 06/27/21 08:10 LRN (Rec: 06/27/21 16:01 LRN [id number]) Knee Goniometric Range of Motion Knee Right Patient Position Supine Extension Passive (degrees) 0 PT-OP-M Strength Start: 05/04/21 18:43 Freq: Status: Active Protocol: Document 05/24/21 09:45 DCW (Rec: 05/24/21 09:58 DCW [id number]) Knee Strength Knee Manual Muscle Testing Right Flexion (S2) 4 Good Extension (L3) 3+ Fair+ Left Flexion (S2) 5 Normal Extension (L3) 5 Normal PT-OP-Q Treatments Start: 05/04/21 18:43 Freq: Status: Active Protocol: Document 06/27/21 08:10 LRN (Rec: 06/27/21 09:04 LRN [id number]) Cardio Equipment Bicycle (Upright) Duration (Minutes) 10 Resistance 3 Seat Position 4 Other No popping at the knee with lateral glide of tib & IR on ext of R knee Therapeutic Exercises Standing Exercises Hip AB Standing Exercise Name Hip AB Side bilateral Reps/Minutes 5 H, 5x 3 each Comments Much cuing to keep body straight & Step ups/dn Standing Exercise Name Step up/dn 6 step Side right Equipment Used 6 step and railing Reps/Minutes 15x leading R then 15x leading L leg Comments Cuing for alternating feet and keeping knee motion straight fwd Manual Therapy Treatment Taping Scar Body Location Distal end of well healed R scar Treatment Focus Improve scar mobility Type of Tape Kinesio Tape Skin Inspection Good Comments Lotion removed with Alcohol approved by patient. Manual Techniques MWM Type Medial glide of R tibia and IR with R knee ext Body Location R knee Body Position Prone Reps/Duration 6' Comments Lotion removed with Alcohol approved by patient. Self-Care/Home Management Treatment Education Other Education Discussed and problem solved pt's potential problem with her home bike and recommended adjusting seat to avoid excessive R knee flex and to monitor movement of hip/knee/ ankle complex to avoid knee abd during cycle. PT-OP-R Modalities Start: 05/04/21 18:43 Freq: Status: Active Protocol: Document 05/30/21 08:12 LRN (Rec: 05/30/21 08:55 LRN [id number]) Hot Pack/Cold Pack Treatment CP Location R knee Patient Position Hooklying Treatment Duration (minutes) 10 Patient Tolerance Good PT-OP-T Assessment and Plan Start: 05/04/21 18:43 Freq: Status: Active Protocol: Document 06/27/21 08:10 LRN (Rec: 06/27/21 09:04 LRN [id number]) Physical Therapy Assessment Goals Four Impairment R knee pain interrupting sleep and normal gait. Short Term Goal (STG) Pt will be able to walk with a normal step lengths without use of assistive device. 05/18/21: educated R knee flexion during gait and stair mgt for functional progress in [facility].05/22/21: improved demonstration R quad fac midstance phase with decrease SB wt shift, increase R knee flexion swing through heel toe awareness with use mirror. Encouraged use of 4WW contact for stability. STG Duration 06/24/21 (06/15/21: MET GOAL) Health Promotion Specialist Goal (LTG) Pt will be able to sleep at night with minimal or no R knee pain when sleeping. 05/22/21: progressing: still has pain when sleeps, getting better is able to sleep portion of night without towel under knee, does take pain meds before bed and through day. 06/06/21: R knee wakes her up 1x at night between 2-5 am. 06/13/21: Takes Tylenol to sleep and wakes at 3am with knee throbbing pain. 06/23/21: Pt resorts to Tylenol and ice for pain waking up last night but previous was good not waking her up. LTG Duration 08/03/21 (: Improving) Three Impairment Decreased function Impairment LEFS is 48/80 pre-op (20-39% impaired, score 48-62). Short Term Goal (STG) R knee PROM equal to L side AROM. 05/24/21: AROM 10-100 deg 06/06/21: AROM 15-115 deg's 06/08/21: AROM 3-123 deg 06/15/21: AROM 1-126 06/23/21: AROM 1-126 deg post bike/pre manual/stretch, 131 deg post STG Duration 06/24/21 (06/23/21: Improved flexion/extension) Health Promotion Specialist Goal (LTG) Improve LE function post-op to prior level of impairment (20 -39 % impaired, score of 48-62). LTG Duration 08/03/21 (06/15/21: MET GOAL) Two Impairment Decreased R knee AROM ( limiting walking and stair mobility) Impairment Pt goals is to not have a lot of pain and walk normal. Occasional waking due to discomfort of R knee when sleeping. R knee PROM equal to L side. Short Term Goal (STG) Improve ambulatory ability with pt walking into grocery store without assistive device and tolerable pain. 06/13/21: Went to [email or web address] without assistive device. STG Duration 06/24/21 (06/13/21: MET GOAL) Health Promotion Specialist Goal (LTG) Pt will be able to ambulate stairs with reciprical gait pattern with use of railing with mild discomfort (pain range 1-0/10).. 05/18/21: pt demonstrated BHR step to patterning, cued increase R knee flexion during step together. LTG Duration 08/03/21 (05/18/21: progressing ) One Impairment Pt lacks appropriate self care HEP Short Term Goal (STG) Pt independent with a pre-op self care HEP. STG Duration 05/05/21 (05/05/21: MET GOAL) Health Promotion Specialist Goal (LTG) Pt independent in a post rehab for a partial R knee replacement, self care HEP 06/23/21: HEP: QS, SLR w/ QS, heel raises, side ABD, added calf & HS stretching supine w/ strap, self STMs usign rolling pin/ hand, scar&pat mobs, resisted side stepping. LTG Duration 08/03/21 (progressin06/23/21 ) Progress Towards Goals Progress Comments Pain at R knee decreased from 4/10 to 2/10 after K-taping and exercise. Assessment Summary Assessment Pt R LE Adducting during cycling, possibly causing onset of R knee pain. Able to mostly relieve the R knee pain on bicycle with MWM treatment and after taping at R knee and scar, no complaints of knee pain with cycling. R knee ext was 0 deg's PROM Physical Therapy Plan Frequency and Duration Frequency of Treatment 2x/Week Duration of Treatment 10 weeks Plan of Care Start Date 05/24/21 Plan of Care End Date 08/03/21 Next Visit Focus/Plan Next Note Type Treatment Note Next Visit Plan Recheck: self scar massage results (pain less?), and resisted band walk (leading with heel). Next tx: Issue HEP for ankle strengthening R>L. Focus on improving R hip AB strength, pain reduction at medial knee, R knee ext tracking for proper mvmt of knee (no AD of R hip), stairs, gait, wgt shift and balance. Shuttle recovery for active ROM with eccentric control/ strengthening (monitoring hip/ knee/ankle complex for normal movment). POC: s/p R medial partial knee replacement rehabilitation. ROM strengthening edema management pain reduction
--- NOTE | 2021-06-30 08:15 | PT.OTN ---
Addendum entered and electronically signed by Lolis Acuna PTA 06/30/21 13:28: Add US to POC for specified pain assist. Original Note: Current Diagnoses Unilateral primary osteoarthritis, right knee (06/30/21) Muscle weakness (generalized) (06/30/21) Physical Therapy Treatment Note PT-OP-A Visit Information Start: 05/04/21 18:43 Freq: Status: Active Protocol: Document 06/30/21 07:31 SP (Rec: 06/30/21 08:18 SP [id number]) Out-Patient Physical Therapy Visit Information Visit Information Visit Type Treatment Note Visit Note 9 after PN Visit Start Time 07:31 Visit Stop Time 08:15 Total Visit Minutes 44 Visit Number 13 Number of ENTER[employer] ARCHITECT Visits 1 Evaluation Information Evaluation Date 05/05/21 Precautions Precautions A. Fib, Arthritis, HBP controlled by injection, Diabetes type II controlled by diet and Metform PT-OP-B Current Condition Start: 05/04/21 18:43 Freq: Status: Active Protocol: Document 05/05/21 08:14 LRN (Rec: 05/05/21 11:18 LRN [id number]) Current Condition History of Current Condition Onset Date 3 yrs ago R knee started to hurt. Current Complaints R knee pain that worsens with exercise. History of Current Condition Pre-surgery PT visit for partial R medial knee arthroplasty scheduled for 12/23. Has spouse and a granddaughter who will stay with her for a week after surgery. Prior Treatments and Tests PT with Ilda Carrizales DPT . Cortisone ijection in R knee. Gel injection in R knee x 3 with last one 02/2021. Treatment Goals Patient/Caregiver Goals Pt goals is to not have a lot of pain and walk normal. Be more active: walking a into grocery store without assistive device and tolerable pain. Ambulate 3 stairs without use of railing with mild discomfort (pain range 0-1/10) . Decrease nighttime discomfort of R knee when sleeping. R knee PROM equal to L side. Prior Functional Status Baseline Function- ADL's Independent Baseline Function- Mobility Independent Baseline Function- Gait Walked for exercise. Baseline Function- Other Difficulty getting in/out of her boat. Difficulty getting into bed on boat (high up). No pain with walking, stairs, sleeping. Current Functional Impairments (Reported) Functional Limitations- ADL's Stiff getting out of bed. Standing tolerance with shifting weight - 20' Pain with sit to stand Functional Limitations- Mobility/Gait Ambulate stairs (3) without railing. Walking 1.5 miles in the house , monitored by pedometer. Personal Factors Other Personal Factors That May Effect A. Fib, Arthritis, Diabetes Therapy/Recovery type II controlled by diet and Metform. PT-OP-C Subjective Start: 05/04/21 18:43 Freq: Status: Active Protocol: Document 06/30/21 07:31 SP (Rec: 06/30/21 08:18 SP [id number]) OP-PT Subjective Patient Comments Patient Comments Pt stated thought the ktaping helped behind her knee, took of last night and wants reapplied. Pt statesself scar massage does help decrease pain. PT-OP-E Functional Tests Start: 05/04/21 18:43 Freq: Status: Active Protocol: Document 05/24/21 09:45 DCW (Rec: 05/24/21 09:58 DCW [id number]) Functional Tests 6 Minute Walk Test Distance 211' Device Used None Comments 1.76 ft/sec PT-OP-G Mobility & Gait Start: 05/04/21 18:43 Freq: Status: Active Protocol: Document 05/24/21 09:45 DCW (Rec: 05/24/21 09:58 DCW [id number]) OP Gait Assessment Gait Gait Assistance Required: Standby Assistance Distance (Feet) 211 Gait Deviations General Gait Pattern Ataxic,Decreased Stride Length ,Decreased Feet Clearance, Lateral Trunk Lean Factors Limiting Gait Function Factors Limiting Gait Function Decreased Activity Tolerance, Decreased Strength,Limited Range of Motion,Pain PT-OP-J Posture/Palpation/Skin Start: 05/04/21 18:43 Freq: Status: Active Protocol: Document 05/24/21 09:45 DCW (Rec: 05/24/21 09:58 DCW [id number]) Skin Assessment Circumference Measurement 3 Location 10 cm inferior to R joint line Measurement (Centimeters) 35.5 Comments L = 34.8 2 Location 10 cm superior to R joint line Measurement (Centimeters) 41.0 Comments L = 40.4 1 Location R Joint Line Measurement (Centimeters) 40.6 Comments L = 38.0 PT-OP-K Range of Motion Start: 05/04/21 18:43 Freq: Status: Active Protocol: Document 06/27/21 08:10 LRN (Rec: 06/27/21 16:01 LRN [id number]) Knee Goniometric Range of Motion Knee Right Patient Position Supine Extension Passive (degrees) 0 PT-OP-M Strength Start: 05/04/21 18:43 Freq: Status: Active Protocol: Document 05/24/21 09:45 DCW (Rec: 05/24/21 09:58 DCW [id number]) Knee Strength Knee Manual Muscle Testing Right Flexion (S2) 4 Good Extension (L3) 3+ Fair+ Left Flexion (S2) 5 Normal Extension (L3) 5 Normal PT-OP-Q Treatments Start: 05/04/21 18:43 Freq: Status: Active Protocol: Document 06/30/21 07:31 SP (Rec: 06/30/21 08:18 SP [id number]) Cardio Equipment Bicycle (Upright) Duration (Minutes) 8 Resistance 3 Seat Position 4 Other little popping R anterolateral -less post manual- 3.98 miles Therapeutic Exercises Standing Exercises forward step down Side right Resistance 2 step Reps/Minutes x5 Comments cued knee alignment with/ behind toes, caused pain, unable maintain stopped Step ups/dn Standing Exercise Name Step up/dn 6 step Side right Equipment Used 6 step and railing Reps/Minutes 15x leading R then 15x leading L leg Comments Cuing for alternating feet and keeping knee motion straight fwd Side stepping Standing Exercise Name Side stepping Side bilateral Resistance AROM x1 laps, TB #1 loop x2 laps gave for home Equipment Used rail PRN Reps/Minutes 20 ft lap Comments good posture, cued R knee ER and good response painfree- hip abd tiring Manual Therapy Treatment Soft Tissue Mobilization Infra/lateral patella Body Location Distal IT band @ R knee & infra patella Mobilization Type Instrument Assisted,Myofascial Release,Strumming Intensity/Depth Moderate Body Position Supine Comments manual distal ITB and patellar tendon during upright bike, better less clicking. R knee scar' Body Location R knee scar, adjacent areas & med tib plateau Mobilization Type Myofascial Release,Sustained Pressure Intensity/Depth superficial to moderate Body Position Supine Comments manual and instruct to focus on end and under distal patella scar. Joint Mobilizations 2 Joint tibiofemoral Direction P->A Grade II Comments during upright bike- less but still clicking anterolateral patellar tendon on R Taping 1 Body Location 1.Medial glide of R tibia and ER with R knee ext Treatment Focus R knee Type of Tape Kinesio Tape Skin Inspection intact, normal color/ texture. Comments Used alcohol to dry skin, good feedback knee support and no pain post knee. 2. R knee lateral stability C taping to support lateral to medial stability with good response. PT-OP-R Modalities Start: 05/04/21 18:43 Freq: Status: Active Protocol: Document 06/30/21 07:31 SP (Rec: 06/30/21 08:18 SP [id number]) Ultrasound Therapy Treatment R patellar tendon Treatment Duration (minutes) 8 Patient Position Supine Applicator Size (cm2) 2 Frequency Setting (mHz) 1 Intensity Setting (w/cm2) 1 Comments good feedback, no pain during little warmth. almost post when walking around. PT-OP-T Assessment and Plan Start: 05/04/21 18:43 Freq: Status: Active Protocol: Document 06/30/21 07:31 SP (Rec: 06/30/21 08:18 SP [id number]) Physical Therapy Assessment Goals Four Impairment R knee pain interrupting sleep and normal gait. Short Term Goal (STG) Pt will be able to walk with a normal step lengths without use of assistive device. 05/18/21: educated R knee flexion during gait and stair mgt for functional progress in [facility].05/22/21: improved demonstration R quad fac midstance phase with decrease SB wt shift, increase R knee flexion swing through heel toe awareness with use mirror. Encouraged use of 4WW contact for stability. STG Duration 06/24/21 (06/15/21: MET GOAL) Custodial Goal (LTG) Pt will be able to sleep at night with minimal or no R knee pain when sleeping. 05/22/21: progressing: still has pain when sleeps, getting better is able to sleep portion of night without towel under knee, does take pain meds before bed and through day. 06/06/21: R knee wakes her up 1x at night between 2-5 am. 06/13/21: Takes Tylenol to sleep and wakes at 3am with knee throbbing pain. 06/23/21: Pt resorts to Tylenol and ice for pain waking up last night but previous was good not waking her up. LTG Duration 08/03/21 (: Improving) Three Impairment Decreased function Impairment LEFS is 48/80 pre-op (20-39% impaired, score 48-62). Short Term Goal (STG) R knee PROM equal to L side AROM. 05/24/21: AROM 10-100 deg 06/06/21: AROM 15-115 deg's 06/08/21: AROM 3-123 deg 06/15/21: AROM 1-126 06/23/21: AROM 1-126 deg post bike/pre manual/stretch, 131 deg post STG Duration 06/24/21 (06/23/21: Improved flexion/extension) Professor Of Theater Goal (LTG) Improve LE function post-op to prior level of impairment (20 -39 % impaired, score of 48-62). LTG Duration 08/03/21 (06/15/21: MET GOAL) Two Impairment Decreased R knee AROM ( limiting walking and stair mobility) Impairment Pt goals is to not have a lot of pain and walk normal. Occasional waking due to discomfort of R knee when sleeping. R knee PROM equal to L side. Short Term Goal (STG) Improve ambulatory ability with pt walking into grocery store without assistive device and tolerable pain. 06/13/21: Went to [employer] without assistive device. STG Duration 06/24/21 (06/13/21: MET GOAL) Professor Of Theater Goal (LTG) Pt will be able to ambulate stairs with reciprical gait pattern with use of railing with mild discomfort (pain range 1-0/10).. 05/18/21: pt demonstrated BHR step to patterning, cued increase R knee flexion during step together. LTG Duration 08/03/21 (05/18/21: progressing ) One Impairment Pt lacks appropriate self care HEP Short Term Goal (STG) Pt independent with a pre-op self care HEP. STG Duration 05/05/21 (05/05/21: MET GOAL) Professor Of Theater Goal (LTG) Pt independent in a post rehab for a partial R knee replacement, self care HEP 06/23/21: HEP: QS, SLR w/ QS, heel raises, side ABD, added calf & HS stretching supine w/ strap, self STMs usign rolling pin/ hand, scar&pat mobs, resisted side stepping. LTG Duration 08/03/21 (progressin06/23/21 ) Assessment Summary Assessment Pt many cues for R knee alignment during step ups, better no pain or clicking with K taping posterior and anterolateral. Pt better hip abd fac form. Pt increase patellar discomfort trial eccentric step down, unable maintain cued knee behind toes , welcoming to US and states almost no pain, better than when arrived end tx leaving. Physical Therapy Plan Frequency and Duration Frequency of Treatment 2x/Week Duration of Treatment 10 weeks Plan of Care Start Date 05/24/21 Plan of Care End Date 08/03/21 Therapeutic Interventions Therapeutic Interventions Home Exercise Program,Manual Therapy,Neuromuscular Re- education,Patient/Caregiver Education,Self-Care/Home Management,Soft Tissue Mobilization,Taping, Therapeutic Activities, Therapeutic Exercises Modalities Cold Pack/Ice Massage Next Visit Focus/Plan Next Note Type Treatment Note Next Visit Plan Recheck: self scar massage results (pain less?), and resisted band walk (leading with heel). Next tx: Issue HEP for ankle strengthening R>L. Focus on improving R hip AB strength, pain reduction at medial knee, R knee ext tracking for proper mvmt of knee (no AD of R hip), stairs, gait, wgt shift and balance. Shuttle recovery for active ROM with eccentric control/ strengthening (monitoring hip/ knee/ankle complex for normal movment). POC: s/p R medial partial knee replacement rehabilitation. ROM strengthening edema management pain reduction
--- NOTE | 2021-07-04 09:25 | PT.OTN ---
Current Diagnoses Unilateral primary osteoarthritis, right knee (07/04/21) Muscle weakness (generalized) (07/04/21) Physical Therapy Treatment Note PT-OP-A Visit Information Start: 05/04/21 18:43 Freq: Status: Active Protocol: Document 07/04/21 08:16 LRN (Rec: 07/04/21 09:23 LRN [id number]) Out-Patient Physical Therapy Visit Information Visit Information Visit Type Progress Note Visit Note 10 after PN Visit Start Time 08:16 Visit Stop Time 09:00 Total Visit Minutes 45 Visit Number 14 Evaluation Information Evaluation Date 05/05/21 Precautions Precautions A. Fib, Arthritis, HBP controlled by injection, Diabetes type II controlled by diet and Metform PT-OP-B Current Condition Start: 05/04/21 18:43 Freq: Status: Active Protocol: Document 05/05/21 08:14 LRN (Rec: 05/05/21 11:18 LRN [id number]) Current Condition History of Current Condition Onset Date 3 yrs ago R knee started to hurt. Current Complaints R knee pain that worsens with exercise. History of Current Condition Pre-surgery PT visit for partial R medial knee arthroplasty scheduled for 12/23. Has spouse and a granddaughter who will stay with her for a week after surgery. Prior Treatments and Tests PT with Ilda Carrizales DPT . Cortisone ijection in R knee. Gel injection in R knee x 3 with last one 02/2021. Treatment Goals Patient/Caregiver Goals Pt goals is to not have a lot of pain and walk normal. Be more active: walking a into grocery store without assistive device and tolerable pain. Ambulate 3 stairs without use of railing with mild discomfort (pain range 0-1/10) . Decrease nighttime discomfort of R knee when sleeping. R knee PROM equal to L side. Prior Functional Status Baseline Function- ADL's Independent Baseline Function- Mobility Independent Baseline Function- Gait Walked for exercise. Baseline Function- Other Difficulty getting in/out of her boat. Difficulty getting into bed on boat (high up). No pain with walking, stairs, sleeping. Current Functional Impairments (Reported) Functional Limitations- ADL's Stiff getting out of bed. Standing tolerance with shifting weight - 20' Pain with sit to stand Functional Limitations- Mobility/Gait Ambulate stairs (3) without railing. Walking 1.5 miles in the house , monitored by pedometer. Personal Factors Other Personal Factors That May Effect A. Fib, Arthritis, Diabetes Therapy/Recovery type II controlled by diet and Metform. PT-OP-C Subjective Start: 05/04/21 18:43 Freq: Status: Active Protocol: Document 07/04/21 08:16 LRN (Rec: 07/04/21 09:23 LRN [id number]) OP-PT Subjective Patient Comments Patient Comments States US was very helpful to reduce the R knee pain. States her pain is 1/10 in the last 2 days. Patient Questionnaires Lower Extremity Functional Scale LEFS Score 73 LEFS Impairment 1 to 19% Impaired (Score 63-79 ) PT-OP-E Functional Tests Start: 05/04/21 18:43 Freq: Status: Active Protocol: Document 05/24/21 09:45 DCW (Rec: 05/24/21 09:58 DCW [id number]) Functional Tests 6 Minute Walk Test Distance 211' Device Used None Comments 1.76 ft/sec PT-OP-G Mobility & Gait Start: 05/04/21 18:43 Freq: Status: Active Protocol: Document 05/24/21 09:45 DCW (Rec: 05/24/21 09:58 DCW [id number]) OP Gait Assessment Gait Gait Assistance Required: Standby Assistance Distance (Feet) 211 Gait Deviations General Gait Pattern Ataxic,Decreased Stride Length ,Decreased Feet Clearance, Lateral Trunk Lean Factors Limiting Gait Function Factors Limiting Gait Function Decreased Activity Tolerance, Decreased Strength,Limited Range of Motion,Pain PT-OP-J Posture/Palpation/Skin Start: 05/04/21 18:43 Freq: Status: Active Protocol: Document 05/24/21 09:45 DCW (Rec: 05/24/21 09:58 DCW [id number]) Skin Assessment Circumference Measurement 3 Location 10 cm inferior to R joint line Measurement (Centimeters) 35.5 Comments L = 34.8 2 Location 10 cm superior to R joint line Measurement (Centimeters) 41.0 Comments L = 40.4 1 Location R Joint Line Measurement (Centimeters) 40.6 Comments L = 38.0 PT-OP-K Range of Motion Start: 05/04/21 18:43 Freq: Status: Active Protocol: Document 07/04/21 08:16 LRN (Rec: 07/04/21 09:23 LRN [id number]) Knee Goniometric Range of Motion Knee Right Knee ROM WFL Yes Patient Position Supine Flexion Active (degrees) 123 Extension Active (degrees) 0 Left Patient Position Supine Flexion Active (degrees) 122 Extension Active (degrees) 0 PT-OP-M Strength Start: 05/04/21 18:43 Freq: Status: Active Protocol: Document 05/24/21 09:45 DCW (Rec: 05/24/21 09:58 DCW [id number]) Knee Strength Knee Manual Muscle Testing Right Flexion (S2) 4 Good Extension (L3) 3+ Fair+ Left Flexion (S2) 5 Normal Extension (L3) 5 Normal PT-OP-Q Treatments Start: 05/04/21 18:43 Freq: Status: Active Protocol: Document 07/04/21 08:16 LRN (Rec: 07/04/21 09:23 LRN [id number]) Cardio Equipment Recumbent Bicycle Duration (Minutes) 8 Resistance 3 Seat Position see 4 Other V cuing to keep R knee from adducting Therapeutic Exercises Sitting Exercises Sit<>stand Sitting Exercise Name Sit to Stand Equipment Used arms across chest, mesh chair Reps/Minutes 15x, 5x Comments v cuing for equal weightbearing. Standing Exercises Step ups/dn Standing Exercise Name Step up/dn 6 step Side right Equipment Used 6 step and railing Reps/Minutes 15x leading R then 15x leading L leg, Stepping throughout for Ktape check Comments Cuing for alternating feet and keeping knee motion straight fwd Manual Therapy Treatment Taping R hip Body Location R Iliac Crest down IT Band past knee joint, hip in AD Treatment Focus Facilitate hip AB Type of Tape Kinesio Tape Skin Inspection intact, normal color/ texture. Scar Body Location Distal end of well healed R scar Treatment Focus Improve scar mobility Type of Tape Kinesio Tape Skin Inspection intact, normal color/ texture. 1 Body Location Prone: R Anteromedial distal thigh>lateral anterolateral fib, knee in ext Treatment Focus R knee: Facilitate Medial glide of R tib/fib, lower leg ER w/tape tension Type of Tape Kinesio Tape Skin Inspection intact, normal color/ texture. Comments Used alcohol to clean skin, good feedback knee support and no pain post knee, ankles off end of plinth. NOTE: Laying down K-tape without tension. Extra time needed for Pt taping (x 2) to get proper tension of K-tape to eliminate pain with stairs, walking and ex on recumbent bike. PT-OP-R Modalities Start: 05/04/21 18:43 Freq: Status: Active Protocol: Document 06/30/21 07:31 SP (Rec: 06/30/21 08:18 SP [id number]) Ultrasound Therapy Treatment R patellar tendon Treatment Duration (minutes) 8 Patient Position Supine Applicator Size (cm2) 2 Frequency Setting (mHz) 1 Intensity Setting (w/cm2) 1 Comments good feedback, no pain during little warmth. almost post when walking around. PT-OP-T Assessment and Plan Start: 05/04/21 18:43 Freq: Status: Active Protocol: Document 07/04/21 08:16 LRN (Rec: 07/04/21 09:23 LRN [id number]) Physical Therapy Assessment Goals Four Impairment R knee pain interrupting sleep and normal gait. Short Term Goal (STG) Pt will be able to walk with a normal step lengths without use of assistive device. 05/18/21: educated R knee flexion during gait and stair mgt for functional progress in [facility].05/22/21: improved demonstration R quad fac midstance phase with decrease SB wt shift, increase R knee flexion swing through heel toe awareness with use mirror. Encouraged use of 4WW contact for stability. STG Duration 06/24/21 (06/15/21: MET GOAL) Care Home Goal (LTG) Pt will be able to sleep at night with minimal or no R knee pain when sleeping. 05/22/21: progressing: still has pain when sleeps, getting better is able to sleep portion of night without towel under knee, does take pain meds before bed and through day. 06/06/21: R knee wakes her up 1x at night between 2-5 am. 06/13/21: Takes Tylenol to sleep and wakes at 3am with knee throbbing pain. 06/23/21: Pt resorts to Tylenol and ice for pain waking up last night but previous was good not waking her up. (07/04/21: R knee pain hasn't woken at night in the last 3 nights, no Tylenol for 1 week) LTG Duration 08/03/21 (07/04/21: MET GOAL) Three Impairment Decreased function Impairment LEFS is 48/80 pre-op (20-39% impaired, score 48-62). Short Term Goal (STG) R knee PROM equal to L side AROM. 05/24/21: AROM 10-100 deg 06/06/21: AROM 15-115 deg's 06/08/21: AROM 3-123 deg 06/15/21: AROM 1-126 06/23/21: AROM 1-126 deg post bike/pre manual/stretch, 131 deg post 07/04/21: AROM supine: 0-123 STG Duration 06/24/21 (07/04/21: MET GOAL in supine) Career Development Associate Goal (LTG) Improve LE function post-op to prior level of impairment (20 -39% impaired, score of 48-62) . 07/04/21: LEFS score 73 (1-19% impaired) LTG Duration 08/03/21 (07/04/21: MET GOAL) Two Impairment Decreased R knee AROM ( limiting walking and stair mobility) Impairment Pt goals is to not have a lot of pain and walk normal. Occasional waking due to discomfort of R knee when sleeping. R knee PROM equal to L side. Short Term Goal (STG) Improve ambulatory ability with pt walking into grocery store without assistive device and tolerable pain. 06/13/21: Went to [employer] without assistive device. STG Duration 06/24/21 (06/13/21: MET GOAL) Care Home Goal (LTG) Pt will be able to ambulate stairs with reciprical gait pattern with use of railing with mild discomfort (pain range 1-0/10).. 05/18/21: pt demonstrated BHR step to patterning, cued increase R knee flexion during step together. 07/04/21: Painfree stairs with K-tape. LTG Duration 08/03/21 (07/04/21: MET GOAL with use of K-tape) One Impairment Pt lacks appropriate self care HEP Short Term Goal (STG) Pt independent with a pre-op self care HEP. STG Duration 05/05/21 (05/05/21: MET GOAL) Care Home Goal (LTG) Pt independent in a post rehab for a partial R knee replacement, self care HEP 06/23/21: HEP: QS, SLR w/ QS, heel raises, side ABD, added calf & HS stretching supine w/ strap, self STMs usign rolling pin/ hand, scar&pat mobs, resisted side stepping. LTG Duration 08/03/21 (progressin06/23/21 ) Progress Towards Goals Progress Comments Goals 2-4: MET with use of K- tape to the R knee. Assessment Summary Assessment Pt scar mobility much improved , she has some restriction at lower half of well healed scar . No R knee pain noted with recumbent ex bike to start and after K-taping. Overall pain is less and pt is sleeping without pain waking her and no use of Tylenol. Pt has been K-taping; therefore pain may be managed with taping. Pt to monitor R knee pain on day without K-tape Physical Therapy Plan Frequency and Duration Frequency of Treatment 2x/Week Duration of Treatment 10 weeks Plan of Care Start Date 05/24/21 Plan of Care End Date 08/03/21 Next Visit Focus/Plan Next Note Type Discharge Summary Next Visit Plan Recheck: resisted band walk ( leading with heel). Next tx: Plan for DC. Issue HEP for ankle strengthening R> L. Focus on improving R hip AB strength, R knee ext tracking for proper mvmt of knee (no AD of R hip), balance, and check painfree stairs, gait.
--- NOTE | 2021-07-07 09:00 | PT.OTN ---
Current Diagnoses Unilateral primary osteoarthritis, right knee (07/07/21) Muscle weakness (generalized) (07/07/21) Physical Therapy Treatment Note PT-OP-A Visit Information Start: 05/04/21 18:43 Freq: Status: Active Protocol: Document 07/07/21 08:18 SP (Rec: 07/07/21 09:19 SP [id number]) Out-Patient Physical Therapy Visit Information Visit Information Visit Type Treatment Note Visit Note 1 after PN Visit Start Time 08:18 Visit Stop Time 09:00 Total Visit Minutes 42 Visit Number 15 Number of PRISON CLASSIFICATION COUNSELOR Visits 1 Evaluation Information Evaluation Date 05/05/21 Precautions Precautions A. Fib, Arthritis, HBP controlled by injection, Diabetes type II controlled by diet and Metform PT-OP-B Current Condition Start: 05/04/21 18:43 Freq: Status: Active Protocol: Document 05/05/21 08:14 LRN (Rec: 05/05/21 11:18 LRN [id number]) Current Condition History of Current Condition Onset Date 3 yrs ago R knee started to hurt. Current Complaints R knee pain that worsens with exercise. History of Current Condition Pre-surgery PT visit for partial R medial knee arthroplasty scheduled for 12/23. Has spouse and a granddaughter who will stay with her for a week after surgery. Prior Treatments and Tests PT with Ilda Carrizales DPT . Cortisone ijection in R knee. Gel injection in R knee x 3 with last one 02/2021. Treatment Goals Patient/Caregiver Goals Pt goals is to not have a lot of pain and walk normal. Be more active: walking a into grocery store without assistive device and tolerable pain. Ambulate 3 stairs without use of railing with mild discomfort (pain range 0-1/10) . Decrease nighttime discomfort of R knee when sleeping. R knee PROM equal to L side. Prior Functional Status Baseline Function- ADL's Independent Baseline Function- Mobility Independent Baseline Function- Gait Walked for exercise. Baseline Function- Other Difficulty getting in/out of her boat. Difficulty getting into bed on boat (high up). No pain with walking, stairs, sleeping. Current Functional Impairments (Reported) Functional Limitations- ADL's Stiff getting out of bed. Standing tolerance with shifting weight - 20' Pain with sit to stand Functional Limitations- Mobility/Gait Ambulate stairs (3) without railing. Walking 1.5 miles in the house , monitored by pedometer. Personal Factors Other Personal Factors That May Effect A. Fib, Arthritis, Diabetes Therapy/Recovery type II controlled by diet and Metform. PT-OP-C Subjective Start: 05/04/21 18:43 Freq: Status: Active Protocol: Document 07/07/21 08:18 SP (Rec: 07/07/21 09:19 SP [id number]) OP-PT Subjective Patient Comments Patient Comments Pt stated took K taping off front knee due to hurting 05/11 , had some pain after last tx but didnt' last long. Don't have to get up at nights to get ice on knee now. Arrival pain inferior R patella under fat pad area today not bad though. Pt requested not doing taping and see how things go today. PT-OP-E Functional Tests Start: 05/04/21 18:43 Freq: Status: Active Protocol: Document 05/24/21 09:45 DCW (Rec: 05/24/21 09:58 DCW [id number]) Functional Tests 6 Minute Walk Test Distance 211' Device Used None Comments 1.76 ft/sec PT-OP-G Mobility & Gait Start: 05/04/21 18:43 Freq: Status: Active Protocol: Document 05/24/21 09:45 DCW (Rec: 05/24/21 09:58 DCW [id number]) OP Gait Assessment Gait Gait Assistance Required: Standby Assistance Distance (Feet) 211 Gait Deviations General Gait Pattern Ataxic,Decreased Stride Length ,Decreased Feet Clearance, Lateral Trunk Lean Factors Limiting Gait Function Factors Limiting Gait Function Decreased Activity Tolerance, Decreased Strength,Limited Range of Motion,Pain PT-OP-J Posture/Palpation/Skin Start: 05/04/21 18:43 Freq: Status: Active Protocol: Document 05/24/21 09:45 DCW (Rec: 05/24/21 09:58 DCW [id number]) Skin Assessment Circumference Measurement 3 Location 10 cm inferior to R joint line Measurement (Centimeters) 35.5 Comments L = 34.8 2 Location 10 cm superior to R joint line Measurement (Centimeters) 41.0 Comments L = 40.4 1 Location R Joint Line Measurement (Centimeters) 40.6 Comments L = 38.0 PT-OP-K Range of Motion Start: 03/03/22 18:43 Freq: Status: Active Protocol: Document 07/04/21 08:16 LRN (Rec: 07/04/21 09:23 LRN [id number]) Knee Goniometric Range of Motion Knee Right Knee ROM WFL Yes Patient Position Supine Flexion Active (degrees) 123 Extension Active (degrees) 0 Left Patient Position Supine Flexion Active (degrees) 122 Extension Active (degrees) 0 PT-OP-M Strength Start: 05/04/21 18:43 Freq: Status: Active Protocol: Document 05/24/21 09:45 DCW (Rec: 05/24/21 09:58 DCW [id number]) Knee Strength Knee Manual Muscle Testing Right Flexion (S2) 4 Good Extension (L3) 3+ Fair+ Left Flexion (S2) 5 Normal Extension (L3) 5 Normal PT-OP-Q Treatments Start: 05/04/21 18:43 Freq: Status: Active Protocol: Document 07/07/21 08:18 SP (Rec: 07/07/21 09:19 SP [id number]) Cardio Equipment Recumbent Bicycle Duration (Minutes) 8 Resistance 3 Seat Position see 4 Other V cuing to keep R knee from adducting, 2.47 miles Gym Equipment Shuttle Recovery Unilateral Squats Details cued knee alignment with toes and quad extension, not into locked position Resistance 37# RLE, 37#>50# LLE Shuttle Recovery Platform Stable Reps/Time 2x15 Bilateral Squats Details cued full extension and knee with toe alignment Resistance 50#> 62# Shuttle Recovery Platform Stable Reps/Time x15 each resistance, feels muscle work, no pain Therapeutic Exercises Sitting Exercises HS Curls Sitting Exercise Name HS curls- reviewed back into HEP Side right Resistance TB Lv 1>3 Reps/Minutes 2x10 Comments cued sit all way back in chair , slow eccentric control- gdpainfree response Standing Exercises TKE Standing Exercise Name added to HEP Side right Resistance TB #3 Reps/Minutes 5 sec hold x20 Comments cued knee with toes, slow eccentric control flexion Step ups/dn Standing Exercise Name Step up/dn 8 step Side right Equipment Used 8 step and side staircase, contact on R railing Reps/Minutes x10 Comments Cued R knee with toes up/down- painfree calf stretch Standing Exercise Name reviewed HEP- does often at home Equipment Used MOHINDER Reps/Minutes 30 Comments cued hold gastroc and soleus Manual Therapy Treatment Soft Tissue Mobilization Infra/lateral patella Body Location infra patella Mobilization Type Cross-Friction,Instrument Assisted,Myofascial Release Intensity/Depth Moderate Body Position Supine Comments manual patellar tendon and self rolling pin to distal quad/HS and calf seated post recumbent bike. R knee scar' Body Location R knee scar, adjacent areas & med tib plateau Mobilization Type Cross-Friction,Myofascial Release Intensity/Depth superficial to moderate Body Position Supine Comments manual and instruct to focus on end and under distal patella scar. Self-Care/Home Management Treatment Education Patient Education Home Exercise Program,Joint Protection,Pain Management Other Education Added TKE, reviewed self STMs and calf stretch. PT-OP-R Modalities Start: 05/04/21 18:43 Freq: Status: Active Protocol: Document 06/30/21 07:31 SP (Rec: 06/30/21 08:18 SP [id number]) Ultrasound Therapy Treatment R patellar tendon Treatment Duration (minutes) 8 Patient Position Supine Applicator Size (cm2) 2 Frequency Setting (mHz) 1 Intensity Setting (w/cm2) 1 Comments good feedback, no pain during little warmth. almost post when walking around. PT-OP-T Assessment and Plan Start: 05/04/21 18:43 Freq: Status: Active Protocol: Document 07/07/21 08:18 SP (Rec: 07/07/21 09:19 SP [id number]) Physical Therapy Assessment Goals Four Impairment R knee pain interrupting sleep and normal gait. Short Term Goal (STG) Pt will be able to walk with a normal step lengths without use of assistive device. 05/18/21: educated R knee flexion during gait and stair mgt for functional progress in [facility].05/22/21: improved demonstration R quad fac midstance phase with decrease SB wt shift, increase R knee flexion swing through heel toe awareness with use mirror. Encouraged use of 4WW contact for stability. STG Duration 06/24/21 (06/15/21: MET GOAL) Automotive Engineering Teacher Goal (LTG) Pt will be able to sleep at night with minimal or no R knee pain when sleeping. 05/22/21: progressing: still has pain when sleeps, getting better is able to sleep portion of night without towel under knee, does take pain meds before bed and through day. 06/06/21: R knee wakes her up 1x at night between 2-5 am. 06/13/21: Takes Tylenol to sleep and wakes at 3am with knee throbbing pain. 06/23/21: Pt resorts to Tylenol and ice for pain waking up last night but previous was good not waking her up. (07/04/21: R knee pain hasn't woken at night in the last 3 nights, no Tylenol for 1 week) LTG Duration 08/03/21 (07/04/21: MET GOAL) Three Impairment Decreased function Impairment LEFS is 48/80 pre-op (20-39% impaired, score 48-62). Short Term Goal (STG) R knee PROM equal to L side AROM. 05/24/21: AROM 10-100 deg 06/06/21: AROM 15-115 deg's 06/08/21: AROM 3-123 deg 06/15/21: AROM 1-126 06/23/21: AROM 1-126 deg post bike/pre manual/stretch, 131 deg post 07/04/21: AROM supine: 0-123 STG Duration 06/24/21 (07/04/21: MET GOAL in supine) Automotive Engineering Teacher Goal (LTG) Improve LE function post-op to prior level of impairment (20 -39% impaired, score of 48-62) . 07/04/21: LEFS score 73 (1-19% impaired) LTG Duration 08/03/21 (07/04/21: MET GOAL) Two Impairment Decreased R knee AROM ( limiting walking and stair mobility) Impairment Pt goals is to not have a lot of pain and walk normal. Occasional waking due to discomfort of R knee when sleeping. R knee PROM equal to L side. Short Term Goal (STG) Improve ambulatory ability with pt walking into grocery store without assistive device and tolerable pain. 06/13/21: Went to [employer] without assistive device. STG Duration 06/24/21 (06/13/21: MET GOAL) [facility] Goal (LTG) Pt will be able to ambulate stairs with reciprical gait pattern with use of railing with mild discomfort (pain range 1-0/10).. 05/18/21: pt demonstrated BHR step to patterning, cued increase R knee flexion during step together. 07/04/21: Painfree stairs with K-tape. LTG Duration 08/03/21 (07/04/21: MET GOAL with use of K-tape) One Impairment Pt lacks appropriate self care HEP Short Term Goal (STG) Pt independent with a pre-op self care HEP. STG Duration 05/05/21 (05/05/21: MET GOAL) Automotive Engineering Teacher Goal (LTG) Pt independent in a post rehab for a partial R knee replacement, self care HEP 06/23/21: HEP: QS, SLR w/ QS, heel raises, side ABD, added calf & HS stretching supine w/ strap, self STMs usign rolling pin/ hand, scar&pat mobs, resisted side stepping. LTG Duration 08/03/21 (progressin06/23/21 ) Assessment Summary Assessment Pt improved knee flex/ extension under increased tension this tx shuttle recovery and TB no pain, occasional cues for R knee alignment during eccentric flexion. Added TKE holds with occasional cues for knee alignment and proper form, painfree - feels good muscle effort, hope helps my extension. Pt had no pain throughout ther ex post manual and instruct self. Pt states doesn't feel ready DC on own but need cancel next appt on but wants keep couple more appts and will talk to PT. Physical Therapy Plan Frequency and Duration Frequency of Treatment 2x/Week Duration of Treatment 10 weeks Plan of Care Start Date 05/24/21 Plan of Care End Date 08/03/21 Therapeutic Interventions Therapeutic Interventions Home Exercise Program,Manual Therapy,Neuromuscular Re- education,Patient/Caregiver Education,Self-Care/Home Management,Soft Tissue Mobilization,Taping, Therapeutic Activities, Therapeutic Exercises Modalities Cold Pack/Ice Massage Next Visit Focus/Plan Next Note Type Treatment Note Next Visit Plan Recheck next tx: TKE added last tx, resisted band walk ( leading with heel), balance. Issue HEP for ankle strengthening R>L. Plan for DC in 2 txs and cancell rest appts scheduled. POC: Focus on improving R hip AB strength, R knee ext tracking for proper mvmt of knee (no AD of R hip), balance , and check painfree stairs, gait.
--- NOTE | 2021-07-14 09:00 | PT.OTN ---
Current Diagnoses Unilateral primary osteoarthritis, right knee (07/14/21) Muscle weakness (generalized) (07/14/21) Physical Therapy Treatment Note PT-OP-A Visit Information Start: 05/04/21 18:43 Freq: Status: Active Protocol: Document 07/14/21 08:19 SP (Rec: 07/14/21 09:29 SP [id number]) Out-Patient Physical Therapy Visit Information Visit Information Visit Type Treatment Note Visit Note 2 after PN Visit Start Time 08:19 Visit Stop Time 09:00 Total Visit Minutes 41 Visit Number 16 Number of MONUMENT ERECTOR Visits 2 Evaluation Information Evaluation Date 05/05/21 Precautions Precautions A. Fib, Arthritis, HBP controlled by injection, Diabetes type II controlled by diet and Metform PT-OP-B Current Condition Start: 05/04/21 18:43 Freq: Status: Active Protocol: Document 05/05/21 08:14 LRN (Rec: 05/05/21 11:18 LRN [id number]) Current Condition History of Current Condition Onset Date 3 yrs ago R knee started to hurt. Current Complaints R knee pain that worsens with exercise. History of Current Condition Pre-surgery PT visit for partial R medial knee arthroplasty scheduled for 12/23. Has spouse and a granddaughter who will stay with her for a week after surgery. Prior Treatments and Tests PT with Ilda Carrizales DPT . Cortisone ijection in R knee. Gel injection in R knee x 3 with last one 02/2021. Treatment Goals Patient/Caregiver Goals Pt goals is to not have a lot of pain and walk normal. Be more active: walking a into grocery store without assistive device and tolerable pain. Ambulate 3 stairs without use of railing with mild discomfort (pain range 0-1/10) . Decrease nighttime discomfort of R knee when sleeping. R knee PROM equal to L side. Prior Functional Status Baseline Function- ADL's Independent Baseline Function- Mobility Independent Baseline Function- Gait Walked for exercise. Baseline Function- Other Difficulty getting in/out of her boat. Difficulty getting into bed on boat (high up). No pain with walking, stairs, sleeping. Current Functional Impairments (Reported) Functional Limitations- ADL's Stiff getting out of bed. Standing tolerance with shifting weight - 20' Pain with sit to stand Functional Limitations- Mobility/Gait Ambulate stairs (3) without railing. Walking 1.5 miles in the house , monitored by pedometer. Personal Factors Other Personal Factors That May Effect A. Fib, Arthritis, Diabetes Therapy/Recovery type II controlled by diet and Metform. PT-OP-C Subjective Start: 05/04/21 18:43 Freq: Status: Active Protocol: Document 07/14/21 08:19 SP (Rec: 07/14/21 09:29 SP [id number]) OP-PT Subjective Patient Comments Patient Comments [place] [address] [place]/decline and hasn't walked outside, stilldoesn't trust her knee and balance. States notices completely normal, notices it 0-1/10. PT-OP-E Functional Tests Start: 05/04/21 18:43 Freq: Status: Active Protocol: Document 05/24/21 09:45 DCW (Rec: 05/24/21 09:58 DCW [id number]) Functional Tests 6 Minute Walk Test Distance 211' Device Used None Comments 1.76 ft/sec PT-OP-G Mobility & Gait Start: 05/04/21 18:43 Freq: Status: Active Protocol: Document 05/24/21 09:45 DCW (Rec: 05/24/21 09:58 DCW [id number]) OP Gait Assessment Gait Gait Assistance Required: Standby Assistance Distance (Feet) 211 Gait Deviations General Gait Pattern Ataxic,Decreased Stride Length ,Decreased Feet Clearance, Lateral Trunk Lean Factors Limiting Gait Function Factors Limiting Gait Function Decreased Activity Tolerance, Decreased Strength,Limited Range of Motion,Pain PT-OP-J Posture/Palpation/Skin Start: 05/04/21 18:43 Freq: Status: Active Protocol: Document 05/24/21 09:45 DCW (Rec: 05/24/21 09:58 DCW [id number]) Skin Assessment Circumference Measurement 3 Location 10 cm inferior to R joint line Measurement (Centimeters) 35.5 Comments L = 34.8 2 Location 10 cm superior to R joint line Measurement (Centimeters) 41.0 Comments L = 40.4 1 Location R Joint Line Measurement (Centimeters) 40.6 Comments L = 38.0 PT-OP-K Range of Motion Start: 05/04/21 18:43 Freq: Status: Active Protocol: Document 07/04/21 08:16 LRN (Rec: 07/04/21 09:23 LRN [id number]) Knee Goniometric Range of Motion Knee Right Knee ROM WFL Yes Patient Position Supine Flexion Active (degrees) 123 Extension Active (degrees) 0 Left Patient Position Supine Flexion Active (degrees) 122 Extension Active (degrees) 0 PT-OP-M Strength Start: 05/04/21 18:43 Freq: Status: Active Protocol: Document 05/24/21 09:45 DCW (Rec: 05/24/21 09:58 DCW [id number]) Knee Strength Knee Manual Muscle Testing Right Flexion (S2) 4 Good Extension (L3) 3+ Fair+ Left Flexion (S2) 5 Normal Extension (L3) 5 Normal PT-OP-Q Treatments Start: 05/04/21 18:43 Freq: Status: Active Protocol: Document 07/14/21 08:19 SP (Rec: 07/14/21 09:29 SP [id number]) Cardio Equipment Treadmill Duration (Minutes) 8 Speed .8- 1.1mph Incline 0-4% Other cued increased stride and foot clearance Therapeutic Exercises Standing Exercises SLS star glide Standing Exercise Name added to HEP Side right Equipment Used target to cones 12, 3, 6 o' clock Reps/Minutes 3 reps x2 Comments cued hip hinge, knee with and behind toes- painfree Glut fac TKE Standing Exercise Name reviewed HEP Side right Resistance TB #3 Reps/Minutes 2 sec hold 2x10 Comments cued knee with toes, slow eccentric control flexion, core/ trunk still Step ups/dn Standing Exercise Name Step up/dn 8 step Side right Equipment Used 8 step and side staircase, contact on R railing Reps/Minutes x10 Comments Cued R knee with toes up/down- painfree calf stretch Standing Exercise Name reviewed HEP- does often at home Side bilateral Equipment Used 8 step, 1 HR support Reps/Minutes 30 x2 Comments cued hold gastroc and soleus Therapeutic Activity Therapeutic Activity on/off floor Name assessment Reps/Minutes x1 Comments Pt able to get on/off floor painfree use chair support to allow gardening and playing with grandchildren visting now . Neuro Re-Education Treatment Balance Activities SLS Details assessment pre/ post SLS star glide Surface carpet Equipment contact counter if needed Comments 2 sec pre BLE, 30 sec R and 18 sec L Cued tall postural alignment over stance LE, (hip abd/glut) buttocks tucked under trunk demonstrated improved SLS time . Self-Care/Home Management Treatment Education Patient Education Body Mechanics,Home Exercise Program,Pain Management, Posture Other Education Reviewed TKE, calf stretch and step up/downs and added SLS star glides to improve SLS balance and more confident out for walks again. Cued for knee alignment and hip abd/ glut fac decrease anterior knee tension/pressure with good carryover alignment more balance/tiring R knee end tx. Understands alignment is sandoval and stop if causes pain to stop. Time spent TM and incline/decline time without UE contact cues for increase NISHA, stride awareness and start outside [address] lives on as tolerated, short distances few houses and back, reported no pain during assessment in PT. If to challenging in incline/ decline neighborhood, can drive to town and utilize level paved trail [place], verbalized used to do with friends. PT-OP-R Modalities Start: 05/04/21 18:43 Freq: Status: Active Protocol: Document 06/30/21 07:31 SP (Rec: 06/30/21 08:18 SP [id number]) Ultrasound Therapy Treatment R patellar tendon Treatment Duration (minutes) 8 Patient Position Supine Applicator Size (cm2) 2 Frequency Setting (mHz) 1 Intensity Setting (w/cm2) 1 Comments good feedback, no pain during little warmth. almost post when walking around. PT-OP-T Assessment and Plan Start: 05/04/21 18:43 Freq: Status: Active Protocol: Document 07/14/21 08:19 SP (Rec: 07/14/21 09:29 SP [id number]) Physical Therapy Assessment Goals Four Impairment R knee pain interrupting sleep and normal gait. Short Term Goal (STG) Pt will be able to walk with a normal step lengths without use of assistive device. 05/18/21: educated R knee flexion during gait and stair mgt for functional progress in AAROM.05/22/21: improved demonstration R quad fac midstance phase with decrease SB wt shift, increase R knee flexion swing through heel toe awareness with use mirror. Encouraged use of 4WW contact for stability. STG Duration 06/24/21 (06/15/21: MET GOAL) Skilled Nursing Goal (LTG) Pt will be able to sleep at night with minimal or no R knee pain when sleeping. 05/22/21: progressing: still has pain when sleeps, getting better is able to sleep portion of night without towel under knee, does take pain meds before bed and through day. 06/06/21: R knee wakes her up 1x at night between 2-5 am. 06/13/21: Takes Tylenol to sleep and wakes at 3am with knee throbbing pain. 06/23/21: Pt resorts to Tylenol and ice for pain waking up last night but previous was good not waking her up. (07/04/21: R knee pain hasn't woken at night in the last 3 nights, no Tylenol for 1 week) LTG Duration 08/03/21 (07/04/21: MET GOAL) Three Impairment Decreased function Impairment LEFS is 48/80 pre-op (20-39% impaired, score 48-62). Short Term Goal (STG) R knee PROM equal to L side AROM. 05/24/21: AROM 10-100 deg 06/06/21: AROM 15-115 deg's 06/08/21: AROM 3-123 deg 06/15/21: AROM 1-126 06/23/21: AROM 1-126 deg post bike/pre manual/stretch, 131 deg post 07/04/21: AROM supine: 0-123 STG Duration 06/24/21 (07/04/21: MET GOAL in supine) [employer] Station Operator Goal (LTG) Improve LE function post-op to prior level of impairment (20 -39% impaired, score of 48-62) . 07/04/21: LEFS score 73 (1-19% impaired) LTG Duration 08/03/21 (07/04/21: MET GOAL) Two Impairment Decreased R knee AROM ( limiting walking and stair mobility) Impairment Pt goals is to not have a lot of pain and walk normal. Occasional waking due to discomfort of R knee when sleeping. R knee PROM equal to L side. Short Term Goal (STG) Improve ambulatory ability with pt walking into grocery store without assistive device and tolerable pain. 06/13/21: Went to [facility] without assistive device. STG Duration 06/24/21 (06/13/21: MET GOAL) Skilled Nursing Goal (LTG) Pt will be able to ambulate stairs with reciprical gait pattern with use of railing with mild discomfort (pain range 1-0/10).. 05/18/21: pt demonstrated BHR step to patterning, cued increase R knee flexion during step together. 07/04/21: Painfree stairs with K-tape. LTG Duration 08/03/21 (07/04/21: MET GOAL with use of K-tape) One Impairment Pt lacks appropriate self care HEP Short Term Goal (STG) Pt independent with a pre-op self care HEP. STG Duration 05/05/21 (05/05/21: MET GOAL) Skilled Nursing Goal (LTG) Pt independent in a post rehab for a partial R knee replacement, self care HEP 06/23/21: HEP: QS, SLR w/ QS, heel raises, side ABD, added calf & HS stretching supine w/ strap, self STMs usign rolling pin/ hand, scar&pat mobs, resisted side stepping. 07/13/21: band walk, calf stretch (states need to do) TKE, step up/down 1 HR, supine heel slide, supine hip abd. upright biking 1 mile/day ( discussed add resistance). Added SLS star glides. LTG Duration 08/03/21 (progressin07/14/21 ) Assessment Summary Assessment Pt responded well to ther ex, focused on HEP review (see goal #1), ed for performing standing HEP and encouraged for walks outside and continue use bike for increased effort for strengthening endurance with verbal understanding. Pt improved demonstration and understanding continue standing ex and mobility to progress endurance community walks as did prior. Pt able to get on/off floor to allow gardening/playing with grandchildren, painfree. Physical Therapy Plan Frequency and Duration Frequency of Treatment 2x/Week Duration of Treatment 10 weeks Plan of Care Start Date 05/24/21 Plan of Care End Date 08/03/21 Therapeutic Interventions Therapeutic Interventions Home Exercise Program,Manual Therapy,Neuromuscular Re- education,Patient/Caregiver Education,Self-Care/Home Management,Soft Tissue Mobilization,Taping, Therapeutic Activities, Therapeutic Exercises Modalities Cold Pack/Ice Massage Next Visit Focus/Plan Next Note Type Discharge Summary Next Visit Plan REcheck SLS star glide balance added last tx. Plan to DC to HEP and cancel remaining appts . POC: Focus on improving R hip AB strength, R knee ext tracking for proper mvmt of knee (no AD of R hip), balance .
--- NOTE | 2021-07-18 09:02 | PT.OTN ---
Current Diagnoses Unilateral primary osteoarthritis, right knee (07/18/21) Muscle weakness (generalized) (07/18/21) Physical Therapy Treatment Note PT-OP-A Visit Information Start: 05/04/21 18:43 Freq: Status: Active Protocol: Document 07/18/21 08:12 LRN (Rec: 07/18/21 09:01 LRN [id number]) Out-Patient Physical Therapy Visit Information Visit Information Visit Type Discharge Summary Visit Note 3 after PN Visit Start Time 08:15 Visit Stop Time 08:55 Total Visit Minutes 40 Visit Number 17 Evaluation Information Evaluation Date 05/05/21 Precautions Precautions A. Fib, Arthritis, HBP controlled by injection, Diabetes type II controlled by diet and Metform PT-OP-B Current Condition Start: 05/04/21 18:43 Freq: Status: Active Protocol: Document 05/05/21 08:14 LRN (Rec: 05/05/21 11:18 LRN [id number]) Current Condition History of Current Condition Onset Date 3 yrs ago R knee started to hurt. Current Complaints R knee pain that worsens with exercise. History of Current Condition Pre-surgery PT visit for partial R medial knee arthroplasty scheduled for 12/23. Has spouse and a granddaughter who will stay with her for a week after surgery. Prior Treatments and Tests PT with Ilda Carrizales DPT . Cortisone ijection in R knee. Gel injection in R knee x 3 with last one 02/2021. Treatment Goals Patient/Caregiver Goals Pt goals is to not have a lot of pain and walk normal. Be more active: walking a into grocery store without assistive device and tolerable pain. Ambulate 3 stairs without use of railing with mild discomfort (pain range 0-1/10) . Decrease nighttime discomfort of R knee when sleeping. R knee PROM equal to L side. Prior Functional Status Baseline Function- ADL's Independent Baseline Function- Mobility Independent Baseline Function- Gait Walked for exercise. Baseline Function- Other Difficulty getting in/out of her boat. Difficulty getting into bed on boat (high up). No pain with walking, stairs, sleeping. Current Functional Impairments (Reported) Functional Limitations- ADL's Stiff getting out of bed. Standing tolerance with shifting weight - 20' Pain with sit to stand Functional Limitations- Mobility/Gait Ambulate stairs (3) without railing. Walking 1.5 miles in the house , monitored by pedometer. Personal Factors Other Personal Factors That May Effect A. Fib, Arthritis, Diabetes Therapy/Recovery type II controlled by diet and Metform. PT-OP-C Subjective Start: 05/04/21 18:43 Freq: Status: Active Protocol: Document 07/18/21 08:12 LRN (Rec: 07/18/21 09:01 LRN [id number]) OP-PT Subjective Patient Comments Patient Comments PUlled muscle in LB; therefore limping. States there is almost no pain. When she walks too far she gets pain in the medial knee. PT-OP-E Functional Tests Start: 05/04/21 18:43 Freq: Status: Active Protocol: Document 05/24/21 09:45 DCW (Rec: 05/24/21 09:58 DCW [id number]) Functional Tests 6 Minute Walk Test Distance 211' Device Used None Comments 1.76 ft/sec PT-OP-G Mobility & Gait Start: 05/04/21 18:43 Freq: Status: Active Protocol: Document 05/24/21 09:45 DCW (Rec: 05/24/21 09:58 DCW [id number]) OP Gait Assessment Gait Gait Assistance Required: Standby Assistance Distance (Feet) 211 Gait Deviations General Gait Pattern Ataxic,Decreased Stride Length ,Decreased Feet Clearance, Lateral Trunk Lean Factors Limiting Gait Function Factors Limiting Gait Function Decreased Activity Tolerance, Decreased Strength,Limited Range of Motion,Pain PT-OP-J Posture/Palpation/Skin Start: 05/04/21 18:43 Freq: Status: Active Protocol: Document 05/24/21 09:45 DCW (Rec: 05/24/21 09:58 DCW [id number]) Skin Assessment Circumference Measurement 3 Location 10 cm inferior to R joint line Measurement (Centimeters) 35.5 Comments L = 34.8 2 Location 10 cm superior to R joint line Measurement (Centimeters) 41.0 Comments L = 40.4 1 Location R Joint Line Measurement (Centimeters) 40.6 Comments L = 38.0 PT-OP-K Range of Motion Start: 05/04/21 18:43 Freq: Status: Active Protocol: Document 07/18/21 08:12 LRN (Rec: 07/18/21 09:01 LRN [id number]) Knee Goniometric Range of Motion Knee Right Knee ROM WFL Yes Patient Position Supine Flexion Active (degrees) 120 Hyper-Extension Active 3 Left Knee ROM WFL Yes Patient Position Supine Flexion Active (degrees) 124 Hyper-Extension Active 4 PT-OP-M Strength Start: 05/04/21 18:43 Freq: Status: Active Protocol: Document 05/24/21 09:45 DCW (Rec: 05/24/21 09:58 DCW [id number]) Knee Strength Knee Manual Muscle Testing Right Flexion (S2) 4 Good Extension (L3) 3+ Fair+ Left Flexion (S2) 5 Normal Extension (L3) 5 Normal PT-OP-Q Treatments Start: 05/04/21 18:43 Freq: Status: Active Protocol: Document 07/18/21 08:12 LRN (Rec: 07/18/21 09:01 LRN [id number]) Cardio Equipment Recumbent Bicycle Duration (Minutes) 8 Resistance 4 Seat Position 4 Other V cuing to keep R knee from adducting, 2.88 miles Therapeutic Exercises Supine Exercises QS Supine Exercise Name QS Side right Equipment Used 1/2 roll Reps/Minutes 2' Comments hyper ext 3 deg's. Prone Exercises Hip Ext Prone Exercise Name Hip Ext Side bilateral Reps/Minutes 15x Sidelying Exercises Hip AD Sidelying Exercise Name Hip AD Side right Reps/Minutes 15x2 Comments Phys cuing for TA and to get into proper position. Hip AB Sidelying Exercise Name Hip AB Side right Resistance reviewed for HEP Reps/Minutes 15x 2 Comments Much phys & v cuing to keep leg in AB: DF, stacked on side hip ext neutral Sitting Exercises HS Curls Sitting Exercise Name HS curls- reviewed back into HEP Side right Resistance TB Lv 2 Reps/Minutes 2x15 Comments cued sit all way back in chair , slow eccentric control- gdpainfree response Standing Exercises Hamstring curl Standing Exercise Name Knee flex Side right Reps/Minutes 2' Comments Cuing to keep knee next to other and not fwd of standing knee. SLS star glide Standing Exercise Name added to HEP Side right Equipment Used target to cones 12, 3, 6 o' clock Reps/Minutes 3 reps x2 Comments cued hip hinge, knee with and behind toes- painfree Glut fac calf stretch Standing Exercise Name reviewed HEP- does often at home Side bilateral Reps/Minutes 30 x2 Comments cued hold gastroc and soleus, no bouncing Self-Care/Home Management Treatment Education Patient Education Home Exercise Program Other Education Quick Review of HEP. Activities Self-Care/Home Management Activities Issued & reviewed HEP: Sidelie hip AD. I/S pt in standing knee flex strengthening. PT-OP-R Modalities Start: 05/04/21 18:43 Freq: Status: Active Protocol: Document 06/30/21 07:31 SP (Rec: 06/30/21 08:18 SP [id number]) Ultrasound Therapy Treatment R patellar tendon Treatment Duration (minutes) 8 Patient Position Supine Applicator Size (cm2) 2 Frequency Setting (mHz) 1 Intensity Setting (w/cm2) 1 Comments good feedback, no pain during little warmth. almost post when walking around. PT-OP-T Assessment and Plan Start: 05/04/21 18:43 Freq: Status: Active Protocol: Document 07/18/21 08:12 LRN (Rec: 07/18/21 09:01 LRN [id number]) Physical Therapy Assessment Goals Four Impairment R knee pain interrupting sleep and normal gait. Short Term Goal (STG) Pt will be able to walk with a normal step lengths without use of assistive device. 05/18/21: educated R knee flexion during gait and stair mgt for functional progress in AAROM.05/22/21: improved demonstration R quad fac midstance phase with decrease SB wt shift, increase R knee flexion swing through heel toe awareness with use mirror. Encouraged use of 4WW contact for stability. STG Duration 06/24/21 (06/15/21: MET GOAL) Detention Goal (LTG) Pt will be able to sleep at night with minimal or no R knee pain when sleeping. 05/22/21: progressing: still has pain when sleeps, getting better is able to sleep portion of night without towel under knee, does take pain meds before bed and through day. 06/06/21: R knee wakes her up 1x at night between 2-5 am. 06/13/21: Takes Tylenol to sleep and wakes at 3am with knee throbbing pain. 06/23/21: Pt resorts to Tylenol and ice for pain waking up last night but previous was good not waking her up. (07/04/21: R knee pain hasn't woken at night in the last 3 nights, no Tylenol for 1 week) LTG Duration 08/03/21 (07/04/21: MET GOAL) Three Impairment Decreased function Impairment LEFS is 48/80 pre-op (20-39% impaired, score 48-62). Short Term Goal (STG) R knee PROM equal to L side AROM. 05/24/21: AROM 10-100 deg 06/06/21: AROM 15-115 deg's 06/08/21: AROM 3-123 deg 06/15/21: AROM 1-126 06/23/21: AROM 1-126 deg post bike/pre manual/stretch, 131 deg post 07/04/21: AROM supine: 0-123 STG Duration 06/24/21 (07/04/21: MET GOAL in supine) [employer] Etch Operator Goal (LTG) Improve LE function post-op to prior level of impairment (20 -39% impaired, score of 48-62) . 07/04/21: LEFS score 73 (1-19% impaired) LTG Duration 08/03/21 (07/04/21: MET GOAL) Two Impairment Decreased R knee AROM ( limiting walking and stair mobility) Impairment Pt goals is to not have a lot of pain and walk normal. Occasional waking due to discomfort of R knee when sleeping. R knee PROM equal to L side. Short Term Goal (STG) Improve ambulatory ability with pt walking into grocery store without assistive device and tolerable pain. 06/13/21: Went to [facility] without assistive device. STG Duration 06/24/21 (06/13/21: MET GOAL) [employer] Etch Operator Goal (LTG) Pt will be able to ambulate stairs with reciprical gait pattern with use of railing with mild discomfort (pain range 1-0/10).. 05/18/21: pt demonstrated BHR step to patterning, cued increase R knee flexion during step together. 07/04/21: Painfree stairs with K-tape. LTG Duration 08/03/21 (07/04/21: MET GOAL with use of K-tape) One Impairment Pt lacks appropriate self care HEP Short Term Goal (STG) Pt independent with a pre-op self care HEP. STG Duration 05/05/21 (05/05/21: MET GOAL) [employer] Etch Operator Goal (LTG) Pt independent in a post rehab for a partial R knee replacement, self care HEP 06/23/21: HEP: QS, SLR w/ QS, heel raises, side ABD, added calf & HS stretching supine w/ strap, self STMs usign rolling pin/ hand, scar&pat mobs, resisted side stepping. 07/13/21: band walk, calf stretch (states need to do) TKE, step up/down 1 HR, supine heel slide, supine hip abd. upright biking 1 mile/day ( discussed add resistance). Added SLS star glides. LTG Duration 08/03/21 (07/18/21: MET GOAL) Assessment Summary Assessment Pt able to SLS better on R leg than L. Good understanding of her HEP. Pt R knee AROM is good without stretching. Very slight less in range than L knee prior to stretching. No pain in R knee or low back with all knee exercisess, but with SLS ex she did state I can feel my back. Pt has done well with therapy and is now ready to be placed on a self care HEP. Physical Therapy Plan Discharge Physical Therapy Discharge Reasons Goals Met Discharge Comments Thank you for your referral.
== END 2021-07-19 13:18 ==
LOC: PHYS 08:15
PROVIDERS: Family Provider Family Medicine; PCP Family Medicine; Referring Provider Orthopaedic Surgery; Visit Provider Orthopaedic Surgery
DX: M17.11 Unilateral primary osteoarthritis, right knee (principal); M62.81 Muscle weakness (generalized)
CPT/HCPCS: 97110; 97116; 97140; 97162; 97535

== ENCOUNTER → 2021-08-04 09:36 | Outpatient (CLI) | payer MEDICARE, OTHER, SELFPAY ==
[2021-08-04 11:03] LABS: Hemoglobin A1C% w Est Avg Glu 6.8 % (4.0-6.0)
[2021-08-04 11:04] LABS: Creatinine Urine Random 58.5 mg/dL
[2021-08-04 11:10] LABS: Microalbumin Urine Random < 0.6 mg/dL (0-1.6)
[2021-08-04 11:14] LABS: BUN Creatinine Ratio 13.9 (6-22); Blood Urea Nitrogen 11 mg/dL (7-17); Calcium 9.6 mg/dL (8.4-10.2); Carbon Dioxide 28 mmol/L (22-32); Chloride 101 mmol/L (98-107); Estimated Glomerular Filt Rate > 60 mL/min (>60); Glucose 138 mg/dL (80-110); HEMOLYSIS < 15 (0-50); Potassium 4.6 mmol/L (3.4-5.1); Sodium 135 mmol/L (137-145)
== END ==
PROVIDERS: Family Provider Family Medicine; PCP Family Medicine; Referring Provider Family Medicine; Visit Provider Family Medicine
DX: E11.9 Type 2 diabetes mellitus without complications (principal); E78.00 Pure hypercholesterolemia, unspecified; I10 Essential (primary) hypertension
CPT/HCPCS: 36415; 80048; 82043; 82570; 83036

== ENCOUNTER → 2021-09-30 08:52 | Outpatient (CLI) | payer MEDICARE, OTHER, SELFPAY ==
--- NOTE | 2021-09-30 08:53 | DI.MG.S_ITS ---
BILATERAL DIGITAL SCREENING MAMMOGRAM 3D/2D WITH CAD: 09/30/2021 CLINICAL: Routine screening. Family history of breast cancer. Comparison is made to exams dated: 09/29/2020 mammogram, 09/29/2019 mammogram, and 06/06/2018 mammogram - [facility]. There are scattered fibroglandular elements in both breasts. Current study was also evaluated with a Computer Aided Detection (CAD) system. No significant masses, calcifications, or other findings are seen in either breast. There has been no significant interval change. IMPRESSION: NEGATIVE There is no mammographic evidence of malignancy. A 1 year screening mammogram is recommended. Based on the Tyrer Cuzick model (a risk assessment model) the patient's lifetime risk is 2.3% and her 10 year risk is 1.5%. According to the ACR, ACS, and NCCN guidelines, an annual breast MRI exam along with mammogram is recommended if the patient's lifetime risk is 20% or greater. This exam was interpreted at Station ID: [id number]. NOTE: For mammograms, a report in lay terms will be sent to the patient. Approximately 15% of breast malignancies will not be visualized mammographically. In the management of a palpable breast mass, a negative mammogram must not discourage biopsy of a clinically suspicious lesion. Electronically Signed By: Prasanth Rey M.D., jr/chi:10/02/2021 16:02:23 letter sent: Normal Exam ACR BI-RADS Category 1: Negative [id number]
== END ==
PROVIDERS: Family Provider Family Medicine; PCP Family Medicine; Referring Provider Family Medicine; Visit Provider Family Medicine
DX: Z12.31 Encounter for screening mammogram for malignant neoplasm of breast (principal); Z80.3 Family history of malignant neoplasm of breast
CPT/HCPCS: 77063; 77067

== ENCOUNTER → 2021-12-09 07:40 | Outpatient (CLI) | payer MEDICARE, OTHER, SELFPAY ==
[2021-12-09 09:21] LABS: Hemoglobin A1C% w Est Avg Glu 6.3 % (4.0-6.0)
== END ==
PROVIDERS: Family Provider Family Medicine; PCP Family Medicine; Referring Provider Family Medicine; Visit Provider Family Medicine
DX: E11.9 Type 2 diabetes mellitus without complications (principal)
CPT/HCPCS: 36415; 83036

== ENCOUNTER → 2022-03-07 08:23 | Outpatient (CLI) | payer MEDICARE, OTHER, SELFPAY ==
[2022-03-07 08:49] LABS: Estimated Glomerular Filt Rate > 60 mL/min (>60)
== END ==
PROVIDERS: Family Provider Family Medicine; PCP Family Medicine; Referring Provider Radiology Diagnostic Radiology; Visit Provider Radiology Diagnostic Radiology
DX: R10.11 Right upper quadrant pain (principal)
CPT/HCPCS: 36415; 82565

== ENCOUNTER → 2022-03-08 10:52 | Outpatient (CLI) | payer MEDICARE, OTHER, SELFPAY ==
--- NOTE | 2022-03-08 | DI.CT.S_ITS ---
PROCEDURE: CT ABDOMEN PELVIS W CON INDICATIONS: left lower quadrant pain TECHNIQUE: After the administration of oral and IV contrast, axial sections were acquired from the lung bases to the pubic symphysis. Coronal and sagittal reformats were performed. For radiation dose reduction, the following was used: automated exposure control, adjustment of mA and/or kV according to patient size. COMPARISON: [facility], CT, ABDOMEN/PELVIS WITH CONTRAST, 11/16/2016, 7:36. FINDINGS: Image quality: Excellent. Lung bases: No pleural effusion. Oral contrast in the esophagus. Heart: No significant findings. ABDOMEN: Liver: Multiple small hepatic cysts. Gallbladder: Unremarkable. Biliary ducts: Unremarkable. Pancreas: Unremarkable. Spleen: Unremarkable. Adrenal Glands: Left adrenal nodule measuring 1.3 cm, (2/), unchanged. Kidneys and Ureters: No hydronephrosis. Stomach and Bowel: Stomach, small bowel loops, and colon are unremarkable. Diverticulosis. Normal appendix. Peritoneum: No abnormal intraperitoneal fluid. No free air. Ventral Wall: No hernia. Abdominal Nodes: No retroperitoneal or mesenteric adenopathy by size criteria. Vessels: Aorta and inferior vena cava are normal in size. Circumferential calcified atherosclerotic plaque. PELVIS: Pelvic Organs: Uterus is absent Bladder: No stone. Pelvic Nodes: No enlarged lymph nodes. Miscellaneous: Fat containing left inguinal hernia. Bones: No suspicious lesion. IMPRESSION: Source for abdominal pain is uncertain. No free fluid. Diverticulosis. Dictated by: Zechariah Casanova M.D. on 03/08/2022 at 13:44 Approved by: Zechariah Casanova M.D. on 03/08/2022 at 13:50
== END ==
PROVIDERS: Family Provider Family Medicine; PCP Family Medicine; Referring Provider Physician Assistant; Visit Provider Physician Assistant
DX: R10.84 Generalized abdominal pain (principal); K22.70 Barrett's esophagus without dysplasia; E27.9 Disorder of adrenal gland, unspecified; R10.32 Left lower quadrant pain; R19.4 Change in bowel habit; I70.0 Atherosclerosis of aorta; K57.90 Diverticulosis of intestine, part unspecified, without perforation or abscess without bleeding; K76.0 Fatty (change of) liver, not elsewhere classified; K40.90 Unilateral inguinal hernia, without obstruction or gangrene, not specified as recurrent; Z86.010 Personal history of colon polyps
CPT/HCPCS: 74177; Q9967

== ENCOUNTER 2022-04-27 09:00 | Outpatient (RCR) | payer MEDICARE, OTHER, SELFPAY ==
--- NOTE | 2022-04-06 12:57 | PT.OPPOC ---
Physical, Occupational & Speech Therapy At [facility] Current Diagnoses Unilateral primary osteoarthritis, right knee (04/13/22) Visit Care Team Role Provider Type Michela Muñiz MD Family Provider Physician Primary Care Provider Specialty: Family Practice Address: [address] [place] [address], [facility] [[email or web address] [place], [place], [address] Email: [email or web address] Root MD Attending Provider Physician Referring Provider Specialty: Orthopedics Orthopedic Surgery Address: [address] [place] [address], [address] Email: [email or web address] Plan Of Care PT-OP-T Assessment and Plan Start: 04/06/22 13:48 Freq: Status: Active Protocol: Document 04/12/22 13:49 TH (Rec: 04/06/22 13:59 TH [id number]) Physical Therapy Assessment Rehab Potential Rehabilitation Potential Good Impairments Impairments Activity Tolerance,Functional Mobility Goals One Impairment Right knee pain with sit<> stand transfers. Short Term Goal (STG) Pt will be able to sit to stand with < = 4/10 right knee pain. STG Duration 4 weeks Custodial Goal (LTG) Pt will be able to sit to stand with minimal to no left knee pain. LTG Duration 10 weeks Three Impairment right gluteus medius and right quad strength 4-/5. Short Term Goal (STG) Right gluteus / quad strength will improve to 4/5. STG Duration 4 weeks Custodial Goal (LTG) Right gluteus / quad strength will improve to 5/5. LTG Duration 10 weeks Two Impairment Navigating steps difficult d/t right knee pain. Short Term Goal (STG) Pt will be able to navigate stairs with alternating step pattern and right knee pain < = 4/10. Custodial Goal (LTG) Pt will be able to navigate stairs with minimal to no right knee pain. LTG Duration 10 weeks Assessment Summary Assessment Pt presents with muscle imbalalnce of right hip and knee leading to increased strain on muscles of right knee. Pt will benefit from further PT to improve RLE strength/stability. Physical Therapy Plan Frequency and Duration Frequency of Treatment 1-2x/wk Duration of treatment (weeks) 10 Plan of Care Start Date 05/04/22 Plan of Care End Date 06/19/22 Therapeutic Interventions Therapeutic Interventions Gait Training,Home Exercise Program,Joint Mobilizations, Manual Therapy,Neuromuscular Re-education,Soft Tissue Mobilization,Taping, Therapeutic Activities, Therapeutic Exercises Modalities Cold Pack/Ice Massage,Electric Stimulation,Hot Packs, Ultrasound Plan of Care Dates Plan of Care Start Date 05/04/22 Plan of Care End Date 06/19/22 Electronically Signed by: Tiara Sawyer, PT 04/13/22 1257 If you are in agreement with this Plan of Care, please return a signed and dated copy. I have reviewed this Plan of Care and certify that the skilled therapy services above are required to meet the patient?s needs. Physician Signature Date Printed Name and Credentials Clinical Instructor Signature Printed Name and Credentials
--- NOTE | 2022-04-06 14:03 | PT.OIE ---
Current Diagnoses Unilateral primary osteoarthritis, right knee (04/06/22) Past Medical History (Last Reviewed 03/24/22 @ 13:36 by Brooklynn Nelson PA-C) Cataract (2009) CTS (carpal tunnel syndrome) Diverticular disease (2017) Foot pain (2016) Hayfever (1957) Measles (1964) Mumps (1960) Osteoporosis (2016) Paroxysmal atrial fibrillation Type 2 diabetes mellitus Past Surgical History (Last Reviewed 03/24/22 @ 13:36 by Brooklynn Nelson PA-C) Anesthesia History of cataract removal with insertion of prosthetic lens (2012) History of hysterectomy (1976) Status post arthroscopy (2010) Status post rotator cuff repair (1998) Status post tubal ligation (1974) Visit Care Team Role Provider Type Michela Muñiz MD Family Provider Physician Primary Care Provider Specialty: Family Practice Address: [address] [place] [address], [address] Email: [email or web address] Keny Root MD Attending Provider Physician Referring Provider Specialty: Orthopedics Orthopedic Surgery Address: [address] [place] [address], [id number] Email: [email or web address] Physical Therapy Initial Evaluation PT-OP-A Visit Information Start: 04/06/22 09:52 Freq: Status: Active Protocol: Document 04/06/22 11:28 TH (Rec: 04/06/22 13:48 TH [id number]) Out-Patient Physical Therapy Visit Information Visit Information Visit Type Initial Evaluation Visit Start Time 11:28 Visit Stop Time 12:00 Total Visit Minutes 32 Visit Number 1 Number of WOOD DRILL OPERATOR Visits 0 Evaluation Information Evaluation Date 04/06/22 Precautions Precautions Ask about Afib/tachycard. next visit PT-OP-B Current Condition Start: 04/06/22 09:52 Freq: Status: Active Protocol: Document 04/06/22 11:28 TH (Rec: 04/06/22 13:48 TH [id number]) Current Condition History of Current Condition Onset Date 04/19/22 Current Complaints Right knee pain with transfers / navigating steps Treatment Goals Patient/Caregiver Goals Pt wants to be able to transfer/naviagte steps without knee pain Prior Functional Status Baseline Function- ADL's Independent Baseline Function- Mobility Independent Baseline Function- Gait IND without AD Current Functional Impairments (Reported) Functional Limitations- ADL's Difficulty climbing steps /sit to stand Functional Limitations- Mobility/Gait None Pt reports pain is better after walking PT-OP-K Range of Motion Start: 04/06/22 09:52 Freq: Status: Active Protocol: Document 04/06/22 11:28 TH (Rec: 04/06/22 13:48 TH [id number]) Knee Goniometric Range of Motion Knee Right Knee ROM WFL Yes Patient Position Sitting Comments Noted VMO atrophy, tight right retinaculum, right hip ant rotated , fucntional leg length discrepancy ( right leg longer than left), right gluteus weakness PT-OP-Q Treatments Start: 04/06/22 09:52 Freq: Status: Active Protocol: Document 04/06/22 11:28 TH (Rec: 04/06/22 13:48 TH [id number]) Therapeutic Exercises Supine Exercises 1 Side right Comments right hip flexor stretch off EOB with band / Isometric hip abd ( pink band) PT-OP-T Assessment and Plan Start: 04/06/22 13:48 Freq: Status: Active Protocol: Document 04/06/22 11:28 TH (Rec: 04/06/22 13:59 TH [id number]) Physical Therapy Assessment Rehab Potential Rehabilitation Potential Good Impairments Impairments Activity Tolerance,Functional Mobility Goals One Impairment Right knee pain with sit<> stand transfers. Short Term Goal (STG) Pt will be able to sit to stand with < = 4/10 right knee pain. STG Duration 4 weeks Shelter Goal (LTG) Pt will be able to sit to stand with minimal to no left knee pain. LTG Duration 10 weeks Three Impairment right gluteus medius and right quad strength 4-/5. Short Term Goal (STG) Right gluteus / quad strength will improve to 4/5. STG Duration 4 weeks Shelter Goal (LTG) Right gluteus / quad strength will improve to 5/5. LTG Duration 10 weeks Two Impairment Navigating steps difficult d/t right knee pain. Short Term Goal (STG) Pt will be able to navigate stairs with alternating step pattern and right knee pain < = 4/10. Shelter Goal (LTG) Pt will be able to navigate stairs with minimal to no right knee pain. LTG Duration 10 weeks
--- NOTE | 2022-04-06 14:04 | PT.OPPOC ---
Physical, Occupational & Speech Therapy At [facility] Current Diagnoses Unilateral primary osteoarthritis, right knee (04/06/22) Visit Care Team Role Provider Type Michela Muñiz MD Family Provider Physician Primary Care Provider Specialty: Family Practice Address: [address] [place] [address], [facility] [place], [address] Email: [email or web address] Keny Root MD Attending Provider Physician Referring Provider Specialty: Orthopedics Orthopedic Surgery Address: [address] [place] [address], [address] Email: [email or web address] Plan Of Care PT-OP-T Assessment and Plan Start: 04/06/22 13:48 Freq: Status: Active Protocol: Document 04/06/22 13:49 TH (Rec: 04/06/22 13:59 TH [id number]) Physical Therapy Assessment Rehab Potential Rehabilitation Potential Good Impairments Impairments Activity Tolerance,Functional Mobility Goals One Impairment Right knee pain with sit<> stand transfers. Short Term Goal (STG) Pt will be able to sit to stand with < = 4/10 right knee pain. STG Duration 4 weeks Mcfp Goal (LTG) Pt will be able to sit to stand with minimal to no left knee pain. LTG Duration 10 weeks Three Impairment right gluteus medius and right quad strength 4-/5. Short Term Goal (STG) Right gluteus / quad strength will improve to 4/5. STG Duration 4 weeks Mcfp Goal (LTG) Right gluteus / quad strength will improve to 5/5. LTG Duration 10 weeks Two Impairment Navigating steps difficult d/t right knee pain. Short Term Goal (STG) Pt will be able to navigate stairs with alternating step pattern and right knee pain < = 4/10. Mcfp Goal (LTG) Pt will be able to navigate stairs with minimal to no right knee pain. LTG Duration 10 weeks Electronically Signed by: Tiara Sawyer, FLASH 04/06/22 0092 If you are in agreement with this Plan of Care, please return a signed and dated copy. I have reviewed this Plan of Care and certify that the skilled therapy services above are required to meet the patient?s needs. Physician Signature Date Printed Name and Credentials Clinical Instructor Signature Printed Name and Credentials
--- NOTE | 2022-04-06 14:24 | PT.OPPOC ---
Physical, Occupational & Speech Therapy At [facility] Current Diagnoses Unilateral primary osteoarthritis, right knee (04/06/22) Visit Care Team Role Provider Type Michela Muñiz MD Family Provider Physician Primary Care Provider Specialty: Family Practice Address: [address] [place] [address], [facility] [place], [address] Email: [email or web address] Keny Root MD Attending Provider Physician Referring Provider Specialty: Orthopedics Orthopedic Surgery Address: [address] [place] [address], [address] Email: [email or web address] Plan Of Care PT-OP-T Assessment and Plan Start: 04/06/22 13:48 Freq: Status: Active Protocol: Document 04/06/22 13:49 TH (Rec: 04/06/22 13:59 TH [id number]) Physical Therapy Assessment Rehab Potential Rehabilitation Potential Good Impairments Impairments Activity Tolerance,Functional Mobility Goals One Impairment Right knee pain with sit<> stand transfers. Short Term Goal (STG) Pt will be able to sit to stand with < = 4/10 right knee pain. STG Duration 4 weeks Penitentiary Goal (LTG) Pt will be able to sit to stand with minimal to no left knee pain. LTG Duration 10 weeks Three Impairment right gluteus medius and right quad strength 4-/5. Short Term Goal (STG) Right gluteus / quad strength will improve to 4/5. STG Duration 4 weeks Penitentiary Goal (LTG) Right gluteus / quad strength will improve to 5/5. LTG Duration 10 weeks Two Impairment Navigating steps difficult d/t right knee pain. Short Term Goal (STG) Pt will be able to navigate stairs with alternating step pattern and right knee pain < = 4/10. Penitentiary Goal (LTG) Pt will be able to navigate stairs with minimal to no right knee pain. LTG Duration 10 weeks Electronically Signed by: Tiara Sawyer, FLASH 04/06/22 5727 If you are in agreement with this Plan of Care, please return a signed and dated copy. I have reviewed this Plan of Care and certify that the skilled therapy services above are required to meet the patient?s needs. Physician Signature Date Printed Name and Credentials Clinical Instructor Signature Printed Name and Credentials
--- NOTE | 2022-04-11 10:31 | PT.OTN ---
Current Diagnoses Unilateral primary osteoarthritis, right knee (04/11/22) Physical Therapy Treatment Note PT-OP-A Visit Information Start: 04/06/22 09:52 Freq: Status: Active Protocol: Document 04/11/22 09:46 AMB (Rec: 04/11/22 10:31 AMB [id number]) Out-Patient Physical Therapy Visit Information Visit Information Visit Type Treatment Note Visit Start Time 09:45 Visit Stop Time 10:30 Total Visit Minutes 45 Visit Number 2 PT-OP-B Current Condition Start: 04/06/22 09:52 Freq: Status: Active Protocol: Document 04/06/22 11:28 TH (Rec: 04/06/22 13:48 TH [id number]) Current Condition History of Current Condition Onset Date 04/19/22 Current Complaints Right knee pain with transfers / navigating steps Treatment Goals Patient/Caregiver Goals Pt wants to be able to transfer/naviagte steps without knee pain Prior Functional Status Baseline Function- ADL's Independent Baseline Function- Mobility Independent Baseline Function- Gait IND without AD Current Functional Impairments (Reported) Functional Limitations- ADL's Difficulty climbing steps /sit to stand Functional Limitations- Mobility/Gait None Pt reports pain is better after walking PT-OP-C Subjective Start: 04/06/22 09:52 Freq: Status: Active Protocol: Document 04/11/22 09:46 AMB (Rec: 04/11/22 10:31 AMB [id number]) OP-PT Subjective Patient Comments Patient Comments Minal has been doing her exercises, continues to have R knee pain with walking and stairs. PT-OP-K Range of Motion Start: 04/06/22 09:52 Freq: Status: Active Protocol: Document 04/06/22 11:28 TH (Rec: 04/06/22 13:48 TH [id number]) Knee Goniometric Range of Motion Knee Right Knee ROM WFL Yes Patient Position Sitting Comments Noted VMO atrophy, tight right retinaculum, right hip ant rotated , fucntional leg length discrepancy ( right leg longer than left), right gluteus weakness PT-OP-Q Treatments Start: 04/06/22 09:52 Freq: Status: Active Protocol: Document 04/11/22 09:46 AMB (Rec: 04/11/22 10:31 AMB [id number]) Cardio Equipment Recumbent Elliptical (Biodex) Duration (Minutes) 4 Resistance 4 Gym Equipment Shuttle Recovery Unilateral Squats Resistance 37 Reps/Time 2x10 Bilateral Squats Resistance 50 Reps/Time 2x10 Therapeutic Exercises Supine Exercises IT band stretch Resistance 30x2 Comments therapist performed 1 Side right Comments right hip flexor stretch off EOB with band / Isometric hip abd ( pink band) Sidelying Exercises clam Reps/Minutes 2x10 Comments #2 t band Manual Therapy Treatment Soft Tissue Mobilization R knee Body Location patellar tendon and medial Mobilization Type Cross-Friction,Myofascial Release Intensity/Depth Moderate Body Position Supine PT-OP-T Assessment and Plan Start: 04/06/22 13:48 Freq: Status: Active Protocol: Document 04/11/22 09:46 AMB (Rec: 04/11/22 10:31 AMB [id number]) Physical Therapy Assessment Goals One Impairment Right knee pain with sit<> stand transfers. Short Term Goal (STG) Pt will be able to sit to stand with < = 4/10 right knee pain. STG Duration 4 weeks Chcf Goal (LTG) Pt will be able to sit to stand with minimal to no left knee pain. LTG Duration 10 weeks Three Impairment right gluteus medius and right quad strength 4-/5. Short Term Goal (STG) Right gluteus / quad strength will improve to 4/5. STG Duration 4 weeks Retail And Promotions Coordinator Goal (LTG) Right gluteus / quad strength will improve to 5/5. LTG Duration 10 weeks Two Impairment Navigating steps difficult d/t right knee pain. Short Term Goal (STG) Pt will be able to navigate stairs with alternating step pattern and right knee pain < = 4/10. Chcf Goal (LTG) Pt will be able to navigate stairs with minimal to no right knee pain. LTG Duration 10 weeks Assessment Summary Assessment Minal attends PT with continued medial knee pain. Did have some reproduction of knee pain with shuttle leg press. Otherwise tolerated tx well, progressed hip abductor strengthening to t band resisted clamshell and given HO. Physical Therapy Plan Next Visit Focus/Plan Next Note Type Treatment Note Next Visit Plan Continue hip flexor stretching , hip abductor strengthening
--- NOTE | 2022-04-13 15:35 | PT.OTN ---
Current Diagnoses Unilateral primary osteoarthritis, right knee (04/13/22) Physical Therapy Treatment Note PT-OP-A Visit Information Start: 04/06/22 09:52 Freq: Status: Active Protocol: Document 04/13/22 10:30 TH (Rec: 04/13/22 14:12 TH [id number]) Out-Patient Physical Therapy Visit Information Visit Information Visit Type Treatment Note Visit Start Time 10:30 Visit Stop Time 11:15 Total Visit Minutes 45 Visit Number 2 Number of LIBRARY ATTENDANT Visits 0 PT-OP-B Current Condition Start: 04/06/22 09:52 Freq: Status: Active Protocol: Document 04/12/22 11:28 TH (Rec: 04/06/22 13:48 TH [id number]) Current Condition History of Current Condition Onset Date 04/19/22 Current Complaints Right knee pain with transfers / navigating steps Treatment Goals Patient/Caregiver Goals Pt wants to be able to transfer/naviagte steps without knee pain Prior Functional Status Baseline Function- ADL's Independent Baseline Function- Mobility Independent Baseline Function- Gait IND without AD Current Functional Impairments (Reported) Functional Limitations- ADL's Difficulty climbing steps /sit to stand Functional Limitations- Mobility/Gait None Pt reports pain is better after walking PT-OP-C Subjective Start: 04/06/22 09:52 Freq: Status: Active Protocol: Document 04/13/22 10:30 TH (Rec: 04/13/22 14:12 TH [id number]) OP-PT Subjective Patient Comments Patient Comments Pt states right knee pain is improving. She has been doing HEP without issue aside from needing to change hip flexor stretch to different position due to bed too low. Patient Reported Progress Improving PT-OP-K Range of Motion Start: 04/06/22 09:52 Freq: Status: Active Protocol: Document 04/12/22 11:28 TH (Rec: 04/06/22 13:48 TH [id number]) Knee Goniometric Range of Motion Knee Right Knee ROM WFL Yes Patient Position Sitting Comments Noted VMO atrophy, tight right retinaculum, right hip ant rotated , fucntional leg length discrepancy ( right leg longer than left), right gluteus weakness PT-OP-Q Treatments Start: 04/06/22 09:52 Freq: Status: Active Protocol: Document 04/13/22 10:30 TH (Rec: 04/13/22 14:12 TH [id number]) Therapeutic Exercises Other Exercises HEP cont Comments Added: resisted knee ext. ( pink band), changed hip flexor stretch standing Manual Therapy Treatment Soft Tissue Mobilization Manual Comments R iliopsoas release Long axis traction right LE IASTM right distal quads Patellar glides with distraction PT-OP-T Assessment and Plan Start: 04/06/22 13:48 Freq: Status: Active Protocol: Document 04/13/22 10:30 TH (Rec: 04/06/22 13:59 TH [id number]) Physical Therapy Assessment Rehab Potential Rehabilitation Potential Good Impairments Impairments Activity Tolerance,Functional Mobility Goals One Impairment Right knee pain with sit<> stand transfers. Short Term Goal (STG) Pt will be able to sit to stand with < = 4/10 right knee pain. STG Duration 4 weeks Long-Term Goal (LTG) Pt will be able to sit to stand with minimal to no left knee pain. LTG Duration 10 weeks Three Impairment right gluteus medius and right quad strength 4-/5. Short Term Goal (STG) Right gluteus / quad strength will improve to 4/5. STG Duration 4 weeks Histology Manager Goal (LTG) Right gluteus / quad strength will improve to 5/5. LTG Duration 10 weeks Two Impairment Navigating steps difficult d/t right knee pain. Short Term Goal (STG) Pt will be able to navigate stairs with alternating step pattern and right knee pain < = 4/10. Long-Term Goal (LTG) Pt will be able to navigate stairs with minimal to no right knee pain. LTG Duration 10 weeks Assessment Summary Assessment Pt presents with muscle imbalalnce of right hip and knee leading to increased strain on muscles of right knee. Pt will benefit from further PT to improve RLE strength/stability. Physical Therapy Plan Frequency and Duration Frequency of Treatment 1-2x/wk Duration of treatment (weeks) 10 Plan of Care Start Date 05/04/22 Plan of Care End Date 06/19/22 Therapeutic Interventions Therapeutic Interventions Gait Training,Home Exercise Program,Joint Mobilizations, Manual Therapy,Neuromuscular Re-education,Soft Tissue Mobilization,Taping, Therapeutic Activities, Therapeutic Exercises Modalities Cold Pack/Ice Massage,Electric Stimulation,Hot Packs, Ultrasound
--- NOTE | 2022-04-13 15:38 | PT.OTN ---
Current Diagnoses Unilateral primary osteoarthritis, right knee (04/13/22) Physical Therapy Treatment Note PT-OP-A Visit Information Start: 04/06/22 09:52 Freq: Status: Active Protocol: Document 04/13/22 10:30 TH (Rec: 04/13/22 14:12 TH [id number]) Out-Patient Physical Therapy Visit Information Visit Information Visit Type Treatment Note Visit Start Time 10:30 Visit Stop Time 11:15 Total Visit Minutes 45 Visit Number 2 Number of MAKE UP WORKER Visits 0 PT-OP-B Current Condition Start: 04/06/22 09:52 Freq: Status: Active Protocol: Document 04/12/22 11:28 TH (Rec: 04/06/22 13:48 TH [id number]) Current Condition History of Current Condition Onset Date 04/19/22 Current Complaints Right knee pain with transfers / navigating steps Treatment Goals Patient/Caregiver Goals Pt wants to be able to transfer/naviagte steps without knee pain Prior Functional Status Baseline Function- ADL's Independent Baseline Function- Mobility Independent Baseline Function- Gait IND without AD Current Functional Impairments (Reported) Functional Limitations- ADL's Difficulty climbing steps /sit to stand Functional Limitations- Mobility/Gait None Pt reports pain is better after walking PT-OP-C Subjective Start: 04/06/22 09:52 Freq: Status: Active Protocol: Document 04/13/22 10:30 TH (Rec: 04/13/22 14:12 TH [id number]) OP-PT Subjective Patient Comments Patient Comments Pt states right knee pain is improving. She has been doing HEP without issue aside from needing to change hip flexor stretch to different position due to bed too low. Patient Reported Progress Improving PT-OP-K Range of Motion Start: 04/06/22 09:52 Freq: Status: Active Protocol: Document 04/12/22 11:28 TH (Rec: 04/06/22 13:48 TH [id number]) Knee Goniometric Range of Motion Knee Right Knee ROM WFL Yes Patient Position Sitting Comments Noted VMO atrophy, tight right retinaculum, right hip ant rotated , fucntional leg length discrepancy ( right leg longer than left), right gluteus weakness PT-OP-Q Treatments Start: 04/06/22 09:52 Freq: Status: Active Protocol: Document 04/13/22 10:30 TH (Rec: 04/13/22 14:12 TH [id number]) Therapeutic Exercises Other Exercises HEP cont Comments Added: resisted knee ext. ( pink band), changed hip flexor stretch standing Manual Therapy Treatment Soft Tissue Mobilization Manual Comments R iliopsoas release Long axis traction right LE IASTM right distal quads Patellar glides with distraction PT-OP-T Assessment and Plan Start: 04/06/22 13:48 Freq: Status: Active Protocol: Document 04/13/22 10:30 TH (Rec: 04/06/22 13:59 TH [id number]) Physical Therapy Assessment Rehab Potential Rehabilitation Potential Good Impairments Impairments Activity Tolerance,Functional Mobility Goals One Impairment Right knee pain with sit<> stand transfers. Short Term Goal (STG) Pt will be able to sit to stand with < = 4/10 right knee pain. STG Duration 4 weeks Jail Goal (LTG) Pt will be able to sit to stand with minimal to no left knee pain. LTG Duration 10 weeks Three Impairment right gluteus medius and right quad strength 4-/5. Short Term Goal (STG) Right gluteus / quad strength will improve to 4/5. STG Duration 4 weeks Rolling Up Machine Operator Goal (LTG) Right gluteus / quad strength will improve to 5/5. LTG Duration 10 weeks Two Impairment Navigating steps difficult d/t right knee pain. Short Term Goal (STG) Pt will be able to navigate stairs with alternating step pattern and right knee pain < = 4/10. Jail Goal (LTG) Pt will be able to navigate stairs with minimal to no right knee pain. LTG Duration 10 weeks Assessment Summary Assessment Pt presents with muscle imbalalnce of right hip and knee leading to increased strain on muscles of right knee. Pt will benefit from further PT to improve RLE strength/stability. Physical Therapy Plan Frequency and Duration Frequency of Treatment 1-2x/wk Duration of treatment (weeks) 10 Plan of Care Start Date 05/04/22 Plan of Care End Date 06/19/22 Therapeutic Interventions Therapeutic Interventions Gait Training,Home Exercise Program,Joint Mobilizations, Manual Therapy,Neuromuscular Re-education,Soft Tissue Mobilization,Taping, Therapeutic Activities, Therapeutic Exercises Modalities Cold Pack/Ice Massage,Electric Stimulation,Hot Packs, Ultrasound
--- NOTE | 2022-04-17 09:51 | PT.OTN ---
Current Diagnoses Unilateral primary osteoarthritis, right knee (04/17/22) Physical Therapy Treatment Note PT-OP-A Visit Information Start: 04/06/22 09:52 Freq: Status: Active Protocol: Document 04/17/22 09:00 NBM (Rec: 04/17/22 09:50 NBM [id number]) Out-Patient Physical Therapy Visit Information Visit Information Visit Type Treatment Note Visit Start Time 09:01 Visit Stop Time 09:41 Total Visit Minutes 40 Visit Number 3 Number of ANTHROPOLOGY LECTURER Visits 1 PT-OP-B Current Condition Start: 04/06/22 09:52 Freq: Status: Active Protocol: Document 04/12/22 11:28 TH (Rec: 04/06/22 13:48 TH [id number]) Current Condition History of Current Condition Onset Date 04/19/22 Current Complaints Right knee pain with transfers / navigating steps Treatment Goals Patient/Caregiver Goals Pt wants to be able to transfer/naviagte steps without knee pain Prior Functional Status Baseline Function- ADL's Independent Baseline Function- Mobility Independent Baseline Function- Gait IND without AD Current Functional Impairments (Reported) Functional Limitations- ADL's Difficulty climbing steps /sit to stand Functional Limitations- Mobility/Gait None Pt reports pain is better after walking PT-OP-C Subjective Start: 04/06/22 09:52 Freq: Status: Active Protocol: Document 04/17/22 09:00 NBM (Rec: 04/17/22 09:50 NBM [id number]) OP-PT Subjective Patient Comments Patient Comments Pt states her knee is getting better and she notices today she has feeling in it again for the first time in a year. Stairs are better - I don't have that pain when I take a step down. PT-OP-K Range of Motion Start: 04/06/22 09:52 Freq: Status: Active Protocol: Document 04/12/22 11:28 TH (Rec: 04/06/22 13:48 TH [id number]) Knee Goniometric Range of Motion Knee Right Knee ROM WFL Yes Patient Position Sitting Comments Noted VMO atrophy, tight right retinaculum, right hip ant rotated , fucntional leg length discrepancy ( right leg longer than left), right gluteus weakness PT-OP-Q Treatments Start: 04/06/22 09:52 Freq: Status: Active Protocol: Document 04/17/22 09:00 NBM (Rec: 04/17/22 09:50 [facility] [id number]) Cardio Equipment Recumbent Elliptical (Biodex) Duration (Minutes) 4 Resistance 4 Therapeutic Exercises Supine Exercises Hip adductors stretch Side right Reps/Minutes 2x30 Bridge Supine Exercise Name resisted Resistance Chamizal Latex-free TB Reps/Minutes x10 Comments vc for slow eccentric Piriformis stretch Supine Exercise Name knee towards opp dot Side bilateral Reps/Minutes 2x30 ea or 5 breath cycles Comments cues for hand placement, hold time clam Supine Exercise Name resisted Side bilateral Resistance Chamizal Latex-free TB Reps/Minutes x10 IT band stretch Resistance 30x2 Comments therapist performed Sidelying Exercises clam Reps/Minutes 2x10 Comments #2 t band Self-Care/Home Management Treatment Education Patient Education Home Exercise Program Other Education Added to HEP: Resisted bridge, Piriformis stretch (knee to opp chest), supine stretches with strap: Adductor, HS, ITB - HO given. PT-OP-T Assessment and Plan Start: 04/06/22 13:48 Freq: Status: Active Protocol: Document 04/17/22 09:00 [facility] (Rec: 04/17/22 09:50 [facility] [id number]) Physical Therapy Assessment Impairments Impairments Activity Tolerance,Functional Mobility Goals One Impairment Right knee pain with sit<> stand transfers. Short Term Goal (STG) Pt will be able to sit to stand with < = 4/10 right knee pain. STG Duration 4 weeks Senior Geotechnical Engineer Goal (LTG) Pt will be able to sit to stand with minimal to no left knee pain. LTG Duration 10 weeks Three Impairment right gluteus medius and right quad strength 4-/5. Impairment LEFS is 48/80 pre-op (20-39% impaired, score 48-62). Short Term Goal (STG) Right gluteus / quad strength will improve to 4/5. STG Duration 4 weeks Senior Geotechnical Engineer Goal (LTG) Right gluteus / quad strength will improve to 5/5. LTG Duration 10 weeks Two Impairment Navigating steps difficult d/t right knee pain. Impairment Pt goals is to not have a lot of pain and walk normal. Occasional waking due to discomfort of R knee when sleeping. R knee PROM equal to L side. Short Term Goal (STG) Pt will be able to navigate stairs with alternating step pattern and right knee pain < = 4/10. Senior Geotechnical Engineer Goal (LTG) Pt will be able to navigate stairs with minimal to no right knee pain. LTG Duration 10 weeks Assessment Summary Assessment Pt reports improving R hip and knee pain. Pt requires cues for slow eccentric movement w/ ex's. Resisted L hip ext discontinued due to pt complaint of R medial knee pain; improves w/ cues for maintain step width to reduce hip rotation - clinic only ex. Added to HEP: Resisted bridge , Piriformis stretch (knee to opp chest), supine stretches with strap: Adductor, HS, ITB - HO given. Physical Therapy Plan Frequency and Duration Frequency of Treatment 1-2x/wk Duration of treatment (weeks) 10 Plan of Care Start Date 05/04/22 Plan of Care End Date 06/19/22 Therapeutic Interventions Therapeutic Interventions Gait Training,Home Exercise Program,Joint Mobilizations, Manual Therapy,Neuromuscular Re-education,Soft Tissue Mobilization,Taping, Therapeutic Activities, Therapeutic Exercises Modalities Cold Pack/Ice Massage,Electric Stimulation,Hot Packs, Ultrasound Next Visit Focus/Plan Next Note Type Treatment Note Next Visit Plan Review HEP; standing hip ext/ add. Continue hip flexor stretching , hip abductor strengthening
--- NOTE | 2022-04-19 10:35 | PT.OTN ---
Current Diagnoses Unilateral primary osteoarthritis, right knee (04/25/22) Physical Therapy Treatment Note PT-OP-A Visit Information Start: 04/06/22 09:52 Freq: Status: Active Protocol: Document 04/19/22 09:00 TH (Rec: 04/19/22 10:05 TH [id number]) Out-Patient Physical Therapy Visit Information Visit Information Visit Type Treatment Note Visit Start Time 09:00 Visit Stop Time 09:45 Total Visit Minutes 45 Visit Number 4 Number of UTILITY ARBORIST Visits 1 PT-OP-B Current Condition Start: 04/06/22 09:52 Freq: Status: Active Protocol: Document 04/19/22 09:00 TH (Rec: 04/19/22 10:05 TH [id number]) Current Condition History of Current Condition History of Current Condition Pt states that her symptoms are nearly resolved now with mild symptoms to medial knee ( sartorius/pes anserine). Treatment Goals Patient/Caregiver Goals Pt.states she is able to sit < > stand without pain now. PT-OP-C Subjective Start: 04/06/22 09:52 Freq: Status: Active Protocol: Document 04/19/22 09:00 TH (Rec: 04/19/22 10:05 TH [id number]) OP-PT Subjective Patient Comments Patient Comments Pt states that her symptoms are nearly resolved now with mild symptoms to medial knee PT-OP-G Mobility & Gait Start: 04/06/22 09:52 Freq: Status: Active Protocol: Document 04/19/22 09:00 TH (Rec: 04/19/22 10:05 TH [id number]) OP Gait Assessment Comments Gait Comments Noted right glut. medius strength improving with gait. RLE continues to adduct/IR morethan norm though this has improved some since initial eval. PT-OP-K Range of Motion Start: 04/06/22 09:52 Freq: Status: Active Protocol: Document 04/06/22 11:28 TH (Rec: 04/06/22 13:48 TH [id number]) Knee Goniometric Range of Motion Knee Right Knee ROM WFL Yes Patient Position Sitting Comments Noted VMO atrophy, tight right retinaculum, right hip ant rotated , fucntional leg length discrepancy ( right leg longer than left), right gluteus weakness PT-OP-Q Treatments Start: 04/06/22 09:52 Freq: Status: Active Protocol: Document 04/19/22 09:00 TH (Rec: 04/19/22 10:05 TH [id number]) Therapeutic Exercises Other Exercises 2 Other Exercise Name Side stepping with resistance ( pink band 4-6 x counter length 1 Other Exercise Name wall sits with abd. (pink band ) 10-60 sec Manual Therapy Treatment Manual Techniques Manual Comments IASTM right sartorius/pes anserine tack and stretch sartorius PT-OP-T Assessment and Plan Start: 04/06/22 13:48 Freq: Status: Active Protocol: Document 04/19/22 09:00 TH (Rec: 04/19/22 10:05 TH [id number]) Physical Therapy Assessment Goals One Impairment Right knee pain with sit<> stand transfers. Short Term Goal (STG) Pt will be able to sit to stand with < = 4/10 right knee pain. STG Duration 4 weeks Met 04/19/22 Wrapper Layer And Examiner Soft Work Goal (LTG) Pt will be able to sit to stand with minimal to no left knee pain. LTG Duration 10 weeks Met 04/19/22 Three Impairment right gluteus medius and right quad strength 4-/5. Impairment LEFS is 48/80 pre-op (20-39% impaired, score 48-62). Short Term Goal (STG) Right gluteus / quad strength will improve to 4/5. STG Duration 4 weeks Progressing Retirement Goal (LTG) Right gluteus / quad strength will improve to 5/5. LTG Duration 10 weeks Two Impairment Navigating steps difficult d/t right knee pain. Impairment Pt goals is to not have a lot of pain and walk normal. Occasional waking due to discomfort of R knee when sleeping. R knee PROM equal to L side. Short Term Goal (STG) Pt will be able to navigate stairs with alternating step pattern and right knee pain < = 4/10. STG Duration 4 weeks NT Wrapper Layer And Examiner Soft Work Goal (LTG) Pt will be able to navigate stairs with minimal to no right knee pain. LTG Duration 10 weeks Assessment Summary Assessment Pt is making good progress as demonstrated by resolved pain with transfers. Will continue strength progression for r hip/knee. Will likely dc in 2 -3 more visits. Physical Therapy Plan Frequency and Duration Frequency of Treatment 1-2x/wk Duration of treatment (weeks) 10 Plan of Care Start Date 05/04/22 Plan of Care End Date 06/19/22 Therapeutic Interventions Therapeutic Interventions Gait Training,Home Exercise Program,Joint Mobilizations, Manual Therapy,Neuromuscular Re-education,Soft Tissue Mobilization,Taping, Therapeutic Activities, Therapeutic Exercises Modalities Cold Pack/Ice Massage,Electric Stimulation,Hot Packs, Ultrasound
--- NOTE | 2022-04-25 10:55 | PT.OTN ---
Current Diagnoses Unilateral primary osteoarthritis, right knee (04/25/22) Physical Therapy Treatment Note PT-OP-A Visit Information Start: 04/06/22 09:52 Freq: Status: Active Protocol: Document 04/25/22 09:00 TH (Rec: 04/25/22 10:54 TH [id number]) Out-Patient Physical Therapy Visit Information Visit Information Visit Type Treatment Note Visit Start Time 09:00 Visit Stop Time 09:45 Total Visit Minutes 45 Visit Number 5 Number of BUSINESS OWNER/ENGINEER Visits 0 PT-OP-B Current Condition Start: 04/06/22 09:52 Freq: Status: Active Protocol: Document 04/19/22 09:00 TH (Rec: 04/19/22 10:05 TH [id number]) Current Condition History of Current Condition History of Current Condition Pt states that her symptoms are nearly resolved now with mild symptoms to medial knee ( sartorius/pes anserine). Treatment Goals Patient/Caregiver Goals Pt.states she is able to sit < > stand without pain now. PT-OP-C Subjective Start: 04/06/22 09:52 Freq: Status: Active Protocol: Document 04/25/22 09:00 TH (Rec: 04/25/22 10:54 TH [id number]) OP-PT Subjective Patient Comments Patient Comments Pt reports no pain with transfers /stairs. Mild pain at pes anserine ( right) at rest. Patient Reported Progress Improving PT-OP-G Mobility & Gait Start: 04/06/22 09:52 Freq: Status: Active Protocol: Document 04/19/22 09:00 TH (Rec: 04/19/22 10:05 TH [id number]) OP Gait Assessment Comments Gait Comments Noted right glut. medius strength improving with gait. RLE continues to adduct/IR morethan norm though this has improved some since initial eval. PT-OP-K Range of Motion Start: 04/06/22 09:52 Freq: Status: Active Protocol: Document 04/06/22 11:28 TH (Rec: 04/06/22 13:48 TH [id number]) Knee Goniometric Range of Motion Knee Right Knee ROM WFL Yes Patient Position Sitting Comments Noted VMO atrophy, tight right retinaculum, right hip ant rotated , fucntional leg length discrepancy ( right leg longer than left), right gluteus weakness PT-OP-Q Treatments Start: 04/06/22 09:52 Freq: Status: Active Protocol: Document 04/25/22 09:00 TH (Rec: 04/25/22 10:54 TH [id number]) Therapeutic Exercises Other Exercises IT band stretch Comments 1 x 3 30 sec HS stretch Comments 1 x 3 30 sec squats with UE support Comments 2 x 10 touch down to chair LAQ Comments 1 x 10 with good knee/hip alignment Gait Training Gait Activity Stair training Comments up / down steps with focus on hip/knee alignment Manual Therapy Treatment Manual Techniques IASTM right sartorius Comments q PT-OP-R Modalities Start: 04/06/22 09:52 Freq: Status: Active Protocol: Document 04/25/22 09:00 TH (Rec: 04/25/22 10:54 TH [id number]) Ultrasound Therapy Treatment pes anserine Comments 1[facility] continuous PT-OP-T Assessment and Plan Start: 04/06/22 13:48 Freq: Status: Active Protocol: Document 04/25/22 09:00 TH (Rec: 04/25/22 10:54 TH [id number]) Physical Therapy Assessment Goals One Impairment Right knee pain with sit<> stand transfers. Short Term Goal (STG) Pt will be able to sit to stand with < = 4/10 right knee pain. STG Duration 4 weeks Met 04/19/22 Single Corner Cutter Goal (LTG) Pt will be able to sit to stand with minimal to no left knee pain. LTG Duration 10 weeks Met 04/19/22 Three Impairment right gluteus medius and right quad strength 4-/5. Impairment LEFS is 48/80 pre-op (20-39% impaired, score 48-62). Short Term Goal (STG) Right gluteus / quad strength will improve to 4/5. STG Duration 4 weeks Progressing [facility] Goal (LTG) Right gluteus / quad strength will improve to 5/5. LTG Duration 10 weeks Two Impairment Navigating steps difficult d/t right knee pain. Impairment Pt goals is to not have a lot of pain and walk normal. Occasional waking due to discomfort of R knee when sleeping. R knee PROM equal to L side. Short Term Goal (STG) Pt will be able to navigate stairs with alternating step pattern and right knee pain < = 4/10. STG Duration 4 weeks NT [facility] Goal (LTG) Pt will be able to navigate stairs with minimal to no right knee pain. LTG Duration 10 weeks Physical Therapy Plan Frequency and Duration Frequency of Treatment 1-2x/wk Duration of treatment (weeks) 10 Plan of Care Start Date 05/04/22 Plan of Care End Date 06/19/22 Therapeutic Interventions Therapeutic Interventions Gait Training,Home Exercise Program,Joint Mobilizations, Manual Therapy,Neuromuscular Re-education,Soft Tissue Mobilization,Taping, Therapeutic Activities, Therapeutic Exercises Modalities Cold Pack/Ice Massage,Electric Stimulation,Hot Packs, Ultrasound Next Visit Focus/Plan Next Note Type Treatment Note Next Visit Plan Review HEP; standing hip ext/ add. Continue hip flexor stretching , hip abductor strengthening
--- NOTE | 2022-04-27 10:54 | PT.OTN ---
Current Diagnoses Unilateral primary osteoarthritis, right knee (04/27/22) Physical Therapy Treatment Note PT-OP-A Visit Information Start: 04/06/22 09:52 Freq: Status: Active Protocol: Document 04/27/22 08:52 TH (Rec: 04/27/22 10:53 TH [id number]) Out-Patient Physical Therapy Visit Information Visit Information Visit Type Discharge Summary Visit Start Time 09:00 Visit Stop Time 09:45 Total Visit Minutes 45 Visit Number 6 Number of BULLDOZER OPERATOR Visits 0 PT-OP-B Current Condition Start: 04/06/22 09:52 Freq: Status: Active Protocol: Document 04/19/22 09:00 TH (Rec: 04/19/22 10:05 TH [id number]) Current Condition History of Current Condition History of Current Condition Pt states that her symptoms are nearly resolved now with mild symptoms to medial knee ( sartorius/pes anserine). Treatment Goals Patient/Caregiver Goals Pt.states she is able to sit < > stand without pain now. PT-OP-C Subjective Start: 04/06/22 09:52 Freq: Status: Active Protocol: Document 04/27/22 08:52 TH (Rec: 04/27/22 10:53 TH [id number]) OP-PT Subjective Patient Comments Patient Comments Pt reports right knee alejandrina has resolved. She is able to transfer / navigate stairs without issue. Patient Reported Progress Resolved PT-OP-G Mobility & Gait Start: 04/06/22 09:52 Freq: Status: Active Protocol: Document 04/19/22 09:00 TH (Rec: 04/19/22 10:05 TH [id number]) OP Gait Assessment Comments Gait Comments Noted right glut. medius strength improving with gait. RLE continues to adduct/IR morethan norm though this has improved some since initial eval. PT-OP-K Range of Motion Start: 04/06/22 09:52 Freq: Status: Active Protocol: Document 04/06/22 11:28 TH (Rec: 04/06/22 13:48 TH [id number]) Knee Goniometric Range of Motion Knee Right Knee ROM WFL Yes Patient Position Sitting Comments Noted VMO atrophy, tight right retinaculum, right hip ant rotated , fucntional leg length discrepancy ( right leg longer than left), right gluteus weakness PT-OP-Q Treatments Start: 04/06/22 09:52 Freq: Status: Active Protocol: Document 04/27/22 08:52 TH (Rec: 04/27/22 10:53 TH [id number]) Therapeutic Exercises Sidelying Exercises clam Comments isometric clamshells Other Exercises supine marches with TA Comments x 10 pelvic floor/TA ex. Comments 2 x 10 5 sec hold mini lunges Comments 1 x 10 with UE support Gait Training Gait Activity Stair training Comments Stair training up/down 3 steps with focus on knee/hip alignment. Self-Care/Home Management Treatment Education Other Education Access Code: [email or web address] URL: [email or web address] Date: 04/27/2022 Prepared by: Tiara Sawyer Exercises Hooklying Isometric Clamshell - 1 x daily - 7 x weekly - 2-3 sets - 10 reps Wall Squat with Resistance Loop - 1 x daily - 7 x weekly - 1 sets - 5-10 reps - 10-60 sec hold Side Stepping with Resistance at Ankles and Counter Support - 1 x daily - 7 x weekly Mini Squat with Counter Support - 1 x daily - 7 x weekly - 1 sets - 10 reps Standing Partial Lunge - 1 x daily - 7 x weekly - 1 sets - 10 reps - 5 sec hold Supine Transversus Abdominis Bracing with Pelvic Floor Contraction - 1 x daily - 7 x weekly - 1 sets - 10 reps - 5 sec hold Supine March with Posterior Pelvic Tilt - 1 x daily - 7 x weekly - 2 sets - 10 reps PT-OP-R Modalities Start: 04/06/22 09:52 Freq: Status: Active Protocol: Document 04/25/22 09:00 TH (Rec: 04/25/22 10:54 TH [id number]) Ultrasound Therapy Treatment pes anserine Comments 1[facility] continuous PT-OP-T Assessment and Plan Start: 04/06/22 13:48 Freq: Status: Active Protocol: Document 04/27/22 08:52 TH (Rec: 04/27/22 10:53 TH [id number]) Physical Therapy Assessment Goals One Impairment Right knee pain with sit<> stand transfers. Short Term Goal (STG) Pt will be able to sit to stand with < = 4/10 right knee pain. STG Duration 4 weeks Met 04/19/22 [facility] Goal (LTG) Pt will be able to sit to stand with minimal to no left knee pain. LTG Duration 10 weeks Met 04/19/22 Three Impairment right gluteus medius and right quad strength 4-/5. Impairment LEFS is 48/80 pre-op (20-39% impaired, score 48-62). Short Term Goal (STG) Right gluteus / quad strength will improve to 4/5. STG Duration 4 weeks Progressing/ MET Intelligence Operations Goal (LTG) Right gluteus / quad strength will improve to 5/5. LTG Duration 10 weeks NEARLY MET 4+/5 Two Impairment Navigating steps difficult d/t right knee pain. Impairment Pt goals is to not have a lot of pain and walk normal. Occasional waking due to discomfort of R knee when sleeping. R knee PROM equal to L side. Short Term Goal (STG) Pt will be able to navigate stairs with alternating step pattern and right knee pain < = 4/10. STG Duration 4 weeks NT Intelligence Operations Goal (LTG) Pt will be able to navigate stairs with minimal to no right knee pain. LTG Duration 10 weeks MET Physical Therapy Plan Frequency and Duration Frequency of Treatment 1-2x/wk Duration of treatment (weeks) 10 Plan of Care Start Date 05/04/22 Plan of Care End Date 06/19/22 Therapeutic Interventions Therapeutic Interventions Gait Training,Home Exercise Program,Joint Mobilizations, Manual Therapy,Neuromuscular Re-education,Soft Tissue Mobilization,Taping, Therapeutic Activities, Therapeutic Exercises Modalities Cold Pack/Ice Massage,Electric Stimulation,Hot Packs, Ultrasound
== END 2022-04-30 11:54 | disposition home or self-care (01) ==
LOC: PHYS 09:00
PROVIDERS: Family Provider Family Medicine; PCP Family Medicine; Referring Provider Orthopaedic Surgery; Visit Provider Orthopaedic Surgery
DX: M17.11 Unilateral primary osteoarthritis, right knee (principal)
CPT/HCPCS: 97035; 97110; 97140; 97161

== ENCOUNTER → 2022-10-02 07:53 | Outpatient (CLI) | payer MEDICARE, OTHER, SELFPAY ==
[2022-10-02 10:10] LABS: Alanine Aminotransferase 23 IU/L (<35); Albumin Globulin Ratio 1.3 (1.0-2.8); Alkaline Phosphatase 61 U/L (38-126); Aspartate Aminotransferase 19 IU/L (14-36); BUN Creatinine Ratio 22.9 (6-22); Bilirubin Total 0.5 mg/dL (0.2-1.3); Blood Urea Nitrogen 19 mg/dL (7-17); Calcium 9.3 mg/dL (8.4-10.2); Carbon Dioxide 29 mmol/L (22-32); Chloride 96 mmol/L (98-107); Cholesterol 132 mg/dL (140-199); Estimated Glomerular Filt Rate > 60 mL/min (>60); Glucose 162 mg/dL (80-110); HDL Cholesterol 66 mg/dL (40-60); HEMOLYSIS < 15 (0-50); LDL Cholesterol Calculated 25 mg/dL (<100); Potassium 4.7 mmol/L (3.4-5.1); Sodium 133 mmol/L (137-145); Triglycerides 204 mg/dL (35-150)
[2022-10-04 05:52] LABS: x Labcorp Estim. Avg Glu (eAG) 146 mg/dL (.); x Labcorp Hemoglobin A1c 6.7 % (4.8-5.6)
== END ==
PROVIDERS: Family Provider Family Medicine; PCP Family Medicine; Referring Provider Family Medicine; Visit Provider Family Medicine
DX: E11.9 Type 2 diabetes mellitus without complications (principal)
CPT/HCPCS: 36415; 80053; 80061; 83036

== ENCOUNTER → 2022-10-08 16:46 | Outpatient (CLI) | payer MEDICARE, OTHER, SELFPAY ==
--- NOTE | 2022-10-08 16:49 | DI.RAD.S_ITS ---
PROCEDURE: XR WRIST RT MIN 3V INDICATIONS: Wrist pain TECHNIQUE: 4 views of the wrist were acquired. COMPARISON: None. FINDINGS: Bones: No fractures or dislocations. No suspicious bony lesions. Scaphoid view: Unremarkable. Soft tissues: No suspicious soft tissue calcifications. IMPRESSION: No acute bony abnormality. Dictated by: Xiang Son M.D. on 10/09/2022 at 8:40 Approved by: Xiang Son M.D. on 10/09/2022 at 8:42
== END ==
PROVIDERS: Family Provider Family Medicine; PCP Family Medicine; Referring Provider Family Medicine; Visit Provider Family Medicine
DX: M25.531 Pain in right wrist (principal)
CPT/HCPCS: 73110

== ENCOUNTER → 2022-10-10 08:20 | Outpatient (CLI) | payer MEDICARE, OTHER, SELFPAY ==
--- NOTE | 2022-10-10 08:21 | DI.US.S_ITS ---
PROCEDURE: US CAROTID DOPPLER BI INDICATIONS: Disequilibrium TECHNIQUE: Color and pulse Doppler interrogation was performed of both carotid systems, with image documentation and velocity measurements. COMPARISON: [facility], MR, MR STROKE, 04/15/2020, 16:39. FINDINGS: The flow velocities and the arterial waveforms are normal within both carotid arterial systems. Atherosclerotic plaque is seen on both sides. The estimated degree of internal carotid artery stenosis is less than 50%. Antegrade flow is confirmed within both vertebral arteries. IMPRESSION: No hemodynamically significant stenosis is seen. Atherosclerotic plaque is noted bilaterally. Stenosis calculations are based on SRU (Society of Radiologists in Ultrasound) criteria. Dictated by: Govind Velez M.D. on 10/10/2022 at 13:27 Approved by: Govind Velez M.D. on 10/10/2022 at 13:31
== END ==
PROVIDERS: Family Provider Family Medicine; PCP Family Medicine; Referring Provider Family Medicine; Visit Provider Family Medicine
DX: R42 Dizziness and giddiness (principal); I65.23 Occlusion and stenosis of bilateral carotid arteries
CPT/HCPCS: 93880

== ENCOUNTER → 2022-10-17 07:45 | Outpatient (CLI) | payer MEDICARE, OTHER, SELFPAY ==
--- NOTE | 2022-10-17 | DI.MG.S_ITS ---
BILATERAL DIGITAL SCREENING MAMMOGRAM 3D/2D WITH CAD: 10/17/2022 CLINICAL: Routine screening. Family history of breast cancer. Comparison is made to exams dated: 09/30/2021 mammogram, 09/29/2020 mammogram, and 09/29/2019 [facility] [place]. There are scattered areas of fibroglandular density in both breasts (category b / 25%-50% glandular tissue). Current study was also evaluated with a Computer Aided Detection (CAD) system. No significant masses, calcifications, or other findings are seen in either breast. There has been no significant interval change. IMPRESSION: NEGATIVE There is no mammographic evidence of malignancy. A 1 year screening mammogram is recommended. Based on the Tyrer Cuzick model (a risk assessment model) the patient's lifetime risk is 2.1% and her 10 year risk is 1.6%. According to the ACR, ACS, and NCCN guidelines, an annual breast MRI exam along with mammogram is recommended if the patient's lifetime risk is 20% or greater. This exam was interpreted at Station ID: [id number]. NOTE: For mammograms, a report in lay terms will be sent to the patient. Approximately 15% of breast malignancies will not be visualized mammographically. In the management of a palpable breast mass, a negative mammogram must not discourage biopsy of a clinically suspicious lesion. Electronically Signed By: Kiersten robles/chi:10/18/2022 12:12:12 letter sent: Normal Exam ACR BI-RADS Category 1: Negative 3341F
== END ==
PROVIDERS: Family Provider Family Medicine; PCP Family Medicine; Referring Provider Family Medicine; Visit Provider Family Medicine
DX: Z12.31 Encounter for screening mammogram for malignant neoplasm of breast (principal); Z80.3 Family history of malignant neoplasm of breast
CPT/HCPCS: 77063; 77067

== ENCOUNTER → 2022-12-12 07:50 | Outpatient (CLI) | payer MEDICARE, OTHER, SELFPAY ==
--- NOTE | 2022-12-12 | DI.ECHO.S_ITS ---
[facility] +---------+ : : [address] : : : : [id number] : : : : Phone: [phone]---------+ Echocardiogram Report + + :Name: GEORGIE HERBERT Study Date: 12/12/2022 Height: 64 in : :[facility] ReadingLocation: Weight: 175 lb : : Gender: Female BSA: 1.8 m2 : :: 1950 Age: 72 yrs BP: 137/74 mmHg: :Reason For Study: PAROXISMAL ATRIAL FIBRILLATION : :Ordering Physician: JUANA, : :MEENU Performed By: Ellie Willson : :Referring: MEENU PULIDO : + + Interpretation Summary 1) Mildly increased left ventricular thickness (concentric) with normal size, normal wall motion, and normal systolic function (EF 60-65%). 2) Normal right ventricular size with low normal function. 3) No significant valvular abnormalities. 4) Compared to the Echo done 06/28/2017, no signifcant change. Procedure: A two-dimensional transthoracic echocardiogram with color flow and Doppler was performed. The study quality was technically adequate. Comparison is made with the echocardiogram of 06/28/2017. The patient was in sinus rhythm with heart rates between 64-68 bpm during the exam. Left Ventricle: Proximal septal thickening is noted. There is mild-moderate concentric left ventricular hypertrophy. The left ventricle is normal in size. The ejection fraction is estimated to be 60-65%. Left ventricular systolic function appears normal without focal wall motion abnormalities. Diastolic function could not be accurately assessed due to contradictory data. Right Ventricle: The right ventricle is normal size. Right ventricular systolic function is at the lower limits of normal. Atria: The left atrium is mildly dilated. Right atrial size is normal. The atrial septum is aneurysmal. Mitral Valve: There is mild to moderate mitral annular calcification. There is trace mitral regurgitation. Aortic Valve: The aortic valve is trileaflet. The aortic valve opens well. There is no aortic valve stenosis. No aortic regurgitation is present. Tricuspid Valve: The tricuspid valve is normal in structure and function. There is mild tricuspid regurgitation. The right ventricular systolic pressure is estimated to be at least 25 mmHg based on an estimated right atrial pressure of 3 mm Hg. Pulmonic Valve: The pulmonic valve leaflets are thin and pliable; valve motion is normal. There is trace pulmonic regurgitation. Great Vessels: The aortic root is normal size. The dimensions of the ascending aorta are normal. The IVC is of normal diameter and collapses greater than 50% with a sniff. This suggests a low right atrial pressure of 3 mm Hg. Pericardium/ Pleura There is no pericardial effusion. There is no pleural effusion. MMode/2D Measurements & Calculations LVIDd: 3.9 cm LVOT diam: 2.3 cm LVIDs: 2.8 cm Ao root diam: 3.5 cm FS: 27.4 % asc Aorta Diam: 3.0 cm IVSd: 1.6 cm Ao Arch Diam (Prox Trans): 2.8 cm LVPWd: 1.2 cm LV mena. diameter/BSA (cm/m^2): 2.1 LV sys. diameter/BSA (cm/m^2): 1.5 LA A2 area: 23.4 cm2 RA long axis: 5.0 cm LA A4 area: 17.0 cm2 RA area: 13.1 cm2 LA length (vol): 5.5 cm RA vol: 29.0 ml LA vol: 61.3 ml RA : 15.7 ml/m2 LA vol index: 33.2 ml/m2 IVC diam: 1.0 cm RVD1 (basal): 2.8 cm RVD2 (mid): 2.1 cm TAPSE: 1.6 cm Doppler Measurements & Calculations Ao V2 max: 183.4 cm/sec MV E max jerman: 88.8 cm/sec Ao V2 mean: 126.7 cm/sec MV A max jerman: 116.6 cm/sec Ao max P.5 mmHg MV E/A: 0.76 Ao mean P.3 mmHg Med Peak E' Jerman: 4.7 cm/sec Ao V2 VTI: 40.3 cm E/E' med: 18.8 Lat Peak E' Jerman: 8.0 cm/sec E/E' lat: 11.1 E/e' average: 15.0 MV dec time: 0.41 sec TR max jerman: 233.3 cm/sec MV V2 mean: 79.1 cm/sec TR max P.8 mmHg MV mean P.8 mmHg PA V2 max: 115.2 cm/sec MV V2 VTI: 40.6 cm PA V2 mean: 72.0 cm/sec PA mean P.5 mmHg PA pr(Accel): 39.6 mmHg Reading Physician:11:14 AM
== END ==
PROVIDERS: Family Provider Family Medicine; PCP Family Medicine; Referring Provider Internal Medicine Cardiovascular Disease; Visit Provider Internal Medicine Cardiovascular Disease
DX: I48.0 Paroxysmal atrial fibrillation (principal)
CPT/HCPCS: 93306

== ENCOUNTER → 2023-01-04 08:20 | Outpatient (CLI) | payer MEDICARE, OTHER, SELFPAY ==
[2023-01-04 08:52] LABS: Add Manual Diff / Slide Review NO; Basophils Absolute Auto 100 /uL (0-100); Basophils Percent Auto 0.9 % (0-2); Eosinophils Absolute Auto 300 /uL (0-450); Hematocrit 37.6 % (36-46); Hemoglobin 12.6 g/dL (12.0-16.0); Lymphocytes Absolute Auto 1900 /uL (1100-4500); Lymphocytes Percent Auto 23.3 % (25-40); Mean Corpuscular HGB Conc 33.6 % (30-36); Mean Corpuscular Hemoglobin 30.5 PG (26-34); Mean Corpuscular Volume 90.7 fL (80-100); Monocytes Absolute Auto 700 /uL (0-900); Monocytes Percent Auto 7.8 % (3-14); Neutrophils Absolute Auto 5300 /uL (1500-7000); Platelet Count 305 X10^3/uL (150-400); Red Blood Cell Count 4.14 X10^6/uL (4.0-5.2); Red Cell Distribution Width 13.4 % (11.6-14.8); White Blood Cell Count 8.3 X10^3/uL (4.5-11.0)
== END ==
PROVIDERS: Family Provider Family Medicine; PCP Family Medicine; Referring Provider Internal Medicine Cardiovascular Disease; Visit Provider Internal Medicine Cardiovascular Disease
DX: I10 Essential (primary) hypertension (principal)
CPT/HCPCS: 36415; 85025

== ENCOUNTER → 2023-01-26 10:26 | Outpatient (CLI) | payer MEDICARE, OTHER, SELFPAY ==
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
== END ==
PROVIDERS: Family Provider Family Medicine; PCP Family Medicine; Referring Provider Physician Assistant; Visit Provider Physician Assistant
DX: L08.9 Local infection of the skin and subcutaneous tissue, unspecified (principal); M20.11 Hallux valgus (acquired), right foot; M19.071 Primary osteoarthritis, right ankle and foot
CPT/HCPCS: 73630

== ENCOUNTER → 2023-04-08 08:23 | Outpatient (CLI) | payer MEDICARE, SELFPAY ==
[2023-04-08 09:11] LABS: Hemoglobin A1C% w Est Avg Glu 6.5 % (4.0-6.0)
== END ==
LOC: LAB 08:26
PROVIDERS: Family Provider Family Medicine; PCP Family Medicine; Referring Provider Family Medicine; Visit Provider Family Medicine
DX: E11.9 Type 2 diabetes mellitus without complications (principal)
CPT/HCPCS: 36415; 83036

== ENCOUNTER → 2023-06-25 09:13 | Outpatient (CLI) | payer MEDICARE, SELFPAY ==
--- NOTE | 2023-06-25 09:14 | DI.RAD.S_ITS ---
PROCEDURE: XR KNEE RT 3V INDICATIONS: fell on knee 4 days ago, pain @ patella TECHNIQUE: 3 views of the knee were acquired. COMPARISON: [facility], CR, XR KNEE LT 3V, 07/22/2020, 10:26. FINDINGS: Bones: No fractures or dislocations. No suspicious bony lesions. Medial tibiofemoral arthroplasty without hardware complication. Soft tissues: No joint effusion. No suspicious soft tissue calcifications. Vascular calcifications. IMPRESSION: No acute bony abnormality or significant effusion. No patellar fracture. Dictated by: Xiang Son M.D. on 06/25/2023 at 13:11 Approved by: Xiang Son M.D. on 06/25/2023 at 13:12
== END ==
PROVIDERS: Family Provider Family Medicine; PCP Family Medicine; Referring Provider Physician Assistant; Visit Provider Physician Assistant
DX: S89.91XA Unspecified injury of right lower leg, initial encounter (principal); W19.XXXA Unspecified fall, initial encounter; Z96.651 Presence of right artificial knee joint
CPT/HCPCS: 73562

== ENCOUNTER → 2023-10-14 07:43 | Outpatient (CLI) | payer MEDICARE, SELFPAY ==
[2023-10-14 08:18] LABS: Hemoglobin A1C% w Est Avg Glu 6.1 % (4.0-6.0)
[2023-10-14 08:27] LABS: Alanine Aminotransferase 18 IU/L (<35); Albumin 3.9 g/dL (3.5-5.0); Albumin Globulin Ratio 1.6 (1.0-2.8); Alkaline Phosphatase 70 U/L (38-126); Aspartate Aminotransferase 18 IU/L (14-36); BUN Creatinine Ratio 22.9 (6-22); Bilirubin Total 0.3 mg/dL (0.2-1.3); Blood Urea Nitrogen 19 mg/dL (7-17); Calcium 9.2 mg/dL (8.4-10.2); Carbon Dioxide 27 mmol/L (22-32); Chloride 102 mmol/L (98-107); Cholesterol 117 mg/dL (140-199); Estimated Glomerular Filt Rate > 60 mL/min (>60); Globulin 2.5 g/dL (1.7-4.1); Glucose 131 mg/dL (80-110); HDL Cholesterol 55 mg/dL (40-60); HEMOLYSIS < 15 (0-50); LDL Cholesterol Calculated 33 mg/dL (<100); Potassium 4.6 mmol/L (3.4-5.1); Sodium 135 mmol/L (137-145); Total Protein 6.4 g/dL (6.3-8.2); Triglycerides 144 mg/dL (35-150)
== END ==
PROVIDERS: Family Provider Family Medicine; PCP Family Medicine; Referring Provider Family Medicine; Visit Provider Family Medicine
DX: E11.9 Type 2 diabetes mellitus without complications (principal)
CPT/HCPCS: 36415; 80053; 80061; 83036

== ENCOUNTER → 2023-10-23 14:54 | Outpatient (CLI) | payer MEDICARE, SELFPAY ==
--- NOTE | 2023-10-23 14:55 | DI.MG.S_ITS ---
BILATERAL DIGITAL SCREENING MAMMOGRAM 3D/2D WITH CAD: 10/23/2023 CLINICAL: Routine screening. Family history of breast cancer. Comparison is made to exams dated: 10/17/2022 mammogram, 09/30/2021 mammogram, and 09/29/2020 mammogram - [facility]. There are scattered areas of fibroglandular density in both breasts (category b / 25%-50% glandular tissue). Current study was also evaluated with a Computer Aided Detection (CAD) system. No significant masses, calcifications, or other findings are seen in either breast. There has been no significant interval change. IMPRESSION: NEGATIVE There is no mammographic evidence of malignancy. A 1 year screening mammogram is recommended. Based on the Tyrer Cuzick model (a risk assessment model) the patient's lifetime risk is 2.0% and her 10 year risk is 1.6%. According to the ACR, ACS, and NCCN guidelines, an annual breast MRI exam along with mammogram is recommended if the patient's lifetime risk is 20% or greater. This exam was interpreted at Station ID: [id number]. NOTE: For mammograms, a report in lay terms will be sent to the patient. Approximately 15% of breast malignancies will not be visualized mammographically. In the management of a palpable breast mass, a negative mammogram must not discourage biopsy of a clinically suspicious lesion. Electronically Signed By: Padmini moody/chi:10/24/2023 10:22:09 letter sent: Normal Exam ACR BI-RADS Category 1: Negative 3341F
== END ==
LOC: MAMMO 14:54
PROVIDERS: Family Provider Family Medicine; PCP Family Medicine; Referring Provider Family Medicine; Visit Provider Family Medicine
DX: Z12.31 Encounter for screening mammogram for malignant neoplasm of breast (principal); Z80.3 Family history of malignant neoplasm of breast; R92.323 Mammographic fibroglandular density, bilateral breasts
CPT/HCPCS: 77063; 77067

== ENCOUNTER → 2023-12-17 08:14 | Outpatient (CLI) | payer MEDICARE, SELFPAY ==
[2023-12-17 08:58] LABS: Hematocrit 37.7 % (36-46); Hemoglobin 12.8 g/dL (12.0-16.0); Mean Corpuscular Hemoglobin 30.1 PG (26-34); Mean Corpuscular Volume 88.5 fL (80-100); Platelet Count 350 X10^3/uL (150-400); Red Blood Cell Count 4.26 X10^6/uL (4.0-5.2); Red Cell Distribution Width 13.6 % (11.6-14.8); White Blood Cell Count 8.1 X10^3/uL (4.5-11.0)
[2023-12-17 09:13] LABS: BUN Creatinine Ratio 27.6 (6-22); Blood Urea Nitrogen 21 mg/dL (7-17); Calcium 9.6 mg/dL (8.4-10.2); Carbon Dioxide 26 mmol/L (22-32); Chloride 96 mmol/L (98-107); Cholesterol 160 mg/dL (140-199); Estimated Glomerular Filt Rate > 60 mL/min (>60); Glucose 145 mg/dL (80-110); HDL Cholesterol 67 mg/dL (40-60); HEMOLYSIS 21 (0-50); LDL Cholesterol Calculated 63 mg/dL (<100); Potassium 4.9 mmol/L (3.4-5.1); Sodium 131 mmol/L (137-145); Triglycerides 151 mg/dL (35-150)
== END ==
PROVIDERS: Family Provider Family Medicine; PCP Family Medicine; Referring Provider Internal Medicine Cardiovascular Disease; Visit Provider Internal Medicine Cardiovascular Disease
DX: E78.5 Hyperlipidemia, unspecified (principal); I10 Essential (primary) hypertension; I48.0 Paroxysmal atrial fibrillation
CPT/HCPCS: 36415; 80048; 80061; 85027

== ENCOUNTER → 2024-04-15 11:27 | Outpatient (CLI) | payer MEDICARE, SELFPAY | PROVIDERS: Family Provider Family Medicine; PCP Family Medicine; Referring Provider Family Medicine; Visit Provider Family Medicine | DX: R39.9 Unspecified symptoms and signs involving the genitourinary system (principal) | CPT/HCPCS: 87077; 87086; 87186 ==

== ENCOUNTER → 2024-08-28 09:15 | Outpatient (CLI) | payer MEDICARE, SELFPAY ==
[2024-08-28 10:36] LABS: Hematocrit 37.4 % (36-46); Hemoglobin 12.7 g/dL (12.0-16.0); Mean Corpuscular Hemoglobin 30.5 PG (26-34); Mean Corpuscular Volume 89.5 fL (80-100); Platelet Count 302 X10^3/uL (150-400); Red Blood Cell Count 4.18 X10^6/uL (4.0-5.2); Red Cell Distribution Width 13.6 % (11.6-14.8); White Blood Cell Count 7.6 X10^3/uL (4.5-11.0)
[2024-08-28 10:58] LABS: Alanine Aminotransferase 20 IU/L (<35); Albumin 4.4 g/dL (3.5-5.0); Albumin Globulin Ratio 1.4 (1.0-2.8); Alkaline Phosphatase 58 U/L (38-126); Aspartate Aminotransferase 24 IU/L (14-36); BUN Creatinine Ratio 21.7 (6-22); Bilirubin Total 0.5 mg/dL (0.2-1.3); Blood Urea Nitrogen 20 mg/dL (7-17); C-Reactive Protein Quant < 0.5 mg/dL (<1.0); Calcium 9.4 mg/dL (8.4-10.2); Carbon Dioxide 25 mmol/L (22-32); Chloride 96 mmol/L (98-107); Estimated Glomerular Filt Rate > 60 mL/min (>60); Globulin 3.2 g/dL (1.7-4.1); Glucose 116 mg/dL (70-99); HEMOLYSIS < 15 (0-50); Magnesium 1.4 mg/dL (1.6-2.3); Sodium 130 mmol/L (137-145); Total Protein 7.6 g/dL (6.3-8.2)
[2024-08-28 11:26] LABS: Thyroid Stimulating Hormone 1.43 uIU/mL (0.47-4.68)
[2024-08-28 11:30] LABS: Ferritin 14 ng/mL (11-264)
[2024-08-28 12:02] LABS: Folate 7.1 ng/mL (2.76-20.0); Vitamin B12 597 pg/mL (239-931)
[2024-08-28 13:45] LABS: Iron 122 ug/dL (37-170); Percent Iron Saturation 30 % (15-50); Total Iron Binding Capacity 411 ug/dL (265-497)
== END ==
LOC: LAB 09:19
PROVIDERS: Family Provider Family Medicine; PCP Family Medicine; Referring Provider Physician Assistant; Visit Provider Physician Assistant
DX: R19.7 Diarrhea, unspecified (principal)
CPT/HCPCS: 36415; 80053; 82607; 82728; 82746; 83540; 83550; 83735; 84443; 85027; 86140

== ENCOUNTER → 2024-09-09 13:44 | Outpatient (CLI) | payer MEDICARE, SELFPAY | PROVIDERS: Family Provider Family Medicine; PCP Family Medicine; Referring Provider Physician Assistant; Visit Provider Physician Assistant | DX: R19.7 Diarrhea, unspecified (principal) | CPT/HCPCS: 82656; 83993 ==